=== PATIENT | female | born 1950 | race African-American/Black ===

== ENCOUNTER → 2018-02-18 | Outpatient (CLI) | payer MEDICARE ==
[2018-02-18 10:05] LABS: ABSOLUTE LYMPHOCYTES (AUTO) 0.4 10^3/uL (0.5-4.7); ABSOLUTE MONOCYTES (AUTO) 0.4 10^3/uL (0.1-1.4); ABSOLUTE NEUT (AUTO) 2.7 10^3/uL (1.7-8.2); BASOPHILS % (AUTO) 0.7 % (0-2); EOSINOPHILS % (AUTO) 0.9 % (0-6); HEMATOCRIT 22.7 % (36.0-47.0); LYMPHOCYTES % (AUTO) 10.6 % (13-45); MEAN CORPUSCULAR HEMOGLOBIN 18.5 pg (27.0-33.4); MEAN CORPUSCULAR HGB CONC 29.1 g/dL (32.0-36.0); MONOCYTES % (AUTO) 12.1 % (3-13); PLATELET COUNT 362 10^3/uL (150-450); RED BLOOD COUNT 3.57 10^6/uL (3.72-5.28); RED CELL DISTRIBUTION WIDTH 17.5 % (11.5-14.0); SEGMENTED NEUTROPHILS % (AUTO) 75.7 % (42-78); TOTAL CELLS COUNTED % (AUTO) 100 %; WHITE BLOOD COUNT 3.6 10^3/uL (4.0-10.5)
[2018-02-18 10:24] LABS: ALANINE AMINOTRANSFERASE 27 U/L (9-52); ALBUMIN 4.4 g/dL (3.5-5.0); ALKALINE PHOSPHATASE 95 U/L (38-126); ANION GAP 15 (5-19); ASPARTATE AMINO TRANSFERASE 20 U/L (14-36); BILIRUBIN,DIRECT 0.2 mg/dL (0.0-0.4); BILIRUBIN,TOTAL 0.2 mg/dL (0.2-1.3); BLOOD UREA NITROGEN 12 mg/dL (7-20); CALCIUM 10.3 mg/dL (8.4-10.2); CARBON DIOXIDE 28 mmol/L (22-30); CHLORIDE 101 mmol/L (98-107); CHOLESTEROL 191.82 mg/dL (0-200); GLUCOSE 112 mg/dL (75-110); POTASSIUM 4.5 mmol/L (3.6-5.0); SODIUM 144.3 mmol/L (137-145); TOTAL PROTEIN 7.2 g/dL (6.3-8.2); TRIGLYCERIDES 94 mg/dL (<150)
[2018-02-18 10:31] LABS: MEAN CORPUSCULAR VOLUME 64 fl (80-97)
[2018-02-18 10:34] LABS: ANISOCYTOSIS 1+; HYPOCHROMASIA 2+; POIKILOCYTOSIS 3+
[2018-02-18 10:35] LABS: OVALOCYTES 2+; PLATELET COMMENT ADEQUATE; TEAR DROP CELLS 1+
[2018-02-18 10:36] LABS: DIRECT LDL 92 mg/dL (<100)
[2018-02-18 10:40] LABS: FREE T4 (FREE THYROXINE) 0.95 ng/dL (0.78-2.19)
[2018-02-18 10:50] LABS: HEMOGLOBIN 6.6 g/dL (12.0-15.5)
[2018-02-18 11:31] LABS: THYROID STIMULATING HORMONE 3.94 uIU/mL (0.47-4.68)
[2018-02-20 13:24] LABS: PATH REVIEW PATHOLOGIST REVIEWED
== END ==
LOC: OD 08:20
PROVIDERS: ATTEND Physician Assistant
DX: E03.9 Hypothyroidism, unspecified (principal); Z13.220 Encounter for screening for lipoid disorders; Z79.899 Other long term (current) drug therapy
CPT/HCPCS: 36415; 80053; 80061; 84439; 84443; 85025

== ENCOUNTER → 2018-02-21 | Outpatient (CLI) | payer MEDICARE ==
--- NOTE | 2018-02-21 13:13 | RADIOLOGY REPORT (SQ) ---
EXAM DESCRIPTION: CHEST PA/LATERAL COMPLETED DATE/TIME: 02/21/2018 1:02 pm REASON FOR STUDY: COUGH COMPARISON: None. EXAM PARAMETERS: NUMBER OF VIEWS: two views TECHNIQUE: Digital Frontal and Lateral radiographic views of the chest acquired. RADIATION DOSE: NA LIMITATIONS: none FINDINGS: LUNGS AND PLEURA: Fairly extensive irregular reticulonodular pattern in both right and lef t upper lung zones, right greater than left. No pleural effusion. No pneumothorax. MEDIASTINUM AND HILAR STRUCTURES: No masses or contour abnormalities. HEART AND VASCULAR STRUCTURES: Heart normal size. No evidence for failure. BONES: No acute findings. HARDWARE: None in the chest. OTHER: No other significant finding. IMPRESSION: EXTENSIVE BILATERAL IRREGULAR RETICULONODULAR PATTERN. THIS COULD REPRESENT ACUTE PNEUM ONIA OR ATYPICAL INFECTION. CHRONIC PROCESS NOT EXCLUDED. TECHNICAL DOCUMENTATION: JOB ID: [id number] [employer]- All Rights Reserved Reading location - IP/workstation name: [email or web address]
[2018-02-21 14:04] LABS: ABSOLUTE LYMPHOCYTES (AUTO) 0.3 10^3/uL (0.5-4.7); ABSOLUTE MONOCYTES (AUTO) 0.4 10^3/uL (0.1-1.4); ABSOLUTE NEUT (AUTO) 2.8 10^3/uL (1.7-8.2); ABSOLUTE RETICS # 0.053 10^6/uL (0.028-0.122); EOSINOPHILS % (AUTO) 0.6 % (0-6); HEMATOCRIT 21.9 % (36.0-47.0); LYMPHOCYTES % (AUTO) 8.9 % (13-45); MEAN CORPUSCULAR HEMOGLOBIN 18.5 pg (27.0-33.4); MEAN CORPUSCULAR VOLUME 64 fl (80-97); MONOCYTES % (AUTO) 11.6 % (3-13); PLATELET COUNT 310 10^3/uL (150-450); RED BLOOD COUNT 3.43 10^6/uL (3.72-5.28); RETICULOCYTE COUNT (AUTO) 1.54 % (0.66-2.85); SEGMENTED NEUTROPHILS % (AUTO) 77.9 % (42-78); TOTAL CELLS COUNTED % (AUTO) 100 %; WHITE BLOOD COUNT 3.6 10^3/uL (4.0-10.5)
[2018-02-21 14:56] LABS: FERRITIN 5.01 ng/mL (11.1-264.0)
[2018-02-21 15:02] LABS: HYPOCHROMASIA 3+; PLATELET COMMENT ADEQUATE
[2018-02-21 15:03] LABS: OVALOCYTES SLIGHT; POIKILOCYTOSIS SLIGHT
[2018-02-21 15:07] LABS: HEMOGLOBIN 6.3 g/dL (12.0-15.5)
[2018-02-21 15:34] LABS: IRON(TIBC) < 10.1 ug/dL (37-170)
[2018-02-22 08:01] LABS: TRANSFERRIN 359 mg/dL (200-370)
== END ==
LOC: OD 12:25
PROVIDERS: ATTEND Physician Assistant
DX: D70.9 Neutropenia, unspecified (principal); R73.01 Impaired fasting glucose; D50.9 Iron deficiency anemia, unspecified; R05 Cough
CPT/HCPCS: 36415; 71046; 82525; 82607; 82728; 82746; 83036; 83540; 83550; 84466; 85025; 85045

== ENCOUNTER → 2018-02-24 | Outpatient (CLI) | payer MEDICARE ==
--- NOTE | 2018-02-24 15:54 | WOMENS IMAGING REPORT ---
EXAM DESCRIPTION: 3D SCREENING MAMMO BILAT COMPLETED DATE/TIME: 02/24/2018 3:43 pm REASON FOR STUDY: ROUTINE SCREENING;Z12.31 Z12.31 ENCNTR SCREEN MAMMOGRAM FOR MALIGNANT NEOPLASM OF MARIKA COMPARISON: None available. TECHNIQUE: Standard craniocaudal and mediolateral oblique views of each breast recorded using digita l acquisition and breast tomosynthesis. LIMITATIONS: None. FINDINGS: No masses, calcifications or architectural distortion. No areas of suspicion. Read with the assistance of CAD. .[facility] - R2 Cenova Version 1.3 .[facility] Imaging - R2 Cenova Version 1.3 .[facility] - R2 Cenova Version 2.4 .[facility] - R2 Cenova Version 2.4 .[facility] - R2 Poured Wall Foreman Version 9.2 IMPRESSION: NORMAL MAMMOGRAM. BIRADS 1. BREAST DENSITY: c. The breasts are heterogeneously dense, which may obscure small masses. BIRAD: 1 NEGATIVE RECOMMENDATION: ROUTINE SCREENING COMMENT: The patient has been notified of the results by letter per SA requirements. Additional no tification policies are in place for contacting patient with suspicious or incomplete findings. Quality ID #[id number]: The [employer] recommends an annual screening mammogram for women aged 40 years or over. This facility utilizes a reminder system to ensure that all patients receive reminder letters, and/or direct phone calls for appointments. This includes reminders for routine scr eening mammograms, diagnostic mammograms, or other Breast Imaging Interventions when appropriate. Th is patient will be placed in the appropriate reminder system. The [employer] (ACR) has developed recommendations for screening MRI of the breast s in certain patient populations, to be used in conjunction with mammography. Breast MRI surveillanc e may be appropriate for women with more than 20% lifetime risk of developing breast cancer as deter mined by genetic testing, significant family history of the disease, or history of mantle radiation f or Hodgkins Disease. ACR Practice Guidelines 2008. DBT Technology DBT is a type of tomographic mammography. With conventional mammography, overlapping breast tissue ma y make lesions difficult to detect, even with good compression. DBT uses an x-ray tube that rotates a round the breast, taking images at different angles. These images are then combined to create thin sl ices of the breast that the radiologist can view as a 3D reconstruction. The BioMax unit can perform full-field digital mammograms (2D imaging); or DBT (3D imaging); or both, in a combination mode that quickly performs both the mammogram and the tomosynthesis scan while the breast is still compressed. PQRS 6045F: Fluoroscopic imaging is not utilized for breast tomosynthesis. TECHNICAL DOCUMENTATION: FINDING NUMBER: (1) ASSESSMENT: (1) JOB ID: [id number] [employer]- All Rights Reserved Reading location - IP/workstation name: [email or web address]
== END ==
LOC: WI 15:14
PROVIDERS: ATTEND Physician Assistant
DX: Z12.31 Encounter for screening mammogram for malignant neoplasm of breast (principal)
CPT/HCPCS: 77063; 77067

== ENCOUNTER 2018-03-06 15:23 | Inpatient (IN) | payer MEDICARE ==
[2018-03-06] MEDS ORDERED: KETOROLAC TROMETHAMINE INJ/PF 30 MG/1 ML SDV IV ONE (16:58)
--- NOTE | 2018-03-06 17:01 | ER Document Report ---
ED Medical Screen (RME) - General Chief Complaint: Rib Pain Stated Complaint: LEFT SIDE PAIN Time Seen by Provider: 03/06/18 16:36 Mode of Arrival: Ambulatory Information source: Patient TRAVEL OUTSIDE OF THE [place] IN LAST 30 DAYS: No - HPI Patient complains to provider of: chest pain Notes: 03/06/18 16:59 Patient is here with complaints of left-sided chest pain. She states that is been present for little over a month. The pain is worse with deep breath. She feels short of breath. She denies any trauma or injury. She denies any cough or fever. She denies any leg pain or swelling, history of DVT or PE, cancer history, recent long trips or surgeries, immobilization, hormone use. She was seen by her primary care doctor for this and told to come to the ER if her symptoms did not improve or worsened. Physical exam: Patient is nontoxic appearing and in no distress. Lungs are clear. Plan: CBC, CMP, troponin, BNP, urine, EKG, chest x-ray. An initial examination was made on the patient as part of the triage process, and it was determined a more comprehensive evaluation was necessary. Initial labs were ordered and patient was transferred to another provider in the ED who assumed care and finished evaluation and plan. - Related Data Allergies/Adverse Reactions: No Known Allergies Allergy (Verified 03/06/18 15:25) Physical Exam - Vital signs Vitals: Temp Pulse Resp BP Pulse Ox 98.6 F 93 14 124/64 98 03/06/18 15:31 03/06/18 15:31 03/06/18 15:31 03/06/18 15:31 03/06/18 15:31 Course - Vital Signs Vital signs: Temp Pulse Resp BP Pulse Ox 98.6 F 93 14 124/64 98 03/06/18 15:31 03/06/18 15:31 03/06/18 15:31 03/06/18 15:31 03/06/18 15:31
--- NOTE | 2018-03-06 17:16 | RADIOLOGY REPORT (SQ) ---
EXAM DESCRIPTION: CHEST 2 VIEWS COMPLETED DATE/TIME: 03/06/2018 5:06 pm REASON FOR STUDY: chest pain COMPARISON: 02/21/2018 EXAM PARAMETERS: NUMBER OF VIEWS: two views TECHNIQUE: Digital Frontal and Lateral radiographic views of the chest acquired. RADIATION DOSE: NA LIMITATIONS: none FINDINGS: LUNGS AND PLEURA: Slight improved aeration in the right mid lung, but there are persistent patchy nodular -reticulonodular opacities bilaterally, mid and upper lobe predominance. No pneumoth orax. No significant effusion. MEDIASTINUM AND HILAR STRUCTURES: Stable. HEART AND VASCULAR STRUCTURES: Heart normal size. BONES: No acute findings. HARDWARE: None in the chest. OTHER: No other significant finding. IMPRESSION: Slight improved aeration in the right mid lung, but there are persistent patchy nodular -reticulonodular opacities bilaterally, mid and upper lobe predominance. COMMENT: Continued radiographic follow-up is recommended to confirm clearing. TECHNICAL DOCUMENTATION: JOB ID: [id number] [place]-72 2010 [employer]- All Rights Reserved Reading location - IP/workstation name: [email or web address]
[2018-03-06 18:54] LABS: ALANINE AMINOTRANSFERASE 31 U/L (9-52); ALBUMIN 4.6 g/dL (3.5-5.0); ALKALINE PHOSPHATASE 108 U/L (38-126); ANION GAP 15 (5-19); ASPARTATE AMINO TRANSFERASE 26 U/L (14-36); BILIRUBIN,DIRECT 0.2 mg/dL (0.0-0.4); BILIRUBIN,TOTAL 0.4 mg/dL (0.2-1.3); BLOOD UREA NITROGEN 12 mg/dL (7-20); CALCIUM 10.4 mg/dL (8.4-10.2); CARBON DIOXIDE 24 mmol/L (22-30); CHLORIDE 97 mmol/L (98-107); GLUCOSE 117 mg/dL (75-110); POTASSIUM 4.4 mmol/L (3.6-5.0); SODIUM 135.7 mmol/L (137-145); TOTAL PROTEIN 7.4 g/dL (6.3-8.2)
[2018-03-06 19:21] LABS: NT PRO BNP 66 pg/mL (5-900)
[2018-03-06 19:23] LABS: TROPONIN I < 0.012 ng/mL
[2018-03-06 19:25] LABS: HEMATOCRIT 23.2 % (36.0-47.0); MEAN CORPUSCULAR HEMOGLOBIN 19.9 pg (27.0-33.4); MEAN CORPUSCULAR HGB CONC 29.4 g/dL (32.0-36.0); PLATELET COUNT 491 10^3/uL (150-450); RED BLOOD COUNT 3.43 10^6/uL (3.72-5.28); RED CELL DISTRIBUTION WIDTH 17.9 % (11.5-14.0); WHITE BLOOD COUNT 6.5 10^3/uL (4.0-10.5)
[2018-03-06 19:29] LABS: MEAN CORPUSCULAR VOLUME 68 fl (80-97)
[2018-03-06 19:46] LABS: ABSOLUTE LYMPHOCYTES# (MANUAL) 0.5 10^3/uL (0.5-4.7); ABSOLUTE MONOCYTES # (MANUAL) 0.8 10^3/uL (0.1-1.4); ABSOLUTE NEUTROPHILS# (MANUAL) 5.2 10^3/uL (1.7-8.2); BASOPHILS % (MANUAL) 0 % (0-2); EOSINOPHILS % (MANUAL) 1 % (0-6); LYMPHOCYTES % (MANUAL) 7 % (13-45); MONOCYTES % (MANUAL) 12 % (3-13); SEGMENTED NEUTROPHILS % (MAN) 80 % (42-78); TOTAL CELLS COUNTED 100
[2018-03-06 19:48] LABS: ANISOCYTOSIS 1+; HYPOCHROMASIA 1+; PLATELET COMMENT INCREASED; POIKILOCYTOSIS SLIGHT; TOXIC GRANULATION SLIGHT
[2018-03-06 19:52] LABS: HEMOGLOBIN 6.8 g/dL (12.0-15.5)
--- NOTE | 2018-03-06 20:00 | RADIOLOGY REPORT (SQ) ---
EXAM DESCRIPTION: CTA CHEST COMPLETED DATE/TIME: 03/06/2018 7:29 pm REASON FOR STUDY: cxr abnormalities COMPARISON: None. TECHNIQUE: CT scan of the chest performed using helical scanning technique with dynamic intravenous contrast injection. Images reviewed with lung, soft tissue and bone windows. Reconstructed coronal and sagittal MPR images reviewed. Additional 3 dimensional post-processing performed to develop Maximal Intensity Projection images (OR P). All images stored on PACS. All CT scanners at this facility use dose modulation, iterative reconstruction, and/or weight based d osing when appropriate to reduce radiation dose to as low as reasonably achievable (ALARA). [facility]: Dose Right [facility]: CareDose [facility]: Dose Right [facility]: Teradose 4D [facility]: Talkray CONTRAST TYPE AND DOSE: contrast/concentration: Isovue 370.00 mg/ml; Total Contrast Delivered: 61.0 ml; Total Saline Delivered: 93.0 ml Contrast bolus adequate for pulmonary arteries and aorta. RENAL FUNCTION: BUN 12 creatinine 0.8 RADIATION DOSE: CT Rad equipment meets quality standard of care and radiation dose reduction techniq ues were employed. CTDIvol: 13.2 - 14.7 mGy. DLP: 513 mGy-cm. . LIMITATIONS: None. FINDINGS: LUNGS AND PLEURA: Patchy subsegmental airspace disease in both lungs with some nodular mor phology and relative sparing of the lower lobes. No evidence of cavitation. No effusions. AORTA AND GREAT VESSELS: No aneurysm. Contrast bolus not optimized for the aorta. HEART: No pericardial effusion. No significant coronary artery calcifications. PULMONARY ARTERIES: No emboli visualized in the main pulmonary arteries or the segmental branches. HILAR AND MEDIASTINAL STRUCTURES: No identified masses or abnormal nodes. HARDWARE: None in the chest. UPPER ABDOMEN: At least 2 lesions in the liver which are difficult to further characterize due to sm all size. THYROID AND OTHER SOFT TISSUES: No masses. No adenopathy. BONES: No acute or significant finding. 3D MIPS: Confirm above findings. OTHER: No other significant finding. IMPRESSION: 1. No PE. 2. Bilateral airspace disease with potential developing nodules especially in the left upper lobe. C ould be infectious, inflammatory or neoplastic. 3. Small low-density lesions in the liver which will need dedicated liver imaging follow-up. COMMENT: Quality ID # [id number]: Final reports with documentation of one or more dose reduction techniques (e.g., Automated exposure control, adjustment of the mA and/or kV according to patient size, use of iterative reconstruction technique) TECHNICAL DOCUMENTATION: JOB ID: [id number] [employer]- All Rights Reserved Reading location - IP/workstation name: [email or web address]
[2018-03-06] MEDS ORDERED: NORMAL SALINE 250 ML IV PRN (20:17)
--- NOTE | 2018-03-06 20:21 | ER Document Report ---
ED General - General Chief Complaint: Rib Pain Stated Complaint: LEFT SIDE PAIN Time Seen by Provider: 03/06/18 16:36 Mode of Arrival: Ambulatory Notes: Patient is a 67-year-old female with a past medical history of hypertension who presents with 3-4 weeks of left-sided pleuritic pain. Patient reports it is a stabbing, constant pain worsened by breathing. She notes mild associated shortness of breath. She has seen her primary care doctor regarding this concern and was told that she had multiple nodules in her lungs that could be an infection or alternative process. She has a pulmonary consult pending but does not know the date at which she will be able to go to this consultation. She denies a history of similar symptoms in the past. Nothing improves or worsens her symptoms. She denies any hemoptysis, unilateral leg swelling or history of DVT or pulmonary embolus. No prior history of malignancy. She does note some involuntary weight loss. She has not had any vomiting, diarrhea or chest pain. No fever, cough or sputum production. TRAVEL OUTSIDE OF THE [place] IN LAST 30 DAYS: No - Related Data Allergies/Adverse Reactions: No Known Allergies Allergy (Verified 03/06/18 15:25) Past Medical History - General Information source: Patient - Social History Smoking Status: Never Smoker Frequency of alcohol use: None Drug Abuse: None Lives with: Family Family History: Reviewed & Not Pertinent Patient has suicidal ideation: No Patient has homicidal ideation: No Renal/ Medical History: Denies: Hx Peritoneal Dialysis Review of Systems - Review of Systems Notes: Constitutional: Negative for fever. HENT: Negative for sore throat. Eyes: Negative for visual changes. Cardiovascular: Positive for pleuritic pain Respiratory: Positive for shortness of breath. Gastrointestinal: Negative for abdominal pain, vomiting or diarrhea. Genitourinary: Negative for dysuria. Musculoskeletal: Negative for back pain. Skin: Negative for rash. Neurological: Negative for headaches, weakness or numbness. 10 point ROS negative except as marked above and in HPI. Physical Exam - Vital signs Vitals: Temp Pulse Resp BP Pulse Ox 98.6 F 93 14 124/64 98 03/06/18 15:31 03/06/18 15:31 03/06/18 15:31 03/06/18 15:31 03/06/18 15:31 Interpretation: Normal Notes: PHYSICAL EXAMINATION: GENERAL: Somewhat cachectic, no acute distress HEAD: Atraumatic, normocephalic. EYES: Pupils equal round and reactive to light, extraocular movements intact, sclera anicteric, conjunctiva are normal. ENT: nares patent, oropharynx clear without exudates. Moist mucous membranes. NECK: Normal range of motion, supple without lymphadenopathy LUNGS: Breath sounds clear to auscultation bilaterally and equal. No wheezes rales or rhonchi. HEART: Regular rate and rhythm without murmurs ABDOMEN: Soft, nontender, normoactive bowel sounds. No guarding, no rebound. No masses appreciated. EXTREMITIES: Normal range of motion, no pitting or edema. No cyanosis. NEUROLOGICAL: No focal neurological deficits. Moves all extremities spontaneously and on command. PSYCH: Normal mood, normal affect. SKIN: Warm, Dry, normal turgor, no rashes or lesions noted. Course - Re-evaluation Re-evalutation: 03/06/18 20:19 Patient presents with several weeks of progressively worsening left pleuritic pain, shortness of breath and general fatigue. Patient had a chest x-ray approximately 2 weeks ago as an outpatient which showed multiple nodularities in the bilateral lungs worrisome for . She also was found to be anemic as an outpatient but was placed on iron supplementation and not given a blood transfusion. Today the patient presents with ongoing left pleuritic pain. A CT of the chest was obtained given concern of possible malignancy as well as dyspnea and pleuritic pain worrisome for possible pulmonary embolus. CT is clear for any evidence of acute PE but shows multiple nodularities bilaterally worse in the left upper lobe as well as a possible nodularity in the liver again very worrisome for metastatic malignancy. The patient's blood work also shows marked anemia with a hemoglobin at 6.8. Patient will require blood transfusion has been typed and screened and will receive 2 units of packed red blood cells. I discussed this case with the oncologist escalation engineer Dr. Felton Hazel who agrees that this patient requires hospitalization and will consult on the patient for further evaluation of the lung nodularities as well as the liver nodularity. I will discuss with the hospitalist for admission. I have relayed these findings the patient and have discussed with her at length the plan for hospitalization. - Vital Signs Vital signs: Temp Pulse Resp BP Pulse Ox 98.1 F 57 L 16 111/61 100 03/07/18 03:45 03/07/18 03:45 03/07/18 03:45 03/07/18 03:45 03/07/18 03:45 - Laboratory Result Diagrams: 03/06/18 19:13 03/06/18 18:21 Laboratory results interpreted by me: 03/06/18 03/06/18 03/06/18 18:21 18:21 19:13 RBC 3.43 L Hgb 6.8 L Hct 23.2 L MCV 68 L D MCH 19.9 L MCHC 29.4 L RDW 17.9 H Plt Count 491 H Seg Neuts % (Manual) 80 H Lymphocytes % (Manual) 7 L D-Dimer 1.15 H Sodium 135.7 L Chloride 97 L Glucose 117 H Calcium 10.4 H Crossmatch 03/06/18 20:31 RBC Hgb Hct MCV MCH MCHC RDW Plt Count Seg Neuts % (Manual) Lymphocytes % (Manual) D-Dimer Sodium Chloride Glucose Calcium Crossmatch See Detail - Diagnostic Test Radiology reviewed: Image reviewed, Reports reviewed Radiology results interpreted by me: 03/06/18 20:20 CTA chest: Multiple nodularities in the bilateral lungs Discharge - Discharge Clinical Impression: Lung nodule, multiple, Pleuritic pain Iron deficiency anemia Qualifiers: Iron deficiency anemia type: unspecified iron deficiency Qualified Code(s): D50.9 - Iron deficiency anemia, unspecified Condition: Fair Disposition: ADMITTED INPATIENT Admitting Provider: Hospitalist Unit Admitted: Telemetry
[2018-03-06] MEDS ORDERED: OXYCODONE-ACETAMINOPHEN 5-325 MG TABLET PO PRN (21:08)
[2018-03-06] MEDS ORDERED: PROMETHAZINE HCL 25 MG TABLET PO PRN (21:08)
[2018-03-06] MEDS ORDERED: TEMAZEPAM 7.5 MG CAPSULE PO PRN (21:08)
--- NOTE | 2018-03-06 21:40 | PDOC H&P ---
History of Present Illness Admission Date/PCP: 03/06/18 20:46 History of Present Illness: ROHITH MARTINEZ is a 67 year old black female patient who does not significant medical history except for hypertension and hypothyroidism presents with chief complaint of shortness of breath, generalized body weakness and pleuritic chest pain of 4 weeks duration. Patient initially visited her primary care physician office and she is started on iron preparations for anemia. About 2 weeks ago patient had a chest x-ray and outpatient and it revealed bilateral lung nodules. He also CTA of the chest was done reported as bilateral airspace disease with potential developing nodules especially in the left upper lobe and also a small low-density lesion in the liver. Patient denied any history of smoking but cancer runs in her family. Patient also found to have hemoglobin of 6.8 which 2 units of WBC requested. Patient denied chills, fever, cough, nausea, vomiting, palpitation or diaphoresis. She has unintentional weight loss and decreased appetite. Past Medical History Cardiac Medical History: Reports: Hypertension Endocrine Medical History: Reports: Hypothyroidism Hematology: Reports: Anemia Past Surgical History Past Surgical History: Reports: None Social History Smoking Status: Never Smoker Frequency of Alcohol Use: None Drugs: None - Advance Directive Resuscitation Status: Full Code Family History Family History: Malignancy Parental Family History Reviewed: Yes Children Family History Reviewed: Yes Sibling(s) Family History Reviewed.: Yes Medication/Allergy Home Medications: Buspirone HCl [Buspar 5 mg Tablet] 1 tab PO DAILY 03/06/18 Levothyroxine Sodium [Synthroid 0.025 mg Tablet] 25 mcg PO DAILY 03/06/18 Lisinopril/Hydrochlorothiazide [Lisinopril-Hctz 20-12.5 mg Tab] 1 each PO DAILY 03/06/18 Allergies/Adverse Reactions: No Known Allergies Allergy (Verified 03/06/18 15:25) Review of Systems Constitutional: PRESENT: as per HPI Eyes: PRESENT: as per HPI Respiratory: PRESENT: as per HPI Gastrointestinal: PRESENT: as per HPI Neurological: PRESENT: as per HPI Physical Exam Vital Signs: Temp Pulse Resp BP Pulse Ox 97.6 F 84 18 147/72 H 100 03/06/18 20:22 03/06/18 19:35 03/06/18 20:20 03/06/18 20:20 03/06/18 20:20 General appearance: PRESENT: no acute distress Head exam: PRESENT: atraumatic, normocephalic Respiratory exam: PRESENT: crackles - Left leg Cardiovascular exam: PRESENT: RRR. ABSENT: diastolic murmur, rubs, systolic murmur Neurological exam: PRESENT: alert, awake, oriented to time, oriented to situation Results Impressions: Chest X-Ray 03/06/18 16:55 IMPRESSION: Slight improved aeration in the right mid lung, but there are persistent patchy nodular -reticulonodular opacities bilaterally, mid and upper lobe predominance. Chest/Abdomen CTA 03/06/18 18:34 IMPRESSION: 1. No PE. 2. Bilateral airspace disease with potential developing nodules especially in the left upper lobe. Could be infectious, inflammatory or neoplastic. 3. Small low-density lesions in the liver which will need dedicated liver imaging follow-up. Assessment & Plan - Diagnosis (1) Iron deficiency anemia Qualifiers: Iron deficiency anemia type: unspecified iron deficiency Qualified Code(s) : D50.9 - Iron deficiency anemia, unspecified Is this a current diagnosis for this admission?: Yes Plan: We will transfuse her 2 units of packed RBC. We will work her up as to the cause of her anemia. (2) Lung nodule, multiple Is this a current diagnosis for this admission?: Yes Plan: Worrisome for malignancy CT-guided biopsy Oncology consult (3) Hypertension Qualifiers: Hypertension type: essential hypertension Qualified Code(s): I10 - Essential (primary) hypertension Is this a current diagnosis for this admission?: Yes Plan: To her home medication (4) Hypothyroidism Qualifiers: Hypothyroidism type: acquired Qualified Code(s): E03.9 - Hypothyroidism, unspecified Is this a current diagnosis for this admission?: Yes Plan: Continue her Synthroid. - Time Critical Time spent with patient: 25-34 minutes
[2018-03-07] MEDS: LANSOPRAZOLE 30 MG TAB.RAP.DR PO SCH (05:35)
--- NOTE | 2018-03-07 07:17 | EKG REPORT ---
SEVERITY:- OTHERWISE NORMAL ECG - SINUS RHYTHM BORDERLINE LEFT AXIS DEVIATION : Confirmed by: Carter Casiano MD 07-Mar-2018 07:17:24
--- NOTE | 2018-03-07 08:39 | PDOC CONSULTATION ---
Consultation Consult Date: 03/07/18 Attending physician:: MARLA MONTIEL Consult reason:: Symptomatic anemia, concern of lung abnormality History of Present Illness Admission Date/PCP: 03/06/18 20:46 Patient complains of: Shortness of breath, anemia History of Present Illness: ROHITH MARTINEZ is a 67 year old female with recent history of iron deficiency anemia, she actually did see us in our office and we had set her up for an iron infusion this week, at the time she saw us although her hemoglobin was in the 6- 7 range she was minimally symptomatic, so we decided on holding on transfusion at that time and decided to set her up for less invasive iron infusion. Unfortunately about 24-48 hours prior to admission she began having increased shortness of breath and chest pain, ultimately she presented to the ED and at that time she was found to have a hemoglobin in the 6 range, iron studies once again did confirm severe iron deficiency, she had a CTA of the chest looking for thrombosis but this was not found instead patient did have bilateral lung opacities, there was concern of either infectious, inflammatory or malignancy cause. She has not had any significant low weight loss and has not had any black stool or hematochezia. Past Medical History Cardiac Medical History: Reports: Hypertension Endocrine Medical History: Reports: Hypothyroidism Hematology: Reports: Anemia Past Surgical History Past Surgical History: Reports: None Social History Information Source: Patient Lives with: Family Smoking Status: Never Smoker Frequency of Alcohol Use: None Hx Recreational Drug Use: No Drugs: None Hx Prescription Drug Abuse: No - Advance Directive Resuscitation Status: Full Code Family History Family History: Reviewed & Not Pertinent Parental Family History Reviewed: Yes Children Family History Reviewed: Yes Sibling(s) Family History Reviewed.: Yes Medication/Allergy Home Medications: Buspirone HCl [Buspar 5 mg Tablet] 1 tab PO DAILY 03/06/18 Levothyroxine Sodium [Synthroid 0.025 mg Tablet] 25 mcg PO DAILY 03/06/18 Lisinopril/Hydrochlorothiazide [Lisinopril-Hctz 20-12.5 mg Tab] 1 each PO DAILY 03/06/18 Allergies/Adverse Reactions: No Known Allergies Allergy (Verified 03/06/18 15:25) Review of Systems Constitutional: PRESENT: fatigue, weakness Cardiovascular: PRESENT: chest pain, dyspnea on exertion Respiratory: PRESENT: dyspnea Gastrointestinal: ABSENT: abdominal pain, constipation, diarrhea, hematemesis, hematochezia, nausea, vomiting Neurological: ABSENT: abnormal gait, abnormal speech, confusion, dizziness, focal weakness, syncope Psychiatric: ABSENT: anxiety, depression, homidical ideation, suicidal ideation Hematologic/Lymphatic: ABSENT: easy bleeding, easy bruising Physical Exam Vital Signs: Temp Pulse Resp BP Pulse Ox 98.2 F 63 16 109/61 100 03/07/18 07:15 03/07/18 07:15 03/07/18 07:15 03/07/18 07:15 03/07/18 07:15 Intake & Output 03/06/18 03/07/18 03/08/18 06:59 06:59 06:59 Intake Total 1122 Balance 1122 Weight 56.3 kg General appearance: PRESENT: no acute distress, well-developed, well-nourished Head exam: PRESENT: atraumatic, normocephalic Eye exam: PRESENT: conjunctiva pink, EOMI, PERRLA. ABSENT: scleral icterus Ear exam: PRESENT: normal external ear exam Mouth exam: PRESENT: moist, tongue midline Neck exam: ABSENT: carotid bruit, JVD, lymphadenopathy, thyromegaly Respiratory exam: PRESENT: clear to auscultation rochelle. ABSENT: rales, rhonchi, wheezes Cardiovascular exam: PRESENT: RRR. ABSENT: diastolic murmur, rubs, systolic murmur Pulses: PRESENT: normal dorsalis pedis pul Vascular exam: PRESENT: normal capillary refill GI/Abdominal exam: PRESENT: normal bowel sounds, soft. ABSENT: distended, guarding, mass, organolmegaly, rebound, tenderness Rectal exam: PRESENT: deferred Extremities exam: PRESENT: full ROM. ABSENT: calf tenderness, clubbing, pedal edema Neurological exam: PRESENT: alert, awake, oriented to person, oriented to place , oriented to time, oriented to situation, CN II-XII grossly intact. ABSENT: motor sensory deficit Psychiatric exam: PRESENT: appropriate affect, normal mood. ABSENT: homicidal ideation, suicidal ideation Skin exam: PRESENT: dry, intact, warm. ABSENT: cyanosis, rash Results Impressions: Chest X-Ray 03/06/18 16:55 IMPRESSION: Slight improved aeration in the right mid lung, but there are persistent patchy nodular -reticulonodular opacities bilaterally, mid and upper lobe predominance. Chest/Abdomen CTA 03/06/18 18:34 IMPRESSION: 1. No PE. 2. Bilateral airspace disease with potential developing nodules especially in the left upper lobe. Could be infectious, inflammatory or neoplastic. 3. Small low-density lesions in the liver which will need dedicated liver imaging follow-up. Status: Image reviewed by me Assessment & Plan - Diagnosis (1) Iron deficiency anemia Qualifiers: Iron deficiency anemia type: chronic blood loss Qualified Code(s): D50.0 - Iron deficiency anemia secondary to blood loss (chronic) Is this a current diagnosis for this admission?: Yes Plan: Most likely going to be a chronic blood loss, she has never had a colonoscopy, I will order a CT of the abdomen pelvis today with IV and oral contrast, she is receiving blood today, after blood I will give her IV iron. (2) Lung nodule, multiple Is this a current diagnosis for this admission?: Yes Plan: Unsure if it is going to be a malignancy cause but infection as well as inflammation can cause this, await CT of the abdomen pelvis to see if there is any other areas that are concerning, possibly for a primary tumor, we will go with further diagnostics based upon that. - Time Time Spent: Greater than 70 Minutes - Inpatient Certification Based on my medical assessment, after consideration of the patient's comorbidities, presenting symptoms, or acuity I expect that the services needed warrant INPATIENT care.: Yes I certify that my determination is in accordance with my understanding of Medicare's requirements for reasonable and necessary INPATIENT services [42 CFR 412.3e].: Yes Medical Necessity: Need For Continuous Telemetry Monitoring, Need for IV Antibiotics, Risk of Complication if Not Cared For in Hospital
--- NOTE | 2018-03-07 08:59 | Physician Advisory Note ---
Physician Advisor ProgressNote .: [facility] I have reviewed the medical record for this patient. Physician Advisor Statement: Please consider documenting, if you agree: 1. possible cause of the suspected chronic blood loss causing the anemia of Fe defic 2. clarify the possible documentation discrepancy about pt wt - H&P states pt has had wt loss & poor appetite, while onc consult note states pt has not had any signif wt loss. BMI is 20. 3. Medical necessity: if attending finds pt continues to need hospital level workup/care/monitoring for a 2nd MN, please document the ongoing concerns/ clinical issues, & may change to Inpatient status. Status: [facility] pt, has had 1MN in hospital care so far. 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 CT-guided bx of lung lesion is ordered. See above. Thanks! CK
[2018-03-07] MEDS ORDERED: NORMAL SALINE 250 ML IV PRN ×2 (10:45)
--- NOTE | 2018-03-07 10:57 | PDOC PROGRESS REPORT ---
Subjective Progress Note for:: 03/07/18 Subjective:: No complaints. Patient states that she had lost around 2 pounds recently. She has been having poor appetite for a couple of days because felt overloaded. Symptoms had improved since then. She has never had a colonoscopy done despite that she is 67 years old. Review of systems All organ systems evaluated and negative except as in subjective All significant diagnostics and laboratories have been reviewed Reason For Visit: SYMPTOMATIC ANEMIA, PLEURITIC CHEST PAIN Physical Exam Vital Signs: Temp Pulse Resp BP Pulse Ox 98.2 F 63 16 109/61 100 03/07/18 07:15 03/07/18 07:15 03/07/18 07:15 03/07/18 07:15 03/07/18 07:15 Intake & Output 03/06/18 03/07/18 03/08/18 06:59 06:59 06:59 Intake Total 1122 Balance 1122 Weight 56.3 kg General appearance: PRESENT: no acute distress, cooperative, thin Head exam: PRESENT: atraumatic, normocephalic Eye exam: PRESENT: conjunctiva pale, EOMI, PERRLA Ear exam: PRESENT: normal external ear exam Mouth exam: PRESENT: moist Neck exam: PRESENT: full ROM. ABSENT: JVD, lymphadenopathy, tenderness Respiratory exam: PRESENT: clear to auscultation rochelle Cardiovascular exam: PRESENT: RRR. ABSENT: diastolic murmur, systolic murmur Vascular exam: PRESENT: normal capillary refill GI/Abdominal exam: PRESENT: normal bowel sounds, soft. ABSENT: tenderness Extremities exam: PRESENT: full ROM. ABSENT: pedal edema Musculoskeletal exam: PRESENT: ambulatory Neurological exam: PRESENT: alert, awake, oriented to person, oriented to place , oriented to time, oriented to situation, CN II-XII grossly intact Psychiatric exam: PRESENT: appropriate affect, normal mood Skin exam: PRESENT: intact, normal color Results Impressions: Chest X-Ray 03/06/18 16:55 IMPRESSION: Slight improved aeration in the right mid lung, but there are persistent patchy nodular -reticulonodular opacities bilaterally, mid and upper lobe predominance. Chest/Abdomen CTA 03/06/18 18:34 IMPRESSION: 1. No PE. 2. Bilateral airspace disease with potential developing nodules especially in the left upper lobe. Could be infectious, inflammatory or neoplastic. 3. Small low-density lesions in the liver which will need dedicated liver imaging follow-up. Assessment & Plan - Diagnosis (1) Hypertension Qualifiers: Hypertension type: essential hypertension Qualified Code(s): I10 - Essential (primary) hypertension Is this a current diagnosis for this admission?: Yes Plan: To continue outpatient regimen (2) Hypothyroidism Qualifiers: Hypothyroidism type: acquired Qualified Code(s): E03.9 - Hypothyroidism, unspecified Is this a current diagnosis for this admission?: Yes Plan: To continue outpatient regimen (3) Iron deficiency anemia Qualifiers: Iron deficiency anemia type: chronic blood loss Qualified Code(s): D50.0 - Iron deficiency anemia secondary to blood loss (chronic) Is this a current diagnosis for this admission?: Yes Plan: patient had been followed up as outpatient by Dr Mckeon. She was to have IV iron but became symptomatic and presented to ED. She had gone thru colonoscopy but is scheduled as outpatient. Will continue with blood transfusion. CT of abdomen/pelvis ordered by Dr Laura. Has not experienced any significant blood loss recently (4) Lung nodule, multiple Is this a current diagnosis for this admission?: Yes Plan: CT guided lung biopsy cancelled and IR recommended to find out if CT of abdomen may reveal larger lesions for biopsy. - Time Time Spent with patient: 15-24 minutes Medications reviewed and adjusted accordingly: Yes Anticipated discharge: Home Within: within 24 hours - Inpatient Certification Based on my medical assessment, after consideration of the patient's comorbidities, presenting symptoms, or acuity I expect that the services needed warrant INPATIENT care.: No I certify that my determination is in accordance with my understanding of Medicare's requirements for reasonable and necessary INPATIENT services [42 CFR 412.3e].: Yes Medical Necessity: Need Close Monitoring Due to Risk of Patient Decompensation
[2018-03-07] MEDS: ENOXAPARIN SODIUM INJ 40 MG/0.4 ML DISP.SYRIN SUBCUT SCH (10:58)
[2018-03-07 11:16] LABS: ABSOLUTE RETICS # 0.307 10^6/uL (0.028-0.122); HEMATOCRIT 29.1 % (36.0-47.0); MEAN CORPUSCULAR HEMOGLOBIN 22.8 pg (27.0-33.4); MEAN CORPUSCULAR HGB CONC 31.5 g/dL (32.0-36.0); PLATELET COUNT 432 10^3/uL (150-450); RED BLOOD COUNT 4.03 10^6/uL (3.72-5.28); RED CELL DISTRIBUTION WIDTH 24.5 % (11.5-14.0); RETICULOCYTE COUNT (AUTO) 7.62 % (0.66-2.85); WHITE BLOOD COUNT 6.2 10^3/uL (4.0-10.5)
[2018-03-07 11:23] LABS: PROTHROMBIN TIME 13.7 SEC (11.4-15.4)
[2018-03-07] MEDS ORDERED: LEVOTHYROXINE SODIUM 0.025 MG TABLET PO ONE (11:30)
[2018-03-07] MEDS ORDERED: BUSPIRONE HCL 10 MG TABLET PO ONE (11:30)
[2018-03-07 11:33] LABS: ANION GAP 13 (5-19); BLOOD UREA NITROGEN 9 mg/dL (7-20); CALCIUM 10.4 mg/dL (8.4-10.2); CARBON DIOXIDE 27 mmol/L (22-30); CHLORIDE 101 mmol/L (98-107); GLUCOSE 117 mg/dL (75-110); IRON(TIBC) 381.9 ug/dL (37-170); POTASSIUM 4.4 mmol/L (3.6-5.0); SODIUM 140.7 mmol/L (137-145)
[2018-03-07 11:36] LABS: HEMOGLOBIN 9.2 g/dL (12.0-15.5); MEAN CORPUSCULAR VOLUME 72 fl (80-97)
[2018-03-07] MEDS: HYDROCHLOROTHIAZIDE 12.5 MG CAPSULE PO SCH (11:54)
[2018-03-07] MEDS: LISINOPRIL 10 MG TABLET PO SCH (11:56)
--- NOTE | 2018-03-07 21:07 | RADIOLOGY REPORT (SQ) ---
EXAM DESCRIPTION: CT ABD/PELVIS WITH IV ORAL COMPLETED DATE/TIME: 03/07/2018 7:19 pm REASON FOR STUDY: Malignancy D50.8 OTHER IRON DEFICIENCY ANEMIAS R06.02 SHORTNESS OF BREATH COMPARISON: None. TECHNIQUE: CT scan of the abdomen and pelvis performed using helical scanning technique with dynamic intravenous contrast injection. Oral contrast. Images reviewed with lung, soft tissue, and bone win dows. Reconstructed coronal and sagittal MPR images reviewed. Delayed images for evaluation of the ur inary system also acquired. All images stored on PACS. All CT scanners at this facility use dose modulation, iterative reconstruction, and/or weight based d osing when appropriate to reduce radiation dose to as low as reasonably achievable (ALARA). [facility]: Dose Right [facility]: CareDose [facility]: Dose Right [facility]: Teradose 4D [facility]: Framebench CONTRAST TYPE AND DOSE: contrast/concentration: Isovue 370.00 mg/ml; Total Contrast Delivered: 61.0 ml; Total Saline Delivered: 65.0 ml RENAL FUNCTION: BUN 9 creatinine 0.75 RADIATION DOSE: CT Rad equipment meets quality standard of care and radiation dose reduction techniq ues were employed. CTDIvol: 7.4 - 9.6 mGy. DLP: 855 mGy-cm.. LIMITATIONS: None. FINDINGS: LOWER CHEST: An 8 mm nodule seen the right lung posteriorly on image 1. LIVER: Normal size. No masses. No dilated ducts. SPLEEN: Normal size. No focal lesions. PANCREAS: No masses. No significant calcifications. No adjacent inflammation or peripancreatic fluid collections. Pancreatic duct not dilated. GALLBLADDER: No identified stones by CT criteria. No inflammatory changes to suggest cholecystitis. ADRENAL GLANDS: No significant masses or asymmetry. RIGHT KIDNEY AND URETER: No solid masses. No significant calcifications. No hydronephrosis or hyd roureter. LEFT KIDNEY AND URETER: No solid masses. A tiny nonobstructing intrarenal calculus is present on im age 34. No hydronephrosis or hydroureter. AORTA AND VESSELS: No aneurysm. No dissection. Renal arteries, SMA, celiac without stenosis. RETROPERITONEUM: No retroperitoneal adenopathy, hemorrhage or masses. BOWEL AND PERITONEAL CAVITY: A 2 to 3 cm mass is suggested in the right colon about 6 cm above the il eocecal valve. APPENDIX: Normal. PELVIS: No mass. No free fluid. Normal bladder. ABDOMINAL WALL: No masses. No hernias. BONES: No significant or acute findings. OTHER: No other significant finding. IMPRESSION: 1. 8 mm right pulmonary nodule. Follow-up as below. 2. Possible 2 to 3 cm mass in the right colon as described. Colonoscopy is recommended. COMMENT: [place] CRITERIA FOR FOLLOW-UP OF PULMONARY NODULES Incidentally detected new nodules in persons 35 or older. HIGH RISK: History of smoking or other known risk factors. 6-8mm single solid nodule: LOW RISK: CT 6-12 mo; then consider CT 18-24 mo. HIGH RISK: CT 6-12 mo; th en CT 18-24 mo. TECHNICAL DOCUMENTATION: JOB ID: [id number] Quality ID # [id number]: Final reports with documentation of one or more dose reduction techniques (e.g., Au tomated exposure control, adjustment of the mA and/or kV according to patient size, use of iterative reconstruction technique) 2010 [employer]- All Rights Reserved Reading location - IP/workstation name: [email or web address]
[2018-03-08] MEDS: LEVOTHYROXINE SODIUM 0.025 MG TABLET PO SCH (06:32)
[2018-03-08] MEDS: LANSOPRAZOLE 30 MG TAB.RAP.DR PO SCH (06:32)
--- NOTE | 2018-03-08 08:42 | PDOC PROGRESS REPORT ---
Subjective Progress Note for:: 03/08/18 Subjective:: No acute events overnight, pt feeling better this am, CT A/P reviewed, there is a 3cm R colon mass noted, 6cm above ileocecal valve Reason For Visit: SYMPTOMATIC ANEMIA, PLEURITIC CHEST PAIN Physical Exam Vital Signs: Temp Pulse Resp BP Pulse Ox 98.5 F 69 16 115/64 100 03/08/18 04:38 03/08/18 04:38 03/08/18 04:38 03/08/18 04:38 03/08/18 04:38 Intake & Output 03/07/18 03/08/18 03/09/18 06:59 06:59 06:59 Intake Total 1122 1429 Balance 1122 1429 Weight 56.3 kg 56.3 kg General appearance: PRESENT: no acute distress, well-developed, well-nourished Head exam: PRESENT: atraumatic, normocephalic Eye exam: PRESENT: conjunctiva pink, EOMI, PERRLA. ABSENT: scleral icterus Ear exam: PRESENT: normal external ear exam Mouth exam: PRESENT: moist, tongue midline Neck exam: ABSENT: carotid bruit, JVD, lymphadenopathy, thyromegaly Respiratory exam: PRESENT: clear to auscultation rochelle. ABSENT: rales, rhonchi, wheezes Cardiovascular exam: PRESENT: RRR. ABSENT: diastolic murmur, rubs, systolic murmur Pulses: PRESENT: normal dorsalis pedis pul Vascular exam: PRESENT: normal capillary refill GI/Abdominal exam: PRESENT: normal bowel sounds, soft. ABSENT: distended, guarding, mass, organolmegaly, rebound, tenderness Rectal exam: PRESENT: deferred Extremities exam: PRESENT: full ROM. ABSENT: calf tenderness, clubbing, pedal edema Neurological exam: PRESENT: alert, awake, oriented to person, oriented to place , oriented to time, oriented to situation, CN II-XII grossly intact. ABSENT: motor sensory deficit Psychiatric exam: PRESENT: appropriate affect, normal mood. ABSENT: homicidal ideation, suicidal ideation Skin exam: PRESENT: dry, intact, warm. ABSENT: cyanosis, rash Results Laboratory Results: 03/07/18 10:47 03/07/18 10:47 03/07/18 03/07/18 03/07/18 10:47 10:47 10:47 WBC 6.2 RBC 4.03 Hgb 9.2 L D Hct 29.1 L MCV 72 L D MCH 22.8 L MCHC 31.5 L RDW 24.5 H Plt Count 432 Retic Count (auto) 7.62 H Absolute Retic 0.307 H Sodium 140.7 Potassium 4.4 Chloride 101 Carbon Dioxide 27 Anion Gap 13 BUN 9 Creatinine 0.75 Est GFR ( Amer) > 60 Est GFR (Non-Af Amer) > 60 Glucose 117 H Calcium 10.4 H Iron 381.9 H TIBC 414 % Saturation 92 Transferrin 327 Ferritin 557.00 H Vitamin B12 727.0 Folate 12.60 Impressions: Chest X-Ray 03/06/18 16:55 IMPRESSION: Slight improved aeration in the right mid lung, but there are persistent patchy nodular -reticulonodular opacities bilaterally, mid and upper lobe predominance. Chest/Abdomen CTA 03/06/18 18:34 IMPRESSION: 1. No PE. 2. Bilateral airspace disease with potential developing nodules especially in the left upper lobe. Could be infectious, inflammatory or neoplastic. 3. Small low-density lesions in the liver which will need dedicated liver imaging follow-up. Abdomen/Pelvis CT 03/07/18 00:00 IMPRESSION: 1. 8 mm right pulmonary nodule. Follow-up as below. 2. Possible 2 to 3 cm mass in the right colon as described. Colonoscopy is recommended. Assessment & Plan - Diagnosis (1) Iron deficiency anemia Qualifiers: Iron deficiency anemia type: chronic blood loss Qualified Code(s): D50.0 - Iron deficiency anemia secondary to blood loss (chronic) Is this a current diagnosis for this admission?: Yes Plan: possible colon blood loss from mass noted in colon, d/w Dr Mccormack, he will see her today and set her up for scope tomorrow. Blood given, IV iron planned. (2) Lung nodule, multiple Is this a current diagnosis for this admission?: Yes Plan: Hold on lung bx for now, plan for colonoscopy first and likely would plan for PET at outpt to eval nodules. - Time Time Spent with patient: 35 or more minutes - Inpatient Certification Based on my medical assessment, after consideration of the patient's comorbidities, presenting symptoms, or acuity I expect that the services needed warrant INPATIENT care.: Yes I certify that my determination is in accordance with my understanding of Medicare's requirements for reasonable and necessary INPATIENT services [42 CFR 412.3e].: Yes Medical Necessity: Need for Surgery
--- NOTE | 2018-03-08 08:58 | PDOC CONSULTATION ---
Consultation Consult Date: 03/08/18 Attending physician:: ROBERTO GU Consult reason:: Iron deficiency anemia. Abnormal CT scan History of Present Illness Admission Date/PCP: 03/06/18 20:46 History of Present Illness: ROHITH MARTINEZ is a 67 year old female I was asked to see the patient by the federal mediator. Patient has never had a colonoscopy in the past. She denies any abdominal pain. There are no changes in her bowel habits. She has documented iron deficiency anemia She needs iron transfusion. She had a CT scan that noted possibly a 3 cm colon mass. She denies any melena She has had some mild weight loss. She will need to be scheduled for a inpatient colonoscopy. Past Medical History Cardiac Medical History: Reports: Hypertension Endocrine Medical History: Reports: Hypothyroidism Hematology: Reports: Anemia Past Surgical History Past Surgical History: Reports: None Social History Lives with: Family Smoking Status: Never Smoker Frequency of Alcohol Use: None Hx Recreational Drug Use: No Drugs: None Hx Prescription Drug Abuse: No - Advance Directive Resuscitation Status: Full Code Family History Family History: Reviewed & Not Pertinent Parental Family History Reviewed: Yes Children Family History Reviewed: Unknown Sibling(s) Family History Reviewed.: Unknown Medication/Allergy Home Medications: Buspirone HCl [Buspar 5 mg Tablet] 1 tab PO DAILY 03/06/18 Levothyroxine Sodium [Synthroid 0.025 mg Tablet] 25 mcg PO DAILY 03/06/18 Lisinopril/Hydrochlorothiazide [Lisinopril-Hctz 20-12.5 mg Tab] 1 each PO DAILY 03/06/18 Allergies/Adverse Reactions: No Known Allergies Allergy (Verified 03/06/18 15:25) Review of Systems Constitutional: ABSENT: fever(s), headache(s), night sweats, weakness Eyes: ABSENT: visual disturbances Ears: ABSENT: hearing changes Cardiovascular: ABSENT: edema, orthropnea, palpitations Respiratory: ABSENT: dyspnea, hemoptysis Gastrointestinal: ABSENT: hematemesis, hematochezia, melena Genitourinary: ABSENT: dysuria, hematuria Integumentary: ABSENT: lesions Neurological: ABSENT: syncope, tingling, tremor(s), vertigo Endocrine: ABSENT: polydipsia, polyphagia, polyuria Hematologic/Lymphatic: ABSENT: easy bruising Physical Exam Vital Signs: Temp Pulse Resp BP Pulse Ox 98.6 F 61 20 123/65 100 03/08/18 08:09 03/08/18 08:09 03/08/18 08:09 03/08/18 08:09 03/08/18 08:09 Intake & Output 03/07/18 03/08/18 03/09/18 06:59 06:59 06:59 Intake Total 1122 1429 Balance 1122 1429 Weight 56.3 kg 56.3 kg General appearance: PRESENT: no acute distress, well-developed, well-nourished Head exam: PRESENT: atraumatic, normocephalic Eye exam: PRESENT: EOMI, PERRLA. ABSENT: nystagmus, periorbital swelling, scleral icterus Mouth exam: PRESENT: moist Throat exam: ABSENT: tonsillar exudate, tonsillogmegaly Neck exam: ABSENT: meningismus, tenderness, thyromegaly Respiratory exam: PRESENT: symmetrical, unlabored. ABSENT: tachypnea, wheezes Cardiovascular exam: PRESENT: RRR, +S1, +S2 GI/Abdominal exam: PRESENT: soft. ABSENT: rebound, rigid, tenderness Extremities exam: ABSENT: joint swelling Musculoskeletal exam: PRESENT: full ROM Neurological exam: PRESENT: awake, oriented to time, oriented to situation, reflexes normal, CN II-XII grossly intact Focused psych exam: ABSENT: restlessness Skin exam: PRESENT: normal color. ABSENT: mottled, pallor, petechiae, urticaria , vesicles Results Laboratory Results: 03/07/18 10:47 03/07/18 10:47 03/07/18 03/07/18 03/07/18 10:47 10:47 10:47 WBC 6.2 RBC 4.03 Hgb 9.2 L D Hct 29.1 L MCV 72 L D MCH 22.8 L MCHC 31.5 L RDW 24.5 H Plt Count 432 Retic Count (auto) 7.62 H Absolute Retic 0.307 H Sodium 140.7 Potassium 4.4 Chloride 101 Carbon Dioxide 27 Anion Gap 13 BUN 9 Creatinine 0.75 Est GFR ( Amer) > 60 Est GFR (Non-Af Amer) > 60 Glucose 117 H Calcium 10.4 H Iron 381.9 H TIBC 414 % Saturation 92 Transferrin 327 Ferritin 557.00 H Vitamin B12 727.0 Folate 12.60 Impressions: Chest X-Ray 03/06/18 16:55 IMPRESSION: Slight improved aeration in the right mid lung, but there are persistent patchy nodular -reticulonodular opacities bilaterally, mid and upper lobe predominance. Chest/Abdomen CTA 03/06/18 18:34 IMPRESSION: 1. No PE. 2. Bilateral airspace disease with potential developing nodules especially in the left upper lobe. Could be infectious, inflammatory or neoplastic. 3. Small low-density lesions in the liver which will need dedicated liver imaging follow-up. Abdomen/Pelvis CT 03/07/18 00:00 IMPRESSION: 1. 8 mm right pulmonary nodule. Follow-up as below. 2. Possible 2 to 3 cm mass in the right colon as described. Colonoscopy is recommended. Assessment & Plan - Diagnosis (1) Abnormal CT of the abdomen Plan: Possible 3 cm lesion in the colon on the right side We will need colonoscopy Risk benefits alternatives of the procedure including risks of bleeding, perforation requiring surgery are explained to the patient in detail and informed consent was obtained (2) Iron deficiency anemia Qualifiers: Iron deficiency anemia type: chronic blood loss Qualified Code(s): D50.0 - Iron deficiency anemia secondary to blood loss (chronic) Is this a current diagnosis for this admission?: Yes Plan: Seen by federal mediator may need transfusion although underlying cause of iron deficiency may possibly be due to malignancy We will work that up while she is in-house - Time Time Spent: 50 to 70 Minutes
[2018-03-08] MEDS ORDERED: FERUMOXYTOL (NON-ESRD) 510 MG/NS 100 ML IV ONE ×2 (10:00)
[2018-03-08] MEDS ORDERED: (PENDING PHARMACY ID) (Lisinopril/Hydrochlorothiazide [Lisinopril-Hctz 20-12.5 Mg Tab] 1 E PO SCH (10:00)
[2018-03-08] MEDS: HYDROCHLOROTHIAZIDE 12.5 MG CAPSULE PO SCH (11:09)
[2018-03-08] MEDS: LISINOPRIL 10 MG TABLET PO SCH (11:10)
[2018-03-08] MEDS: BUSPIRONE HCL 10 MG TABLET PO SCH (11:13)
[2018-03-08] MEDS: ENOXAPARIN SODIUM INJ 40 MG/0.4 ML DISP.SYRIN SUBCUT SCH (11:22)
--- NOTE | 2018-03-08 13:02 | PDOC PROGRESS REPORT ---
Subjective Progress Note for:: 03/08/18 Subjective:: No complaints. Discussed with Dr. Laura and would like for patient to be evaluated by GI for a colonoscopy since available today. Agree likely patient has a malignancy. Review of systems All organ systems evaluated and negative except as in subjective All significant diagnostics and laboratories have been reviewed Reason For Visit: SYMPTOMATIC ANEMIA, PLEURITIC CHEST PAIN Physical Exam Vital Signs: Temp Pulse Resp BP Pulse Ox 98.5 F 69 16 115/64 100 03/08/18 04:38 03/08/18 04:38 03/08/18 04:38 03/08/18 04:38 03/08/18 04:38 Intake & Output 03/07/18 03/08/18 03/09/18 06:59 06:59 06:59 Intake Total 1122 1429 Balance 1122 1429 Weight 56.3 kg 56.3 kg General appearance: PRESENT: no acute distress, cooperative, thin Head exam: PRESENT: atraumatic, normocephalic Eye exam: PRESENT: conjunctiva pink, EOMI, scleral icterus Ear exam: PRESENT: normal external ear exam Mouth exam: PRESENT: moist Neck exam: PRESENT: full ROM. ABSENT: JVD, lymphadenopathy, tenderness Respiratory exam: PRESENT: clear to auscultation rochelle Cardiovascular exam: PRESENT: RRR. ABSENT: diastolic murmur, systolic murmur Vascular exam: PRESENT: normal capillary refill GI/Abdominal exam: PRESENT: normal bowel sounds, soft. ABSENT: tenderness Extremities exam: PRESENT: full ROM. ABSENT: pedal edema Musculoskeletal exam: PRESENT: ambulatory Neurological exam: PRESENT: alert, awake, oriented to person, oriented to place , oriented to time, oriented to situation, CN II-XII grossly intact Psychiatric exam: PRESENT: appropriate affect, normal mood Skin exam: PRESENT: intact, pallor Results Laboratory Results: 03/07/18 10:47 03/07/18 10:47 03/07/18 03/07/18 03/07/18 10:47 10:47 10:47 WBC 6.2 RBC 4.03 Hgb 9.2 L D Hct 29.1 L MCV 72 L D MCH 22.8 L MCHC 31.5 L RDW 24.5 H Plt Count 432 Retic Count (auto) 7.62 H Absolute Retic 0.307 H Sodium 140.7 Potassium 4.4 Chloride 101 Carbon Dioxide 27 Anion Gap 13 BUN 9 Creatinine 0.75 Est GFR ( Amer) > 60 Est GFR (Non-Af Amer) > 60 Glucose 117 H Calcium 10.4 H Iron 381.9 H TIBC 414 % Saturation 92 Transferrin 327 Ferritin 557.00 H Vitamin B12 727.0 Folate 12.60 Impressions: Chest X-Ray 03/06/18 16:55 IMPRESSION: Slight improved aeration in the right mid lung, but there are persistent patchy nodular -reticulonodular opacities bilaterally, mid and upper lobe predominance. Chest/Abdomen CTA 03/06/18 18:34 IMPRESSION: 1. No PE. 2. Bilateral airspace disease with potential developing nodules especially in the left upper lobe. Could be infectious, inflammatory or neoplastic. 3. Small low-density lesions in the liver which will need dedicated liver imaging follow-up. Abdomen/Pelvis CT 03/07/18 00:00 IMPRESSION: 1. 8 mm right pulmonary nodule. Follow-up as below. 2. Possible 2 to 3 cm mass in the right colon as described. Colonoscopy is recommended. Assessment & Plan - Diagnosis (1) Iron deficiency anemia Qualifiers: Iron deficiency anemia type: chronic blood loss Qualified Code(s): D50.0 - Iron deficiency anemia secondary to blood loss (chronic) Is this a current diagnosis for this admission?: Yes Plan: patient had been followed up as outpatient by Dr Mckeon. She was to have IV iron but became symptomatic and presented to ED. H&H improved and stable after 2 units of packed red blood cells. No history of colonoscopy during her lifetime and was supposed to be done as outpatient. CT of the abdomen and pelvis failed to demonstrate large enough lesions amenable for biopsy by IR. However, there is a mass in the right colon and will consult GI since available (2) Colonic mass Is this a current diagnosis for this admission?: Yes Plan: Consult Dr. Mccormack for colonoscopy. Highly likely malignancy (3) Hypertension Qualifiers: Hypertension type: essential hypertension Qualified Code(s): I10 - Essential (primary) hypertension Is this a current diagnosis for this admission?: Yes Plan: To continue outpatient regimen (4) Hypothyroidism Qualifiers: Hypothyroidism type: acquired Qualified Code(s): E03.9 - Hypothyroidism, unspecified Is this a current diagnosis for this admission?: Yes Plan: To continue outpatient regimen (5) Lung nodule, multiple Is this a current diagnosis for this admission?: Yes Plan: CT guided lung biopsy cancelled and IR recommended to find out if CT of abdomen may reveal larger lesions for biopsy. Discussed with Dr. Laura - Time Time Spent with patient: 15-24 minutes Medications reviewed and adjusted accordingly: Yes Anticipated discharge: Home Within: within 48 hours - Inpatient Certification Based on my medical assessment, after consideration of the patient's comorbidities, presenting symptoms, or acuity I expect that the services needed warrant INPATIENT care.: Yes I certify that my determination is in accordance with my understanding of Medicare's requirements for reasonable and necessary INPATIENT services [42 CFR 412.3e].: Yes Medical Necessity: Significant Comorbidiites Make Outpatient Treatment Too Risky , Need Close Monitoring Due to Risk of Patient Decompensation
[2018-03-08] MEDS ORDERED: PEG 3350/NA SULF,BICARB,CL/KCL 4000 ML PO ONE (15:00)
[2018-03-09] MEDS: LEVOTHYROXINE SODIUM 0.025 MG TABLET PO SCH (05:57)
[2018-03-09] MEDS: LANSOPRAZOLE 30 MG TAB.RAP.DR PO SCH (05:57)
[2018-03-09 06:10] LABS: ALANINE AMINOTRANSFERASE 18 U/L (9-52); ALBUMIN 4.5 g/dL (3.5-5.0); ALKALINE PHOSPHATASE 101 U/L (38-126); ANION GAP 16 (5-19); ASPARTATE AMINO TRANSFERASE 32 U/L (14-36); BILIRUBIN,DIRECT 0.4 mg/dL (0.0-0.4); BILIRUBIN,TOTAL 1.1 mg/dL (0.2-1.3); BLOOD UREA NITROGEN 7 mg/dL (7-20); CALCIUM 10.6 mg/dL (8.4-10.2); CARBON DIOXIDE 25 mmol/L (22-30); CHLORIDE 101 mmol/L (98-107); GLUCOSE 95 mg/dL (75-110); POTASSIUM 4.2 mmol/L (3.6-5.0); SODIUM 142.4 mmol/L (137-145); TOTAL PROTEIN 7.5 g/dL (6.3-8.2)
[2018-03-09 07:01] LABS: ABSOLUTE EOSINOPHILS # (AUTO) 0.1 10^3/uL (0.0-0.6); ABSOLUTE LYMPHOCYTES (AUTO) 0.4 10^3/uL (0.5-4.7); ABSOLUTE MONOCYTES (AUTO) 0.6 10^3/uL (0.1-1.4); ABSOLUTE NEUT (AUTO) 3.4 10^3/uL (1.7-8.2); BASOPHILS % (AUTO) 0.9 % (0-2); EOSINOPHILS % (AUTO) 2.8 % (0-6); HEMATOCRIT 32.7 % (36.0-47.0); HEMOGLOBIN 10.1 g/dL (12.0-15.5); LYMPHOCYTES % (AUTO) 9.4 % (13-45); MEAN CORPUSCULAR HGB CONC 30.9 g/dL (32.0-36.0); MEAN CORPUSCULAR VOLUME 74 fl (80-97); MONOCYTES % (AUTO) 13.2 % (3-13); PLATELET COUNT 430 10^3/uL (150-450); RED BLOOD COUNT 4.41 10^6/uL (3.72-5.28); RED CELL DISTRIBUTION WIDTH 27.9 % (11.5-14.0); SEGMENTED NEUTROPHILS % (AUTO) 73.7 % (42-78); TOTAL CELLS COUNTED % (AUTO) 100 %; WHITE BLOOD COUNT 4.6 10^3/uL (4.0-10.5)
--- NOTE | 2018-03-09 07:51 | PDOC PROGRESS REPORT ---
Subjective Progress Note for:: 03/09/18 Subjective:: Plan for colonoscopy this am, had most recently clear stool so adequately prepped. Got IV iron yesterday, planned to have f/u in my office next week for 2nd dose IV iron and f/u of colonoscopy results and planning for addressing lung findings. Reason For Visit: SYMPTOMATIC ANEMIA, PLEURITIC CHEST PAIN Physical Exam Vital Signs: Temp Pulse Resp BP Pulse Ox 98.3 F 53 L 16 122/60 98 03/09/18 00:26 03/09/18 07:00 03/09/18 00:26 03/09/18 00:26 03/09/18 00:26 Intake & Output 03/08/18 03/09/18 03/10/18 06:59 06:59 06:59 Intake Total 1429 1070 Balance 1429 1070 Weight 56.3 kg General appearance: PRESENT: no acute distress, well-developed, well-nourished Head exam: PRESENT: atraumatic, normocephalic Eye exam: PRESENT: conjunctiva pink, EOMI, PERRLA. ABSENT: scleral icterus Ear exam: PRESENT: normal external ear exam Mouth exam: PRESENT: moist, tongue midline Neck exam: ABSENT: carotid bruit, JVD, lymphadenopathy, thyromegaly Respiratory exam: PRESENT: clear to auscultation rochelle. ABSENT: rales, rhonchi, wheezes Cardiovascular exam: PRESENT: RRR. ABSENT: diastolic murmur, rubs, systolic murmur Pulses: PRESENT: normal dorsalis pedis pul Vascular exam: PRESENT: normal capillary refill GI/Abdominal exam: PRESENT: normal bowel sounds, soft. ABSENT: distended, guarding, mass, organolmegaly, rebound, tenderness Rectal exam: PRESENT: deferred Extremities exam: PRESENT: full ROM. ABSENT: calf tenderness, clubbing, pedal edema Neurological exam: PRESENT: alert, awake, oriented to person, oriented to place , oriented to time, oriented to situation, CN II-XII grossly intact. ABSENT: motor sensory deficit Psychiatric exam: PRESENT: appropriate affect, normal mood. ABSENT: homicidal ideation, suicidal ideation Skin exam: PRESENT: dry, intact, warm. ABSENT: cyanosis, rash Results Laboratory Results: 03/09/18 05:17 03/09/18 05:17 03/07/18 03/09/18 03/09/18 10:47 05:17 05:17 WBC 4.6 RBC 4.41 Hgb 10.1 L Hct 32.7 L MCV 74 L MCH 23.0 L MCHC 30.9 L RDW 27.9 H Plt Count 430 Seg Neutrophils % 73.7 Lymphocytes % 9.4 L Monocytes % 13.2 H Eosinophils % 2.8 Basophils % 0.9 Absolute Neutrophils 3.4 Absolute Lymphocytes 0.4 L Absolute Monocytes 0.6 Absolute Eosinophils 0.1 Absolute Basophils 0.0 Sodium 142.4 Potassium 4.2 Chloride 101 Carbon Dioxide 25 Anion Gap 16 BUN 7 Creatinine 0.68 Est GFR ( Amer) > 60 Est GFR (Non-Af Amer) > 60 Glucose 95 Calcium 10.6 H Magnesium 2.2 Transferrin 327 Total Bilirubin 1.1 AST 32 ALT 18 Alkaline Phosphatase 101 Total Protein 7.5 Albumin 4.5 Impressions: Chest X-Ray 03/06/18 16:55 IMPRESSION: Slight improved aeration in the right mid lung, but there are persistent patchy nodular -reticulonodular opacities bilaterally, mid and upper lobe predominance. Chest/Abdomen CTA 03/06/18 18:34 IMPRESSION: 1. No PE. 2. Bilateral airspace disease with potential developing nodules especially in the left upper lobe. Could be infectious, inflammatory or neoplastic. 3. Small low-density lesions in the liver which will need dedicated liver imaging follow-up. Abdomen/Pelvis CT 03/07/18 00:00 IMPRESSION: 1. 8 mm right pulmonary nodule. Follow-up as below. 2. Possible 2 to 3 cm mass in the right colon as described. Colonoscopy is recommended. Assessment & Plan - Diagnosis (1) Iron deficiency anemia Qualifiers: Iron deficiency anemia type: chronic blood loss Qualified Code(s): D50.0 - Iron deficiency anemia secondary to blood loss (chronic) Is this a current diagnosis for this admission?: Yes Plan: Improved post IV iron and blood, w/u w/ colonoscopy planned (2) Lung nodule, multiple Is this a current diagnosis for this admission?: Yes Plan: Further decision as outpt based on colonoscopy results - Time Time Spent with patient: 35 or more minutes Disposition: D/w pt and daughter in law, they will have f/u appt in my office
[2018-03-09] MEDS ORDERED: ONDANSETRON HCL INJ/PF 4 MG/2 ML SDV ONE (11:29)
[2018-03-09] MEDS ORDERED: NALOXONE HCL INJ/PF 0.4 MG/1 ML SDV ONE (11:29)
[2018-03-09] MEDS ORDERED: DIPHENHYDRAMINE HCL 50 MG/ML VIAL ONE (11:29)
[2018-03-09] MEDS ORDERED: FENTANYL CITRATE INJ/PF 100 MCG/2 ML AMPUL ONE (11:30)
[2018-03-09] MEDS ORDERED: FLUMAZENIL INJ 0.5 MG/5 ML VIAL ONE (11:30)
[2018-03-09] MEDS ORDERED: GLUCAGON,HUMAN RECOMB 1 MG INJ ONE (11:30)
[2018-03-09] MEDS ORDERED: EPINEPHRINE INJ 1 MG/10 ML DISP.SYRIN ONE (11:30)
[2018-03-09] MEDS: MIDAZOLAM 2 MG/2 ML INJ ONE ×2 (12:53→13:00)
--- NOTE | 2018-03-09 13:17 | Operative Report ---
Operative Report DATE OF SURGERY: 03/09/18 Operative Report: The risks, benefits and alternatives of the procedure including risks of bleeding, perforation requiring surgery are explained to the patient in detail and informed consent is obtained. Patient is taken back to the endoscopy suite and placed in the left, lateral decubital position. Timeout was called. Conscious sedation medications are provided. A rectal examination is done which did not reveal any masses, tears or fissures. An Olympus videoscope is inserted into the patient's rectum. The scope was then carefully advanced all the way to the right side of the colon.. There appears to be an obstructing mass. The ileocecal valve and the appendiceal office could not be identified. It appears to be an almost circumferential obstruction. Biopsies obtained, the site is tattooed with Cathie ink. The scope was then sequentially withdrawn to the distal portions of the colon. Retroflexion maneuvers done. PREOPERATIVE DIAGNOSIS: Abnormal CT scan. Iron deficiency anemia POSTOPERATIVE DIAGNOSIS: Right colon mass suspicious for colorectal cancer OPERATION: Colonoscopy with submucosal injection. Colonoscopy with biopsy SURGEON: ROBERTO GU ANESTHESIA: Moderate Sedation - 3 mg of Versed, 25 mcg of fentanyl. Conscious sedation monitoring time 30 minutes. TISSUE REMOVED OR ALTERED: As noted above. COMPLICATIONS: None. ESTIMATED BLOOD LOSS: None. INTRAOPERATIVE FINDINGS: As noted above. PROCEDURE: Patient tolerated procedure well. No immediate postprocedure complications are noted. Patient is sent back to her room in good condition. Resume previous diet. Resume previous activity level. We will wait on biopsies. Surgical consult needs to be obtained. We will wait on biopsies.
[2018-03-09] MEDS: BUSPIRONE HCL 10 MG TABLET PO SCH (14:49)
[2018-03-09] MEDS: ENOXAPARIN SODIUM INJ 40 MG/0.4 ML DISP.SYRIN SUBCUT SCH (14:57)
--- NOTE | 2018-03-09 17:00 | PDOC PROGRESS REPORT ---
Subjective Progress Note for:: 03/09/18 Subjective:: The patient had no complaints when I saw her. She was awaiting colonoscopy. She is a 67-year-old female with a history of hypertension and hypothyroidism who presented to the hospital with generalized weakness shortness of breath and pleuritic chest pain for the past 4 months. She was recently diagnosed with bilateral lung nodules and iron deficiency had a colonoscopy. Hemoglobin was 6.8 and 2 units of packed red blood cells were transfused. She was evaluated by the oncology and GI service. Colonoscopy done today showed an obstructive colon mass and biopsies were taken. Surgical evaluation was recommended. Reason For Visit: SYMPTOMATIC ANEMIA, PLEURITIC CHEST PAIN Physical Exam Vital Signs: Temp Pulse Resp BP Pulse Ox 98.9 F 59 L 16 119/59 L 100 03/09/18 15:59 03/09/18 15:59 03/09/18 15:59 03/09/18 15:59 03/09/18 15:59 Intake & Output 03/08/18 03/09/18 03/10/18 06:59 06:59 06:59 Intake Total 1429 1070 550 Balance 1429 1070 550 Weight 56.3 kg General appearance: PRESENT: no acute distress Head exam: PRESENT: normocephalic Ear exam: PRESENT: normal external ear exam Respiratory exam: PRESENT: symmetrical, unlabored Cardiovascular exam: PRESENT: RRR GI/Abdominal exam: PRESENT: normal bowel sounds, soft Rectal exam: PRESENT: deferred Neurological exam: PRESENT: alert, awake, oriented to person, oriented to place , oriented to time Psychiatric exam: PRESENT: appropriate affect Skin exam: ABSENT: petechiae Results Laboratory Results: 03/09/18 05:17 03/09/18 05:17 03/09/18 03/09/18 05:17 05:17 WBC 4.6 RBC 4.41 Hgb 10.1 L Hct 32.7 L MCV 74 L MCH 23.0 L MCHC 30.9 L RDW 27.9 H Plt Count 430 Seg Neutrophils % 73.7 Lymphocytes % 9.4 L Monocytes % 13.2 H Eosinophils % 2.8 Basophils % 0.9 Absolute Neutrophils 3.4 Absolute Lymphocytes 0.4 L Absolute Monocytes 0.6 Absolute Eosinophils 0.1 Absolute Basophils 0.0 Sodium 142.4 Potassium 4.2 Chloride 101 Carbon Dioxide 25 Anion Gap 16 BUN 7 Creatinine 0.68 Est GFR ( Amer) > 60 Est GFR (Non-Af Amer) > 60 Glucose 95 Calcium 10.6 H Magnesium 2.2 Total Bilirubin 1.1 AST 32 ALT 18 Alkaline Phosphatase 101 Total Protein 7.5 Albumin 4.5 Impressions: Chest X-Ray 03/06/18 16:55 IMPRESSION: Slight improved aeration in the right mid lung, but there are persistent patchy nodular -reticulonodular opacities bilaterally, mid and upper lobe predominance. Chest/Abdomen CTA 03/06/18 18:34 IMPRESSION: 1. No PE. 2. Bilateral airspace disease with potential developing nodules especially in the left upper lobe. Could be infectious, inflammatory or neoplastic. 3. Small low-density lesions in the liver which will need dedicated liver imaging follow-up. Abdomen/Pelvis CT 03/07/18 00:00 IMPRESSION: 1. 8 mm right pulmonary nodule. Follow-up as below. 2. Possible 2 to 3 cm mass in the right colon as described. Colonoscopy is recommended. Assessment & Plan - Diagnosis (1) Colonic mass Is this a current diagnosis for this admission?: Yes Plan: Biopsies done. Surgical evaluation requested. (2) Hypertension Qualifiers: Hypertension type: essential hypertension Qualified Code(s): I10 - Essential (primary) hypertension Is this a current diagnosis for this admission?: Yes Plan: Continue outpatient medications. Stable (3) Hypothyroidism Qualifiers: Hypothyroidism type: acquired Qualified Code(s): E03.9 - Hypothyroidism, unspecified Is this a current diagnosis for this admission?: Yes Plan: On Synthroid (4) Iron deficiency anemia Qualifiers: Iron deficiency anemia type: unspecified iron deficiency Qualified Code(s) : D50.9 - Iron deficiency anemia, unspecified Is this a current diagnosis for this admission?: Yes Plan: Received IV iron. (5) Lung nodule, multiple Is this a current diagnosis for this admission?: Yes Plan: Follow up with oncology. - Time Time Spent with patient: 35 or more minutes
--- NOTE | 2018-03-09 18:41 | PDOC CONSULTATION ---
History of Present Illness Admission Date/PCP: 03/06/18 20:46 Patient complains of: Generalized weakness History of Present Illness: ROHITH MARTINEZ is a 67 year old female presented to the hospital with several week history of generalized weakness, dyspnea on exertion and occasional abdominal bloating. Noted with severe anemia. Underwent transfusion followed by colonoscopy which demonstrated an obstructive mass at the right colon. Patient was noted on CT scan with suspicious pulmonary nodules too small to be percutaneously biopsied. No family history of colon cancer. Patient denies any abdominal pain. She denies any nausea or vomiting. She has tolerated a bowel prep well for her colonoscopy. She has had some decreased appetite but has only lost couple of pounds of weight. Her past medical history is only significant for hypo-thyroidism and hypertension. Past Medical History Cardiac Medical History: Reports: Hypertension Neurological Medical History: Denies: Seizures Endocrine Medical History: Reports: Hypothyroidism Hematology: Reports: Anemia Past Surgical History Past Surgical History: Reports: None Denies: Hysterectomy Social History Lives with: Family Smoking Status: Never Smoker Frequency of Alcohol Use: None Hx Recreational Drug Use: No Drugs: None Hx Prescription Drug Abuse: No - Advance Directive Resuscitation Status: Full Code Family History Family History: Reviewed & Not Pertinent Parental Family History Reviewed: Yes Children Family History Reviewed: Yes Sibling(s) Family History Reviewed.: Yes Medication/Allergy Home Medications: Buspirone HCl [Buspar 5 mg Tablet] 1 tab PO DAILY 03/06/18 Levothyroxine Sodium [Synthroid 0.025 mg Tablet] 25 mcg PO DAILY 03/06/18 Lisinopril/Hydrochlorothiazide [Lisinopril-Hctz 20-12.5 mg Tab] 1 each PO DAILY 03/06/18 Allergies/Adverse Reactions: No Known Allergies Allergy (Verified 03/06/18 15:25) Physical Exam Vital Signs: Temp Pulse Resp BP Pulse Ox 98.9 F 59 L 16 119/59 L 100 03/09/18 15:59 03/09/18 15:59 03/09/18 15:59 03/09/18 15:59 03/09/18 15:59 Intake & Output 03/08/18 03/09/18 03/10/18 06:59 06:59 06:59 Intake Total 1429 1070 550 Balance 1429 1070 550 Weight 56.3 kg General appearance: PRESENT: no acute distress, cooperative Eye exam: PRESENT: conjunctiva pink Neck exam: PRESENT: other - Neck supple with no palpable masses Respiratory exam: PRESENT: clear to auscultation rochelle Cardiovascular exam: PRESENT: RRR GI/Abdominal exam: PRESENT: soft - Soft, nondistended, very mild right-sided abdominal tenderness without peritoneal signs. Palpable mass that feels mobile in the right midabdomen. Extremities exam: PRESENT: other - No edema. Neurological exam: PRESENT: alert, awake Psychiatric exam: PRESENT: appropriate affect Skin exam: PRESENT: warm Results Laboratory Results: 03/09/18 05:17 03/09/18 05:17 03/09/18 03/09/18 05:17 05:17 WBC 4.6 RBC 4.41 Hgb 10.1 L Hct 32.7 L MCV 74 L MCH 23.0 L MCHC 30.9 L RDW 27.9 H Plt Count 430 Seg Neutrophils % 73.7 Lymphocytes % 9.4 L Monocytes % 13.2 H Eosinophils % 2.8 Basophils % 0.9 Absolute Neutrophils 3.4 Absolute Lymphocytes 0.4 L Absolute Monocytes 0.6 Absolute Eosinophils 0.1 Absolute Basophils 0.0 Sodium 142.4 Potassium 4.2 Chloride 101 Carbon Dioxide 25 Anion Gap 16 BUN 7 Creatinine 0.68 Est GFR ( Amer) > 60 Est GFR (Non-Af Amer) > 60 Glucose 95 Calcium 10.6 H Magnesium 2.2 Total Bilirubin 1.1 AST 32 ALT 18 Alkaline Phosphatase 101 Total Protein 7.5 Albumin 4.5 Impressions: Chest X-Ray 03/06/18 16:55 IMPRESSION: Slight improved aeration in the right mid lung, but there are persistent patchy nodular -reticulonodular opacities bilaterally, mid and upper lobe predominance. Chest/Abdomen CTA 03/06/18 18:34 IMPRESSION: 1. No PE. 2. Bilateral airspace disease with potential developing nodules especially in the left upper lobe. Could be infectious, inflammatory or neoplastic. 3. Small low-density lesions in the liver which will need dedicated liver imaging follow-up. Abdomen/Pelvis CT 03/07/18 00:00 IMPRESSION: 1. 8 mm right pulmonary nodule. Follow-up as below. 2. Possible 2 to 3 cm mass in the right colon as described. Colonoscopy is recommended. Assessment & Plan - Diagnosis (1) Colonic mass Is this a current diagnosis for this admission?: Yes Plan: Large right colon mass with risk for developing large bowel obstruction. Highly suspicious for colon cancer. Biopsies results are pending. Patient would strongly benefit from a right hemicolectomy. I have offered her the option of proceeding with surgery tomorrow with Dr. Cheng versus going home and coming back to seeing him next week and having the surgery done next week after the biopsy results have returned. Patient prefers to go ahead with surgery tomorrow which I think is a very reasonable option. Pulmonary lesions likely metastasis. Will do a further workup after her surgery.
[2018-03-10] MEDS: LANSOPRAZOLE 30 MG TAB.RAP.DR PO SCH (05:00)
[2018-03-10] MEDS: LEVOTHYROXINE SODIUM 0.025 MG TABLET PO SCH (05:00)
[2018-03-10 05:28] LABS: HEMATOCRIT 29.9 % (36.0-47.0); HEMOGLOBIN 9.3 g/dL (12.0-15.5); MEAN CORPUSCULAR HEMOGLOBIN 23.2 pg (27.0-33.4); MEAN CORPUSCULAR HGB CONC 31.2 g/dL (32.0-36.0); MEAN CORPUSCULAR VOLUME 75 fl (80-97); PLATELET COUNT 359 10^3/uL (150-450); RED BLOOD COUNT 4.01 10^6/uL (3.72-5.28); RED CELL DISTRIBUTION WIDTH 28.9 % (11.5-14.0); WHITE BLOOD COUNT 3.4 10^3/uL (4.0-10.5)
[2018-03-10 05:38] LABS: ALANINE AMINOTRANSFERASE 20 U/L (9-52); ALBUMIN 3.7 g/dL (3.5-5.0); ALKALINE PHOSPHATASE 82 U/L (38-126); ANION GAP 13 (5-19); ASPARTATE AMINO TRANSFERASE 24 U/L (14-36); BILIRUBIN,DIRECT 0.2 mg/dL (0.0-0.4); BILIRUBIN,TOTAL 0.9 mg/dL (0.2-1.3); BLOOD UREA NITROGEN 7 mg/dL (7-20); CARBON DIOXIDE 26 mmol/L (22-30); CHLORIDE 103 mmol/L (98-107); GLUCOSE 86 mg/dL (75-110); PHOSPHORUS 4.1 mg/dL (2.5-4.5); POTASSIUM 4.3 mmol/L (3.6-5.0); SODIUM 142.2 mmol/L (137-145); TOTAL PROTEIN 6.3 g/dL (6.3-8.2)
[2018-03-10 05:58] LABS: CARCINOEMBRYONIC ANTIGEN 3.7 ng/mL (<3.0)
[2018-03-10] MEDS ORDERED: GLUCAGON,HUMAN RECOMB 1 MG INJ ONE ×2 (09:32→10:00)
[2018-03-10] MEDS ORDERED: BUPIVACAINE HCL 0.25 % INJ/PF (2.5 MG/1 ML) 30 ML VIAL ONE (09:32)
[2018-03-10] MEDS ORDERED: MIDAZOLAM 2 MG/2 ML INJ ONE (09:42)
[2018-03-10] MEDS ORDERED: LIDOCAINE 2% INJ-PF (20 MG/ML) 10 ML AMPUL ONE (09:42)
[2018-03-10] MEDS ORDERED: FENTANYL CITRATE INJ/PF 250 MCG/5 ML AMPULE ONE (09:42)
[2018-03-10] MEDS ORDERED: ACETAMINOPHEN 100 ML IV ONE (09:43)
[2018-03-10] MEDS ORDERED: EPHEDRINE SULFATE INJ 50 MG/1 ML AMPULE ONE (09:43)
[2018-03-10] MEDS ORDERED: MORPHINE SULFATE 10 MG/ML INJ ONE (09:43)
[2018-03-10] MEDS ORDERED: ONDANSETRON HCL INJ/PF 4 MG/2 ML SDV ONE ×2 (09:43→16:10)
[2018-03-10] MEDS ORDERED: DEXAMETHASONE SOD PHOSPHATE INJ 4 MG/1 ML VIAL ONE ×2 (09:43→16:10)
[2018-03-10] MEDS ORDERED: PROPOFOL INJ 200 MG/20 ML VIAL IV ONE (09:43)
[2018-03-10] MEDS ORDERED: HYDROCHLOROTHIAZIDE 12.5 MG CAPSULE PO SCH (10:00)
[2018-03-10] MEDS ORDERED: LISINOPRIL 10 MG TABLET PO SCH (10:00)
[2018-03-10] MEDS ORDERED: CEFAZOLIN INJ 1 GM VIAL ONE (10:49)
[2018-03-10] MEDS ORDERED: METRONIDAZOLE 500 MG/NS RTU 100 ML IV ONE (10:53)
[2018-03-10] MEDS ORDERED: MEPERIDINE HCL/PF INJ 25 MG/1 ML DISP.SYRIN IV PRN (11:06)
[2018-03-10] MEDS ORDERED: FENTANYL CITRATE INJ/PF 100 MCG/2 ML AMPUL IV PRN ×3 (11:06)
[2018-03-10] MEDS ORDERED: MORPHINE SULFATE 10 MG/ML INJ IV PRN ×2 (11:06→13:13)
[2018-03-10] MEDS ORDERED: DIPHENHYDRAMINE HCL 50 MG/ML VIAL IV PRN (11:06)
[2018-03-10] MEDS ORDERED: ONDANSETRON HCL INJ/PF 4 MG/2 ML SDV IV PRN (11:06)
[2018-03-10] MEDS ORDERED: OXYCODONE-ACETAMINOPHEN 5-325 MG TABLET PO PRN ×2 (11:06)
[2018-03-10] MEDS ORDERED: PROMETHAZINE HCL INJ 25 MG/1 ML VIAL IV PRN ×2 (11:06)
[2018-03-10] MEDS ORDERED: FENTANYL CITRATE INJ/PF 100 MCG/2 ML AMPUL ONE (13:17)
[2018-03-10] MEDS: BUSPIRONE HCL 10 MG TABLET PO SCH (15:11)
[2018-03-10] MEDS: ENOXAPARIN SODIUM INJ 40 MG/0.4 ML DISP.SYRIN SUBCUT SCH (15:11)
--- NOTE | 2018-03-10 16:03 | PDOC PROGRESS REPORT ---
Subjective Progress Note for:: 03/10/18 Subjective:: This is a 67-year-old female with a near obstructing colon mass in the ascending colon. Patient was anemic upon admission. Today, the patient denies any chest pain, shortness of breath, abdominal pain, dizziness, orthostasis, or other symptoms. She is anxious to have her mass removed [place]. Reason For Visit: OBSTRUCTING COLON MASS Physical Exam Vital Signs: Temp Pulse Resp BP Pulse Ox 97.9 F 85 18 106/53 L 98 03/10/18 13:50 03/10/18 13:50 03/10/18 13:50 03/10/18 13:50 03/10/18 13:50 Intake & Output 03/09/18 03/10/18 03/11/18 06:59 06:59 06:59 Intake Total 1070 1050 1500 Output Total 300 Balance 1070 1050 1200 Weight 53.6 kg General appearance: PRESENT: no acute distress Head exam: PRESENT: atraumatic, normocephalic Eye exam: PRESENT: EOMI, PERRLA. ABSENT: conjunctival injection, scleral icterus Mouth exam: PRESENT: moist, neck supple Teeth exam: ABSENT: poor dentation Neck exam: ABSENT: lymphadenopathy, meningismus, tenderness, thyromegaly, tracheal deviation Respiratory exam: PRESENT: clear to auscultation rochelle. ABSENT: chest wall tenderness, rhonchi, tachypnea Cardiovascular exam: PRESENT: RRR Pulses: PRESENT: normal radial pulses Vascular exam: PRESENT: normal capillary refill. ABSENT: pallor GI/Abdominal exam: PRESENT: soft. ABSENT: distended, guarding, hernia, tenderness Rectal exam: PRESENT: deferred Extremities exam: ABSENT: joint swelling Musculoskeletal exam: PRESENT: normal inspection. ABSENT: tenderness Neurological exam: PRESENT: alert, awake, oriented to person, oriented to place , oriented to time, oriented to situation, CN II-XII grossly intact. ABSENT: motor sensory deficit Psychiatric exam: ABSENT: agitated, depressed Skin exam: ABSENT: cyanosis, erythema, jaundice Results Laboratory Results: 03/10/18 04:15 03/10/18 04:15 03/10/18 03/10/18 04:15 04:15 WBC 3.4 L RBC 4.01 Hgb 9.3 L Hct 29.9 L MCV 75 L MCH 23.2 L MCHC 31.2 L RDW 28.9 H Plt Count 359 Sodium 142.2 Potassium 4.3 Chloride 103 Carbon Dioxide 26 Anion Gap 13 BUN 7 Creatinine 0.66 Est GFR ( Amer) > 60 Est GFR (Non-Af Amer) > 60 Glucose 86 Calcium 10.0 Phosphorus 4.1 Magnesium 2.2 Total Bilirubin 0.9 AST 24 ALT 20 Alkaline Phosphatase 82 Total Protein 6.3 Albumin 3.7 Impressions: Chest X-Ray 03/06/18 16:55 IMPRESSION: Slight improved aeration in the right mid lung, but there are persistent patchy nodular -reticulonodular opacities bilaterally, mid and upper lobe predominance. Chest/Abdomen CTA 03/06/18 18:34 IMPRESSION: 1. No PE. 2. Bilateral airspace disease with potential developing nodules especially in the left upper lobe. Could be infectious, inflammatory or neoplastic. 3. Small low-density lesions in the liver which will need dedicated liver imaging follow-up. Abdomen/Pelvis CT 03/07/18 00:00 IMPRESSION: 1. 8 mm right pulmonary nodule. Follow-up as below. 2. Possible 2 to 3 cm mass in the right colon as described. Colonoscopy is recommended. Assessment & Plan - Diagnosis (1) Colonic mass Is this a current diagnosis for this admission?: Yes - Plan Summary Plan Summary: This is a 67-year-old female with a colon mass that is near obstructing. I discussed options with her, and she has chosen colon resection. Plan to perform laparoscopic right hemicolectomy today. Risks/benefits discussed, informed consent obtained, and all questions answered.
[2018-03-10] MEDS ORDERED: NEOSTIGMINE METHYLSULFATE 10 MG/10 ML VIAL ONE (16:10)
[2018-03-10] MEDS ORDERED: METOCLOPRAMIDE HCL INJ/PF 10 MG/2 ML SDV ONE (16:10)
[2018-03-10] MEDS ORDERED: SUCCINYLCHOLINE CHLORIDE INJ 200 MG/10 ML VIAL ONE (16:10)
[2018-03-10] MEDS ORDERED: VECURONIUM BROMIDE INJ 10 MG VIAL IV ONE (16:10)
[2018-03-10] MEDS ORDERED: GLYCOPYRROLATE INJ 0.4 MG/2 ML VIAL ONE (16:10)
--- NOTE | 2018-03-10 16:18 | Operative Report ---
Nonrecallable Operative Report DATE OF SURGERY: 03/10/18 PREOPERATIVE DIAGNOSIS: Near obstructing descending colon lesion POSTOPERATIVE DIAGNOSIS: Same as above OPERATION: Laparoscopic right hemicolectomy SURGEON: WHITLEY ASTUDILLO ANESTHESIA: GA TISSUE REMOVED OR ALTERED: Right hemicolectomy COMPLICATIONS: None apparent ESTIMATED BLOOD LOSS: 25 cc PROCEDURE: Drains/implants: None. After informed consent was obtained, the patient was laid in the supine position in the operating room. The area of the abdomen was prepped and draped in normal sterile fashion. A 15 blade scalpel was used to create a supraumbilical incision. This is deepened using sharp and blunt dissection. The linea alba fascia was incised sharply. The abdomen was entered sharply. The balloon trocar was inserted, and pneumoperitoneum was achieved. The liver was inspected, and appeared free of obvious metastatic disease. Next a left lower quadrant 12 mm trocar was placed under direct laparoscopic visualization. A 5 mm suprapubic trocar was placed under laparoscopic visualization, as well as a right upper quadrant 5 mm trocar. The right colon was then retracted anteriorly. Dissection was begun at the ileocolic artery. Ileocolic artery was divided using the Kake stapling device. The dissection was then carried out in a medial to lateral fashion. The mesentery was elevated away from the retroperitoneum. This was carried to the white line of Toldt laterally and to the liver superiorly. The extend of mobilization was taken to approximately the mid transverse colon. Once the medial portion of the dissection was completed the white line of Toldt was divided laterally and the colon was retracted medially. The small bowel was divided just proximal to the ileocecal valve. Next, the 12 mm balloon trocar was removed and the incision was lengthened approximately 3 cm. The Thomas wound retractor was placed into the wound and tightened. Next the right colon was exteriorized. The colon was divided at approximately the mid transverse position. The specimen was then passed off the field and sent to pathology. Next, the small bowel was brought in apposition to the transverse colon. A [id number] stapled anastomosis was then created with the Kake stapling device. The resulting defect was closed using the Kake stapler. A crotch stitch of 3-0 Vicryl was then placed 2. The anastomosis was tested, and found to be free of leakage of liquid or air. The anastomosis was then returned to the abdominal cavity. Pneumoperitoneum was again achieved. The laparoscope was inserted into the abdomen. The anastomosis appeared in good order. There was no active bleeding noted within the abdominal cavity. The left lower quadrant 12 mm trocar was then removed. The resultant defect was closed using 0 Vicryl suture in simple interrupted fashion with the Endo Close device. The 5 mm trochars were removed, as well as the Thomas wound retractor. Midline fascia was closed using #1 PDS suture in simple running fashion. The overlying skin was closed using skin oksana. Dressings were then secured, and the procedure was concluded. All sponge, instrument, and needle counts were correct 2. Condition: Stable.
[2018-03-10] MEDS: DEXTROSE 5%-LACTATED RINGERS 1,000 ML IV PRN (16:35)
--- NOTE | 2018-03-10 17:24 | PDOC PROGRESS REPORT ---
Subjective Progress Note for:: 03/10/18 Subjective:: 67-year-old female with a history of hypertension and hypothyroidism who presented to the hospital with generalized weakness shortness of breath and pleuritic chest pain for the past 4 months. She was recently diagnosed with bilateral lung nodules and iron deficiency had a colonoscopy. Hemoglobin was 6.8 and 2 units of packed red blood cells were transfused. She was evaluated by the oncology and GI service. Colonoscopy done on 03/09/18 showed an obstructive colon mass and biopsies were taken. Hep C results are pending. She had a laparoscopic right hemicolectomy done today. No complaints at present. Pain is well controlled. Reason For Visit: OBSTRUCTING COLON MASS Physical Exam Vital Signs: Temp Pulse Resp BP Pulse Ox 97.7 F 56 L 16 103/44 L 100 03/10/18 16:00 03/10/18 16:00 03/10/18 16:00 03/10/18 16:00 03/10/18 16:00 Intake & Output 03/09/18 03/10/18 03/11/18 06:59 06:59 06:59 Intake Total 1070 1050 1500 Output Total 300 Balance 1070 1050 1200 Weight 53.6 kg General appearance: PRESENT: no acute distress Head exam: PRESENT: normocephalic Ear exam: PRESENT: normal external ear exam Mouth exam: PRESENT: moist Neck exam: ABSENT: tracheal deviation Respiratory exam: PRESENT: symmetrical, unlabored Cardiovascular exam: PRESENT: RRR GI/Abdominal exam: PRESENT: normal bowel sounds, soft Rectal exam: PRESENT: deferred Extremities exam: ABSENT: pedal edema Neurological exam: PRESENT: alert, awake, oriented to person, oriented to place Psychiatric exam: PRESENT: appropriate affect Skin exam: ABSENT: petechiae Results Laboratory Results: 03/10/18 04:15 03/10/18 04:15 03/10/18 03/10/18 04:15 04:15 WBC 3.4 L RBC 4.01 Hgb 9.3 L Hct 29.9 L MCV 75 L MCH 23.2 L MCHC 31.2 L RDW 28.9 H Plt Count 359 Sodium 142.2 Potassium 4.3 Chloride 103 Carbon Dioxide 26 Anion Gap 13 BUN 7 Creatinine 0.66 Est GFR ( Amer) > 60 Est GFR (Non-Af Amer) > 60 Glucose 86 Calcium 10.0 Phosphorus 4.1 Magnesium 2.2 Total Bilirubin 0.9 AST 24 ALT 20 Alkaline Phosphatase 82 Total Protein 6.3 Albumin 3.7 Impressions: Chest X-Ray 03/06/18 16:55 IMPRESSION: Slight improved aeration in the right mid lung, but there are persistent patchy nodular -reticulonodular opacities bilaterally, mid and upper lobe predominance. Chest/Abdomen CTA 03/06/18 18:34 IMPRESSION: 1. No PE. 2. Bilateral airspace disease with potential developing nodules especially in the left upper lobe. Could be infectious, inflammatory or neoplastic. 3. Small low-density lesions in the liver which will need dedicated liver imaging follow-up. Abdomen/Pelvis CT 03/07/18 00:00 IMPRESSION: 1. 8 mm right pulmonary nodule. Follow-up as below. 2. Possible 2 to 3 cm mass in the right colon as described. Colonoscopy is recommended. Assessment & Plan - Diagnosis (1) Colonic mass Is this a current diagnosis for this admission?: Yes Plan: s/p laparoscopic R hemicolectomy. Pathology results pending. (2) Hypertension Qualifiers: Hypertension type: essential hypertension Qualified Code(s): I10 - Essential (primary) hypertension Is this a current diagnosis for this admission?: Yes Plan: Continue outpatient medications. 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 (5) Lung nodule, multiple Is this a current diagnosis for this admission?: Yes Plan: Follow up with oncology. - Time Time Spent with patient: 25-34 minutes
[2018-03-10] MEDS: CEFAZOLIN 1 GM/D5W RTU 1 GM/50 ML RTUPB IV SCH ×2 (18:29→23:32)
[2018-03-10] MEDS: METRONIDAZOLE 500 MG/NS RTU 100 ML IV SCH (19:38)
[2018-03-11] MEDS: METRONIDAZOLE 500 MG/NS RTU 100 ML IV SCH (00:40)
[2018-03-11] MEDS: OXYCODONE-ACETAMINOPHEN 5-325 MG TABLET PO PRN ×3 (01:19→17:30)
[2018-03-11] MEDS: LANSOPRAZOLE 30 MG TAB.RAP.DR PO SCH (05:08)
[2018-03-11] MEDS: DEXTROSE 5%-LACTATED RINGERS 1,000 ML IV PRN ×2 (06:05→22:22)
[2018-03-11] MEDS ORDERED: LISINOPRIL 10 MG TABLET PO SCH (08:27)
[2018-03-11] MEDS: LEVOTHYROXINE SODIUM 0.025 MG TABLET PO SCH (08:57)
[2018-03-11 09:44] LABS: ALANINE AMINOTRANSFERASE 20 U/L (9-52); ALBUMIN 3.2 g/dL (3.5-5.0); ALKALINE PHOSPHATASE 65 U/L (38-126); ANION GAP 12 (5-19); ASPARTATE AMINO TRANSFERASE 30 U/L (14-36); BILIRUBIN,DIRECT 0.2 mg/dL (0.0-0.4); BILIRUBIN,TOTAL 0.6 mg/dL (0.2-1.3); BLOOD UREA NITROGEN 5 mg/dL (7-20); CALCIUM 9.3 mg/dL (8.4-10.2); CARBON DIOXIDE 23 mmol/L (22-30); CHLORIDE 101 mmol/L (98-107); GLUCOSE 143 mg/dL (75-110); PHOSPHORUS 2.1 mg/dL (2.5-4.5); POTASSIUM 3.4 mmol/L (3.6-5.0); SODIUM 135.8 mmol/L (137-145); TOTAL PROTEIN 5.6 g/dL (6.3-8.2)
[2018-03-11 09:46] LABS: HEMATOCRIT 27.9 % (36.0-47.0); HEMOGLOBIN 8.5 g/dL (12.0-15.5); MEAN CORPUSCULAR HEMOGLOBIN 23.6 pg (27.0-33.4); MEAN CORPUSCULAR HGB CONC 30.5 g/dL (32.0-36.0); MEAN CORPUSCULAR VOLUME 78 fl (80-97); PLATELET COUNT 276 10^3/uL (150-450); RED CELL DISTRIBUTION WIDTH 29.2 % (11.5-14.0)
[2018-03-11 10:11] LABS: WHITE BLOOD COUNT 8.1 10^3/uL (4.0-10.5)
[2018-03-11] MEDS: ENOXAPARIN SODIUM INJ 40 MG/0.4 ML DISP.SYRIN SUBCUT SCH (11:04)
[2018-03-11] MEDS: LISINOPRIL 5 MG TABLET PO SCH (11:05)
[2018-03-11] MEDS: BUSPIRONE HCL 10 MG TABLET PO SCH (11:05)
--- NOTE | 2018-03-11 12:02 | PDOC PROGRESS REPORT ---
Subjective Progress Note for:: 03/11/18 Subjective:: Pt having pain this am in abd and pain in throat, explained to her this is expected post procedure, she is receiving pain meds Reason For Visit: OBSTRUCTING COLON MASS Physical Exam Vital Signs: Temp Pulse Resp BP Pulse Ox 99.1 F 66 16 119/62 97 03/11/18 07:25 03/11/18 07:25 03/11/18 07:25 03/11/18 07:25 03/11/18 07:25 Intake & Output 03/10/18 03/11/18 03/12/18 06:59 06:59 06:59 Intake Total 1050 3471 Output Total 1425 Balance 1050 2046 Weight 53.6 kg 58 kg Results Laboratory Results: 03/11/18 08:54 03/11/18 08:54 03/11/18 03/11/18 08:54 08:54 WBC 8.1 D RBC 3.60 L Hgb 8.5 L Hct 27.9 L MCV 78 L MCH 23.6 L MCHC 30.5 L RDW 29.2 H Plt Count 276 Sodium 135.8 L Potassium 3.4 L Chloride 101 Carbon Dioxide 23 Anion Gap 12 BUN 5 L Creatinine 0.57 Est GFR ( Amer) > 60 Est GFR (Non-Af Amer) > 60 Glucose 143 H Calcium 9.3 Phosphorus 2.1 L Magnesium 1.9 Total Bilirubin 0.6 AST 30 ALT 20 Alkaline Phosphatase 65 Total Protein 5.6 L Albumin 3.2 L Impressions: Chest X-Ray 03/06/18 16:55 IMPRESSION: Slight improved aeration in the right mid lung, but there are persistent patchy nodular -reticulonodular opacities bilaterally, mid and upper lobe predominance. Chest/Abdomen CTA 03/06/18 18:34 IMPRESSION: 1. No PE. 2. Bilateral airspace disease with potential developing nodules especially in the left upper lobe. Could be infectious, inflammatory or neoplastic. 3. Small low-density lesions in the liver which will need dedicated liver imaging follow-up. Abdomen/Pelvis CT 03/07/18 00:00 IMPRESSION: 1. 8 mm right pulmonary nodule. Follow-up as below. 2. Possible 2 to 3 cm mass in the right colon as described. Colonoscopy is recommended. Assessment & Plan - Diagnosis (1) Iron deficiency anemia Qualifiers: Iron deficiency anemia type: chronic blood loss Qualified Code(s): D50.0 - Iron deficiency anemia secondary to blood loss (chronic) Is this a current diagnosis for this admission?: Yes Plan: 2nd colon ca, hb 8.5, hold on transfusion until hb <8. At that time would only give 1 unit. Iron stores should be adequate now. (2) Lung nodule, multiple Is this a current diagnosis for this admission?: Yes Plan: Maybe mets but unsure, will need further w/u as outpt, would plan PET 4-6 wk post op (3) Cancer of right colon Is this a current diagnosis for this admission?: Yes Plan: R colon ca, s/p R hemicolectomy, will f/u results - Time Disposition: Today had long discussion w/ pt >35 m - Inpatient Certification Based on my medical assessment, after consideration of the patient's comorbidities, presenting symptoms, or acuity I expect that the services needed warrant INPATIENT care.: Yes I certify that my determination is in accordance with my understanding of Medicare's requirements for reasonable and necessary INPATIENT services [42 CFR 412.3e].: Yes
--- NOTE | 2018-03-11 12:47 | PDOC PROGRESS REPORT ---
Subjective Progress Note for:: 03/11/18 Reason For Visit: OBSTRUCTING COLON MASS Physical Exam Vital Signs: Temp Pulse Resp BP Pulse Ox 99.3 F 74 17 122/59 L 98 03/11/18 12:09 03/11/18 12:09 03/11/18 12:09 03/11/18 12:09 03/11/18 12:09 Intake & Output 03/10/18 03/11/18 03/12/18 06:59 06:59 06:59 Intake Total 1050 3471 Output Total 1425 Balance 1050 2046 Weight 53.6 kg 58 kg Results Laboratory Results: 03/11/18 08:54 03/11/18 08:54 03/11/18 03/11/18 08:54 08:54 WBC 8.1 D RBC 3.60 L Hgb 8.5 L Hct 27.9 L MCV 78 L MCH 23.6 L MCHC 30.5 L RDW 29.2 H Plt Count 276 Sodium 135.8 L Potassium 3.4 L Chloride 101 Carbon Dioxide 23 Anion Gap 12 BUN 5 L Creatinine 0.57 Est GFR ( Amer) > 60 Est GFR (Non-Af Amer) > 60 Glucose 143 H Calcium 9.3 Phosphorus 2.1 L Magnesium 1.9 Total Bilirubin 0.6 AST 30 ALT 20 Alkaline Phosphatase 65 Total Protein 5.6 L Albumin 3.2 L Impressions: Chest X-Ray 03/06/18 16:55 IMPRESSION: Slight improved aeration in the right mid lung, but there are persistent patchy nodular -reticulonodular opacities bilaterally, mid and upper lobe predominance. Chest/Abdomen CTA 03/06/18 18:34 IMPRESSION: 1. No PE. 2. Bilateral airspace disease with potential developing nodules especially in the left upper lobe. Could be infectious, inflammatory or neoplastic. 3. Small low-density lesions in the liver which will need dedicated liver imaging follow-up. Abdomen/Pelvis CT 03/07/18 00:00 IMPRESSION: 1. 8 mm right pulmonary nodule. Follow-up as below. 2. Possible 2 to 3 cm mass in the right colon as described. Colonoscopy is recommended. Assessment & Plan - Diagnosis (1) Colonic mass Is this a current diagnosis for this admission?: Yes - Plan Summary Plan Summary: This is a 67-year-old female status post laparoscopic right hemicolectomy for a near obstructing colon mass. The patient is doing well today. She is afebrile. She is out of bed, and reports that her pain medicine is effective. She has not passed flatus yet, however she denies nausea/vomiting. She reports feeling "rumbles in her abdomen". I have encouraged her to use her incentive spirometer every hour. Currently she reaches approximately 750 cc. Her goal for today is greater than 1000 cc. I have encouraged her to ambulate in the hallway. I will discontinue her Eid catheter. Continue full liquids until bowel function is returning. Will follow. Hypokalemia & hypophosphatemia --> replace
[2018-03-11] MEDS ORDERED: POTASSIUM PHOS,M-BASIC-D-BASIC 30 MMOL in NORMAL SALINE 500 ML IV ONE (14:00)
--- NOTE | 2018-03-11 15:30 | PDOC PROGRESS REPORT ---
Subjective Progress Note for:: 03/11/18 Subjective:: 67-year-old female with a history of hypertension and hypothyroidism who presented to the hospital with generalized weakness shortness of breath and pleuritic chest pain for the past 4 months. She was recently diagnosed with bilateral lung nodules and iron deficiency had a colonoscopy. Hemoglobin was 6.8 and 2 units of packed red blood cells were transfused. She was evaluated by the oncology and GI service. Colonoscopy done on 03/09/18 showed an obstructive colon mass and biopsies were taken. She had a laparoscopic right hemicolectomy on 03/10/18 pathology results pending. No complaints Reason For Visit: OBSTRUCTING COLON MASS Physical Exam Vital Signs: Temp Pulse Resp BP Pulse Ox 99.3 F 74 17 122/59 L 98 03/11/18 12:09 03/11/18 12:09 03/11/18 12:09 03/11/18 12:09 03/11/18 12:09 Intake & Output 03/10/18 03/11/18 03/12/18 06:59 06:59 06:59 Intake Total 1050 3471 506 Output Total 1425 1700 Balance 1050 2046 -1194 Weight 53.6 kg 58 kg General appearance: PRESENT: no acute distress Head exam: PRESENT: normocephalic Eye exam: PRESENT: PERRLA Ear exam: PRESENT: normal external ear exam Mouth exam: PRESENT: moist Neck exam: ABSENT: tracheal deviation Respiratory exam: PRESENT: clear to auscultation rochelle, symmetrical, unlabored Cardiovascular exam: PRESENT: RRR GI/Abdominal exam: PRESENT: normal bowel sounds, soft, tenderness Rectal exam: PRESENT: deferred Gentrourinary exam: PRESENT: indwelling catheter Extremities exam: ABSENT: pedal edema Neurological exam: PRESENT: alert, awake, oriented to person, oriented to place Psychiatric exam: PRESENT: appropriate affect Skin exam: ABSENT: rash Results Laboratory Results: 03/11/18 08:54 03/11/18 08:54 03/11/18 03/11/18 08:54 08:54 WBC 8.1 D RBC 3.60 L Hgb 8.5 L Hct 27.9 L MCV 78 L MCH 23.6 L MCHC 30.5 L RDW 29.2 H Plt Count 276 Sodium 135.8 L Potassium 3.4 L Chloride 101 Carbon Dioxide 23 Anion Gap 12 BUN 5 L Creatinine 0.57 Est GFR ( Amer) > 60 Est GFR (Non-Af Amer) > 60 Glucose 143 H Calcium 9.3 Phosphorus 2.1 L Magnesium 1.9 Total Bilirubin 0.6 AST 30 ALT 20 Alkaline Phosphatase 65 Total Protein 5.6 L Albumin 3.2 L Impressions: Chest X-Ray 03/06/18 16:55 IMPRESSION: Slight improved aeration in the right mid lung, but there are persistent patchy nodular -reticulonodular opacities bilaterally, mid and upper lobe predominance. Chest/Abdomen CTA 03/06/18 18:34 IMPRESSION: 1. No PE. 2. Bilateral airspace disease with potential developing nodules especially in the left upper lobe. Could be infectious, inflammatory or neoplastic. 3. Small low-density lesions in the liver which will need dedicated liver imaging follow-up. Abdomen/Pelvis CT 03/07/18 00:00 IMPRESSION: 1. 8 mm right pulmonary nodule. Follow-up as below. 2. Possible 2 to 3 cm mass in the right colon as described. Colonoscopy is recommended. Assessment & Plan - Diagnosis (1) Colonic mass Is this a current diagnosis for this admission?: Yes Plan: POD #1 laparoscopic R hemicolectomy. Pathology results pending. (2) Hypertension Qualifiers: Hypertension type: essential hypertension Qualified Code(s): I10 - Essential (primary) hypertension Is this a current diagnosis for this admission?: Yes Plan: Continue outpatient medications. 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 Monitor hemoglobin. (5) Lung nodule, multiple Is this a current diagnosis for this admission?: Yes Plan: Follow up with oncology. - Time Time Spent with patient: 25-34 minutes
[2018-03-11] MEDS: ONDANSETRON HCL INJ/PF 4 MG/2 ML SDV IV PRN (17:47)
[2018-03-12] MEDS: ONDANSETRON HCL INJ/PF 4 MG/2 ML SDV IV PRN (01:11)
[2018-03-12 06:25] LABS: HEMATOCRIT 31.1 % (36.0-47.0); HEMOGLOBIN 9.7 g/dL (12.0-15.5); MEAN CORPUSCULAR HEMOGLOBIN 23.6 pg (27.0-33.4); MEAN CORPUSCULAR HGB CONC 31.1 g/dL (32.0-36.0); MEAN CORPUSCULAR VOLUME 76 fl (80-97); PLATELET COUNT 322 10^3/uL (150-450); WHITE BLOOD COUNT 11.4 10^3/uL (4.0-10.5)
[2018-03-12] MEDS: LEVOTHYROXINE SODIUM 0.025 MG TABLET PO SCH (06:33)
[2018-03-12] MEDS: LANSOPRAZOLE 30 MG TAB.RAP.DR PO SCH (06:33)
[2018-03-12 06:47] LABS: ABSOLUTE LYMPHOCYTES# (MANUAL) 0.1 10^3/uL (0.5-4.7); ABSOLUTE MONOCYTES # (MANUAL) 0.6 10^3/uL (0.1-1.4); ABSOLUTE NEUTROPHILS# (MANUAL) 10.7 10^3/uL (1.7-8.2); BASOPHILS % (MANUAL) 0 % (0-2); EOSINOPHILS % (MANUAL) 0 % (0-6); LYMPHOCYTES % (MANUAL) 1 % (13-45); MONOCYTES % (MANUAL) 5 % (3-13); SEGMENTED NEUTROPHILS % (MAN) 94 % (42-78); TOTAL CELLS COUNTED 100
[2018-03-12 06:48] LABS: PLATELET COMMENT ADEQUATE
[2018-03-12 06:50] LABS: ANISOCYTOSIS 3+; HYPOCHROMASIA 3+
[2018-03-12 07:16] LABS: ALANINE AMINOTRANSFERASE 19 U/L (9-52); ALBUMIN 2.9 g/dL (3.5-5.0); ALKALINE PHOSPHATASE 70 U/L (38-126); ANION GAP 10 (5-19); ASPARTATE AMINO TRANSFERASE 31 U/L (14-36); BILIRUBIN,DIRECT 0.2 mg/dL (0.0-0.4); BILIRUBIN,TOTAL 0.4 mg/dL (0.2-1.3); BLOOD UREA NITROGEN 6 mg/dL (7-20); CALCIUM 9.4 mg/dL (8.4-10.2); CARBON DIOXIDE 25 mmol/L (22-30); CHLORIDE 103 mmol/L (98-107); GLUCOSE 140 mg/dL (75-110); PHOSPHORUS 2.8 mg/dL (2.5-4.5); POTASSIUM 3.7 mmol/L (3.6-5.0); TOTAL PROTEIN 5.3 g/dL (6.3-8.2)
--- NOTE | 2018-03-12 08:33 | RADIOLOGY REPORT (SQ) ---
EXAM DESCRIPTION: CHEST SINGLE VIEW COMPLETED DATE/TIME: 03/12/2018 8:18 am REASON FOR STUDY: fever, shortness of breath COMPARISON: 03/06/2018 EXAM PARAMETERS: NUMBER OF VIEWS: One view. TECHNIQUE: Single frontal radiographic view of the chest acquired. RADIATION DOSE: NA LIMITATIONS: None. FINDINGS: LUNGS AND PLEURA: Stable multifocal airspace disease without new opacities. No pneumothor ax. MEDIASTINUM AND HILAR STRUCTURES: No masses. Contour normal. HEART AND VASCULAR STRUCTURES: Heart normal in size. Normal vasculature. BONES: No acute findings. HARDWARE: None in the chest. OTHER: No other significant finding. IMPRESSION: STABLE MULTIFOCAL AIRSPACE DISEASE. TECHNICAL DOCUMENTATION: JOB ID: [id number] [employer]- All Rights Reserved Reading location - IP/workstation name: [email or web address]
[2018-03-12] MEDS ORDERED: DEXTROSE 5%-LACTATED RINGERS 1,000 ML IV PRN (08:42)
[2018-03-12] MEDS: BUSPIRONE HCL 10 MG TABLET PO SCH (10:30)
[2018-03-12] MEDS: LISINOPRIL 5 MG TABLET PO SCH (10:30)
[2018-03-12] MEDS: ENOXAPARIN SODIUM INJ 40 MG/0.4 ML DISP.SYRIN SUBCUT SCH (10:30)
[2018-03-12] MEDS ORDERED: PROMETHAZINE HCL INJ 25 MG/1 ML VIAL IV PRN (10:42)
[2018-03-12] MEDS ORDERED: PROMETHAZINE HCL INJ 25 MG/1 ML VIAL IV ONE (11:30)
--- NOTE | 2018-03-12 11:32 | PDOC PROGRESS REPORT ---
Subjective Progress Note for:: 03/12/18 Subjective:: Her throat is feeling better, but she is having considerable nausea, I changed her p.o. Phenergan to IV Phenergan. Reason For Visit: OBSTRUCTING COLON MASS Physical Exam Vital Signs: Temp Pulse Resp BP Pulse Ox 98.3 F 65 15 145/76 H 92 03/12/18 03:21 03/12/18 07:00 03/12/18 03:21 03/12/18 03:21 03/12/18 03:21 Intake & Output 03/11/18 03/12/18 03/13/18 06:59 06:59 06:59 Intake Total 3471 2790 Output Total 1425 1700 Balance 2046 1090 Weight 58 kg 60 kg General appearance: PRESENT: no acute distress, well-developed, well-nourished Head exam: PRESENT: atraumatic, normocephalic Eye exam: PRESENT: conjunctiva pink, EOMI, PERRLA. ABSENT: scleral icterus Ear exam: PRESENT: normal external ear exam Mouth exam: PRESENT: moist, tongue midline Neck exam: ABSENT: carotid bruit, JVD, lymphadenopathy, thyromegaly Respiratory exam: PRESENT: clear to auscultation rochelle. ABSENT: rales, rhonchi, wheezes Cardiovascular exam: PRESENT: RRR. ABSENT: diastolic murmur, rubs, systolic murmur Pulses: PRESENT: normal dorsalis pedis pul Vascular exam: PRESENT: normal capillary refill GI/Abdominal exam: PRESENT: normal bowel sounds, soft. ABSENT: distended, guarding, mass, organolmegaly, rebound, tenderness Rectal exam: PRESENT: deferred Extremities exam: PRESENT: full ROM. ABSENT: calf tenderness, clubbing, pedal edema Neurological exam: PRESENT: alert, awake, oriented to person, oriented to place , oriented to time, oriented to situation, CN II-XII grossly intact. ABSENT: motor sensory deficit Psychiatric exam: PRESENT: appropriate affect, normal mood. ABSENT: homicidal ideation, suicidal ideation Skin exam: PRESENT: dry, intact, warm. ABSENT: cyanosis, rash Results Laboratory Results: 03/12/18 05:49 03/12/18 05:49 03/12/18 03/12/18 05:49 05:49 WBC 11.4 H RBC 4.10 Hgb 9.7 L Hct 31.1 L MCV 76 L MCH 23.6 L MCHC 31.1 L RDW 30.0 H Plt Count 322 Seg Neutrophils % Not Reportable Lymphocytes % Not Reportable Monocytes % Not Reportable Eosinophils % Not Reportable Basophils % Not Reportable Absolute Neutrophils Not Reportable Absolute Lymphocytes Not Reportable Absolute Monocytes Not Reportable Absolute Eosinophils Not Reportable Absolute Basophils Not Reportable Sodium 138.0 Potassium 3.7 Chloride 103 Carbon Dioxide 25 Anion Gap 10 BUN 6 L Creatinine 0.48 L Est GFR ( Amer) > 60 Est GFR (Non-Af Amer) > 60 Glucose 140 H Calcium 9.4 Phosphorus 2.8 Magnesium 1.9 Total Bilirubin 0.4 AST 31 ALT 19 Alkaline Phosphatase 70 Total Protein 5.3 L Albumin 2.9 L Impressions: Chest/Abdomen CTA 03/06/18 18:34 IMPRESSION: 1. No PE. 2. Bilateral airspace disease with potential developing nodules especially in the left upper lobe. Could be infectious, inflammatory or neoplastic. 3. Small low-density lesions in the liver which will need dedicated liver imaging follow-up. Abdomen/Pelvis CT 03/07/18 00:00 IMPRESSION: 1. 8 mm right pulmonary nodule. Follow-up as below. 2. Possible 2 to 3 cm mass in the right colon as described. Colonoscopy is recommended. Chest X-Ray 03/12/18 06:00 IMPRESSION: STABLE MULTIFOCAL AIRSPACE DISEASE. Assessment & Plan - Diagnosis (1) Iron deficiency anemia Qualifiers: Iron deficiency anemia type: chronic blood loss Qualified Code(s): D50.0 - Iron deficiency anemia secondary to blood loss (chronic) Is this a current diagnosis for this admission?: Yes Plan: Hemoglobin is stable (2) Lung nodule, multiple Is this a current diagnosis for this admission?: Yes Plan: Further workup as outpatient (3) Cancer of right colon Is this a current diagnosis for this admission?: Yes Plan: Awaiting pathology results.
--- NOTE | 2018-03-12 11:48 | PDOC PROGRESS REPORT ---
Subjective Progress Note for:: 03/12/18 Subjective:: 67-year-old female with a history of hypertension and hypothyroidism who presented to the hospital with generalized weakness shortness of breath and pleuritic chest pain for the past 4 months. She was recently diagnosed with bilateral lung nodules and iron deficiency had a colonoscopy. Hemoglobin was 6.8 and 2 units of packed red blood cells were transfused. She was evaluated by the oncology and GI service. Colonoscopy done on 03/09/18 showed an obstructive colon mass and biopsies were taken. She had a laparoscopic right hemicolectomy on 03/10/18 Pathology results are pending. This am she reports abdominal pain, nausea and vomiting. Abdomen is distended on exam. Will get Xray KUB Reason For Visit: OBSTRUCTING COLON MASS Physical Exam Vital Signs: Temp Pulse Resp BP Pulse Ox 98.3 F 65 15 145/76 H 92 03/12/18 03:21 03/12/18 07:00 03/12/18 03:21 03/12/18 03:21 03/12/18 03:21 Intake & Output 03/11/18 03/12/18 03/13/18 06:59 06:59 06:59 Intake Total 3471 2790 Output Total 1425 1700 Balance 2046 1090 Weight 58 kg 60 kg General appearance: PRESENT: mild distress Head exam: PRESENT: normocephalic Eye exam: PRESENT: PERRLA Mouth exam: PRESENT: moist Neck exam: ABSENT: tracheal deviation Respiratory exam: PRESENT: symmetrical, unlabored Cardiovascular exam: PRESENT: RRR GI/Abdominal exam: PRESENT: diminished bowel sounds, soft, tenderness Rectal exam: PRESENT: deferred Extremities exam: ABSENT: pedal edema Neurological exam: PRESENT: alert, awake, oriented to person, oriented to place , oriented to time Psychiatric exam: PRESENT: anxious Skin exam: ABSENT: rash Results Laboratory Results: 03/12/18 05:49 03/12/18 05:49 03/12/18 03/12/18 05:49 05:49 WBC 11.4 H RBC 4.10 Hgb 9.7 L Hct 31.1 L MCV 76 L MCH 23.6 L MCHC 31.1 L RDW 30.0 H Plt Count 322 Seg Neutrophils % Not Reportable Lymphocytes % Not Reportable Monocytes % Not Reportable Eosinophils % Not Reportable Basophils % Not Reportable Absolute Neutrophils Not Reportable Absolute Lymphocytes Not Reportable Absolute Monocytes Not Reportable Absolute Eosinophils Not Reportable Absolute Basophils Not Reportable Sodium 138.0 Potassium 3.7 Chloride 103 Carbon Dioxide 25 Anion Gap 10 BUN 6 L Creatinine 0.48 L Est GFR ( Amer) > 60 Est GFR (Non-Af Amer) > 60 Glucose 140 H Calcium 9.4 Phosphorus 2.8 Magnesium 1.9 Total Bilirubin 0.4 AST 31 ALT 19 Alkaline Phosphatase 70 Total Protein 5.3 L Albumin 2.9 L Impressions: Chest/Abdomen CTA 03/06/18 18:34 IMPRESSION: 1. No PE. 2. Bilateral airspace disease with potential developing nodules especially in the left upper lobe. Could be infectious, inflammatory or neoplastic. 3. Small low-density lesions in the liver which will need dedicated liver imaging follow-up. Abdomen/Pelvis CT 03/07/18 00:00 IMPRESSION: 1. 8 mm right pulmonary nodule. Follow-up as below. 2. Possible 2 to 3 cm mass in the right colon as described. Colonoscopy is recommended. Chest X-Ray 03/12/18 06:00 IMPRESSION: STABLE MULTIFOCAL AIRSPACE DISEASE. Assessment & Plan - Diagnosis (1) Colonic mass Is this a current diagnosis for this admission?: Yes Plan: POD #2 laparoscopic R hemicolectomy. Pathology results pending. (2) Hypertension Qualifiers: Hypertension type: essential hypertension Qualified Code(s): I10 - Essential (primary) hypertension Is this a current diagnosis for this admission?: Yes Plan: Continue outpatient medications. 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 Monitor hemoglobin. (5) Lung nodule, multiple Is this a current diagnosis for this admission?: Yes Plan: Follow up with oncology. (6) Vomiting Is this a current diagnosis for this admission?: Yes Plan: Xray KUB, npo, will follow. Surgery on board - Time Time Spent with patient: 35 or more minutes
--- NOTE | 2018-03-12 13:15 | RADIOLOGY REPORT (SQ) ---
EXAM DESCRIPTION: KUB/ABDOMEN (SINGLE VIEW) COMPLETED DATE/TIME: 03/12/2018 1:07 pm REASON FOR STUDY: abdominal pain D50.8 OTHER IRON DEFICIENCY ANEMIAS R06.02 SHORTNESS OF BREATH COMPARISON: None. NUMBER OF VIEWS: One view. TECHNIQUE: Supine radiographic image of the abdomen acquired. LIMITATIONS: None. FINDINGS: BOWEL GAS PATTERN: Normal bowel gas pattern. No dilated loops. CALCIFICATIONS: No suspicious calcifications. SOFT TISSUES: No gross mass or suggestion of organomegaly. HARDWARE: Skin oksana. BONES: No acute fracture. No worrisome bone lesions. OTHER: No other significant finding. IMPRESSION: NO RADIOGRAPHIC EVIDENCE FOR ACUTE ABDOMINAL DISEASE. TECHNICAL DOCUMENTATION: JOB ID: [id number] [employer] [place]- All Rights Reserved Reading location - IP/workstation name: [email or web address]
[2018-03-12] MEDS ORDERED: GLUCAGON,HUMAN RECOMB 1 MG INJ SUBCUT PRN (13:26)
[2018-03-12] MEDS ORDERED: DEXTROSE 40% GEL 15 GM TUBE PO PRN ×2 (13:26)
[2018-03-12] MEDS ORDERED: DEXTROSE 50%-WATER 25 GM/50 ML DISP.SYRIN IV PRN ×2 (13:26)
--- NOTE | 2018-03-12 14:06 | PDOC PROGRESS REPORT ---
Subjective Reason For Visit: OBSTRUCTING COLON MASS Physical Exam Vital Signs: Temp Pulse Resp BP Pulse Ox 98.3 F 65 15 145/76 H 92 03/12/18 03:21 03/12/18 07:00 03/12/18 03:21 03/12/18 03:21 03/12/18 03:21 Intake & Output 03/11/18 03/12/18 03/13/18 06:59 06:59 06:59 Intake Total 3471 2790 Output Total 1425 1700 Balance 2046 1090 Weight 58 kg 60 kg Results Laboratory Results: 03/12/18 05:49 03/12/18 05:49 03/12/18 03/12/18 05:49 05:49 WBC 11.4 H RBC 4.10 Hgb 9.7 L Hct 31.1 L MCV 76 L MCH 23.6 L MCHC 31.1 L RDW 30.0 H Plt Count 322 Seg Neutrophils % Not Reportable Lymphocytes % Not Reportable Monocytes % Not Reportable Eosinophils % Not Reportable Basophils % Not Reportable Absolute Neutrophils Not Reportable Absolute Lymphocytes Not Reportable Absolute Monocytes Not Reportable Absolute Eosinophils Not Reportable Absolute Basophils Not Reportable Sodium 138.0 Potassium 3.7 Chloride 103 Carbon Dioxide 25 Anion Gap 10 BUN 6 L Creatinine 0.48 L Est GFR ( Amer) > 60 Est GFR (Non-Af Amer) > 60 Glucose 140 H Calcium 9.4 Phosphorus 2.8 Magnesium 1.9 Total Bilirubin 0.4 AST 31 ALT 19 Alkaline Phosphatase 70 Total Protein 5.3 L Albumin 2.9 L Impressions: Chest/Abdomen CTA 03/06/18 18:34 IMPRESSION: 1. No PE. 2. Bilateral airspace disease with potential developing nodules especially in the left upper lobe. Could be infectious, inflammatory or neoplastic. 3. Small low-density lesions in the liver which will need dedicated liver imaging follow-up. Abdomen/Pelvis CT 03/07/18 00:00 IMPRESSION: 1. 8 mm right pulmonary nodule. Follow-up as below. 2. Possible 2 to 3 cm mass in the right colon as described. Colonoscopy is recommended. KUB X-Ray 03/12/18 00:00 IMPRESSION: NO RADIOGRAPHIC EVIDENCE FOR ACUTE ABDOMINAL DISEASE. Chest X-Ray 03/12/18 06:00 IMPRESSION: STABLE MULTIFOCAL AIRSPACE DISEASE. Assessment & Plan - Diagnosis (1) Colonic mass Is this a current diagnosis for this admission?: Yes - Plan Summary Plan Summary: This is a 67-year-old female status post a laparoscopic right hemicolectomy. Today she reports increasing abdominal distention and nausea. She reports that she vomited one time last night. The patient denies significant abdominal pain or fevers. I reviewed her x-rays. She has distended loops of small bowel without obvious free air. I believe she is experiencing a postoperative ileus. I will make her n.p.o. Continue IV fluids, and recheck electrolytes tomorrow. If the patient's vomiting continues/worsens, she may require NG decompression. Will follow.
[2018-03-13] MEDS: LANSOPRAZOLE 30 MG TAB.RAP.DR PO SCH (05:39)
[2018-03-13] MEDS: LEVOTHYROXINE SODIUM 0.025 MG TABLET PO SCH (05:40)
[2018-03-13 05:42] LABS: HEMATOCRIT 35.4 % (36.0-47.0); HEMOGLOBIN 10.7 g/dL (12.0-15.5); MEAN CORPUSCULAR HEMOGLOBIN 23.5 pg (27.0-33.4); MEAN CORPUSCULAR HGB CONC 30.3 g/dL (32.0-36.0); MEAN CORPUSCULAR VOLUME 78 fl (80-97); PLATELET COUNT 384 10^3/uL (150-450); RED BLOOD COUNT 4.55 10^6/uL (3.72-5.28); RED CELL DISTRIBUTION WIDTH 30.8 % (11.5-14.0); WHITE BLOOD COUNT 11.4 10^3/uL (4.0-10.5)
[2018-03-13 05:58] LABS: ANION GAP 11 (5-19); BLOOD UREA NITROGEN 9 mg/dL (7-20); CALCIUM 9.3 mg/dL (8.4-10.2); CARBON DIOXIDE 26 mmol/L (22-30); CHLORIDE 98 mmol/L (98-107); GLUCOSE 125 mg/dL (75-110); PHOSPHORUS 3.5 mg/dL (2.5-4.5); POTASSIUM 4.3 mmol/L (3.6-5.0); SODIUM 135.1 mmol/L (137-145)
[2018-03-13 06:33] LABS: ABSOLUTE LYMPHOCYTES# (MANUAL) 0.1 10^3/uL (0.5-4.7); ABSOLUTE NEUTROPHILS# (MANUAL) 10.3 10^3/uL (1.7-8.2); BASOPHILS % (MANUAL) 0 % (0-2); EOSINOPHILS % (MANUAL) 0 % (0-6); LYMPHOCYTES % (MANUAL) 1 % (13-45); MONOCYTES % (MANUAL) 9 % (3-13); SEGMENTED NEUTROPHILS % (MAN) 90 % (42-78); TOTAL CELLS COUNTED 100
[2018-03-13 06:35] LABS: ANISOCYTOSIS 3+; HYPOCHROMASIA 1+
[2018-03-13 06:36] LABS: OVALOCYTES SLIGHT; PLATELET COMMENT ADEQUATE; PLATELET LARGE PRESENT; POIKILOCYTOSIS 1+; POLYCHROMASIA SLIGHT; TEAR DROP CELLS SLIGHT
--- NOTE | 2018-03-13 08:03 | PDOC PROGRESS REPORT ---
Subjective Progress Note for:: 03/13/18 Subjective:: Having some nausea, KUB yesterday unremarkable, repeat done this am. Surgery notes possible post op ileus. Abd pain improved Reason For Visit: OBSTRUCTING COLON MASS Physical Exam Vital Signs: Temp Pulse Resp BP Pulse Ox 98.3 F 76 17 124/74 96 03/12/18 23:21 03/13/18 02:00 03/12/18 23:21 03/12/18 23:21 03/12/18 23:21 Intake & Output 03/12/18 03/13/18 03/14/18 06:59 06:59 06:59 Intake Total 2790 816 Output Total 1700 400 Balance 1090 416 Weight 60 kg 61.7 kg General appearance: PRESENT: no acute distress, well-developed, well-nourished Head exam: PRESENT: atraumatic, normocephalic Eye exam: PRESENT: conjunctiva pink, EOMI, PERRLA. ABSENT: scleral icterus Ear exam: PRESENT: normal external ear exam Mouth exam: PRESENT: moist, tongue midline Neck exam: ABSENT: carotid bruit, JVD, lymphadenopathy, thyromegaly Respiratory exam: PRESENT: clear to auscultation rochelle. ABSENT: rales, rhonchi, wheezes Cardiovascular exam: PRESENT: RRR. ABSENT: diastolic murmur, rubs, systolic murmur Pulses: PRESENT: normal dorsalis pedis pul Vascular exam: PRESENT: normal capillary refill GI/Abdominal exam: PRESENT: normal bowel sounds, soft. ABSENT: distended, guarding, mass, organolmegaly, rebound, tenderness Rectal exam: PRESENT: deferred Extremities exam: PRESENT: full ROM. ABSENT: calf tenderness, clubbing, pedal edema Neurological exam: PRESENT: alert, awake, oriented to person, oriented to place , oriented to time, oriented to situation, CN II-XII grossly intact. ABSENT: motor sensory deficit Psychiatric exam: PRESENT: appropriate affect, normal mood. ABSENT: homicidal ideation, suicidal ideation Skin exam: PRESENT: dry, intact, warm. ABSENT: cyanosis, rash Results Laboratory Results: 03/13/18 04:11 03/13/18 04:11 03/13/18 03/13/18 04:11 04:11 WBC 11.4 H RBC 4.55 Hgb 10.7 L Hct 35.4 L MCV 78 L MCH 23.5 L MCHC 30.3 L RDW 30.8 H Plt Count 384 Seg Neutrophils % Not Reportable Lymphocytes % Not Reportable Monocytes % Not Reportable Eosinophils % Not Reportable Basophils % Not Reportable Absolute Neutrophils Not Reportable Absolute Lymphocytes Not Reportable Absolute Monocytes Not Reportable Absolute Eosinophils Not Reportable Absolute Basophils Not Reportable Sodium 135.1 L Potassium 4.3 Chloride 98 Carbon Dioxide 26 Anion Gap 11 BUN 9 Creatinine 0.63 Est GFR ( Amer) > 60 Est GFR (Non-Af Amer) > 60 Glucose 125 H Calcium 9.3 Phosphorus 3.5 Magnesium 2.0 Impressions: Chest/Abdomen CTA 03/06/18 18:34 IMPRESSION: 1. No PE. 2. Bilateral airspace disease with potential developing nodules especially in the left upper lobe. Could be infectious, inflammatory or neoplastic. 3. Small low-density lesions in the liver which will need dedicated liver imaging follow-up. Abdomen/Pelvis CT 03/07/18 00:00 IMPRESSION: 1. 8 mm right pulmonary nodule. Follow-up as below. 2. Possible 2 to 3 cm mass in the right colon as described. Colonoscopy is recommended. KUB X-Ray 03/12/18 00:00 IMPRESSION: NO RADIOGRAPHIC EVIDENCE FOR ACUTE ABDOMINAL DISEASE. Chest X-Ray 03/12/18 06:00 IMPRESSION: STABLE MULTIFOCAL AIRSPACE DISEASE. Assessment & Plan - Diagnosis (1) Iron deficiency anemia Qualifiers: Iron deficiency anemia type: chronic blood loss Qualified Code(s): D50.0 - Iron deficiency anemia secondary to blood loss (chronic) Is this a current diagnosis for this admission?: Yes Plan: Hb stable, cont to monitor (2) Lung nodule, multiple Is this a current diagnosis for this admission?: Yes Plan: Furhter w/u as outpt (3) Cancer of right colon Is this a current diagnosis for this admission?: Yes Plan: Awaiting path, will discuss further when it returns
[2018-03-13] MEDS ORDERED: DEXTROSE 5%-LACTATED RINGERS 1,000 ML IV PRN ×2 (08:35→09:01)
--- NOTE | 2018-03-13 08:56 | RADIOLOGY REPORT (SQ) ---
EXAM DESCRIPTION: ABDOMEN 2 VIEWS COMPLETED DATE/TIME: 03/13/2018 7:35 am REASON FOR STUDY: distention/ileus D50.8 OTHER IRON DEFICIENCY ANEMIAS R06.02 SHORTNESS OF BREATH COMPARISON: None. NUMBER OF VIEWS: Two views. TECHNIQUE: Supine and upright radiographic images of the abdomen acquired. LIMITATIONS: None. FINDINGS: FREE AIR: None. No postoperative subdiaphragmatic free air is identified. LUNG BASES: Minimal bibasilar atelectasis. BOWEL GAS PATTERN: Air-fluid levels in distended stomach, small bowel, transverse and proximal descen ding colon likely a postoperative ileus. CALCIFICATIONS: No suspicious calcifications. SOFT TISSUES: No gross mass or suggestion of organomegaly. HARDWARE: Skin oksana for laparoscopic ports in the right upper quadrant, mid epigastrium and left l ower quadrant. Eid catheter in the bladder. BONES: No acute fracture. No worrisome bone lesions. OTHER: No other significant finding. IMPRESSION: Postoperative ileus. Findings discussed with Dr. Barbosa TECHNICAL DOCUMENTATION: JOB ID: [id number] [employer]- All Rights Reserved Reading location - IP/workstation name: [facility]
[2018-03-13] MEDS ORDERED: NORMAL SALINE 500 ML IV ONE (09:15)
[2018-03-13] MEDS: BUSPIRONE HCL 10 MG TABLET PO SCH (09:33)
[2018-03-13] MEDS: ENOXAPARIN SODIUM INJ 40 MG/0.4 ML DISP.SYRIN SUBCUT SCH (09:34)
[2018-03-13] MEDS: LISINOPRIL 5 MG TABLET PO SCH (09:34)
[2018-03-13] MEDS ORDERED: RINGERS SOLUTION,LACTATED 1,000 ML IV PRN (11:06)
--- NOTE | 2018-03-13 11:09 | PDOC PROGRESS REPORT ---
Subjective Progress Note for:: 03/13/18 Subjective:: Patient denies flatus; required Eid insertion. Some sensation of nausea but has not thrown up. Reason For Visit: OBSTRUCTING COLON MASS Physical Exam Vital Signs: Temp Pulse Resp BP Pulse Ox 98.4 F 71 16 121/71 95 03/13/18 07:17 03/13/18 07:17 03/13/18 07:17 03/13/18 07:17 03/13/18 07:17 Intake & Output 03/12/18 03/13/18 03/14/18 06:59 06:59 06:59 Intake Total 2790 816 Output Total 1700 400 Balance 1090 416 Weight 60 kg 61.7 kg General appearance: PRESENT: no acute distress GI/Abdominal exam: PRESENT: other - Abdomen distended, tympanitic, no peritoneal signs no rigidity; operative sites is covered appropriately Results Laboratory Results: 03/13/18 04:11 03/13/18 04:11 03/13/18 03/13/18 04:11 04:11 WBC 11.4 H RBC 4.55 Hgb 10.7 L Hct 35.4 L MCV 78 L MCH 23.5 L MCHC 30.3 L RDW 30.8 H Plt Count 384 Seg Neutrophils % Not Reportable Lymphocytes % Not Reportable Monocytes % Not Reportable Eosinophils % Not Reportable Basophils % Not Reportable Absolute Neutrophils Not Reportable Absolute Lymphocytes Not Reportable Absolute Monocytes Not Reportable Absolute Eosinophils Not Reportable Absolute Basophils Not Reportable Sodium 135.1 L Potassium 4.3 Chloride 98 Carbon Dioxide 26 Anion Gap 11 BUN 9 Creatinine 0.63 Est GFR ( Amer) > 60 Est GFR (Non-Af Amer) > 60 Glucose 125 H Calcium 9.3 Phosphorus 3.5 Magnesium 2.0 Impressions: Chest/Abdomen CTA 03/06/18 18:34 IMPRESSION: 1. No PE. 2. Bilateral airspace disease with potential developing nodules especially in the left upper lobe. Could be infectious, inflammatory or neoplastic. 3. Small low-density lesions in the liver which will need dedicated liver imaging follow-up. Abdomen/Pelvis CT 03/07/18 00:00 IMPRESSION: 1. 8 mm right pulmonary nodule. Follow-up as below. 2. Possible 2 to 3 cm mass in the right colon as described. Colonoscopy is recommended. KUB X-Ray 03/12/18 00:00 IMPRESSION: NO RADIOGRAPHIC EVIDENCE FOR ACUTE ABDOMINAL DISEASE. Chest X-Ray 03/12/18 06:00 IMPRESSION: STABLE MULTIFOCAL AIRSPACE DISEASE. Abdomen X-Ray 03/13/18 04:00 IMPRESSION: Postoperative ileus. Findings discussed with Dr. Barbosa Assessment & Plan - Diagnosis (1) Cancer of right colon Is this a current diagnosis for this admission?: Yes Plan: With obstruction and anemia, now 3 and half days post op right hemicolectomy by Dr. Cheng, doing reasonably well; postoperative ileus delaying return of bowel function. Recommendations: 1. Increase IV fluids; IV fluid bolus 2. Abdominal films consistent with ileus; discussed with radiology 3.. InCrease ambulation; no indication for nasogastric tube at this time.
--- NOTE | 2018-03-13 13:13 | PDOC PROGRESS REPORT ---
Subjective Progress Note for:: 03/13/18 Subjective:: 67-year-old female with a history of hypertension and hypothyroidism who presented to the hospital with generalized weakness shortness of breath and pleuritic chest pain for the past 4 months. She was recently diagnosed with bilateral lung nodules and iron deficiency had a colonoscopy. Hemoglobin was 6.8 and 2 units of packed red blood cells were transfused. She was evaluated by the oncology and GI service. Colonoscopy done on 03/09/18 showed an obstructive colon mass and biopsies were taken. She had a laparoscopic right hemicolectomy on 03/10/18 Pathology results are pending. The patient developed post operative ileus which is being managed by the Surgical service. Reason For Visit: OBSTRUCTING COLON MASS Physical Exam Vital Signs: Temp Pulse Resp BP Pulse Ox 98.4 F 71 16 121/71 95 03/13/18 07:17 03/13/18 07:17 03/13/18 07:17 03/13/18 07:17 03/13/18 07:17 Intake & Output 03/12/18 03/13/18 03/14/18 06:59 06:59 06:59 Intake Total 2790 816 Output Total 1700 400 Balance 1090 416 Weight 60 kg 61.7 kg General appearance: PRESENT: no acute distress Head exam: PRESENT: normocephalic Eye exam: ABSENT: scleral icterus Ear exam: PRESENT: normal external ear exam Mouth exam: PRESENT: moist Neck exam: ABSENT: tracheal deviation Respiratory exam: PRESENT: symmetrical, unlabored Cardiovascular exam: PRESENT: RRR GI/Abdominal exam: PRESENT: soft, tenderness Extremities exam: ABSENT: pedal edema Neurological exam: PRESENT: alert, awake, oriented to person, oriented to place , oriented to time, oriented to situation, reflexes normal Psychiatric exam: PRESENT: appropriate affect Skin exam: ABSENT: petechiae Results Laboratory Results: 03/13/18 04:11 03/13/18 04:11 03/13/18 03/13/18 04:11 04:11 WBC 11.4 H RBC 4.55 Hgb 10.7 L Hct 35.4 L MCV 78 L MCH 23.5 L MCHC 30.3 L RDW 30.8 H Plt Count 384 Seg Neutrophils % Not Reportable Lymphocytes % Not Reportable Monocytes % Not Reportable Eosinophils % Not Reportable Basophils % Not Reportable Absolute Neutrophils Not Reportable Absolute Lymphocytes Not Reportable Absolute Monocytes Not Reportable Absolute Eosinophils Not Reportable Absolute Basophils Not Reportable Sodium 135.1 L Potassium 4.3 Chloride 98 Carbon Dioxide 26 Anion Gap 11 BUN 9 Creatinine 0.63 Est GFR ( Amer) > 60 Est GFR (Non-Af Amer) > 60 Glucose 125 H Calcium 9.3 Phosphorus 3.5 Magnesium 2.0 Impressions: Chest/Abdomen CTA 03/06/18 18:34 IMPRESSION: 1. No PE. 2. Bilateral airspace disease with potential developing nodules especially in the left upper lobe. Could be infectious, inflammatory or neoplastic. 3. Small low-density lesions in the liver which will need dedicated liver imaging follow-up. Abdomen/Pelvis CT 03/07/18 00:00 IMPRESSION: 1. 8 mm right pulmonary nodule. Follow-up as below. 2. Possible 2 to 3 cm mass in the right colon as described. Colonoscopy is recommended. KUB X-Ray 03/12/18 00:00 IMPRESSION: NO RADIOGRAPHIC EVIDENCE FOR ACUTE ABDOMINAL DISEASE. Chest X-Ray 03/12/18 06:00 IMPRESSION: STABLE MULTIFOCAL AIRSPACE DISEASE. Abdomen X-Ray 03/13/18 04:00 IMPRESSION: Postoperative ileus. Findings discussed with Dr. Barbosa Assessment & Plan - Diagnosis (1) Colonic mass Is this a current diagnosis for this admission?: Yes Plan: POD #3 laparoscopic R hemicolectomy. Pathology results pending. (2) Hypertension Qualifiers: Hypertension type: essential hypertension Qualified Code(s): I10 - Essential (primary) hypertension Is this a current diagnosis for this admission?: Yes Plan: Continue outpatient medications. 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 Monitor hemoglobin. (5) Lung nodule, multiple Is this a current diagnosis for this admission?: Yes Plan: Follow up with oncology. (6) Ileus Is this a current diagnosis for this admission?: Yes Plan: Management per Surgical service - Time Time Spent with patient: 25-34 minutes
[2018-03-13] MEDS: DEXTROSE 5%-LACTATED RINGERS 1,000 ML IV PRN (19:42)
[2018-03-13] MEDS: OXYCODONE-ACETAMINOPHEN 5-325 MG TABLET PO PRN (20:22)
[2018-03-14 05:15] LABS: HEMOGLOBIN 10.4 g/dL (12.0-15.5); MEAN CORPUSCULAR HGB CONC 30.7 g/dL (32.0-36.0); MEAN CORPUSCULAR VOLUME 78 fl (80-97); PLATELET COUNT 424 10^3/uL (150-450); RED BLOOD COUNT 4.34 10^6/uL (3.72-5.28); RED CELL DISTRIBUTION WIDTH 30.5 % (11.5-14.0); WHITE BLOOD COUNT 8.5 10^3/uL (4.0-10.5)
[2018-03-14] MEDS: LEVOTHYROXINE SODIUM 0.025 MG TABLET PO SCH (05:20)
[2018-03-14] MEDS: LANSOPRAZOLE 30 MG TAB.RAP.DR PO SCH (05:20)
[2018-03-14 05:31] LABS: ANION GAP 9 (5-19); BLOOD UREA NITROGEN 11 mg/dL (7-20); CALCIUM 9.2 mg/dL (8.4-10.2); CARBON DIOXIDE 25 mmol/L (22-30); CHLORIDE 101 mmol/L (98-107); GLUCOSE 103 mg/dL (75-110); POTASSIUM 4.2 mmol/L (3.6-5.0); SODIUM 134.7 mmol/L (137-145)
[2018-03-14 05:38] LABS: ABSOLUTE LYMPHOCYTES# (MANUAL) 0.6 10^3/uL (0.5-4.7); ABSOLUTE MONOCYTES # (MANUAL) 1.3 10^3/uL (0.1-1.4); ABSOLUTE NEUTROPHILS# (MANUAL) 6.6 10^3/uL (1.7-8.2); BASOPHILS % (MANUAL) 0 % (0-2); EOSINOPHILS % (MANUAL) 0 % (0-6); LYMPHOCYTES % (MANUAL) 7 % (13-45); MONOCYTES % (MANUAL) 15 % (3-13); SEGMENTED NEUTROPHILS % (MAN) 78 % (42-78); TOTAL CELLS COUNTED 100
[2018-03-14 05:39] LABS: ANISOCYTOSIS 4+
[2018-03-14 05:40] LABS: PLATELET COMMENT ADEQUATE
--- NOTE | 2018-03-14 08:13 | PDOC PROGRESS REPORT ---
Subjective Progress Note for:: 03/14/18 Subjective:: Pt did pass some gas this am but prev was not passing gas 2nd post op ileus, had N/V yesterday. Seems a bit better this am. I told pt about path results, she has at least stage III dx, we discussed that and next steps of care, spent >35 min in discussion this am Reason For Visit: OBSTRUCTING COLON MASS Physical Exam Vital Signs: Temp Pulse Resp BP Pulse Ox 98.6 F 70 16 133/71 H 95 03/13/18 15:18 03/13/18 15:18 03/13/18 15:18 03/13/18 15:18 03/13/18 15:18 Intake & Output 03/13/18 03/14/18 03/15/18 06:59 06:59 06:59 Intake Total 816 3180 Output Total 400 675 Balance 416 2505 Weight 61.7 kg 64.3 kg General appearance: PRESENT: no acute distress, well-developed, well-nourished Head exam: PRESENT: atraumatic, normocephalic Eye exam: PRESENT: conjunctiva pink, EOMI, PERRLA. ABSENT: scleral icterus Ear exam: PRESENT: normal external ear exam Mouth exam: PRESENT: moist, tongue midline Neck exam: ABSENT: carotid bruit, JVD, lymphadenopathy, thyromegaly Respiratory exam: PRESENT: clear to auscultation rochelle. ABSENT: rales, rhonchi, wheezes Cardiovascular exam: PRESENT: RRR. ABSENT: diastolic murmur, rubs, systolic murmur Pulses: PRESENT: normal dorsalis pedis pul Vascular exam: PRESENT: normal capillary refill GI/Abdominal exam: PRESENT: normal bowel sounds, soft. ABSENT: distended, guarding, mass, organolmegaly, rebound, tenderness Rectal exam: PRESENT: deferred Extremities exam: PRESENT: full ROM. ABSENT: calf tenderness, clubbing, pedal edema Neurological exam: PRESENT: alert, awake, oriented to person, oriented to place , oriented to time, oriented to situation, CN II-XII grossly intact. ABSENT: motor sensory deficit Psychiatric exam: PRESENT: appropriate affect, normal mood. ABSENT: homicidal ideation, suicidal ideation Skin exam: PRESENT: dry, intact, warm. ABSENT: cyanosis, rash Results Laboratory Results: 03/14/18 04:20 03/14/18 04:20 03/14/18 03/14/18 04:20 04:20 WBC 8.5 RBC 4.34 Hgb 10.4 L Hct 34.0 L MCV 78 L MCH 24.0 L MCHC 30.7 L RDW 30.5 H Plt Count 424 Seg Neutrophils % Not Reportable Lymphocytes % Not Reportable Monocytes % Not Reportable Eosinophils % Not Reportable Basophils % Not Reportable Absolute Neutrophils Not Reportable Absolute Lymphocytes Not Reportable Absolute Monocytes Not Reportable Absolute Eosinophils Not Reportable Absolute Basophils Not Reportable Sodium 134.7 L Potassium 4.2 Chloride 101 Carbon Dioxide 25 Anion Gap 9 BUN 11 Creatinine 0.58 Est GFR ( Amer) > 60 Est GFR (Non-Af Amer) > 60 Glucose 103 Calcium 9.2 Impressions: Chest/Abdomen CTA 03/06/18 18:34 IMPRESSION: 1. No PE. 2. Bilateral airspace disease with potential developing nodules especially in the left upper lobe. Could be infectious, inflammatory or neoplastic. 3. Small low-density lesions in the liver which will need dedicated liver imaging follow-up. Abdomen/Pelvis CT 03/07/18 00:00 IMPRESSION: 1. 8 mm right pulmonary nodule. Follow-up as below. 2. Possible 2 to 3 cm mass in the right colon as described. Colonoscopy is recommended. KUB X-Ray 03/12/18 00:00 IMPRESSION: NO RADIOGRAPHIC EVIDENCE FOR ACUTE ABDOMINAL DISEASE. Chest X-Ray 03/12/18 06:00 IMPRESSION: STABLE MULTIFOCAL AIRSPACE DISEASE. Abdomen X-Ray 03/13/18 04:00 IMPRESSION: Postoperative ileus. Findings discussed with Dr. Barbosa Assessment & Plan - Diagnosis (1) Iron deficiency anemia Qualifiers: Iron deficiency anemia type: chronic blood loss Qualified Code(s): D50.0 - Iron deficiency anemia secondary to blood loss (chronic) Is this a current diagnosis for this admission?: Yes Plan: Hb stable, cont to monitor (2) Lung nodule, multiple Is this a current diagnosis for this admission?: Yes Plan: Will need PET 4-6 wk post surgery to eval, nodules too small to bx at present but high chance that it represents mets (3) Cancer of right colon Is this a current diagnosis for this admission?: Yes Plan: At least stage III dx, d/w pt, further management as oupt - Time Time Spent with patient: 35 or more minutes
--- NOTE | 2018-03-14 09:01 | PDOC PROGRESS REPORT ---
Subjective Progress Note for:: 03/14/18 Subjective:: patient reports flatus last evening Reason For Visit: OBSTRUCTING COLON MASS Physical Exam Vital Signs: Temp Pulse Resp BP Pulse Ox 98.6 F 70 16 133/71 H 95 03/13/18 15:18 03/13/18 15:18 03/13/18 15:18 03/13/18 15:18 03/13/18 15:18 Intake & Output 03/13/18 03/14/18 03/15/18 06:59 06:59 06:59 Intake Total 816 3180 Output Total 400 675 Balance 416 2505 Weight 61.7 kg 64.3 kg General appearance: PRESENT: no acute distress, cooperative Respiratory exam: PRESENT: clear to auscultation rochelle Cardiovascular exam: PRESENT: RRR GI/Abdominal exam: PRESENT: distended, hypoactive bowel sounds, soft, other - incisions c/d/i Results Laboratory Results: 03/14/18 04:20 03/14/18 04:20 03/14/18 03/14/18 04:20 04:20 WBC 8.5 RBC 4.34 Hgb 10.4 L Hct 34.0 L MCV 78 L MCH 24.0 L MCHC 30.7 L RDW 30.5 H Plt Count 424 Seg Neutrophils % Not Reportable Lymphocytes % Not Reportable Monocytes % Not Reportable Eosinophils % Not Reportable Basophils % Not Reportable Absolute Neutrophils Not Reportable Absolute Lymphocytes Not Reportable Absolute Monocytes Not Reportable Absolute Eosinophils Not Reportable Absolute Basophils Not Reportable Sodium 134.7 L Potassium 4.2 Chloride 101 Carbon Dioxide 25 Anion Gap 9 BUN 11 Creatinine 0.58 Est GFR ( Amer) > 60 Est GFR (Non-Af Amer) > 60 Glucose 103 Calcium 9.2 Impressions: Chest/Abdomen CTA 03/06/18 18:34 IMPRESSION: 1. No PE. 2. Bilateral airspace disease with potential developing nodules especially in the left upper lobe. Could be infectious, inflammatory or neoplastic. 3. Small low-density lesions in the liver which will need dedicated liver imaging follow-up. Abdomen/Pelvis CT 03/07/18 00:00 IMPRESSION: 1. 8 mm right pulmonary nodule. Follow-up as below. 2. Possible 2 to 3 cm mass in the right colon as described. Colonoscopy is recommended. KUB X-Ray 03/12/18 00:00 IMPRESSION: NO RADIOGRAPHIC EVIDENCE FOR ACUTE ABDOMINAL DISEASE. Chest X-Ray 03/12/18 06:00 IMPRESSION: STABLE MULTIFOCAL AIRSPACE DISEASE. Abdomen X-Ray 03/13/18 04:00 IMPRESSION: Postoperative ileus. Findings discussed with Dr. Barbosa Assessment & Plan - Diagnosis (1) Cancer of right colon Is this a current diagnosis for this admission?: Yes - Plan Summary Plan Summary: A/ POD #4 after laparoscopic right colectomy VSS, AF good UO minimal flatus laste evening, none today Abdomen distended blood work WNL P/ Continue NPO with ice chips Keep Eid in If no flatus by tomorrow and abdomen is still distended, plan UGI with SBFT in AM
[2018-03-14] MEDS: ENOXAPARIN SODIUM INJ 40 MG/0.4 ML DISP.SYRIN SUBCUT SCH (09:54)
[2018-03-14] MEDS: BUSPIRONE HCL 10 MG TABLET PO SCH (09:54)
[2018-03-14] MEDS: LISINOPRIL 5 MG TABLET PO SCH (09:54)
--- NOTE | 2018-03-14 15:23 | PDOC PROGRESS REPORT ---
Subjective Progress Note for:: 03/14/18 Subjective:: Patient does not have any specific complaint No significant abdominal pain States she passed a little flat use yesterday evening No bowel movement Reason For Visit: OBSTRUCTING COLON MASS Physical Exam Vital Signs: Temp Pulse Resp BP Pulse Ox 98.5 F 70 15 146/65 H 92 03/14/18 12:00 03/14/18 12:00 03/14/18 12:00 03/14/18 12:00 03/14/18 12:00 Intake & Output 03/13/18 03/14/18 03/15/18 00:59 00:59 00:59 Intake Total 1484 2096 1800 Output Total 0 975 100 Balance 1484 1121 1700 Weight 60 kg 61.7 kg 64.3 kg General appearance: PRESENT: no acute distress Head exam: PRESENT: normocephalic Eye exam: ABSENT: scleral icterus Ear exam: PRESENT: normal external ear exam Mouth exam: PRESENT: moist Neck exam: ABSENT: tracheal deviation Respiratory exam: PRESENT: symmetrical, unlabored Cardiovascular exam: PRESENT: RRR GI/Abdominal exam: PRESENT: Abdomen is distended and firm Extremities exam: ABSENT: pedal edema Neurological exam: PRESENT: alert, awake, oriented to person, oriented to place , oriented to time, oriented to situation, reflexes normal Psychiatric exam: PRESENT: appropriate affect Skin exam: ABSENT: petechiae Results Laboratory Results: 03/14/18 04:20 03/14/18 04:20 03/14/18 03/14/18 04:20 04:20 WBC 8.5 RBC 4.34 Hgb 10.4 L Hct 34.0 L MCV 78 L MCH 24.0 L MCHC 30.7 L RDW 30.5 H Plt Count 424 Seg Neutrophils % Not Reportable Lymphocytes % Not Reportable Monocytes % Not Reportable Eosinophils % Not Reportable Basophils % Not Reportable Absolute Neutrophils Not Reportable Absolute Lymphocytes Not Reportable Absolute Monocytes Not Reportable Absolute Eosinophils Not Reportable Absolute Basophils Not Reportable Sodium 134.7 L Potassium 4.2 Chloride 101 Carbon Dioxide 25 Anion Gap 9 BUN 11 Creatinine 0.58 Est GFR ( Amer) > 60 Est GFR (Non-Af Amer) > 60 Glucose 103 Calcium 9.2 Impressions: Chest/Abdomen CTA 03/06/18 18:34 IMPRESSION: 1. No PE. 2. Bilateral airspace disease with potential developing nodules especially in the left upper lobe. Could be infectious, inflammatory or neoplastic. 3. Small low-density lesions in the liver which will need dedicated liver imaging follow-up. Abdomen/Pelvis CT 03/07/18 00:00 IMPRESSION: 1. 8 mm right pulmonary nodule. Follow-up as below. 2. Possible 2 to 3 cm mass in the right colon as described. Colonoscopy is recommended. KUB X-Ray 03/12/18 00:00 IMPRESSION: NO RADIOGRAPHIC EVIDENCE FOR ACUTE ABDOMINAL DISEASE. Chest X-Ray 03/12/18 06:00 IMPRESSION: STABLE MULTIFOCAL AIRSPACE DISEASE. Abdomen X-Ray 03/13/18 04:00 IMPRESSION: Postoperative ileus. Findings discussed with Dr. Barbosa Assessment & Plan - Diagnosis (1) Postoperative ileus Is this a current diagnosis for this admission?: Yes Plan: As per surgery (2) Anemia Qualifiers: Anemia type: unspecified type Qualified Code(s): D64.9 - Anemia, unspecified Is this a current diagnosis for this admission?: Yes Plan: Anemia of chronic disease Vitamin B12 folate iron studies were normal (3) Colonic mass Is this a current diagnosis for this admission?: Yes (4) Hypertension Qualifiers: Hypertension type: essential hypertension Qualified Code(s): I10 - Essential (primary) hypertension Is this a current diagnosis for this admission?: Yes Plan: Controlled (5) Hypothyroidism Qualifiers: Hypothyroidism type: acquired Qualified Code(s): E03.9 - Hypothyroidism, unspecified Is this a current diagnosis for this admission?: Yes (6) Lung nodule, multiple Is this a current diagnosis for this admission?: Yes Plan: likely metastatic disease - Time Time Spent with patient: 25-34 minutes
[2018-03-14] MEDS: DEXTROSE 5%-LACTATED RINGERS 1,000 ML IV PRN (20:07)
[2018-03-15] MEDS: DEXTROSE 5%-LACTATED RINGERS 1,000 ML IV PRN (03:53)
[2018-03-15 05:13] LABS: HEMATOCRIT 30.3 % (36.0-47.0); HEMOGLOBIN 9.5 g/dL (12.0-15.5); MEAN CORPUSCULAR HEMOGLOBIN 24.7 pg (27.0-33.4); MEAN CORPUSCULAR HGB CONC 31.4 g/dL (32.0-36.0); MEAN CORPUSCULAR VOLUME 79 fl (80-97); PLATELET COUNT 340 10^3/uL (150-450); RED BLOOD COUNT 3.84 10^6/uL (3.72-5.28); RED CELL DISTRIBUTION WIDTH 30.6 % (11.5-14.0); WHITE BLOOD COUNT 6.4 10^3/uL (4.0-10.5)
[2018-03-15] MEDS: LEVOTHYROXINE SODIUM 0.025 MG TABLET PO SCH (05:17)
[2018-03-15] MEDS: LANSOPRAZOLE 30 MG TAB.RAP.DR PO SCH (05:18)
[2018-03-15 05:24] LABS: ANION GAP 8 (5-19); BLOOD UREA NITROGEN 7 mg/dL (7-20); CALCIUM 8.8 mg/dL (8.4-10.2); CARBON DIOXIDE 25 mmol/L (22-30); CHLORIDE 103 mmol/L (98-107); GLUCOSE 110 mg/dL (75-110); POTASSIUM 3.8 mmol/L (3.6-5.0)
[2018-03-15 05:40] LABS: ABSOLUTE LYMPHOCYTES# (MANUAL) 0.4 10^3/uL (0.5-4.7); ABSOLUTE MONOCYTES # (MANUAL) 0.8 10^3/uL (0.1-1.4); ABSOLUTE NEUTROPHILS# (MANUAL) 5.1 10^3/uL (1.7-8.2); ANISOCYTOSIS 4+; BAND NEUTROPHILS % (MANUAL) 2 % (3-5); BASOPHILS % (MANUAL) 0 % (0-2); EOSINOPHILS % (MANUAL) 2 % (0-6); LYMPHOCYTES % (MANUAL) 6 % (13-45); MONOCYTES % (MANUAL) 13 % (3-13); SEGMENTED NEUTROPHILS % (MAN) 77 % (42-78); TOTAL CELLS COUNTED 100; TOXIC GRANULATION 1+
[2018-03-15 05:41] LABS: OVALOCYTES SLIGHT; PLATELET COMMENT ADEQUATE; PLATELET LARGE PRESENT; POIKILOCYTOSIS SLIGHT; SCHISTOCYTES SLIGHT; TEAR DROP CELLS SLIGHT
--- NOTE | 2018-03-15 07:54 | PDOC PROGRESS REPORT ---
Subjective Progress Note for:: 03/15/18 Subjective:: Had 4 BMs yesterday, seems better w/ nausea this am, having some SOB/wheezing Reason For Visit: OBSTRUCTING COLON MASS Physical Exam Vital Signs: Temp Pulse Resp BP Pulse Ox 98.7 F 72 17 143/73 H 90 L 03/14/18 16:00 03/14/18 16:00 03/14/18 16:00 03/14/18 16:00 03/14/18 16:00 Intake & Output 03/14/18 03/15/18 03/16/18 06:59 06:59 06:59 Intake Total 3180 3422 Output Total 675 950 Balance 2505 2472 Weight 64.3 kg 65 kg General appearance: PRESENT: no acute distress, well-developed, well-nourished Head exam: PRESENT: atraumatic, normocephalic Eye exam: PRESENT: conjunctiva pink, EOMI, PERRLA. ABSENT: scleral icterus Ear exam: PRESENT: normal external ear exam Mouth exam: PRESENT: moist, tongue midline Neck exam: ABSENT: carotid bruit, JVD, lymphadenopathy, thyromegaly Respiratory exam: PRESENT: clear to auscultation rochelle. ABSENT: rales, rhonchi, wheezes Cardiovascular exam: PRESENT: RRR. ABSENT: diastolic murmur, rubs, systolic murmur Pulses: PRESENT: normal dorsalis pedis pul Vascular exam: PRESENT: normal capillary refill GI/Abdominal exam: PRESENT: normal bowel sounds, soft. ABSENT: distended, guarding, mass, organolmegaly, rebound, tenderness Rectal exam: PRESENT: deferred Extremities exam: PRESENT: full ROM. ABSENT: calf tenderness, clubbing, pedal edema Neurological exam: PRESENT: alert, awake, oriented to person, oriented to place , oriented to time, oriented to situation, CN II-XII grossly intact. ABSENT: motor sensory deficit Psychiatric exam: PRESENT: appropriate affect, normal mood. ABSENT: homicidal ideation, suicidal ideation Skin exam: PRESENT: dry, intact, warm. ABSENT: cyanosis, rash Results Laboratory Results: 03/15/18 04:23 03/15/18 04:23 03/15/18 03/15/18 04:23 04:23 WBC 6.4 RBC 3.84 Hgb 9.5 L Hct 30.3 L MCV 79 L MCH 24.7 L MCHC 31.4 L RDW 30.6 H Plt Count 340 Seg Neutrophils % Not Reportable Lymphocytes % Not Reportable Monocytes % Not Reportable Eosinophils % Not Reportable Basophils % Not Reportable Absolute Neutrophils Not Reportable Absolute Lymphocytes Not Reportable Absolute Monocytes Not Reportable Absolute Eosinophils Not Reportable Absolute Basophils Not Reportable Sodium 136.0 L Potassium 3.8 Chloride 103 Carbon Dioxide 25 Anion Gap 8 BUN 7 Creatinine 0.52 Est GFR ( Amer) > 60 Est GFR (Non-Af Amer) > 60 Glucose 110 Calcium 8.8 Impressions: Chest/Abdomen CTA 03/06/18 18:34 IMPRESSION: 1. No PE. 2. Bilateral airspace disease with potential developing nodules especially in the left upper lobe. Could be infectious, inflammatory or neoplastic. 3. Small low-density lesions in the liver which will need dedicated liver imaging follow-up. Abdomen/Pelvis CT 03/07/18 00:00 IMPRESSION: 1. 8 mm right pulmonary nodule. Follow-up as below. 2. Possible 2 to 3 cm mass in the right colon as described. Colonoscopy is recommended. KUB X-Ray 03/12/18 00:00 IMPRESSION: NO RADIOGRAPHIC EVIDENCE FOR ACUTE ABDOMINAL DISEASE. Chest X-Ray 03/12/18 06:00 IMPRESSION: STABLE MULTIFOCAL AIRSPACE DISEASE. Abdomen X-Ray 03/13/18 04:00 IMPRESSION: Postoperative ileus. Findings discussed with Dr. Barbosa Assessment & Plan - Diagnosis (1) Iron deficiency anemia Qualifiers: Iron deficiency anemia type: chronic blood loss Qualified Code(s): D50.0 - Iron deficiency anemia secondary to blood loss (chronic) Is this a current diagnosis for this admission?: Yes Plan: Hb stable, will follow (2) Lung nodule, multiple Is this a current diagnosis for this admission?: Yes Plan: Maybe cause of SOB but also maybe atelectasis from recent operation, should improve (3) Cancer of right colon Is this a current diagnosis for this admission?: Yes Plan: Will need further w/u and tx as oupt once recovered from surgery - Time Time Spent with patient: 15-24 minutes
--- NOTE | 2018-03-15 08:46 | PDOC PROGRESS REPORT ---
Subjective Progress Note for:: 03/15/18 Subjective:: comfortable, patient has had 4 BM Reason For Visit: OBSTRUCTING COLON MASS Physical Exam Vital Signs: Temp Pulse Resp BP Pulse Ox 98.7 F 72 17 143/73 H 90 L 03/14/18 16:00 03/14/18 16:00 03/14/18 16:00 03/14/18 16:00 03/14/18 16:00 Intake & Output 03/14/18 03/15/18 03/16/18 06:59 06:59 06:59 Intake Total 3180 3422 Output Total 675 950 Balance 2505 2472 Weight 64.3 kg 65 kg General appearance: PRESENT: no acute distress, cooperative Respiratory exam: PRESENT: clear to auscultation rochelle Cardiovascular exam: PRESENT: RRR GI/Abdominal exam: PRESENT: distended, normal bowel sounds, other - incision c/d /i Results Laboratory Results: 03/15/18 04:23 03/15/18 04:23 03/15/18 03/15/18 04:23 04:23 WBC 6.4 RBC 3.84 Hgb 9.5 L Hct 30.3 L MCV 79 L MCH 24.7 L MCHC 31.4 L RDW 30.6 H Plt Count 340 Seg Neutrophils % Not Reportable Lymphocytes % Not Reportable Monocytes % Not Reportable Eosinophils % Not Reportable Basophils % Not Reportable Absolute Neutrophils Not Reportable Absolute Lymphocytes Not Reportable Absolute Monocytes Not Reportable Absolute Eosinophils Not Reportable Absolute Basophils Not Reportable Sodium 136.0 L Potassium 3.8 Chloride 103 Carbon Dioxide 25 Anion Gap 8 BUN 7 Creatinine 0.52 Est GFR ( Amer) > 60 Est GFR (Non-Af Amer) > 60 Glucose 110 Calcium 8.8 Impressions: Chest/Abdomen CTA 03/06/18 18:34 IMPRESSION: 1. No PE. 2. Bilateral airspace disease with potential developing nodules especially in the left upper lobe. Could be infectious, inflammatory or neoplastic. 3. Small low-density lesions in the liver which will need dedicated liver imaging follow-up. Abdomen/Pelvis CT 03/07/18 00:00 IMPRESSION: 1. 8 mm right pulmonary nodule. Follow-up as below. 2. Possible 2 to 3 cm mass in the right colon as described. Colonoscopy is recommended. KUB X-Ray 03/12/18 00:00 IMPRESSION: NO RADIOGRAPHIC EVIDENCE FOR ACUTE ABDOMINAL DISEASE. Chest X-Ray 03/12/18 06:00 IMPRESSION: STABLE MULTIFOCAL AIRSPACE DISEASE. Abdomen X-Ray 03/13/18 04:00 IMPRESSION: Postoperative ileus. Findings discussed with Dr. Barbosa Assessment & Plan - Diagnosis (1) Cancer of right colon Is this a current diagnosis for this admission?: Yes - Plan Summary Plan Summary: A/ POD #5 after right colectomy VSS, AF Good UO BM x4 Blood work WNL P/ Advance diet heplock IVF Eid out possible home in AM
[2018-03-15] MEDS: ENOXAPARIN SODIUM INJ 40 MG/0.4 ML DISP.SYRIN SUBCUT SCH (11:56)
[2018-03-15] MEDS: LISINOPRIL 5 MG TABLET PO SCH (11:56)
[2018-03-15] MEDS: BUSPIRONE HCL 10 MG TABLET PO SCH (11:56)
--- NOTE | 2018-03-15 16:46 | PDOC PROGRESS REPORT ---
Subjective Progress Note for:: 03/15/18 Subjective:: Patient is doing extremely well today tolerating diet minimal pain patient likely will be discharged by general surgery tomorrow Reason For Visit: OBSTRUCTING COLON MASS Physical Exam Vital Signs: Temp Pulse Resp BP Pulse Ox 98.7 F 72 17 143/73 H 90 L 03/14/18 16:00 03/14/18 16:00 03/14/18 16:00 03/14/18 16:00 03/14/18 16:00 Intake & Output 03/14/18 03/15/18 03/16/18 00:59 00:59 00:59 Intake Total 2096 3200 2022 Output Total 975 850 200 Balance 1121 2350 1822 Weight 61.7 kg 64.3 kg 65 kg General appearance: PRESENT: no acute distress Head exam: PRESENT: normocephalic Eye exam: ABSENT: scleral icterus Ear exam: PRESENT: normal external ear exam Mouth exam: PRESENT: moist Neck exam: ABSENT: tracheal deviation Respiratory exam: PRESENT: symmetrical, unlabored Cardiovascular exam: PRESENT: RRR GI/Abdominal exam: PRESENT: Abdomen is distended and soft Extremities exam: ABSENT: pedal edema Neurological exam: PRESENT: alert, awake, oriented to person, oriented to place , oriented to time, oriented to situation, reflexes normal Psychiatric exam: PRESENT: appropriate affect Skin exam: ABSENT: petechiae Results Laboratory Results: 03/15/18 04:23 03/15/18 04:23 03/15/18 03/15/18 04:23 04:23 WBC 6.4 RBC 3.84 Hgb 9.5 L Hct 30.3 L MCV 79 L MCH 24.7 L MCHC 31.4 L RDW 30.6 H Plt Count 340 Seg Neutrophils % Not Reportable Lymphocytes % Not Reportable Monocytes % Not Reportable Eosinophils % Not Reportable Basophils % Not Reportable Absolute Neutrophils Not Reportable Absolute Lymphocytes Not Reportable Absolute Monocytes Not Reportable Absolute Eosinophils Not Reportable Absolute Basophils Not Reportable Sodium 136.0 L Potassium 3.8 Chloride 103 Carbon Dioxide 25 Anion Gap 8 BUN 7 Creatinine 0.52 Est GFR ( Amer) > 60 Est GFR (Non-Af Amer) > 60 Glucose 110 Calcium 8.8 Impressions: Chest/Abdomen CTA 03/06/18 18:34 IMPRESSION: 1. No PE. 2. Bilateral airspace disease with potential developing nodules especially in the left upper lobe. Could be infectious, inflammatory or neoplastic. 3. Small low-density lesions in the liver which will need dedicated liver imaging follow-up. Abdomen/Pelvis CT 03/07/18 00:00 IMPRESSION: 1. 8 mm right pulmonary nodule. Follow-up as below. 2. Possible 2 to 3 cm mass in the right colon as described. Colonoscopy is recommended. KUB X-Ray 03/12/18 00:00 IMPRESSION: NO RADIOGRAPHIC EVIDENCE FOR ACUTE ABDOMINAL DISEASE. Chest X-Ray 03/12/18 06:00 IMPRESSION: STABLE MULTIFOCAL AIRSPACE DISEASE. Abdomen X-Ray 03/13/18 04:00 IMPRESSION: Postoperative ileus. Findings discussed with Dr. Barbosa Assessment & Plan - Diagnosis (1) Postoperative ileus Is this a current diagnosis for this admission?: Yes Plan: Resolved (2) Anemia Qualifiers: Anemia type: unspecified type Qualified Code(s): D64.9 - Anemia, unspecified Is this a current diagnosis for this admission?: Yes Plan: Anemia of chronic disease (3) Colonic mass Is this a current diagnosis for this admission?: Yes (4) Hypertension Qualifiers: Hypertension type: essential hypertension Qualified Code(s): I10 - Essential (primary) hypertension Is this a current diagnosis for this admission?: Yes Plan: Controlled (5) Hypothyroidism Qualifiers: Hypothyroidism type: acquired Qualified Code(s): E03.9 - Hypothyroidism, unspecified Is this a current diagnosis for this admission?: Yes (6) Lung nodule, multiple Is this a current diagnosis for this admission?: Yes - Time Time Spent with patient: Patient extremely stable at this time Medicine will sign off Time Spent with patient: 25-34 minutes
[2018-03-16] MEDS: LEVOTHYROXINE SODIUM 0.025 MG TABLET PO SCH (06:19)
[2018-03-16] MEDS: LANSOPRAZOLE 30 MG TAB.RAP.DR PO SCH (06:19)
--- NOTE | 2018-03-16 08:55 | PDOC PROGRESS REPORT ---
Subjective Progress Note for:: 03/16/18 Subjective:: Tolerated PO diet x last 24 hours Reason For Visit: OBSTRUCTING COLON MASS Physical Exam Vital Signs: Temp Pulse Resp BP Pulse Ox 98.9 F 74 16 155/72 H 94 03/15/18 23:07 03/15/18 23:07 03/15/18 23:07 03/15/18 23:07 03/15/18 23:07 Intake & Output 03/15/18 03/16/18 03/17/18 06:59 06:59 06:59 Intake Total 3422 428 Output Total 950 1255 Balance 2472 -827 Weight 65 kg 64.3 kg Results Laboratory Results: 03/15/18 04:23 03/15/18 04:23 Impressions: Chest/Abdomen CTA 03/06/18 18:34 IMPRESSION: 1. No PE. 2. Bilateral airspace disease with potential developing nodules especially in the left upper lobe. Could be infectious, inflammatory or neoplastic. 3. Small low-density lesions in the liver which will need dedicated liver imaging follow-up. Abdomen/Pelvis CT 03/07/18 00:00 IMPRESSION: 1. 8 mm right pulmonary nodule. Follow-up as below. 2. Possible 2 to 3 cm mass in the right colon as described. Colonoscopy is recommended. KUB X-Ray 03/12/18 00:00 IMPRESSION: NO RADIOGRAPHIC EVIDENCE FOR ACUTE ABDOMINAL DISEASE. Chest X-Ray 03/12/18 06:00 IMPRESSION: STABLE MULTIFOCAL AIRSPACE DISEASE. Abdomen X-Ray 03/13/18 04:00 IMPRESSION: Postoperative ileus. Findings discussed with Dr. Barbosa Assessment & Plan - Diagnosis (1) Iron deficiency anemia Qualifiers: Iron deficiency anemia type: chronic blood loss Qualified Code(s): D50.0 - Iron deficiency anemia secondary to blood loss (chronic) Is this a current diagnosis for this admission?: Yes Plan: Hb stable (2) Lung nodule, multiple Is this a current diagnosis for this admission?: Yes Plan: further w/u, PET will be done as oupt (3) Cancer of right colon Is this a current diagnosis for this admission?: Yes Plan: further w/u as outpt - Time Time Spent with patient: 35 or more minutes
--- NOTE | 2018-03-16 09:13 | PDOC PROGRESS REPORT ---
Subjective Progress Note for:: 03/16/18 Subjective:: Comfortable, owel function prsent, diet tolerated Reason For Visit: OBSTRUCTING COLON MASS Physical Exam Vital Signs: Temp Pulse Resp BP Pulse Ox 98.9 F 74 16 155/72 H 94 03/15/18 23:07 03/15/18 23:07 03/15/18 23:07 03/15/18 23:07 03/15/18 23:07 Intake & Output 03/15/18 03/16/18 03/17/18 06:59 06:59 06:59 Intake Total 3422 428 Output Total 950 1255 Balance 2472 -827 Weight 65 kg 64.3 kg General appearance: PRESENT: no acute distress, cooperative Respiratory exam: PRESENT: clear to auscultation rochelle Cardiovascular exam: PRESENT: RRR GI/Abdominal exam: PRESENT: distended, soft, other - incisions are c/d/i Results Laboratory Results: 03/15/18 04:23 03/15/18 04:23 Impressions: Chest/Abdomen CTA 03/06/18 18:34 IMPRESSION: 1. No PE. 2. Bilateral airspace disease with potential developing nodules especially in the left upper lobe. Could be infectious, inflammatory or neoplastic. 3. Small low-density lesions in the liver which will need dedicated liver imaging follow-up. Abdomen/Pelvis CT 03/07/18 00:00 IMPRESSION: 1. 8 mm right pulmonary nodule. Follow-up as below. 2. Possible 2 to 3 cm mass in the right colon as described. Colonoscopy is recommended. KUB X-Ray 03/12/18 00:00 IMPRESSION: NO RADIOGRAPHIC EVIDENCE FOR ACUTE ABDOMINAL DISEASE. Chest X-Ray 03/12/18 06:00 IMPRESSION: STABLE MULTIFOCAL AIRSPACE DISEASE. Abdomen X-Ray 03/13/18 04:00 IMPRESSION: Postoperative ileus. Findings discussed with Dr. Barbosa Assessment & Plan - Diagnosis (1) Cancer of right colon Is this a current diagnosis for this admission?: Yes - Plan Summary Plan Summary: A/ POD#6 after laparoscopic right colectomy for near obstructing mass VSS, AF PE unremarkable patient is tolerateid low residue diet well Bpwel function presemnt P/ Home today Tyenol only for pain Shower only Follow up with Dr. Cheng next week No wound care needed resume home meds.
[2018-03-16] MEDS: LISINOPRIL 5 MG TABLET PO SCH (10:30)
[2018-03-16] MEDS: ENOXAPARIN SODIUM INJ 40 MG/0.4 ML DISP.SYRIN SUBCUT SCH (10:30)
[2018-03-16] MEDS: BUSPIRONE HCL 10 MG TABLET PO SCH (10:31)
[2018-03-16 11:35] VITALS: BP 143/73
== END 2018-03-16 12:45 | disposition home or self-care (01) | DRG 330 ==
LOC: ER 15:23 → EH 20:46 → OBSVTOIN 20:46 → INTOOBSV 20:46 → 5 22:50
PROVIDERS: ADMIT Internal Medicine; ATTEND Internal Medicine
PROC: 30233N1 Transfusion of Nonautologous Red Blood Cells into Peripheral Vein, Percutaneous Approach (ICD-10-PCS; principal; 2018-03-07)
PROC: 0DBF8ZX Excision of Right Large Intestine, Via Natural or Artificial Opening Endoscopic, Diagnostic (ICD-10-PCS; 2018-03-09)
PROC: 0DTF4ZZ Resection of Right Large Intestine, Percutaneous Endoscopic Approach (ICD-10-PCS; 2018-03-10)
DX: C18.2 Malignant neoplasm of ascending colon (principal); K56.7 Ileus, unspecified; D50.8 Other iron deficiency anemias; R91.8 Other nonspecific abnormal finding of lung field; I10 Essential (primary) hypertension; E03.9 Hypothyroidism, unspecified; K76.9 Liver disease, unspecified; E87.6 Hypokalemia; E83.39 Other disorders of phosphorus metabolism
CPT/HCPCS: 36415; 36430; 45380; 45381; 71045; 71046; 71275; 74018; 74019; 74177; 790; 80048; 80053; 82378; 82607; 82728; 82746; 83540; 83550; 83735; 83880; 84100; 84466; 84484; 85025; 85027; 85045; 85379; 85610; 85730; 86850; 86900; 86901; 86920; 88305; 88307; 93005; 93010; 94799; 96374; 99285; G0378; J0131; J0171; J0330; J0690; J1100; J1200; J1610; J1650; J1885; J2250; J2270; J2310; J2405; J2550; J2704; J2765; J3010; J3490; J7040; P9016; Q0138

== ENCOUNTER → 2018-03-17 | Outpatient (CLI) | payer MEDICARE ==
--- NOTE | 2018-03-17 15:55 | XCELERA REPORT ---
[address] [address] Lower Extremity Venous Evaluation Name: ROHITH MARTINEZ Age: 67 yrs Gender: Female : 1950 Patient Status: Outpatient Patient Location: Study Date: 03/17/2018 01:11 PM Procedure: Color flow and duplex imaging of the veins of the left lower extremity as well as the right Common Femoral vein. Reason For Study: LLE SWELLING/PAIN Ordering Physician: ÁLVARO HANEY Performed By: Karan Fraser Right Sided Venous Evaluation The right common femoral vein is fully compressible. Spontaneous and phasic flow is present in the right common femoral vein. Left Sided Venous Evaluation Normal vessel filling wall to wall, compression and augmentation as well as Colour flow down to the infrageniculate veins. Interpretation Summary No duplex evidence of DVT or obstruction in the left lower extremity nor in the right Common Femoral vein. : ÁLVARO HANEY > Yan Martin
== END ==
LOC: SP 12:39
PROVIDERS: ATTEND Internal Medicine
DX: M79.662 Pain in left lower leg (principal); M79.89 Other specified soft tissue disorders
CPT/HCPCS: 93971

== ENCOUNTER 2018-03-29 04:19 | Inpatient (IN) | payer MEDICARE ==
--- NOTE | 2018-03-29 05:15 | ER Document Report ---
ED Medical Screen (RME) - General Chief Complaint: Shortness Of Breath Stated Complaint: SHORTNESS OF BREATH Time Seen by Provider: 03/29/18 05:13 Notes: Patient is a 67-year-old female, recently diagnosed with colon cancer and about to start chemo, presents with 1 day of left-sided pleuritic chest pain and shortness of breath. PE: Tachypneic, RRR, lungs CTAB I have greeted and performed a rapid initial assessment of this patient. A comprehensive ED assessment and evaluation of the patient, analysis of test results and completion of the medical decision making process will be conducted by additional ED providers. TRAVEL OUTSIDE OF THE [place] IN LAST 30 DAYS: No - Related Data Allergies/Adverse Reactions: No Known Allergies Allergy (Verified 03/06/18 15:25) Past Medical History - Past Medical History Cardiac Medical History: Reports: Hx Hypertension Neurological Medical History: Denies: Hx Seizures Endocrine Medical History: Reports: Hx Hypothyroidism Renal/ Medical History: Denies: Hx Peritoneal Dialysis Past Surgical History: Denies: Hx Hysterectomy - Immunizations History of Influenza Vaccine for 07/2017 - 12/2017 Season: No Physical Exam - Vital signs Vitals: Temp Pulse Resp BP Pulse Ox 97.9 F 111 H 21 H 147/93 H 95 03/29/18 04:19 03/29/18 04:19 03/29/18 04:19 03/29/18 04:19 03/29/18 04:19 Course - Vital Signs Vital signs: Temp Pulse Resp BP Pulse Ox 97.9 F 111 H 21 H 147/93 H 95 03/29/18 04:19 03/29/18 04:19 03/29/18 04:19 03/29/18 04:19 03/29/18 04:19 Doctor's Discharge - Discharge Referrals: HARESH LEE MD [Primary Care Provider] - Follow up as needed
[2018-03-29 05:45] LABS: HEMATOCRIT 37.3 % (36.0-47.0); HEMOGLOBIN 12.2 g/dL (12.0-15.5); MEAN CORPUSCULAR HEMOGLOBIN 26.6 pg (27.0-33.4); MEAN CORPUSCULAR HGB CONC 32.7 g/dL (32.0-36.0); MEAN CORPUSCULAR VOLUME 81 fl (80-97); PLATELET COUNT 353 10^3/uL (150-450); RED BLOOD COUNT 4.59 10^6/uL (3.72-5.28); RED CELL DISTRIBUTION WIDTH 27.7 % (11.5-14.0); WHITE BLOOD COUNT 5.4 10^3/uL (4.0-10.5)
[2018-03-29 05:56] LABS: ALANINE AMINOTRANSFERASE 24 U/L (9-52); ALBUMIN 4.2 g/dL (3.5-5.0); ALKALINE PHOSPHATASE 147 U/L (38-126); ANION GAP 11 (5-19); ASPARTATE AMINO TRANSFERASE 29 U/L (14-36); BILIRUBIN,DIRECT 0.4 mg/dL (0.0-0.4); BILIRUBIN,TOTAL 0.4 mg/dL (0.2-1.3); BLOOD UREA NITROGEN 9 mg/dL (7-20); CALCIUM 10.6 mg/dL (8.4-10.2); CARBON DIOXIDE 31 mmol/L (22-30); CHLORIDE 100 mmol/L (98-107); CREATINE KINASE 21 U/L (30-135); GLUCOSE 113 mg/dL (75-110); POTASSIUM 4.5 mmol/L (3.6-5.0); SODIUM 141.6 mmol/L (137-145); TOTAL PROTEIN 7.3 g/dL (6.3-8.2)
[2018-03-29 05:59] LABS: INTERNATIONAL RATION (INR) 0.94; PARTIAL THROMBOPLASTIN TIME 33.2 SEC (23.5-35.8); PROTHROMBIN TIME 13.1 SEC (11.4-15.4)
[2018-03-29 06:05] LABS: ABSOLUTE LYMPHOCYTES# (MANUAL) 0.3 10^3/uL (0.5-4.7); ABSOLUTE MONOCYTES # (MANUAL) 0.6 10^3/uL (0.1-1.4); ABSOLUTE NEUTROPHILS# (MANUAL) 4.4 10^3/uL (1.7-8.2); BASOPHILS % (MANUAL) 0 % (0-2); EOSINOPHILS % (MANUAL) 1 % (0-6); LYMPHOCYTES % (MANUAL) 5 % (13-45); MONOCYTES % (MANUAL) 12 % (3-13); SEGMENTED NEUTROPHILS % (MAN) 82 % (42-78); TOTAL CELLS COUNTED 100
[2018-03-29 06:06] LABS: ANISOCYTOSIS 3+; HYPOCHROMASIA SLIGHT; OVALOCYTES SLIGHT; PLATELET COMMENT ADEQUATE; POIKILOCYTOSIS 1+; TOXIC GRANULATION SLIGHT
--- NOTE | 2018-03-29 06:47 | RADIOLOGY REPORT (SQ) ---
EXAM DESCRIPTION: CTA of the chest per PE protocol with contrast. CLINICAL HISTORY: Hx colon cancer, left-sided pleuritic CP, SOB COMPARISON: 03/06/2018 TECHNIQUE: CTA of the chest obtained following the uncomplicated intravenous administration of 100 mL Isovue-370. 3-D/MIP reformatted images of the chest available for evaluation. DLP: 442.66 mGycm FINDINGS: Chest: Pulmonary arteries: Contrast bolus is adequate. Interval development of filling defect involving the lingular branch pulmonary artery in the left lower lobe. No other filling defects identified to suggest pulmonary embolus. Overall small clot burden. Thyroid:No abnormalities of the visualized thyroid. Great Vessels: Aberrant right subclavian artery. Great vessels are patent. Thoracic Aorta: Atherosclerotic calcification of the thoracic aorta. Heart:No cardiomegaly, significant pericardial effusion, or coronary artery atherosclerosis. no bowing of the interatrial septum. Lymph Nodes: Enlarged bilateral hilar lymph nodes as well as mildly prominent right paratracheal lymph nodes. Esophagus:No abnormalities of the esophagus identified. Other:No additional findings. Lungs: Diffuse nodular opacities throughout the lungs bilaterally which are not significantly changed and concerning for metastatic disease. Nodule is seen in the left upper lobe on image #33 measuring 2.5 cm in greatest dimension. Mild bilateral compressive atelectasis. Pleura: No pneumothorax. Interval development of moderate right and small left pleural fusion. Trachea/Airways:No abnormalities of the visualized trachea or airways. Bones:No destructive osseous lesions. Upper Abdomen:Limited images of the upper abdomen demonstrate no definite abnormalities of visualized portions of the liver, spleen, and right adrenal gland. IMPRESSION: 1. Interval development of acute filling defect in the lingular segmental pulmonary arterial branch compatible with acute pulmonary embolus. Overall small clot burden. No large pulmonary embolus. No evidence of right heart strain. 2. Interval development of moderate right and small left pleural effusion with mild compressive atelectasis. 3. Multiple nodular opacities identified throughout the lungs bilaterally compatible with metastatic disease. These are not significantly changed in configuration. Urgent finding reported to Dr. Matthews at 03/29/2018 5:43 AM CDT This exam was performed according to our departmental dose-optimization program, which includes automated exposure control, adjustment of the mA and/or kV according to patient size and/or use of iterative reconstruction technique.
[2018-03-29] MEDS ORDERED: HYDROMORPHONE HCL INJ/PF 2 MG/ML AMPULE IV ONE (08:10)
--- NOTE | 2018-03-29 08:29 | ER Document Report ---
ED General - General Chief Complaint: Shortness Of Breath Stated Complaint: SHORTNESS OF BREATH Time Seen by Provider: 03/29/18 05:13 Mode of Arrival: Ambulatory Information source: Patient Notes: 67-year-old female, recently diagnosed with colon cancer and about to start chemo, presents with 1 day of left-sided pleuritic chest pain and shortness of breath. Patient was supposed to have a port placement starting tomorrow. Pain is localized to the left lower lobe, pleuritic, worse with inspiration as well as movement, severity of symptoms is 8 out of 10. TRAVEL OUTSIDE OF THE [place] IN LAST 30 DAYS: No - Related Data Allergies/Adverse Reactions: No Known Allergies Allergy (Verified 03/06/18 15:25) Past Medical History - General Information source: Patient - Social History Smoking Status: Unknown if Ever Smoked Family History: Reviewed & Not Pertinent Patient has suicidal ideation: No Patient has homicidal ideation: No - Past Medical History Cardiac Medical History: Reports: Hx Hypertension Neurological Medical History: Denies: Hx Seizures Endocrine Medical History: Reports: Hx Hypothyroidism Renal/ Medical History: Denies: Hx Peritoneal Dialysis Past Surgical History: Denies: Hx Hysterectomy Review of Systems - Review of Systems Notes: REVIEW OF SYSTEMS: CONSTITUTIONAL: -fevers, -chills EENT: -eye pain, -difficulty swallowing, -nasal congestion CARDIOVASCULAR: + Chest pain, -syncope. RESPIRATORY: -cough, + SOB GASTROINTESTINAL: + Abdominal pain, -nausea, -vomiting, -diarrhea GENITOURINARY: -dysuria, -hematuria MUSCULOSKELETAL: -back pain, -neck pain SKIN: -rash or skin lesions. HEMATOLOGIC: -easy bruising or bleeding. LYMPHATIC: -swollen, enlarged glands. NEUROLOGICAL: -altered mental status or loss of consciousness, -headache, - neurologic symptoms PSYCHIATRIC: -anxiety, -depression. ALL OTHER SYSTEMS REVIEWED AND NEGATIVE. Physical Exam - Vital signs Vitals: Temp Pulse Resp BP Pulse Ox 97.9 F 111 H 21 H 147/93 H 95 03/29/18 04:19 03/29/18 04:19 03/29/18 04:19 03/29/18 04:19 03/29/18 04:19 - Notes Notes: Reviewed vital signs and nursing note as charted by RN. CONSTITUTIONAL: Alert and oriented and responds appropriately to questions, thin , cachectic HEAD: Normocephalic; atraumatic EYES: PERRL; Conjunctivae clear, sclerae non-icteric ENT: normal nose; no rhinorrhea; moist mucous membranes; pharynx without lesions noted NECK: Supple without meningismus; non-tender; no cervical lymphadenopathy, no masses CARD: Tachycardia; no murmurs, no clicks, no rubs, no gallops; symmetric distal pulses RESP: Normal chest excursion without splinting or tachypnea; breath sounds clear and equal bilaterally ABD/GI: Normal bowel sounds; non-distended; soft, tenderness to palpation generally, patient has postsurgical changes, no evidence of infection of the scars, no rigidity BACK: The back appears normal and is non-tender to palpation EXT: Normal ROM in all joints; non-tender to palpation; no cyanosis, no effusions, no edema SKIN: Normal color for age and race; warm; dry; good turgor; capillary refill < 2 seconds; no acute lesions noted NEURO: .Cranial nerves 3-12 intact. Motor strength 5/5 bilaterally. Sensation intact to touch bilaterally. No pronator drift. Finger to nose intact bilaterally PSYCH: The patient's mood and manner are appropriate. Grooming and personal hygiene are appropriate. Course - Re-evaluation Re-evalutation: 67-year-old with recent diagnosis of colon cancer presented today for evaluation of pleuritic chest pain and shortness of breath Differential diagnoses includes ACS, pneumonia, pleural effusion, PE, pneumothorax We will obtain basic lab work including CBC, BMP, coags, troponin, EKG, CT PE study Continuous cardiac monitoring as well as pulse oximetry We will give patient IV fluids as well as IV narcotics for pain 03/29/18 08:25 Patient has acute pulmonary embolism with new right pleural effusion These findings are new compared to her prior imaging We will admit patient for anticoagulation, after discussion with hospitalist on- call, Dr. Albaro Marie, will hold off on anticoagulation at present time after we discussed the case with operating surgeon who is planning to place a port Admit patient to telemetry bed - Vital Signs Vital signs: Temp Pulse Resp BP Pulse Ox 98.3 F 111 H 16 141/83 H 96 03/29/18 07:46 03/29/18 04:19 03/29/18 07:46 03/29/18 07:46 03/29/18 07:46 - Laboratory Result Diagrams: 03/29/18 05:32 03/29/18 05:32 Laboratory results interpreted by me: 03/29/18 03/29/18 05:32 05:32 MCH 26.6 L RDW 27.7 H Seg Neuts % (Manual) 82 H Lymphocytes % (Manual) 5 L Abs Lymphs (Manual) 0.3 L Carbon Dioxide 31 H Glucose 113 H Calcium 10.6 H Alkaline Phosphatase 147 H Creatine Kinase 21 L - Diagnostic Test Radiology reviewed: Image reviewed Radiology results interpreted by me: 03/29/18 08:29 EXAM DESCRIPTION: CTA of the chest per PE protocol with contrast. CLINICAL HISTORY: Hx colon cancer, left-sided pleuritic CP, SOB COMPARISON: 03/06/2018 TECHNIQUE: CTA of the chest obtained following the uncomplicated intravenous administration of 100 mL Isovue-370. 3-D/MIP reformatted images of the chest available for evaluation. DLP: 442.66 mGycm FINDINGS: Chest: Pulmonary arteries: Contrast bolus is adequate. Interval development of filling defect involving the lingular branch pulmonary artery in the left lower lobe. No other filling defects identified to suggest pulmonary embolus. Overall small clot burden. Thyroid:No abnormalities of the visualized thyroid. Great Vessels: Aberrant right subclavian artery. Great vessels are patent. Thoracic Aorta: Atherosclerotic calcification of the thoracic aorta. Heart:No cardiomegaly, significant pericardial effusion, or coronary artery atherosclerosis. no bowing of the interatrial septum. Lymph Nodes: Enlarged bilateral hilar lymph nodes as well as mildly prominent right paratracheal lymph nodes. Esophagus:No abnormalities of the esophagus identified. Other:No additional findings. Lungs: Diffuse nodular opacities throughout the lungs bilaterally which are not significantly changed and concerning for metastatic disease. Nodule is seen in the left upper lobe on image #33 measuring 2.5 cm in greatest dimension. Mild bilateral compressive atelectasis. Pleura: No pneumothorax. Interval development of moderate right and small left pleural fusion. Trachea/Airways:No abnormalities of the visualized trachea or airways. Bones:No destructive osseous lesions. Upper Abdomen:Limited images of the upper abdomen demonstrate no definite abnormalities of visualized portions of the liver, spleen, and right adrenal gland. IMPRESSION: 1. Interval development of acute filling defect in the lingular segmental pulmonary arterial branch compatible with acute pulmonary embolus. Overall small clot burden. No large pulmonary embolus. No evidence of right heart strain. 2. Interval development of moderate right and small left pleural effusion with mild compressive atelectasis. 3. Multiple nodular opacities identified throughout the lungs bilaterally compatible with metastatic disease. These are not significantly changed in configuration. Urgent finding reported to Dr. Matthews at 03/29/2018 5:43 AM CDT This exam was performed according to our departmental dose-optimization program, which includes automated exposure control, adjustment of the mA and/or kV according to patient size and/or use of iterative reconstruction technique. Dictated by: SANDY LIRA, DO - EKG Interpretation by Me Additional EKG results interpreted by me: 03/29/18 08:29 EKG interpretation 5:46 AM Sinus rhythm, rate 72 LA 140, QRS narrow, QTC [address] elevations or depressions in any of the leads, T-waves appear normal No significant changes compared to prior EKG Critical Care Note - Critical Care Note Comments: Critical Care Time: 35 minutes Critical care provider statement: Critical care time was exclusive of: Separately billable procedures and treating other patients and teaching time Critical care was time spent personally by me on the following activities: Blood draw for specimens, development of treatment plan with patient or surrogate, evaluation of patient's response to treatment, examination of patient , obtaining history from patient or surrogate, ordering and performing treatments and interventions, ordering and review of laboratory studies, ordering and review of radiographic studies, pulse oximetry, re-evaluation of patient's condition and review of old charts I assumed direction of critical care for this patient from another provider in my specialty: no Discharge - Discharge Clinical Impression: Pleural effusion Pulmonary embolism Qualifiers: Pulmonary embolism type: other Chronicity: acute Acute cor pulmonale presence: without acute cor pulmonale Qualified Code(s): I26.99 - Other pulmonary embolism without acute cor pulmonale Condition: Stable Disposition: ADMITTED INPATIENT Admitting Provider: Hospitalist Unit Admitted: Telemetry Referrals: HARESH LEE MD [Primary Care Provider] - Follow up as needed
[2018-03-29] MEDS ORDERED: HEPARIN SODIUM,PORCINE/D5W 25,000 UNIT/250 ML RTUINJ IV PRN (08:37)
[2018-03-29] MEDS ORDERED: HEPARIN SOD (PORCINE) 1,000 UNIT/ML 10 ML VIAL IV ONE (08:37)
--- NOTE | 2018-03-29 10:16 | EKG REPORT ---
SEVERITY:- BORDERLINE ECG - SINUS RHYTHM LEFT AXIS DEVIATION BORDERLINE T ABNORMALITIES, ANT-LAT LEADS : Confirmed by: Larry Felix 29-Mar-2018 10:16:16
[2018-03-29] MEDS ORDERED: HEPARIN SOD (PORCINE) 1,000 UNIT/ML 10 ML VIAL IV PRN (11:38)
[2018-03-29] MEDS ORDERED: (PENDING PHARMACY ID) (Buspirone Hcl [Buspar 5 Mg Tablet] 7.5 MG) PO PRN (13:41)
[2018-03-29] MEDS ORDERED: MORPHINE SULFATE 10 MG/ML INJ IV PRN (13:46)
[2018-03-29] MEDS ORDERED: TRAMADOL HCL 50 MG TABLET PO PRN (13:49)
[2018-03-29] MEDS ORDERED: ACETAMINOPHEN 325 MG TABLET PO PRN (13:50)
[2018-03-29] MEDS: MORPHINE SULFATE 10 MG/ML INJ IV PRN ×2 (17:27→22:47)
--- NOTE | 2018-03-29 17:38 | PDOC H&P ---
History of Present Illness Admission Date/PCP: 03/29/18 09:39 HARESH LEE MD Patient complains of: Shortness of breath History of Present Illness: ROHITH MARTINEZ is a 67 year old female who presented to the emergency department for shortness of breath. She states her symptoms have been getting progressively worse over the last 2-3 weeks. The patient decided to come to the emergency department when she began experiencing left lateral chest wall pain with inhalation. The patient describes the pain as sharp in nature, nonradiating, exacerbated with inhalation or any type of sudden movement. Patient states she took Percocet at home for pain, but it offered no relief. The patient states she only experiences pain relief when she is at rest. The patient also endorses significant amount of pain at night, as well as during the day. Patient states that she is unable to sleep due to her left lateral chest wall pain. PMH includes colon cancer with metastasis to lungs, HTN, hypothyroidism, anxiety In the emergency department, a chest CTA was performed. Results revealed lingular segmental pulmonary arterial branch pulmonary embolus. Small clot burden. No large PE. No evidence of right heart strain. EKG demonstrated normal sinus rhythm, no evidence of acute infarct or ischemia. Lab work otherwise benign. Vital signs BP 127/83 HR 69 RR 26 T 98.2 SPO2 96% on RA. Of note, the patient was scheduled to have a Mediport placed this week by Dr. Francisco. Surgery was consulted regarding treatment options with her upcoming surgery. The decision was made to admit the patient to [facility] on a heparin drip to treat her PE and her Mediport would be placed during this hospitalization. Following her surgery the patient would be transitioned to oral anticoagulation. Past Medical History Cardiac Medical History: Reports: Hypertension Neurological Medical History: Denies: Seizures Endocrine Medical History: Reports: Hypothyroidism Malignancy Medical History: Reports: Colorectal Cancer Psychiatric Medical History: Denies: Depression Hematology: Reports: Anemia Past Surgical History Past Surgical History: Reports: Orthopedic Surgery - CARPAL TUNNEL, Other - HEMICOLECTOMY 02/2018 Denies: Hysterectomy Social History Smoking Status: Never Smoker Frequency of Alcohol Use: None Hx Recreational Drug Use: No Drugs: None Hx Prescription Drug Abuse: No - Advance Directive Resuscitation Status: Full Code Family History Family History: CAD, DM, Other - HTN Parental Family History Reviewed: Yes Children Family History Reviewed: Yes Sibling(s) Family History Reviewed.: Yes Medication/Allergy Home Medications: Buspirone HCl [Buspar 5 mg Tablet] 7.5 mg PO BIDP PRN 03/06/18 Levothyroxine Sodium [Synthroid 0.025 mg Tablet] 25 mcg PO QAM 03/06/18 Lisinopril/Hydrochlorothiazide [Lisinopril-Hctz 10-12.5 mg Tab] 1 each PO DAILY 30 Days #30 tablet 03/16/18 Hydrocodone/Acetaminophen [Hydrocodon-Acetaminophen 5-325] 1 each PO Q8HP PRN Mirtazapine [Remeron 15 mg Tablet] 15 mg PO QHS 03/29/18 Allergies/Adverse Reactions: No Known Allergies Allergy (Verified 03/29/18 11:41) Review of Systems Cardiovascular: ABSENT: dyspnea on exertion Respiratory: PRESENT: dyspnea, other - SOB. +R LATERAL CHEST WALL PAIN WITH INHALATION Gastrointestinal: ABSENT: nausea, vomiting Physical Exam Vital Signs: Temp Pulse Resp BP Pulse Ox 98.2 F 75 20 144/74 H 96 03/29/18 11:20 03/29/18 15:15 03/29/18 11:20 03/29/18 11:20 03/29/18 11:20 Intake & Output 03/28/18 03/29/18 03/30/18 06:59 06:59 06:59 Weight 47.2 kg General appearance: PRESENT: no acute distress, disheveled, thin Eye exam: PRESENT: conjunctiva pink Mouth exam: PRESENT: moist Neck exam: PRESENT: full ROM Respiratory exam: PRESENT: clear to auscultation rochelle, symmetrical, unlabored, other - PAIN WITH INHALATION Cardiovascular exam: PRESENT: +S1, +S2 Pulses: PRESENT: normal radial pulses, normal dorsalis pedis pul GI/Abdominal exam: PRESENT: normal bowel sounds, soft, tenderness - TTP AT SURGICAL SITES Rectal exam: PRESENT: deferred Extremities exam: PRESENT: full ROM Musculoskeletal exam: PRESENT: ambulatory, full ROM Neurological exam: PRESENT: alert, awake, oriented to person, oriented to place , oriented to time, oriented to situation Psychiatric exam: PRESENT: appropriate affect Skin exam: PRESENT: dry, intact, normal color Results Impressions: Chest/Abdomen CTA 03/29/18 05:13 IMPRESSION: 1. Interval development of acute filling defect in the lingular segmental pulmonary arterial branch compatible with acute pulmonary embolus. Overall small clot burden. No large pulmonary embolus. No evidence of right heart strain. 2. Interval development of moderate right and small left pleural effusion with mild compressive atelectasis. 3. Multiple nodular opacities identified throughout the lungs bilaterally compatible with metastatic disease. These are not significantly changed in configuration. Urgent finding reported to Dr. Matthews at 03/29/2018 5:43 AM CDT This exam was performed according to our departmental dose-optimization program, which includes automated exposure control, adjustment of the mA and/or kV according to patient size and/or use of iterative reconstruction technique. Status: Imported from PACS Assessment & Plan - Diagnosis (1) Pulmonary embolism Qualifiers: Pulmonary embolism type: other Chronicity: acute Acute cor pulmonale presence: without acute cor pulmonale Qualified Code(s): I26.99 - Other pulmonary embolism without acute cor pulmonale Is this a current diagnosis for this admission?: Yes Plan: Patient presented with shortness of breath, worsening over the last few weeks CTA chest reveals lingular segmental pulmonary arterial branch pulmonary embolus. Small clot burden. No large PE. No evidence of right heart strain. Discuss case with surgery given the patient's scheduled upcoming Mediport placement. Decision was made to admit patient to [facility] on heparin drip for treatment of PE. Surgery team will attempt to place Mediport during this hospital admission. Following procedure, patient will be transitioned to oral anticoagulation. Tylenol, tramadol, IV morphine as needed for pain (2) Cancer of right colon Is this a current diagnosis for this admission?: Yes Plan: Patient endorses history of colon cancer. Awaiting Mediport placement to start chemotherapy. Recent 03/10/2018 laparoscopic right hemicolectomy performed at [facility] by Dr. Francisco Surgical incision sites still healing, no signs of infection. Tylenol, tramadol, IV morphine as needed for pain (3) Hypertension Qualifiers: Hypertension type: essential hypertension Qualified Code(s): I10 - Essential (primary) hypertension Is this a current diagnosis for this admission?: Yes Plan: Patient endorses history of hypertension. She has remained relatively normotensive since admission. Restart home antihypertensives (4) Hypothyroidism Qualifiers: Hypothyroidism type: unspecified Qualified Code(s): E03.9 - Hypothyroidism , unspecified Is this a current diagnosis for this admission?: Yes Plan: Patient endorses history of hypothyroidism. Restart home dose of levothyroxine - Time Time Spent: 30 to 50 Minutes Medications reviewed and adjusted accordingly: Yes Anticipated discharge: Home - Inpatient Certification Based on my medical assessment, after consideration of the patient's comorbidities, presenting symptoms, or acuity I expect that the services needed warrant INPATIENT care.: Yes I certify that my determination is in accordance with my understanding of Medicare's requirements for reasonable and necessary INPATIENT services [42 CFR 412.3e].: Yes Medical Necessity: Risk of Complication if Not Cared For in Hospital
--- NOTE | 2018-03-29 19:07 | PDOC CONSULTATION ---
History of Present Illness Admission Date/PCP: 03/29/18 09:39 HARESH LEE MD Patient complains of: left chest (rib) pains with shortness of breath History of Present Illness: ROHITH MARTINEZ is a 67 year old female with known history of colon ca with mets to the lungs admitted for left chest pains and shortness of breath. Noted PE with small clot load. Scheduled for Port placement for chemotherapy tomorrow by Dr Gunderson. Past Medical History Cardiac Medical History: Reports: Hypertension Neurological Medical History: Denies: Seizures Endocrine Medical History: Reports: Hypothyroidism Malignancy Medical History: Reports: Colorectal Cancer Psychiatric Medical History: Denies: Depression Hematology: Reports: Anemia Past Surgical History Past Surgical History: Reports: Orthopedic Surgery - CARPAL TUNNEL, Other - HEMICOLECTOMY 02/2018 Denies: Hysterectomy Social History Smoking Status: Never Smoker Frequency of Alcohol Use: None Hx Recreational Drug Use: No Drugs: None Hx Prescription Drug Abuse: No - Advance Directive Resuscitation Status: Full Code Family History Family History: CAD, DM, Other - HTN Parental Family History Reviewed: Yes Children Family History Reviewed: No Sibling(s) Family History Reviewed.: No Medication/Allergy Home Medications: Buspirone HCl [Buspar 5 mg Tablet] 7.5 mg PO BIDP PRN 03/06/18 Levothyroxine Sodium [Synthroid 0.025 mg Tablet] 25 mcg PO QAM 03/06/18 Lisinopril/Hydrochlorothiazide [Lisinopril-Hctz 10-12.5 mg Tab] 1 each PO DAILY 30 Days #30 tablet 03/16/18 Hydrocodone/Acetaminophen [Hydrocodon-Acetaminophen 5-325] 1 each PO Q8HP PRN Mirtazapine [Remeron 15 mg Tablet] 15 mg PO QHS 03/29/18 Allergies/Adverse Reactions: No Known Allergies Allergy (Verified 03/29/18 11:41) Review of Systems Constitutional: PRESENT: weakness Eyes: PRESENT: other - no visual/hearing changes Cardiovascular: PRESENT: chest pain, dyspnea on exertion Respiratory: PRESENT: dyspnea Gastrointestinal: PRESENT: abdominal pain - mild abdominal pains Genitourinary: PRESENT: other - no dysuria Neurological: PRESENT: other - no seizures Hematologic/Lymphatic: PRESENT: other - no easy bruising Physical Exam Vital Signs: Temp Pulse Resp BP Pulse Ox 98.8 F 69 12 140/74 H 96 03/29/18 15:15 03/29/18 15:15 03/29/18 15:15 03/29/18 15:15 03/29/18 15:15 Intake & Output 03/28/18 03/29/18 03/30/18 06:59 06:59 06:59 Intake Total 540 Balance 540 Weight 47.2 kg General appearance: PRESENT: mild distress Head exam: PRESENT: atraumatic Eye exam: PRESENT: conjunctiva pink Mouth exam: PRESENT: moist Neck exam: PRESENT: full ROM Respiratory exam: PRESENT: decreased breath sounds Cardiovascular exam: PRESENT: RRR Pulses: PRESENT: normal radial pulses Vascular exam: PRESENT: normal capillary refill GI/Abdominal exam: PRESENT: soft, tenderness - mild anh-umbilical pains Rectal exam: PRESENT: deferred Extremities exam: PRESENT: full ROM Musculoskeletal exam: PRESENT: ambulatory Neurological exam: PRESENT: alert, oriented to person, oriented to place, oriented to time, oriented to situation Psychiatric exam: PRESENT: appropriate affect Skin exam: PRESENT: normal color, warm Results Impressions: Chest/Abdomen CTA 03/29/18 05:13 IMPRESSION: 1. Interval development of acute filling defect in the lingular segmental pulmonary arterial branch compatible with acute pulmonary embolus. Overall small clot burden. No large pulmonary embolus. No evidence of right heart strain. 2. Interval development of moderate right and small left pleural effusion with mild compressive atelectasis. 3. Multiple nodular opacities identified throughout the lungs bilaterally compatible with metastatic disease. These are not significantly changed in configuration. Urgent finding reported to Dr. Matthews at 03/29/2018 5:43 AM CDT This exam was performed according to our departmental dose-optimization program, which includes automated exposure control, adjustment of the mA and/or kV according to patient size and/or use of iterative reconstruction technique. Assessment & Plan - Time Time Spent: 30 to 50 Minutes - Plan Summary Plan Summary: Will inform Dr Gunderson for possible Port placement tomorrow. Will hold heparin tomorrow at 6 am. and keep NPO from Midnight
[2018-03-29] MEDS: MIRTAZAPINE 15 MG TABLET PO SCH (22:39)
[2018-03-30] MEDS: LEVOTHYROXINE SODIUM 0.025 MG TABLET PO SCH (05:27)
[2018-03-30 06:20] LABS: ABSOLUTE EOSINOPHILS # (AUTO) 0.1 10^3/uL (0.0-0.6); ABSOLUTE LYMPHOCYTES (AUTO) 0.3 10^3/uL (0.5-4.7); ABSOLUTE MONOCYTES (AUTO) 0.5 10^3/uL (0.1-1.4); ABSOLUTE NEUT (AUTO) 3.3 10^3/uL (1.7-8.2); BASOPHILS % (AUTO) 1.1 % (0-2); EOSINOPHILS % (AUTO) 1.4 % (0-6); HEMATOCRIT 35.2 % (36.0-47.0); HEMOGLOBIN 11.4 g/dL (12.0-15.5); LYMPHOCYTES % (AUTO) 7.2 % (13-45); MEAN CORPUSCULAR HEMOGLOBIN 26.6 pg (27.0-33.4); MEAN CORPUSCULAR HGB CONC 32.5 g/dL (32.0-36.0); MEAN CORPUSCULAR VOLUME 82 fl (80-97); MONOCYTES % (AUTO) 12.5 % (3-13); PLATELET COUNT 300 10^3/uL (150-450); RED CELL DISTRIBUTION WIDTH 26.9 % (11.5-14.0); SEGMENTED NEUTROPHILS % (AUTO) 77.8 % (42-78); TOTAL CELLS COUNTED % (AUTO) 100 %; WHITE BLOOD COUNT 4.2 10^3/uL (4.0-10.5)
[2018-03-30 06:38] LABS: ALANINE AMINOTRANSFERASE 24 U/L (9-52); ALBUMIN 3.6 g/dL (3.5-5.0); ALKALINE PHOSPHATASE 133 U/L (38-126); ANION GAP 13 (5-19); ASPARTATE AMINO TRANSFERASE 20 U/L (14-36); BILIRUBIN,DIRECT 0.3 mg/dL (0.0-0.4); BILIRUBIN,TOTAL 0.4 mg/dL (0.2-1.3); BLOOD UREA NITROGEN 8 mg/dL (7-20); CALCIUM 10.3 mg/dL (8.4-10.2); CARBON DIOXIDE 26 mmol/L (22-30); CHLORIDE 100 mmol/L (98-107); GLUCOSE 98 mg/dL (75-110); POTASSIUM 4.2 mmol/L (3.6-5.0); SODIUM 138.7 mmol/L (137-145); TOTAL PROTEIN 6.4 g/dL (6.3-8.2)
[2018-03-30 06:43] LABS: TOXIC GRANULATION SLIGHT
[2018-03-30 06:44] LABS: ANISOCYTOSIS 3+; HYPOCHROMASIA SLIGHT; OVALOCYTES SLIGHT; PLATELET COMMENT ADEQUATE; POIKILOCYTOSIS 1+
[2018-03-30] MEDS ORDERED: MIDAZOLAM 2 MG/2 ML INJ ONE (08:46)
[2018-03-30] MEDS ORDERED: LIDOCAINE 2% INJ-PF (20 MG/ML) 10 ML AMPUL ONE (08:46)
[2018-03-30] MEDS ORDERED: FENTANYL CITRATE INJ/PF 100 MCG/2 ML AMPUL ONE (08:46)
[2018-03-30] MEDS ORDERED: PROPOFOL INJ 200 MG/20 ML VIAL IV ONE (08:46)
[2018-03-30] MEDS ORDERED: CEFAZOLIN INJ 1 GM VIAL ONE (09:01)
--- NOTE | 2018-03-30 09:03 | PDOC CONSULTATION ---
Consultation Consult Date: 03/30/18 Attending physician:: KIMO WHEELER Consult reason:: L sided CP worsened, newly noted PE, stage IV colon ca History of Present Illness Admission Date/PCP: 03/29/18 09:39 HARESH LEE MD Patient complains of: L sided CP, stage IV colon ca History of Present Illness: ROHITH MARTINEZ is a 67 year old female Past Medical History Cardiac Medical History: Reports: Hypertension Neurological Medical History: Denies: Seizures Endocrine Medical History: Reports: Hypothyroidism Malignancy Medical History: Reports: Colorectal Cancer Psychiatric Medical History: Denies: Depression Hematology: Reports: Anemia Past Surgical History Past Surgical History: Reports: Orthopedic Surgery - CARPAL TUNNEL, Other - HEMICOLECTOMY 02/2018 Denies: Hysterectomy Social History Information Source: Patient Smoking Status: Never Smoker Frequency of Alcohol Use: None Hx Recreational Drug Use: No Drugs: None Hx Prescription Drug Abuse: No - Advance Directive Resuscitation Status: Full Code Family History Family History: CAD, DM, Other - HTN Parental Family History Reviewed: Yes Children Family History Reviewed: Yes Sibling(s) Family History Reviewed.: Yes Medication/Allergy Home Medications: Buspirone HCl [Buspar 5 mg Tablet] 7.5 mg PO BIDP PRN 03/06/18 Levothyroxine Sodium [Synthroid 0.025 mg Tablet] 25 mcg PO QAM 03/06/18 Lisinopril/Hydrochlorothiazide [Lisinopril-Hctz 10-12.5 mg Tab] 1 each PO DAILY 30 Days #30 tablet 03/16/18 Hydrocodone/Acetaminophen [Hydrocodon-Acetaminophen 5-325] 1 each PO Q8HP PRN Mirtazapine [Remeron 15 mg Tablet] 15 mg PO QHS 03/29/18 Allergies/Adverse Reactions: No Known Allergies Allergy (Verified 03/29/18 11:41) Review of Systems Constitutional: PRESENT: anorexia, weakness Cardiovascular: PRESENT: chest pain, dyspnea on exertion Gastrointestinal: ABSENT: abdominal pain, constipation, diarrhea, hematemesis, hematochezia, nausea, vomiting Integumentary: ABSENT: rash, wounds Neurological: ABSENT: abnormal gait, abnormal speech, confusion, dizziness, focal weakness, syncope Endocrine: ABSENT: cold intolerance, heat intolerance, polydipsia, polyuria Physical Exam Vital Signs: Temp Pulse Resp BP Pulse Ox 98.9 F 68 18 145/77 H 94 03/30/18 08:05 03/30/18 08:05 03/30/18 08:05 03/30/18 08:05 03/30/18 08:05 Intake & Output 03/29/18 03/30/18 03/31/18 06:59 06:59 06:59 Intake Total 915 Balance 915 Weight 47.5 kg General appearance: PRESENT: no acute distress, well-developed, well-nourished Head exam: PRESENT: atraumatic, normocephalic Eye exam: PRESENT: conjunctiva pink, EOMI, PERRLA. ABSENT: scleral icterus Ear exam: PRESENT: normal external ear exam Mouth exam: PRESENT: moist, tongue midline Neck exam: ABSENT: carotid bruit, JVD, lymphadenopathy, thyromegaly Respiratory exam: PRESENT: clear to auscultation rochelle. ABSENT: rales, rhonchi, wheezes Cardiovascular exam: PRESENT: RRR. ABSENT: diastolic murmur, rubs, systolic murmur Pulses: PRESENT: normal dorsalis pedis pul Vascular exam: PRESENT: normal capillary refill GI/Abdominal exam: PRESENT: normal bowel sounds, soft. ABSENT: distended, guarding, mass, organolmegaly, rebound, tenderness Rectal exam: PRESENT: deferred Extremities exam: PRESENT: full ROM. ABSENT: calf tenderness, clubbing, pedal edema Neurological exam: PRESENT: alert, awake, oriented to person, oriented to place , oriented to time, oriented to situation, CN II-XII grossly intact. ABSENT: motor sensory deficit Psychiatric exam: PRESENT: appropriate affect, normal mood. ABSENT: homicidal ideation, suicidal ideation Skin exam: PRESENT: dry, intact, warm. ABSENT: cyanosis, rash Results Laboratory Results: 03/30/18 05:38 03/30/18 05:38 03/30/18 03/30/18 03/30/18 05:38 05:38 05:38 WBC 4.2 RBC 4.30 Hgb 11.4 L Hct 35.2 L MCV 82 MCH 26.6 L MCHC 32.5 RDW 26.9 H Plt Count 300 Seg Neutrophils % 77.8 Lymphocytes % 7.2 L Monocytes % 12.5 Eosinophils % 1.4 Basophils % 1.1 Absolute Neutrophils 3.3 Absolute Lymphocytes 0.3 L Absolute Monocytes 0.5 Absolute Eosinophils 0.1 Absolute Basophils 0.0 Sodium 138.7 Potassium 4.2 Chloride 100 Carbon Dioxide 26 Anion Gap 13 BUN 8 Creatinine 0.52 Est GFR ( Amer) > 60 Est GFR (Non-Af Amer) > 60 Glucose 98 Calcium 10.3 H Total Bilirubin 0.4 AST 20 ALT 24 Alkaline Phosphatase 133 H Total Protein 6.4 Albumin 3.6 TSH 1.99 Impressions: Chest/Abdomen CTA 03/29/18 05:13 IMPRESSION: 1. Interval development of acute filling defect in the lingular segmental pulmonary arterial branch compatible with acute pulmonary embolus. Overall small clot burden. No large pulmonary embolus. No evidence of right heart strain. 2. Interval development of moderate right and small left pleural effusion with mild compressive atelectasis. 3. Multiple nodular opacities identified throughout the lungs bilaterally compatible with metastatic disease. These are not significantly changed in configuration. Urgent finding reported to Dr. Matthews at 03/29/2018 5:43 AM CDT This exam was performed according to our departmental dose-optimization program, which includes automated exposure control, adjustment of the mA and/or kV according to patient size and/or use of iterative reconstruction technique. Status: Image reviewed by me Assessment & Plan - Diagnosis (1) Pleural effusion Is this a current diagnosis for this admission?: Yes Plan: Possible malignant effusion, moderate-sized right effusion, discussed with general surgery if thoracentesis is possible at the time of procedure for the Port-A-Cath. They will look into it. We will need cytology. (2) Pulmonary embolism Qualifiers: Pulmonary embolism type: other Chronicity: acute Acute cor pulmonale presence: without acute cor pulmonale Qualified Code(s): I26.99 - Other pulmonary embolism without acute cor pulmonale Is this a current diagnosis for this admission?: Yes Plan: Likely secondary to underlying malignancy. Patient on heparin currently but would transition to Xarelto 15 mg twice daily, then 20 mg daily postprocedure. She will need lifelong anticoagulation. (3) Cancer of right colon Is this a current diagnosis for this admission?: Yes Plan: It does appear to be stage IV disease with lung findings, we were planning on doing a PET/CT as an outpatient once she was further out from the original surgery. She will need systemic therapy so she will have Port-A-Cath placement today. - Time Time Spent: Greater than 70 Minutes - Inpatient Certification Based on my medical assessment, after consideration of the patient's comorbidities, presenting symptoms, or acuity I expect that the services needed warrant INPATIENT care.: Yes I certify that my determination is in accordance with my understanding of Medicare's requirements for reasonable and necessary INPATIENT services [42 CFR 412.3e].: Yes Medical Necessity: Need for Surgery, Risk of Complication if Not Cared For in Hospital
--- NOTE | 2018-03-30 09:05 | PDOC CONSULTATION ---
History of Present Illness Admission Date/PCP: 03/29/18 09:39 HARESH LEE MD History of Present Illness: 67-year-old female with known history of colon cancer, presenting with left- sided chest pain, patient came to the ED and CT of the chest indicated pulmonary embolism along with new moderate right-sided pleural effusion. The opacities that were concerning for malignancy in the lung looks stable, we were planning on a PET/CT as an outpatient in the next week or so. She needed to be about 4 weeks out from original surgery to do that. She would require outpatient chemotherapy, we were planning on Port-A-Cath placement which will be done today. I discussed her case with Dr. Cheng of general surgery, to see if right thoracentesis with cytology evaluation could be done at the time of Port-A-Cath placement. Past Medical History Cardiac Medical History: Reports: Hypertension Neurological Medical History: Denies: Seizures Endocrine Medical History: Reports: Hypothyroidism Malignancy Medical History: Reports: Colorectal Cancer Psychiatric Medical History: Denies: Depression Hematology: Reports: Anemia Past Surgical History Past Surgical History: Reports: Orthopedic Surgery - CARPAL TUNNEL, Other - HEMICOLECTOMY 02/2018 Denies: Hysterectomy Social History Smoking Status: Never Smoker Frequency of Alcohol Use: None Hx Recreational Drug Use: No Drugs: None Hx Prescription Drug Abuse: No - Advance Directive Resuscitation Status: Full Code Family History Family History: CAD, DM, Other - HTN Parental Family History Reviewed: Yes Children Family History Reviewed: Yes Sibling(s) Family History Reviewed.: Yes Medication/Allergy Home Medications: Buspirone HCl [Buspar 5 mg Tablet] 7.5 mg PO BIDP PRN 03/06/18 Levothyroxine Sodium [Synthroid 0.025 mg Tablet] 25 mcg PO QAM 03/06/18 Lisinopril/Hydrochlorothiazide [Lisinopril-Hctz 10-12.5 mg Tab] 1 each PO DAILY 30 Days #30 tablet 03/16/18 Hydrocodone/Acetaminophen [Hydrocodon-Acetaminophen 5-325] 1 each PO Q8HP PRN Mirtazapine [Remeron 15 mg Tablet] 15 mg PO QHS 03/29/18 Allergies/Adverse Reactions: No Known Allergies Allergy (Verified 03/29/18 11:41) Physical Exam Vital Signs: Temp Pulse Resp BP Pulse Ox 98.9 F 68 18 145/77 H 94 03/30/18 08:05 03/30/18 08:05 03/30/18 08:05 03/30/18 08:05 03/30/18 08:05 Intake & Output 03/29/18 03/30/18 03/31/18 06:59 06:59 06:59 Intake Total 915 Balance 915 Weight 47.5 kg Results Laboratory Results: 03/30/18 05:38 03/30/18 05:38 03/30/18 03/30/18 03/30/18 05:38 05:38 05:38 WBC 4.2 RBC 4.30 Hgb 11.4 L Hct 35.2 L MCV 82 MCH 26.6 L MCHC 32.5 RDW 26.9 H Plt Count 300 Seg Neutrophils % 77.8 Lymphocytes % 7.2 L Monocytes % 12.5 Eosinophils % 1.4 Basophils % 1.1 Absolute Neutrophils 3.3 Absolute Lymphocytes 0.3 L Absolute Monocytes 0.5 Absolute Eosinophils 0.1 Absolute Basophils 0.0 Sodium 138.7 Potassium 4.2 Chloride 100 Carbon Dioxide 26 Anion Gap 13 BUN 8 Creatinine 0.52 Est GFR ( Amer) > 60 Est GFR (Non-Af Amer) > 60 Glucose 98 Calcium 10.3 H Total Bilirubin 0.4 AST 20 ALT 24 Alkaline Phosphatase 133 H Total Protein 6.4 Albumin 3.6 TSH 1.99 Impressions: Chest/Abdomen CTA 03/29/18 05:13 IMPRESSION: 1. Interval development of acute filling defect in the lingular segmental pulmonary arterial branch compatible with acute pulmonary embolus. Overall small clot burden. No large pulmonary embolus. No evidence of right heart strain. 2. Interval development of moderate right and small left pleural effusion with mild compressive atelectasis. 3. Multiple nodular opacities identified throughout the lungs bilaterally compatible with metastatic disease. These are not significantly changed in configuration. Urgent finding reported to Dr. Matthews at 03/29/2018 5:43 AM CDT This exam was performed according to our departmental dose-optimization program, which includes automated exposure control, adjustment of the mA and/or kV according to patient size and/or use of iterative reconstruction technique. Assessment & Plan - Diagnosis (1) Pleural effusion Is this a current diagnosis for this admission?: Yes (2) Pulmonary embolism Qualifiers: Pulmonary embolism type: other Chronicity: acute Acute cor pulmonale presence: without acute cor pulmonale Qualified Code(s): I26.99 - Other pulmonary embolism without acute cor pulmonale Is this a current diagnosis for this admission?: Yes (3) Cancer of right colon Is this a current diagnosis for this admission?: Yes
[2018-03-30] MEDS ORDERED: (PENDING PHARMACY ID) (Lisinopril/Hydrochlorothiazide [Lisinopril-Hctz 10-12.5 Mg Tab] 1 E PO SCH (10:00)
[2018-03-30] MEDS ORDERED: OXYCODONE-ACETAMINOPHEN 5-325 MG TABLET PO PRN ×2 (10:34)
[2018-03-30] MEDS ORDERED: FENTANYL CITRATE INJ/PF 100 MCG/2 ML AMPUL IV PRN ×3 (10:34)
[2018-03-30] MEDS ORDERED: MORPHINE SULFATE 10 MG/ML INJ IV PRN (10:34)
[2018-03-30] MEDS ORDERED: DIPHENHYDRAMINE HCL 50 MG/ML VIAL IV PRN (10:34)
[2018-03-30] MEDS ORDERED: PROMETHAZINE HCL INJ 25 MG/1 ML VIAL IV PRN ×2 (10:34)
[2018-03-30] MEDS ORDERED: MEPERIDINE HCL/PF INJ 25 MG/1 ML DISP.SYRIN IV PRN (10:34)
--- NOTE | 2018-03-30 12:05 | RADIOLOGY REPORT (SQ) ---
EXAM DESCRIPTION: CHEST SINGLE VIEW COMPLETED DATE/TIME: 03/30/2018 11:34 am REASON FOR STUDY: s/p thoracentesis and mediport COMPARISON: Two-view chest 02/21/2018, 03/06/2018 AP chest 03/12/2018 CT chest 03/06/2018, 03/29/2018 EXAM PARAMETERS: NUMBER OF VIEWS: One view. TECHNIQUE: Single frontal radiographic view of the chest acquired. RADIATION DOSE: NA LIMITATIONS: None. FINDINGS: LUNGS AND PLEURA: Condyle and interstitial opacities are present in both lungs, worrisome for underlying chronic disease from sarcoidosis. Mycobacterium avium could cause this appearance. There is airspace disease in the left lung base with trace pleural fluid. No right-sided acute infiltrates or pleural effusion. No right or left pneumothorax. MEDIASTINUM AND HILAR STRUCTURES: No masses. Contour normal. HEART AND VASCULAR STRUCTURES: Heart normal in size. Normal vasculature. BONES: No acute findings. HARDWARE: Left permanent central line tip superior vena cava OTHER: No other significant finding. IMPRESSION: Left basilar airspace disease atelectasis versus pneumonia. Pulmonary infarct could als o have this appearance. TECHNICAL DOCUMENTATION: JOB ID: [id number]- All Rights Reserved Reading location - IP/workstation name: [email or web address]
--- NOTE | 2018-03-30 12:35 | PDOC PROGRESS REPORT ---
Subjective Progress Note for:: 03/30/18 Subjective:: Successful placement of Port by Dr Gunderson Reason For Visit: PULMONARY EMBOLISM Physical Exam Vital Signs: Temp Pulse Resp BP Pulse Ox 98.0 F 64 18 165/84 H 93 03/30/18 12:15 03/30/18 12:15 03/30/18 12:15 03/30/18 12:15 03/30/18 12:15 Intake & Output 03/29/18 03/30/18 03/31/18 06:59 06:59 06:59 Intake Total 915 1000 Output Total 5 Balance 915 995 Weight 47.5 kg Exam: Still with left chest pains but breathing OK Port in Place Results Laboratory Results: 03/30/18 05:38 03/30/18 05:38 03/30/18 03/30/18 03/30/18 05:38 05:38 05:38 WBC 4.2 RBC 4.30 Hgb 11.4 L Hct 35.2 L MCV 82 MCH 26.6 L MCHC 32.5 RDW 26.9 H Plt Count 300 Seg Neutrophils % 77.8 Lymphocytes % 7.2 L Monocytes % 12.5 Eosinophils % 1.4 Basophils % 1.1 Absolute Neutrophils 3.3 Absolute Lymphocytes 0.3 L Absolute Monocytes 0.5 Absolute Eosinophils 0.1 Absolute Basophils 0.0 Sodium 138.7 Potassium 4.2 Chloride 100 Carbon Dioxide 26 Anion Gap 13 BUN 8 Creatinine 0.52 Est GFR ( Amer) > 60 Est GFR (Non-Af Amer) > 60 Glucose 98 Calcium 10.3 H Total Bilirubin 0.4 AST 20 ALT 24 Alkaline Phosphatase 133 H Total Protein 6.4 Albumin 3.6 TSH 1.99 Impressions: Chest/Abdomen CTA 03/29/18 05:13 IMPRESSION: 1. Interval development of acute filling defect in the lingular segmental pulmonary arterial branch compatible with acute pulmonary embolus. Overall small clot burden. No large pulmonary embolus. No evidence of right heart strain. 2. Interval development of moderate right and small left pleural effusion with mild compressive atelectasis. 3. Multiple nodular opacities identified throughout the lungs bilaterally compatible with metastatic disease. These are not significantly changed in configuration. Urgent finding reported to Dr. Matthews at 03/29/2018 5:43 AM CDT This exam was performed according to our departmental dose-optimization program, which includes automated exposure control, adjustment of the mA and/or kV according to patient size and/or use of iterative reconstruction technique. Chest X-Ray 03/30/18 00:00 IMPRESSION: Left basilar airspace disease atelectasis versus pneumonia. Pulmonary infarct could also have this appearance. Assessment & Plan - Time Time Spent with patient: 15-24 minutes - Plan Summary Plan Summary: Resume Heparin. Hospitalist to put patient on penitentiary po anticoagulation
[2018-03-30] MEDS: LISINOPRIL 10 MG TABLET PO SCH (12:40)
[2018-03-30] MEDS: HYDROCHLOROTHIAZIDE 12.5 MG CAPSULE PO SCH (12:40)
[2018-03-30] MEDS ORDERED: LIDOCAINE 1% INJ-PF (10 MG/ML) 30 ML SDV ONE (12:49)
[2018-03-30] MEDS ORDERED: BUPIVACAINE HCL 0.25 % INJ/PF (2.5 MG/1 ML) 30 ML VIAL ONE (12:49)
[2018-03-30] MEDS ORDERED: HEPARIN SOD (PORCINE) 1,000 UNIT/ML 10 ML VIAL IV PRN (14:18)
[2018-03-30] MEDS: HEPARIN SODIUM,PORCINE/D5W 25,000 UNIT/250 ML RTUINJ IV PRN ×2 (14:18→18:59)
--- NOTE | 2018-03-30 14:30 | RADIOLOGY REPORT (SQ) ---
EXAM DESCRIPTION: FLUORO/CV PLACEMENT COMPLETED DATE/TIME: 03/30/2018 1:30 pm REASON FOR STUDY: PORTACATH PLCMT LEFT SIDE ASST WITH FLUORO IN OR COMPARISON: None. FLUOROSCOPY TIME: 1.3 minutes 2 digital radiographic images saved to PACS. TECHNIQUE: Intra-operative images acquired during surgical procedure to evaluate progress. NUMBER OF IMAGES: 2 digital radiographic images LIMITATIONS: None. FINDINGS: Intra procedural imaging and fluoro during placement of a left-sided permanent central yessenia e with the tip in the superior vena cava. Please see the operative report for further details. IMPRESSION: Intra procedural imaging and fluoro COMMENT: Quality ID [id number]: Final reports for procedures using fluoroscopy that document radiation exp osure indices, or exposure time and number of fluorographic images (if radiation exposure indices are not available) Please consult full operative report of the attending physician for description of the procedure. TECHNICAL DOCUMENTATION: JOB ID: [id number] [employer]- All Rights Reserved Reading location - IP/workstation name: [email or web address]
[2018-03-30] MEDS ORDERED: BUSPIRONE HCL 10 MG TABLET PO PRN (15:06)
[2018-03-30] MEDS: MORPHINE SULFATE 10 MG/ML INJ IV PRN ×2 (15:09→20:34)
--- NOTE | 2018-03-30 19:23 | PDOC PROGRESS REPORT ---
Subjective Progress Note for:: 03/30/18 Subjective:: Jess Gaspar is a 67 y.o. 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 She was admitted 03/29/2018 for a PE and placement of a MediPort. The patient was seen this afternoon on rounds following her MediPort placement. She was resting comfortably in bed on room air. The surgical site was clean, dry , and intact. The patient complained of L lateral/axillary pain with inhalation , the same pain that brought her to the emergency room. Her lungs are were clear to auscultation. Reason For Visit: PULMONARY EMBOLISM Physical Exam Vital Signs: Temp Pulse Resp BP Pulse Ox 98.7 F 73 16 144/81 H 95 03/30/18 17:15 03/30/18 17:15 03/30/18 17:15 03/30/18 17:15 03/30/18 17:15 Intake & Output 03/29/18 03/30/18 03/31/18 06:59 06:59 06:59 Intake Total 915 1824 Output Total 5 Balance 915 1819 Weight 47.5 kg General appearance: PRESENT: thin Eye exam: PRESENT: conjunctiva pink, PERRLA Mouth exam: PRESENT: moist Neck exam: PRESENT: full ROM Respiratory exam: PRESENT: clear to auscultation rochelle, symmetrical, unlabored, other - SPLINTING Cardiovascular exam: PRESENT: +S1, +S2 Pulses: PRESENT: normal radial pulses, +1 pedal pulses bilateral GI/Abdominal exam: PRESENT: normal bowel sounds, soft. ABSENT: tenderness Rectal exam: PRESENT: deferred Extremities exam: PRESENT: full ROM Musculoskeletal exam: PRESENT: ambulatory, full ROM Neurological exam: PRESENT: alert, awake, oriented to person, oriented to place , oriented to time, oriented to situation Psychiatric exam: PRESENT: appropriate affect Skin exam: PRESENT: dry, pallor, warm Results Laboratory Results: 03/30/18 05:38 03/30/18 05:38 03/30/18 03/30/18 03/30/18 05:38 05:38 05:38 WBC 4.2 RBC 4.30 Hgb 11.4 L Hct 35.2 L MCV 82 MCH 26.6 L MCHC 32.5 RDW 26.9 H Plt Count 300 Seg Neutrophils % 77.8 Lymphocytes % 7.2 L Monocytes % 12.5 Eosinophils % 1.4 Basophils % 1.1 Absolute Neutrophils 3.3 Absolute Lymphocytes 0.3 L Absolute Monocytes 0.5 Absolute Eosinophils 0.1 Absolute Basophils 0.0 Sodium 138.7 Potassium 4.2 Chloride 100 Carbon Dioxide 26 Anion Gap 13 BUN 8 Creatinine 0.52 Est GFR ( Amer) > 60 Est GFR (Non-Af Amer) > 60 Glucose 98 Calcium 10.3 H Total Bilirubin 0.4 AST 20 ALT 24 Alkaline Phosphatase 133 H Total Protein 6.4 Albumin 3.6 TSH 1.99 Impressions: Chest/Abdomen CTA 03/29/18 05:13 IMPRESSION: 1. Interval development of acute filling defect in the lingular segmental pulmonary arterial branch compatible with acute pulmonary embolus. Overall small clot burden. No large pulmonary embolus. No evidence of right heart strain. 2. Interval development of moderate right and small left pleural effusion with mild compressive atelectasis. 3. Multiple nodular opacities identified throughout the lungs bilaterally compatible with metastatic disease. These are not significantly changed in configuration. Urgent finding reported to Dr. Matthews at 03/29/2018 5:43 AM CDT This exam was performed according to our departmental dose-optimization program, which includes automated exposure control, adjustment of the mA and/or kV according to patient size and/or use of iterative reconstruction technique. Chest X-Ray 03/30/18 00:00 IMPRESSION: Left basilar airspace disease atelectasis versus pneumonia. Pulmonary infarct could also have this appearance. Guidance Fluoroscopy 03/30/18 00:00 IMPRESSION: Intra procedural imaging and fluoro Status: Imported from PACS Assessment & Plan - Diagnosis (1) Pulmonary embolism Qualifiers: Pulmonary embolism type: other Chronicity: acute Acute cor pulmonale presence: without acute cor pulmonale Qualified Code(s): I26.99 - Other pulmonary embolism without acute cor pulmonale Is this a current diagnosis for this admission?: Yes Plan: Patient presented with shortness of breath, worsening over the last few weeks CTA chest reveals lingular segmental pulmonary arterial branch pulmonary embolus. Small clot burden. No large PE. No evidence of right heart strain. Discuss case with surgery given the patient's scheduled upcoming Mediport placement. Decision was made to admit patient to [facility] on heparin drip for treatment of PE. Surgery team was able to place Mediport today. Heparin gtt resumed post-op. Plan to transition to oral anticoagulation. Tylenol and tramadol as needed for pain Increased Morphine IV dosing since patient still is still complaining of L lateral chest wall pain with inhalation (2) Cancer of right colon Is this a current diagnosis for this admission?: Yes Plan: Patient endorses history of colon cancer. Awaiting Mediport placement to start chemotherapy. Recent 03/10/2018 laparoscopic right hemicolectomy performed at [facility] by Dr. Francisco Surgical incision sites still healing, no signs of infection. Tylenol, tramadol, IV morphine as needed for pain (3) Hypertension Qualifiers: Hypertension type: essential hypertension Qualified Code(s): I10 - Essential (primary) hypertension Is this a current diagnosis for this admission?: Yes Plan: Patient endorses history of hypertension. She has remained relatively normotensive since admission. Restart home antihypertensives (4) Hypothyroidism Qualifiers: Hypothyroidism type: unspecified Qualified Code(s): E03.9 - Hypothyroidism , unspecified Is this a current diagnosis for this admission?: Yes Plan: Patient endorses history of hypothyroidism. Restart home dose of levothyroxine - Time Time Spent with patient: 15-24 minutes Medications reviewed and adjusted accordingly: Yes Anticipated discharge: Home - Inpatient Certification Based on my medical assessment, after consideration of the patient's comorbidities, presenting symptoms, or acuity I expect that the services needed warrant INPATIENT care.: Yes I certify that my determination is in accordance with my understanding of Medicare's requirements for reasonable and necessary INPATIENT services [42 CFR 412.3e].: Yes Medical Necessity: Risk of Complication if Not Cared For in Hospital
[2018-03-30 20:06] LABS: FLUID TYPE PLEURAL
[2018-03-30 20:07] LABS: FLUID APPEARANCE CLOUDY; FLUID COLOR RED; FLUID SOURCE LUNG; FLUID VISCOSITY LIQUID
[2018-03-30] MEDS: MIRTAZAPINE 15 MG TABLET PO SCH (22:29)
[2018-03-31] MEDS: LEVOTHYROXINE SODIUM 0.025 MG TABLET PO SCH (05:16)
[2018-03-31] MEDS: MORPHINE SULFATE 10 MG/ML INJ IV PRN ×2 (05:16→14:09)
[2018-03-31 08:03] LABS: APPEARANCE,URINE CLEAR; BILIRUBIN,URINE NEGATIVE (NEGATIVE); COLOR,URINE YELLOW; GLUCOSE, URINE NEGATIVE (NEGATIVE); KETONES,URINE NEGATIVE (NEGATIVE); LEUKOCYTE ESTERASE,URINE NEGATIVE (NEGATIVE); NITRITE,URINE NEGATIVE (NEGATIVE); PROTEIN,URINE NEGATIVE (NEGATIVE); URINE SPECIFIC GRAVITY 1.004; UROBILINOGEN,URINE NEGATIVE mg/dL (<2.0)
[2018-03-31 08:14] LABS: HEMATOCRIT 36.6 % (36.0-47.0); MEAN CORPUSCULAR HEMOGLOBIN 26.5 pg (27.0-33.4); MEAN CORPUSCULAR HGB CONC 32.8 g/dL (32.0-36.0); MEAN CORPUSCULAR VOLUME 81 fl (80-97); PLATELET COUNT 287 10^3/uL (150-450); RED BLOOD COUNT 4.52 10^6/uL (3.72-5.28); RED CELL DISTRIBUTION WIDTH 27.4 % (11.5-14.0); WHITE BLOOD COUNT 5.3 10^3/uL (4.0-10.5)
--- NOTE | 2018-03-31 08:34 | PDOC PROGRESS REPORT ---
Subjective Progress Note for:: 03/31/18 Subjective:: Patient feels better from left-sided chest pain standpoint. Fluid removed yesterday from the right side Reason For Visit: PULMONARY EMBOLISM Physical Exam Vital Signs: Temp Pulse Resp BP Pulse Ox 98.3 F 63 16 138/83 H 95 03/31/18 04:33 03/31/18 07:00 03/31/18 04:33 03/31/18 04:33 03/31/18 04:33 Intake & Output 03/30/18 03/31/18 04/01/18 06:59 06:59 06:59 Intake Total 915 1998 Output Total 5 Balance 915 1993 Weight 47.5 kg 47.5 kg General appearance: PRESENT: no acute distress, well-developed, well-nourished Head exam: PRESENT: atraumatic, normocephalic Eye exam: PRESENT: conjunctiva pink, EOMI, PERRLA. ABSENT: scleral icterus Ear exam: PRESENT: normal external ear exam Mouth exam: PRESENT: moist, tongue midline Neck exam: ABSENT: carotid bruit, JVD, lymphadenopathy, thyromegaly Respiratory exam: PRESENT: clear to auscultation rochelle. ABSENT: rales, rhonchi, wheezes Cardiovascular exam: PRESENT: RRR. ABSENT: diastolic murmur, rubs, systolic murmur Pulses: PRESENT: normal dorsalis pedis pul Vascular exam: PRESENT: normal capillary refill GI/Abdominal exam: PRESENT: normal bowel sounds, soft. ABSENT: distended, guarding, mass, organolmegaly, rebound, tenderness Rectal exam: PRESENT: deferred Extremities exam: PRESENT: full ROM. ABSENT: calf tenderness, clubbing, pedal edema Neurological exam: PRESENT: alert, awake, oriented to person, oriented to place , oriented to time, oriented to situation, CN II-XII grossly intact. ABSENT: motor sensory deficit Psychiatric exam: PRESENT: appropriate affect, normal mood. ABSENT: homicidal ideation, suicidal ideation Skin exam: PRESENT: dry, intact, warm. ABSENT: cyanosis, rash Results Laboratory Results: 03/30/18 03/31/18 10:21 07:26 Urine Color YELLOW Urine Appearance CLEAR Urine pH 7.0 Ur Specific [place] 1.004 Urine Protein NEGATIVE Urine Glucose (UA) NEGATIVE Urine Ketones NEGATIVE Urine Blood NEGATIVE Urine Nitrite NEGATIVE Ur Leukocyte Esterase NEGATIVE Urine WBC (Auto) 2 Fluid Type PLEURAL Fluid Source LUNG Fluid Color RED Fluid Appearance CLOUDY Fluid Viscosity LIQUID Fluid WBC 533 Fluid RBC [address]99 Impressions: Chest/Abdomen CTA 03/29/18 05:13 IMPRESSION: 1. Interval development of acute filling defect in the lingular segmental pulmonary arterial branch compatible with acute pulmonary embolus. Overall small clot burden. No large pulmonary embolus. No evidence of right heart strain. 2. Interval development of moderate right and small left pleural effusion with mild compressive atelectasis. 3. Multiple nodular opacities identified throughout the lungs bilaterally compatible with metastatic disease. These are not significantly changed in configuration. Urgent finding reported to Dr. Matthews at 03/29/2018 5:43 AM CDT This exam was performed according to our departmental dose-optimization program, which includes automated exposure control, adjustment of the mA and/or kV according to patient size and/or use of iterative reconstruction technique. Chest X-Ray 03/30/18 00:00 IMPRESSION: Left basilar airspace disease atelectasis versus pneumonia. Pulmonary infarct could also have this appearance. Guidance Fluoroscopy 03/30/18 00:00 IMPRESSION: Intra procedural imaging and fluoro Assessment & Plan - Diagnosis (1) Pleural effusion Is this a current diagnosis for this admission?: Yes Plan: Possibly malignant, awaiting fluid analysis. (2) Pulmonary embolism Qualifiers: Pulmonary embolism type: other Chronicity: acute Acute cor pulmonale presence: without acute cor pulmonale Qualified Code(s): I26.99 - Other pulmonary embolism without acute cor pulmonale Is this a current diagnosis for this admission?: Yes Plan: Plan to switch to Xarelto 15 mg twice daily for 21 days then 20 mg daily. (3) Cancer of right colon Is this a current diagnosis for this admission?: Yes Plan: Continue with PET/CT as outpatient, patient will need initiation of chemotherapy soon. Today I had a long discussion with patient about findings on CT of the chest, this does appear to be stage IV disease, had a long discussion with the son on the phone as well. Spent greater than 35 minutes in discussion. - Time Time Spent with patient: 35 or more minutes - Inpatient Certification Based on my medical assessment, after consideration of the patient's comorbidities, presenting symptoms, or acuity I expect that the services needed warrant INPATIENT care.: Yes I certify that my determination is in accordance with my understanding of Medicare's requirements for reasonable and necessary INPATIENT services [42 CFR 412.3e].: Yes
[2018-03-31 09:02] LABS: ANION GAP 14 (5-19); BLOOD UREA NITROGEN 5 mg/dL (7-20); CALCIUM 10.3 mg/dL (8.4-10.2); CARBON DIOXIDE 25 mmol/L (22-30); CHLORIDE 101 mmol/L (98-107); GLUCOSE 108 mg/dL (75-110); PHOSPHORUS 4.5 mg/dL (2.5-4.5); POTASSIUM 4.2 mmol/L (3.6-5.0); SODIUM 139.9 mmol/L (137-145)
[2018-03-31] MEDS: HYDROCHLOROTHIAZIDE 12.5 MG CAPSULE PO SCH (09:42)
[2018-03-31] MEDS: LISINOPRIL 10 MG TABLET PO SCH (09:42)
[2018-03-31] MEDS ORDERED: RIVAROXABAN 15 MG TABLET PO SCH (10:15)
[2018-03-31] MEDS ORDERED: RIVAROXABAN 15 MG TABLET PO ONE ×2 (13:00→13:30)
[2018-03-31 13:11] VITALS: BP 120/70
--- NOTE | 2018-03-31 15:06 | Operative Report ---
Nonrecallable Operative Report DATE OF SURGERY: 03/30/18 PREOPERATIVE DIAGNOSIS: 1. Right sided pleural effusion (moderate). 2. Colon cancer. POSTOPERATIVE DIAGNOSIS: Same as above. OPERATION: 1. Ultrasound-guided right thoracentesis. 2. Ultrasound-guided central venous puncture. 3. Left-sided IJ mediport inertion. SURGEON: WHITLEY ASTUDILLO ANESTHESIA: LMAC TISSUE REMOVED OR ALTERED: 350cc right pleural effusion. COMPLICATIONS: None apparent ESTIMATED BLOOD LOSS: minimal PROCEDURE: Drains/Implants: Left IJ mediport. Procedure in detail: After informed consent was obtained, the pt was brought into the OR and sat in the upright position. The ultrasound was used to visualized the fluid within the right chest. The right chest was then prepped and draped in normal sterile fashion. Under direct ultrasonic guidance, a thoracentesis catheter was inserted over the rib and into the right pleural space. Approximately 350 cc was then removed from the thoracic cavity. The dressing was fashioned, and this portion of the procedure was concluded. Next, attention was turned to placement of the Mediport. The ultrasound was used to identify the left internal jugular vein. It was compressible with normal flow. The left internal jugular vein was then accessed under direct ultrasonic guidance. This was done with the supplied needle. The needle and syringe returned dark venous, nonpulsatile blood. The wire was inserted into the vein very easily. The ultrasound was then used to verify that the wire was within the lumen of the vein. Fluoroscopy also confirmed the wire to be in correct place. Once this was confirmed, the dilator and breakaway sheath were inserted over the wire. A separate stab incision was created for the Mediport hub. The catheter was tunneled from the Mediport hub insertion site to the needle insertion site. The dilator and wire were then removed from the breakaway sheath, leaving the sheath within the SVC. Next the catheter was inserted into the breakaway sheath. The sheath was cracked and pulled away, leaving the catheter in the SVC. The catheter was pulled back to an appropriate level under fluoroscopy. The catheter was then trimmed to length and the Mediport hub was attached. The hub was buried in the pocket, and sutured to the chest wall. The Mediport was then aspirated and flushed with heparinized saline. The overlying fatty soft tissue was closed using 3-0 Vicryl suture in simple running fashion. The overlying skin was closed using 4- 0 Vicryl Rapide suture in subcuticular fashion. Dressings were then placed, and the procedure was concluded. All sponge, instrument, and needle counts were correct 2. Condition: Fair.
--- NOTE | 2018-03-31 18:04 | PDOC PROGRESS REPORT ---
Subjective Progress Note for:: 03/31/18 Subjective:: This is a 67-year-old female admitted for pulmonary embolism and pleural effusion. The patient is status post right thoracentesis and Mediport insertion. The patient denies any fevers, chills, shortness of breath, abdominal pain, nausea, vomiting, dizziness, orthostasis, blurry vision. The patient does report left sided chest pain. Reason For Visit: PULMONARY EMBOLISM Physical Exam Vital Signs: Temp Pulse Resp BP Pulse Ox 98.6 F 83 14 120/70 95 03/31/18 13:07 03/31/18 13:07 03/31/18 13:07 03/31/18 13:07 03/31/18 13:07 Intake & Output 03/30/18 03/31/18 04/01/18 06:59 06:59 06:59 Intake Total 915 1998 Output Total 5 Balance 915 1993 Weight 47.5 kg 47.5 kg General appearance: PRESENT: no acute distress Head exam: PRESENT: atraumatic, normocephalic Eye exam: PRESENT: EOMI, PERRLA. ABSENT: scleral icterus Mouth exam: PRESENT: moist, neck supple Neck exam: ABSENT: lymphadenopathy, meningismus, tenderness, thyromegaly, tracheal deviation Respiratory exam: PRESENT: decreased breath sounds, unlabored Cardiovascular exam: PRESENT: RRR Pulses: PRESENT: normal radial pulses Vascular exam: PRESENT: normal capillary refill. ABSENT: pallor GI/Abdominal exam: PRESENT: soft. ABSENT: distended, tenderness Extremities exam: ABSENT: tenderness Musculoskeletal exam: PRESENT: normal inspection Neurological exam: PRESENT: alert, awake, oriented to person, oriented to place , oriented to time, oriented to situation, CN II-XII grossly intact. ABSENT: motor sensory deficit Psychiatric exam: ABSENT: agitated, anxious, depressed Skin exam: ABSENT: cyanosis, erythema, jaundice, pallor Results Laboratory Results: 03/31/18 07:30 03/31/18 07:30 03/30/18 03/31/18 03/31/18 10:21 07:26 07:30 WBC 5.3 RBC 4.52 Hgb 12.0 Hct 36.6 MCV 81 MCH 26.5 L MCHC 32.8 RDW 27.4 H Plt Count 287 Sodium Potassium Chloride Carbon Dioxide Anion Gap BUN Creatinine Est GFR ( Amer) Est GFR (Non-Af Amer) Glucose Calcium Phosphorus Magnesium Urine Color YELLOW Urine Appearance CLEAR Urine pH 7.0 Ur Specific [place] 1.004 Urine Protein NEGATIVE Urine Glucose (UA) NEGATIVE Urine Ketones NEGATIVE Urine Blood NEGATIVE Urine Nitrite NEGATIVE Ur Leukocyte Esterase NEGATIVE Urine WBC (Auto) 2 Fluid Type PLEURAL Fluid Source LUNG Fluid Color RED Fluid Appearance CLOUDY Fluid Viscosity LIQUID Fluid WBC 533 Fluid RBC 06808 03/31/18 07:30 WBC RBC Hgb Hct MCV MCH MCHC RDW Plt Count Sodium 139.9 Potassium 4.2 Chloride 101 Carbon Dioxide 25 Anion Gap 14 BUN 5 L Creatinine 0.58 Est GFR ( Amer) > 60 Est GFR (Non-Af Amer) > 60 Glucose 108 Calcium 10.3 H Phosphorus 4.5 Magnesium 1.9 Urine Color Urine Appearance Urine pH Ur Specific [place] Urine Protein Urine Glucose (UA) Urine Ketones Urine Blood Urine Nitrite Ur Leukocyte Esterase Urine WBC (Auto) Fluid Type Fluid Source Fluid Color Fluid Appearance Fluid Viscosity Fluid WBC Fluid RBC Impressions: Chest/Abdomen CTA 03/29/18 05:13 IMPRESSION: 1. Interval development of acute filling defect in the lingular segmental pulmonary arterial branch compatible with acute pulmonary embolus. Overall small clot burden. No large pulmonary embolus. No evidence of right heart strain. 2. Interval development of moderate right and small left pleural effusion with mild compressive atelectasis. 3. Multiple nodular opacities identified throughout the lungs bilaterally compatible with metastatic disease. These are not significantly changed in configuration. Urgent finding reported to Dr. Matthews at 03/29/2018 5:43 AM CDT This exam was performed according to our departmental dose-optimization program, which includes automated exposure control, adjustment of the mA and/or kV according to patient size and/or use of iterative reconstruction technique. Chest X-Ray 03/30/18 00:00 IMPRESSION: Left basilar airspace disease atelectasis versus pneumonia. Pulmonary infarct could also have this appearance. Guidance Fluoroscopy 03/30/18 00:00 IMPRESSION: Intra procedural imaging and fluoro Assessment & Plan - Diagnosis (1) Cancer of right colon Is this a current diagnosis for this admission?: Yes (2) Pleural effusion Is this a current diagnosis for this admission?: Yes - Plan Summary Plan Summary: This is a 67-year-old female status post right thoracentesis and Mediport placement. She is doing well. She denies any shortness of breath or difficulty with eating. She still reports left-sided chest pain (that is likely related to her pulmonary embolism). We are awaiting the cytology results from the pleural fluid. Discharge home when okay with medical team.
--- NOTE | 2018-04-15 08:45 | PDOC DISCHARGE SUMMARY ---
General - Admit/Disc Date/PCP Admission Date/Primary Care Provider: 03/29/18 09:39 JOSETTE RUELAS PA-C Discharge Date: 03/31/18 - Discharge Diagnosis (1) Pulmonary embolism Is this a current diagnosis for this admission?: Yes (2) Cancer of right colon Is this a current diagnosis for this admission?: Yes (3) Hypertension Is this a current diagnosis for this admission?: Yes (4) Hypothyroidism Is this a current diagnosis for this admission?: Yes - Additional Information Resuscitation Status: Full Code Discharge Diet: As Tolerated Discharge Activity: Activity As Tolerated Prescriptions: Hydrocodone/Acetaminophen [Hydrocodone-Acetamin 5-325 mg] 1 each PO Q8HP PRN # 30 tablet PRN Reason: For Pain Rivaroxaban [Xarelto 15 mg Tablet] 15 mg PO BIDBS 30 Days #60 tablet Rivaroxaban [Xarelto] 20 mg PO DAILY #30 tablet Home Medications: Buspirone HCl [Buspar 5 mg Tablet] 7.5 mg PO BIDP PRN 03/06/18 Levothyroxine Sodium [Synthroid 0.025 mg Tablet] 25 mcg PO QAM 03/06/18 Lisinopril/Hydrochlorothiazide [Lisinopril-Hctz 10-12.5 mg Tab] 1 each PO DAILY 30 Days #30 tablet 03/16/18 Mirtazapine [Remeron 15 mg Tablet] 15 mg PO QHS 03/29/18 Hydrocodone/Acetaminophen [Hydrocodone-Acetamin 5-325 mg] 1 each PO Q8HP PRN # 30 tablet 03/31/18 Rivaroxaban [Xarelto 15 mg Tablet] 15 mg PO BIDBS 30 Days #60 tablet 03/31/18 Rivaroxaban [Xarelto] 20 mg PO DAILY #30 tablet 04/30/18 History of Present Illness History of Present Illness: ROHITH MARTINEZ is a 67 year old female who presented to the emergency department for shortness of breath. She states her symptoms have been getting progressively worse over the last 2-3 weeks. The patient decided to come to the emergency department when she began experiencing left lateral chest wall pain with inhalation. The patient describes the pain as sharp in nature, nonradiating, exacerbated with inhalation or any type of sudden movement. Patient states she took Percocet at home for pain, but it offered no relief. The patient states she only experiences pain relief when she is at rest. The patient also endorses significant amount of pain at night, as well as during the day. Patient states that she is unable to sleep due to her left lateral chest wall pain. PMH includes colon cancer with metastasis to lungs, HTN, hypothyroidism, anxiety In the emergency department, a chest CTA was performed. Results revealed lingular segmental pulmonary arterial branch pulmonary embolus. Small clot burden. No large PE. No evidence of right heart strain. EKG demonstrated normal sinus rhythm, no evidence of acute infarct or ischemia. Lab work otherwise benign. Vital signs BP 127/83 HR 69 RR 26 T 98.2 SPO2 96% on RA. Of note, the patient was scheduled to have a Mediport placed this week by Dr. Francisco. Surgery was consulted regarding treatment options with her upcoming surgery. The decision was made to admit the patient to [facility] on a heparin drip to treat her PE and her Mediport would be placed during this hospitalization. Following her surgery the patient would be transitioned to oral anticoagulation. Hospital Course Hospital Course: 67 y.o. female patient presented with shortness of breath, worsening over 2 weeks. Patient endorsed history of colon cancer. Awaiting Mediport placement to start chemotherapy. Recent 03/10/2018 laparoscopic right hemicolectomy performed at [facility] by Dr. Francisco. Surgical incision sites still healing, no signs of infection. CTA chest revealed lingular segmental pulmonary arterial branch pulmonary embolus. Small clot burden. No large PE. No evidence of right heart strain. Discussed case with surgery (Ivis) given the patient's scheduled upcoming Mediport placement. Decision was made to admit patient to [facility] on heparin drip for treatment of PE. Surgery team was able to place Mediport 03/31. Heparin gtt resumed post-op, transitioned to oral anticoagulation prior to discharge. New anticoagulation was thoroughly explained to the patient prior to discharge. She stated full understanding. Dr. Lo was following patient while she was at [facility], he is also aware of her discharge plan. Physical Exam Vital Signs: Temp Pulse Resp BP Pulse Ox 98.6 F 83 14 120/70 95 03/31/18 13:07 03/31/18 13:07 03/31/18 13:07 03/31/18 13:07 03/31/18 13:07 Results Laboratory Results: 03/31/18 07:30 03/31/18 07:30 Impressions: Chest/Abdomen CTA 03/29/18 05:13 IMPRESSION: 1. Interval development of acute filling defect in the lingular segmental pulmonary arterial branch compatible with acute pulmonary embolus. Overall small clot burden. No large pulmonary embolus. No evidence of right heart strain. 2. Interval development of moderate right and small left pleural effusion with mild compressive atelectasis. 3. Multiple nodular opacities identified throughout the lungs bilaterally compatible with metastatic disease. These are not significantly changed in configuration. Urgent finding reported to Dr. Matthews at 03/29/2018 5:43 AM CDT This exam was performed according to our departmental dose-optimization program, which includes automated exposure control, adjustment of the mA and/or kV according to patient size and/or use of iterative reconstruction technique. Chest X-Ray 03/30/18 00:00 IMPRESSION: Left basilar airspace disease atelectasis versus pneumonia. Pulmonary infarct could also have this appearance. Guidance Fluoroscopy 03/30/18 00:00 IMPRESSION: Intra procedural imaging and fluoro Status: Imported from PACS Qualifiers - * PATIENT BEING DISCHARGED WITH ANY OF THE FOLLOWING DIAGNOSIS: No Plan Discharge Plan: discharge home on po anticoagulation as well as close follow up to dr. lo Time Spent: Less than 30 Minutes
== END 2018-03-31 14:45 | disposition home or self-care (01) | DRG 176 ==
LOC: ER 04:19 → EH 09:39 → 4N 11:31
PROVIDERS: ADMIT Internal Medicine; ATTEND Internal Medicine
PROC: 02HV33Z Insertion of Infusion Device into Superior Vena Cava, Percutaneous Approach (ICD-10-PCS; 2018-03-30)
PROC: B518ZZA Fluoroscopy of Superior Vena Cava, Guidance (ICD-10-PCS; 2018-03-30)
PROC: 0W993ZX Drainage of Right Pleural Cavity, Percutaneous Approach, Diagnostic (ICD-10-PCS; principal; 2018-03-30 09:30)
PROC: 0JH63XZ Insertion of Tunneled Vascular Access Device into Chest Subcutaneous Tissue and Fascia, Percutaneous Approach (ICD-10-PCS; 2018-03-30 09:30)
DX: I26.99 Other pulmonary embolism without acute cor pulmonale (principal); C18.2 Malignant neoplasm of ascending colon; J91.8 Pleural effusion in other conditions classified elsewhere; C78.00 Secondary malignant neoplasm of unspecified lung; I10 Essential (primary) hypertension; E03.9 Hypothyroidism, unspecified; F41.9 Anxiety disorder, unspecified; D64.9 Anemia, unspecified; Z90.49 Acquired absence of other specified parts of digestive tract; Z82.49 Family history of ischemic heart disease and other diseases of the circulatory system; Z83.3 Family history of diabetes mellitus; Z79.899 Other long term (current) drug therapy
CPT/HCPCS: 36415; 532; 71045; 71275; 77001; 80048; 80053; 81001; 82550; 83735; 84100; 84443; 84484; 85025; 85027; 85610; 85730; 88305; 88313; 88341; 88342; 89050; 93005; 93010; 96365; 96375; 99285; C1788; J0690; J1170; J1644; J2250; J2270; J2704; J3010; J3490

== ENCOUNTER → 2018-04-09 | Outpatient (CLI) | payer MEDICARE ==
--- NOTE | 2018-03-18 07:48 | PDOC DISCHARGE SUMMARY ---
General - Admit/Disc Date/PCP Admission Date/Primary Care Provider: ÁLVARO HANEY MD Discharge Date: 03/16/18 - Discharge Diagnosis (1) Anemia Is this a current diagnosis for this admission?: Yes (2) Cancer of right colon Is this a current diagnosis for this admission?: Yes (3) Hypertension Is this a current diagnosis for this admission?: Yes (4) Hypothyroidism Is this a current diagnosis for this admission?: Yes - Additional Information Home Medications: Buspirone HCl [Buspar 5 mg Tablet] 1 tab PO DAILY 03/06/18 Levothyroxine Sodium [Synthroid 0.025 mg Tablet] 25 mcg PO DAILY 03/06/18 Lisinopril/Hydrochlorothiazide [Lisinopril-Hctz 10-12.5 mg Tab] 1 each PO DAILY 30 Days #30 tablet 03/16/18 History of Present Illness Patient complains of: weakness weight loss anemia History of Present Illness: BENNETT MARTINEZ is a 67 year old black female patient who does not significant medical history except for hypertension and hypothyroidism presents with chief complaint of shortness of breath, generalized body weakness and pleuritic chest pain of 4 weeks duration. Patient initially visited her primary care physician office and she is started on iron preparations for anemia. About 2 weeks ago patient had a chest x-ray and outpatient and it revealed bilateral lung nodules. He also CTA of the chest was done reported as bilateral airspace disease with potential developing nodules especially in the left upper lobe and also a small low-density lesion in the liver. Patient denied any history of smoking but cancer runs in her family. Patient also found to have hemoglobin of 6.8 which 2 units of WBC requested. Patient denied chills, fever, cough, nausea, vomiting, palpitation or diaphoresis. She has unintentional weight loss and decreased appetite. Hospital Course Hospital Course: (1) Postoperative ileus after surgery Resolved (2) Anemia Anemia of chronic disease normal iron, folate and B12 H/H was stable (3) Colonic mass Patient underwent surgery without complications pathology report pending at discharge (4) Hypertension Controlled patient discharged on prior meds 5) Hypothyroidism to continue replacement (6) Lung nodule, multiple suspect metastatic disease to follow up with oncology Physical Exam Vital Signs: General appearance: PRESENT: no acute distress Head exam: PRESENT: normocephalic Eye exam: ABSENT: scleral icterus Ear exam: PRESENT: normal external ear exam Mouth exam: PRESENT: moist Neck exam: ABSENT: tracheal deviation Respiratory exam: PRESENT: symmetrical, unlabored Cardiovascular exam: PRESENT: RRR GI/Abdominal exam: PRESENT: Abdomen is distended and soft Extremities exam: ABSENT: pedal edema Neurological exam: PRESENT: alert, awake, oriented to person, oriented to place , oriented to time, oriented to situation, reflexes normal Psychiatric exam: PRESENT: appropriate affect Skin exam: ABSENT: petechiae Results Laboratory Results: 02/21/18 03/07/18 03/15/18 13:14 10:47 04:23 WBC 6.4 RBC 3.84 Hgb 9.5 L Hct 30.3 L Plt Count 340 Vitamin B12 714.0 727.0 03/07/18 03/07/18 03/10/18 10:47 10:47 04:15 Sodium Potassium Chloride Carbon Dioxide BUN Creatinine Iron 381.9 H Transferrin 327 Ferritin 557.00 H Carcinoembryonic Ag 3.7 H Folate 12.60 03/15/18 04:23 Sodium 136.0 L Potassium 3.8 Chloride 103 Carbon Dioxide 25 BUN 7 Creatinine 0.52 Iron Transferrin Ferritin Carcinoembryonic Ag Folate Qualifiers - * PATIENT BEING DISCHARGED WITH ANY OF THE FOLLOWING DIAGNOSIS: No Plan Discharge Plan: referred to Oncology and General surgery at discharge
--- NOTE | 2018-04-10 08:10 | RADIOLOGY REPORT (SQ) ---
EXAM DESCRIPTION: PET CT SKULL/THIGH COMPLETED DATE/TIME: 04/09/2018 8:56 pm REASON FOR STUDY: COLON CANCER C18.2 MALIGNANT NEOPLASM OF ASCENDING COLON COMPARISON: CT angio chest 03/06/2018, 03/29/2018 CT abdomen pelvis 03/07/2018 RADIONUCLIDE AND DOSE: 11.2 mCi F18 FDG The route of agent administration: Intravenous FASTING BLOOD SUGAR: 108 mg/dl CONTRAST TYPE AND DOSE: No CT contrast given. TECHNIQUE: Blood glucose level was verified. Above dose of FDG was injected intravenously. 2-D seg mented attenuation correction images were obtained from the base of the skull to the midthighs. Nonc ontrast CT images were obtained for attenuation correction and fusion with emission images. CT image s were performed without oral or intravenous contrast and are not sensitive for parenchymal lesions. A series of overlapping emission PET images were obtained. Images reviewed and manipulated at [facility] work station by the radiologist. Images stored on PACS. LIMITATIONS: None. FINDINGS: HEAD AND NECK: No areas of abnormal metabolic activity in the soft tissues of the head and neck. CHEST: There are multiple lung parenchymal confluent opacities throughout the bilateral upper lobes a nd right middle lobe, with activity ranging from 5 to 8 SUV. A non metabolic 6 to 7 mm nodule is present in the right lower lobe on axial image 76. There are metabolically active subcentimeter mediastinal and hilar lymph nodes, with SUV ranging from 4 to 5.3 SUV. Fall 1.5 x 1 cm sub- carinal lymph node is present with SUV 6.4. ABDOMEN AND PELVIS: There are multiple hypermetabolic liver nodules, worrisome for metastatic disease . Right lobe index lesion is 2 cm in diameter with SUV 6.8, best shown on axial image 114. Left lob e index lesion is 1.8 cm in diameter with SUV of 8 on axial image 120. PROXIMAL LOWER EXTREMITIES: No areas of abnormal metabolic activity in the soft tissues of the lower extremities. BONES: No abnormal metabolic activity in the visualized skeleton. ADDITIONAL CT FINDINGS: Surgical changes from right hemicolectomy 03/10/2018. Left-sided permanent ce ntral line tip superior vena cava. OTHER: Liver background activity 1.75 SUV. Blood pool activity 1.3 SUV. IMPRESSION: Liver metastatic lesions from known right colon cancer, post hemicolectomy 03/10/2018. Pulmonary and mediastinal findings may represent sarcoidosis or mycobacterium complex rather than met astatic disease. TECHNICAL DOCUMENTATION: JOB ID: [id number] [employer]- All Rights Reserved Reading location - IP/workstation name: [facility]
== END ==
LOC: RAD 16:42
PROVIDERS: ATTEND Internal Medicine
DX: C18.2 Malignant neoplasm of ascending colon (principal); C78.7 Secondary malignant neoplasm of liver and intrahepatic bile duct
CPT/HCPCS: 78815; A9552

== ENCOUNTER → 2018-10-27 | Outpatient (CLI) | payer MEDICARE ==
--- NOTE | 2018-10-27 10:58 | RADIOLOGY REPORT (SQ) ---
EXAM DESCRIPTION: CT CHEST WITH COMPLETED DATE/TIME: 10/27/2018 8:22 am REASON FOR STUDY: C18.2 MALIGNANT NEOPLASM OF ASCENDING COLON C18.2 MALIGNANT NEOPLASM OF ASCENDING COLON COMPARISON: 07/20/2018 TECHNIQUE: CT scan of the chest performed using helical scanning technique with dynamic intravenous contrast injection. Images reviewed with lung, soft tissue and bone windows. Reconstructed coronal and sagittal MPR and MIP images reviewed. All images stored on PACS. All CT scanners at this facility use dose modulation, iterative reconstruction, and/or weight based d osing when appropriate to reduce radiation dose to as low as reasonably achievable (ALARA). [facility]: Dose Right [facility]: CareDose [facility]: Dose Right [facility]: Teradose 4D [facility]: [employer] CONTRAST TYPE AND DOSE: contrast/concentration: Isovue 350.00 mg/ml; Total Contrast Delivered: 56.0 ml; Total Saline Delivered: 65.0 ml RENAL FUNCTION: GFR > 60. RADIATION DOSE: . LIMITATIONS: None. FINDINGS: LUNGS AND PLEURA: Perihilar airspace opacities with upper lobe predominance not significan tly changed. Pleural-based nodule right anterior cardiophrenic angle 10 mm unchanged. No new nodule s. Trace left pleural effusion. HILAR AND MEDIASTINAL STRUCTURES: Stable subcarinal node measuring 1 x 2 cm. Bilateral hilar nodes l ess than 1 cm short axis. HEART AND VASCULAR STRUCTURES: No aneurysm or dissection. No central pulmonary emboli. No pericardi al effusion. HARDWARE: Left-sided port tip in the SVC. UPPER ABDOMEN: See separate report of the CT of the abdomen. THYROID AND OTHER SOFT TISSUES: No masses. No adenopathy. BONES: Nothing acute. No metastatic lesions. OTHER: No other significant finding. IMPRESSION: Unchanged perihilar airspace opacities. Unchanged middle lobe pulmonary nodule. Stable mediastinal adenopathy. TECHNICAL DOCUMENTATION: JOB ID: [id number] Quality ID # [id number]: Final reports with documentation of one or more dose reduction techniques (e.g., Au tomated exposure control, adjustment of the mA and/or kV according to patient size, use of iterative reconstruction technique) 2010 [employer]- All Rights Reserved Reading location - IP/workstation name: [facility]
--- NOTE | 2018-10-27 11:06 | RADIOLOGY REPORT (SQ) ---
EXAM DESCRIPTION: CT ABD/PELVIS WITH IV ORAL COMPLETED DATE/TIME: 10/27/2018 8:23 am REASON FOR STUDY: C18.2 MALIGNANT NEOPLASM OF ASCENDING COLON C18.2 MALIGNANT NEOPLASM OF ASCENDING COLON COMPARISON: None. TECHNIQUE: CT scan of the abdomen and pelvis performed using helical scanning technique with dynamic intravenous contrast injection. No oral contrast. Images reviewed with lung, soft tissue, and bone windows. Reconstructed coronal and sagittal MPR images reviewed. Delayed images for evaluation of the urinary system also acquired. All images stored on PACS. All CT scanners at this facility use dose modulation, iterative reconstruction, and/or weight based d osing when appropriate to reduce radiation dose to as low as reasonably achievable (ALARA). [facility]: Dose Right [facility]: CareDose [facility]: Dose Right [facility]: Teradose 4D [facility]: [employer] CONTRAST TYPE AND DOSE: See separate report of the same date. RENAL FUNCTION: See separate report. RADIATION DOSE: CT Rad equipment meets quality standard of care and radiation dose reduction techniq ues were employed. CTDIvol: 4.4 - 4.5 mGy. DLP: 679 mGy-cm.. LIMITATIONS: None. FINDINGS: LOWER CHEST: See separate report of the CT of the chest. LIVER: Less conspicuous liver lesions. Largest lesion in the dome 9 mm, previously 11 mm. Left lobe lesion no longer visualized. SPLEEN: Upper limits normal in size at 12 cm midclavicular line. No focal lesions. PANCREAS: No masses. No significant calcifications. No adjacent inflammation or peripancreatic fluid collections. Pancreatic duct not dilated. GALLBLADDER: No identified stones by CT criteria. No inflammatory changes to suggest cholecystitis. ADRENAL GLANDS: 1 cm left adrenal nodule, stable. RIGHT KIDNEY AND URETER: No solid masses. No significant calcifications. No hydronephrosis or hyd roureter. LEFT KIDNEY AND URETER: No solid masses. No significant calcifications. No hydronephrosis or hydr oureter. AORTA AND VESSELS: No aneurysm. RETROPERITONEUM: Retroperitoneal nodes measuring less than 1 cm short axis. No bulky adenopathy. BOWEL AND PERITONEAL CAVITY: Prior right hemicolectomy. No obstruction. No ascites, adenopathy or f ree air. APPENDIX: Not visualized. PELVIS: No mass. No free fluid. Normal bladder. ABDOMINAL WALL: No masses. No hernias. BONES: Nothing acute. OTHER: No other significant finding. IMPRESSION: Favorable response to therapy. Decrease in liver metastasis. TECHNICAL DOCUMENTATION: JOB ID: [id number] Quality ID # [id number]: Final reports with documentation of one or more dose reduction techniques (e.g., Au tomated exposure control, adjustment of the mA and/or kV according to patient size, use of iterative reconstruction technique) 2010 [employer]- All Rights Reserved Reading location - IP/workstation name: [facility]
== END ==
LOC: RAD 08:51
PROVIDERS: ATTEND Physician Assistant Medical
DX: C18.2 Malignant neoplasm of ascending colon (principal)
CPT/HCPCS: 71260; 74177; 82565

== ENCOUNTER 2018-11-15 16:14 | Emergency (ER) | payer MEDICARE ==
--- NOTE | 2018-11-15 18:33 | ER Document Report ---
ED Medical Screen (RME) - General Chief Complaint: Rib Pain Stated Complaint: SIDE PAIN Time Seen by Provider: 11/15/18 18:16 Mode of Arrival: Ambulatory Information source: Patient Notes: Patient is a 68-year-old female who presents with chief complaint of left anterior rib pain. She states the pain has been there for approximately 1 week and is worsening over the last 2 days. Patient reports she feels short of breath and the pain is significantly increased when she takes a deep breath. Patient is currently receiving chemotherapy for colon cancer. Her last chemotherapy was approximately 2 weeks ago. She does have a Port-A-Cath to her left upper chest wall. She reports history of pulmonary embolisms for which she takes Eliquis. I have greeted and performed a rapid initial assessment of this patient. A comprehensive ED assessment and evaluation of the patient, analysis of test results and completion of the medical decision making process will be conducted by additional ED providers. Dictation of this chart was performed using voice recognition software; therefore, there may be some unintended grammatical errors. TRAVEL OUTSIDE OF THE [place] IN LAST 30 DAYS: No - Related Data Allergies/Adverse Reactions: No Known Allergies Allergy (Verified 11/15/18 16:15) Past Medical History - Social History Frequency of alcohol use: None Drug Abuse: None - Past Medical History Cardiac Medical History: Reports: Hx Hypertension Neurological Medical History: Denies: Hx Seizures Endocrine Medical History: Reports: Hx Hypothyroidism Renal/ Medical History: Denies: Hx Peritoneal Dialysis Malignancy Medical History: Reports: Hx Colorectal Cancer Psychiatric Medical History: Denies: Hx Depression Past Surgical History: Reports: Hx Abdominal Surgery - colon, Hx Orthopedic Surgery - CARPAL TUNNEL, Other - HEMICOLECTOMY 02/2018. Denies: Hx Hysterectomy - Immunizations History of Influenza Vaccine for 07/2017 - 12/2017 Season: No Physical Exam - Vital signs Vitals: Temp Pulse Resp BP Pulse Ox 98.3 F 98 18 169/91 H 97 11/15/18 17:07 11/15/18 17:07 11/15/18 17:07 11/15/18 17:07 11/15/18 17:07 Course - Vital Signs Vital signs: Temp Pulse Resp BP Pulse Ox 98.3 F 98 18 169/91 H 97 11/15/18 17:07 11/15/18 17:07 11/15/18 17:07 11/15/18 17:07 11/15/18 17:07 Doctor's Discharge - Discharge Referrals: HORACIO CABA PA-C [Primary Care Provider] - Follow up as needed
[2018-11-15 19:12] LABS: HEMATOCRIT 41.4 % (36.0-47.0); HEMOGLOBIN 14.3 g/dL (12.0-15.5); MEAN CORPUSCULAR HEMOGLOBIN 33.2 pg (27.0-33.4); MEAN CORPUSCULAR HGB CONC 34.5 g/dL (32.0-36.0); MEAN CORPUSCULAR VOLUME 96 fl (80-97); RED BLOOD COUNT 4.31 10^6/uL (3.72-5.28); RED CELL DISTRIBUTION WIDTH 13.4 % (11.5-14.0)
[2018-11-15 19:24] LABS: ALANINE AMINOTRANSFERASE 63 U/L (9-52); ALBUMIN 4.3 g/dL (3.5-5.0); ALKALINE PHOSPHATASE 269 U/L (38-126); ANION GAP 9 (5-19); ASPARTATE AMINO TRANSFERASE 75 U/L (14-36); BILIRUBIN,DIRECT 0.2 mg/dL (0.0-0.4); BILIRUBIN,TOTAL 0.6 mg/dL (0.2-1.3); BLOOD UREA NITROGEN 11 mg/dL (7-20); CARBON DIOXIDE 27 mmol/L (22-30); CHLORIDE 103 mmol/L (98-107); GLUCOSE 108 mg/dL (75-110); POTASSIUM 3.7 mmol/L (3.6-5.0); SODIUM 139.1 mmol/L (137-145); TOTAL PROTEIN 7.3 g/dL (6.3-8.2)
[2018-11-15 19:40] LABS: PLATELET COUNT 99 10^3/uL (150-450); WHITE BLOOD COUNT 1.8 10^3/uL (4.0-10.5)
[2018-11-15 19:41] LABS: ABSOLUTE LYMPHOCYTES# (MANUAL) 0.3 10^3/uL (0.5-4.7); ABSOLUTE MONOCYTES # (MANUAL) 0.2 10^3/uL (0.1-1.4); ABSOLUTE NEUTROPHILS# (MANUAL) 1.3 10^3/uL (1.7-8.2); BASOPHILS % (MANUAL) 0 % (0-2); EOSINOPHILS % (MANUAL) 0 % (0-6); LYMPHOCYTES % (MANUAL) 16 % (13-45); MONOCYTES % (MANUAL) 10 % (3-13); SEGMENTED NEUTROPHILS % (MAN) 72 % (42-78); TOTAL CELLS COUNTED 50
[2018-11-15 19:42] LABS: PLATELET COMMENT DECREASED
--- NOTE | 2018-11-15 20:20 | ER Document Report ---
ED General - General Chief Complaint: Rib Pain Stated Complaint: SIDE PAIN Time Seen by Provider: 11/15/18 18:16 Mode of Arrival: Ambulatory Notes: Patient is a 68-year-old female with metastatic colon cancer that presents to the emergency department for chief complaint of pleuritic left anterior chest pain. Patient states that she started having this pain over the past week, and seemingly getting worse, worse with a deep breath, she currently rates the pain as a 6 out of 10 describes as a sharp sensation when taking a deep breath. She does have a history of pulmonary embolism, and is currently on Xarelto for this. She is currently receiving chemotherapy, her last round was at the end of September, she states her cancer has metastasized to her lungs and she is aware of that. As well she states she feels mildly short of breath, but not much worse than usual, she is not currently on home oxygen. She denies any associated fevers, chills, night sweats, nausea, vomiting or abdominal pain. Past Medical History: Metastatic colorectal carcinoma Past Surgical History: Colon resection Social History: Denies tobacco, alcohol or drug use. Family History: Reviewed and noncontributory for presenting illness Allergies: Reviewed, see documented allergy list. REVIEW OF SYSTEMS: Other than noted above, the 12 point review of systems was reviewed with the patient and were negative, all pertinent findings are included in the HPI. PHYSICAL EXAMINATION: Vital signs reviewed, nursing noted reviewed. GENERAL: Frail-appearing female, appears to be uncomfortable, but no acute respiratory distress. HEAD: Atraumatic, normocephalic. EYES: Eyes appear normal, extraocular movements intact, sclera anicteric, conjunctiva are normal. ENT: nares patent, oropharynx clear without exudates. Moist mucous membranes. NECK: Normal range of motion, supple without lymphadenopathy LUNGS: Breath sounds clear to auscultation bilaterally and equal. No wheezes rales or rhonchi. Mediport noted in the left chest wall. HEART: Regular rate and rhythm without murmurs ABDOMEN: Soft, nontender, normoactive bowel sounds. No rebound, guarding, or rigidity. No masses appreciated. EXTREMITIES: Nontender, good range of motion, no pitting or edema. NEUROLOGICAL: No focal neurological deficits. Moves all extremities spontaneously Motor and sensory grossly intact on exam. PSYCH: Normal mood, normal affect. SKIN: Warm, Dry, normal turgor, no rashes or lesions noted on exposed skin TRAVEL OUTSIDE OF THE [place] IN LAST 30 DAYS: No - Related Data Allergies/Adverse Reactions: No Known Allergies Allergy (Verified 11/15/18 16:15) Past Medical History - General Information source: Patient - Social History Smoking Status: Never Smoker Frequency of alcohol use: None Drug Abuse: None Family History: CAD, DM, Other Patient has suicidal ideation: No Patient has homicidal ideation: No - Past Medical History Cardiac Medical History: Reports: Hx Hypertension Neurological Medical History: Denies: Hx Seizures Endocrine Medical History: Reports: Hx Hypothyroidism Renal/ Medical History: Denies: Hx Peritoneal Dialysis Malignancy Medical History: Reports: Hx Colorectal Cancer Psychiatric Medical History: Denies: Hx Depression Past Surgical History: Reports: Hx Abdominal Surgery - colon, Hx Orthopedic Surgery - CARPAL TUNNEL, Other - HEMICOLECTOMY 02/2018. Denies: Hx Hysterectomy Physical Exam - Vital signs Vitals: Temp Pulse Resp BP Pulse Ox 98.3 F 98 18 169/91 H 97 11/15/18 17:07 11/15/18 17:07 11/15/18 17:07 11/15/18 17:07 11/15/18 17:07 Course - Re-evaluation Re-evalutation: Patient seen and examined vital signs reviewed. Laboratory data and imaging were ordered as appropriate for the patient's presenting symptoms and complaint, with consideration of any critical or life threatening conditions that may be associated with their obtained history and exam as noted above. Patient was treated with IV morphine and Zofran for her pain Results were reviewed when available and demonstrated negative CT angiogram of the chest for pulmonary embolism, did reveal multiple pulmonary nodules, consistent with metastases, seen on prior CTs, but seem to be more extensive, she was noted to be leukopenic, which is chronic for her, she is also neutropenic, but afebrile. Her platelet count was 99,000 today, which is also chronic for this patient, the rest of her blood work was essentially unremarkable. The patient was re-evaluated and was improved from a pain standpoint, discussed results with her, she is advised to continue on her Xarelto, and will be prescribed [place] to take at home for pain, as NSAIDs are contraindicated in her currently, given her history of thrombus cytopenia, and currently on full anticoagulation. Evaluation was most consistent with pleurisy most likely consistent and secondary to the patient's metastatic lesions, advised follow-up with her oncologist. Results were discussed with the patient at this point, after careful consideration I feel that that patient can be discharged from the emergency department, the patient was educated treatments and reasons to return to the emergency department based on their presumed diagnosis as noted above, they were advised to followup with a primary care physician in 2-3 days. Patient was agreeable to plan of care. *Note is created using voice recognition software and may contain spelling, syntax or grammatical errors. Laboratory 11/15/18 11/15/18 11/15/18 18:56 18:56 20:28 WBC 1.8 L RBC 4.31 Hgb 14.3 Hct 41.4 MCV 96 MCH 33.2 MCHC 34.5 RDW 13.4 Plt Count 99 L Total Counted 50 Seg Neutrophils % Not Reportable Seg Neuts % (Manual) 72 Lymphocytes % Not Reportable Lymphocytes % (Manual) 16 Atypical Lymphs % 2 Monocytes % Not Reportable Monocytes % (Manual) 10 Eosinophils % Not Reportable Eosinophils % (Manual) 0 Basophils % Not Reportable Basophils % (Manual) 0 Absolute Neutrophils Not Reportable Abs Neuts (Manual) 1.3 L Absolute Lymphocytes Not Reportable Abs Lymphs (Manual) 0.3 L Absolute Monocytes Not Reportable Abs Monocytes (Manual) 0.2 Absolute Eosinophils Not Reportable Absolute Eos (Manual) 0.0 Absolute Basophils Not Reportable Abs Basophils (Manual) 0.0 Platelet Comment DECREASED Sodium 139.1 Potassium 3.7 Chloride 103 Carbon Dioxide 27 Anion Gap 9 BUN 11 Creatinine 0.53 Est GFR ( Amer) > 60 Est GFR (Non-Af Amer) > 60 Glucose 108 Calcium 10.0 Total Bilirubin 0.6 Direct Bilirubin 0.2 Neonat Total Bilirubin Not Reportable Neonat Direct Bilirubin Not Reportable Neonat Indirect Bili Not Reportable AST 75 H ALT 63 H Alkaline Phosphatase 269 H Total Protein 7.3 Albumin 4.3 Urine Color STRAW Urine Appearance CLEAR Urine pH 6.0 Ur Specific [place] 1.005 Urine Protein NEGATIVE Urine Glucose (UA) NEGATIVE Urine Ketones NEGATIVE Urine Blood SMALL H Urine Nitrite NEGATIVE Urine Bilirubin NEGATIVE Urine Urobilinogen NEGATIVE Ur Leukocyte Esterase TRACE H Urine WBC (Auto) 3 Urine RBC (Auto) 0 U Hyaline Cast (Auto) 1 Urine Mucus (Auto) RARE Urine Ascorbic Acid NEGATIVE Chest/Abdomen CTA 11/15/18 18:34 IMPRESSION: Enlarging nodules in the right lung, suspicious for worsening metastatic disease. Confluent airspace disease in bilateral upper lobes is mildly worse than the prior study, suspicious for chronic inflammatory pneumonia. No evidence for acute pulmonary embolism. - Vital Signs Vital signs: Temp Pulse Resp BP Pulse Ox 98.3 F 98 17 149/87 H 96 11/15/18 17:07 11/15/18 17:07 11/15/18 23:01 11/15/18 23:01 11/15/18 23:01 - Laboratory Result Diagrams: 11/15/18 18:56 11/15/18 18:56 Laboratory results interpreted by me: 11/15/18 11/15/18 11/15/18 18:56 18:56 20:28 WBC 1.8 L Plt Count 99 L Abs Neuts (Manual) 1.3 L Abs Lymphs (Manual) 0.3 L AST 75 H ALT 63 H Alkaline Phosphatase 269 H Urine Blood SMALL H Ur Leukocyte Esterase TRACE H Discharge - Discharge Clinical Impression: Pleural effusion, Pleuritic pain, Metastatic colon cancer in female, Lung nodule, multiple Condition: Stable Disposition: HOME, SELF-CARE Instructions: Pleurisy ([facility]) Additional Instructions: Please follow-up with your oncologist, with your scheduled appointment, if your symptoms worsen, do not hesitate to return to the emergency department, or if you feel life-threatening, please take the prescribed pain medication as directed Prescriptions: Oxycodone HCl/Acetaminophen [Percocet 5-325 mg Tablet] 1 tab PO Q8H PRN #15 tab PRN Reason: general pain Referrals: HORACIO CABA PA-C [Primary Care Provider] - Follow up as needed ÁLVARO HANEY MD [ACTIVE STAFF] - Follow up in 1 week
[2018-11-15 20:44] LABS: APPEARANCE,URINE CLEAR; BILIRUBIN,URINE NEGATIVE (NEGATIVE); COLOR,URINE STRAW; GLUCOSE, URINE NEGATIVE (NEGATIVE); KETONES,URINE NEGATIVE (NEGATIVE); LEUKOCYTE ESTERASE,URINE TRACE (NEGATIVE); NITRITE,URINE NEGATIVE (NEGATIVE); PROTEIN,URINE NEGATIVE (NEGATIVE); URINE SPECIFIC GRAVITY 1.005; UROBILINOGEN,URINE NEGATIVE mg/dL (<2.0)
--- NOTE | 2018-11-15 21:13 | RADIOLOGY REPORT (SQ) ---
EXAM DESCRIPTION: CT CHEST ANGIOGRAPHY WITHOUT THEN WITH IV CONTRAST, three-dimensional reconstructions COMPLETED DATE/TME: 11/15/2018 18:34 CLINICAL HISTORY: 68 years, Female, left rib pain, sob, hx of PE This exam was performed according to our departmental dose-optimization program which includes automated exposure control, adjustment of the mA and/or kVp according to patient size and/or use of iterative reconstruction technique where applicable. Compared to chest CT dated 07/20/2018. Findings: Pulmonary arteries are well opacified with no significant filling defects in the pulmonary arterial tree to suggest acute pulmonary embolism. Aorta is mildly calcified. Aberrant right subclavian artery is noted, anatomical variant. Moderate bilateral hilar and subcarinal mediastinal lymphadenopathy. Mild layering left pleural effusion. The visualized upper abdominal organs are within normal limits. No significant pericardial effusion. Evaluation of the lung parenchyma demonstrates significant bilateral upper lobe patchy infiltrates with confluent airspace disease, suspicious for chronic inflammatory pneumonia, mildly worse than the prior study. There is a right lower lobe 1.2 cm nodule which is larger than the prior study, on Image 62, series 3. 7 mm nodule in the right lower lobe on image 68. This is new since the prior study. Osseous structures do not demonstrate any definite lytic or blastic lesions. Left chest port is noted in place. IMPRESSION: Enlarging nodules in the right lung, suspicious for worsening metastatic disease. Confluent airspace disease in bilateral upper lobes is mildly worse than the prior study, suspicious for chronic inflammatory pneumonia. No evidence for acute pulmonary embolism.
[2018-11-15] MEDS ORDERED: MORPHINE SULFATE 10 MG/ML INJ IV ONE (21:47)
[2018-11-15] MEDS ORDERED: ONDANSETRON HCL INJ/PF 4 MG/2 ML SDV IV ONE (21:47)
[2018-11-15] MEDS ORDERED: HYDROCODONE/ACETAMINOPHEN 5-325 MG (6 TAB/ER DISP) PO PRN (22:41)
[2018-11-15 23:42] VITALS: BP 162/79
[2018-11-16 11:26] LABS: PATH REVIEW PATHOLOGIST REVIEWED
== END 2018-11-15 23:42 | disposition home or self-care (01) ==
LOC: ER 16:14
DX: C18.9 Malignant neoplasm of colon, unspecified (principal); C78.02 Secondary malignant neoplasm of left lung; C78.01 Secondary malignant neoplasm of right lung; I26.99 Other pulmonary embolism without acute cor pulmonale; Z79.01 Long term (current) use of anticoagulants; J90 Pleural effusion, not elsewhere classified; R07.81 Pleurodynia; Z79.899 Other long term (current) drug therapy; I10 Essential (primary) hypertension; D70.9 Neutropenia, unspecified
CPT/HCPCS: 99284; 96374; 96375; 36415; 85025; 80053; 81001; 71275; J2270; J2405; A9270

== ENCOUNTER → 2019-01-09 | Outpatient (CLI) | payer MEDICARE ==
--- NOTE | 2019-01-09 09:41 | RADIOLOGY REPORT (SQ) ---
EXAM DESCRIPTION: CT CHEST WITH; CT ABD/PELVIS WITH IV ORAL COMPLETED DATE/TIME: 01/09/2019 8:34 am REASON FOR STUDY: COLON CA (C18.2) C18.2 MALIGNANT NEOPLASM OF ASCENDING COLON COMPARISON: PET-CT 04/09/2018 CT chest abdomen and pelvis 07/20/2018, 10/27/2018 CT chest 11/15/2018 CONTRAST TYPE AND DOSE: contrast/concentration: Isovue 350.00 mg/ml; Total Contrast Delivered: 55.0 ml; Total Saline Delivered: 65.0 ml RENAL FUNCTION: GFR > 60. TECHNIQUE: CT scan of the chest performed using helical scanning technique with dynamic intravenous contrast injection. Images reviewed with lung, soft tissue and bone windows. Reconstructed coronal a nd sagittal MPR images reviewed. All images stored on PACS. CT scan of the abdomen and pelvis performed with intravenous and with oral contrastusing helical scan sophia technique with dynamic intravenous contrast injection. Images reviewed with lung, soft tissue a nd bone windows. Reconstructed coronal and sagittal MPR images reviewed. Delayed images for evaluat ion of the urinary system also acquired and evaluated. All images stored on PACS. All CT scanners at this facility use dose modulation, iterative reconstruction, and/or weight based d osing when appropriate to reduce radiation dose to as low as reasonably achievable (ALARA). [facility]: Dose Right [facility]: CareDose [facility]: Dose Right [facility]: Teradose 4D [facility]: [employer] RADIATION DOSE: CT Rad equipment meets quality standard of care and radiation dose reduction techniq ues were employed. CTDIvol: 4.4 - 4.5 mGy. DLP: 627 mGy-cm. . LIMITATIONS: None. FINDINGS: CHEST: LUNGS AND PLEURA: 1.5 cm nodule in the right superior segment lower lobe axial image 58 (was 1.2 cm o n 11/15/2018). 1.8 cm nodule in the anterior right lung base, right middle lobe axial image 77 (was 1.2 cm on 019). Stable complex nodular scarring in the bilateral perihilar regions. Stable trace left pleural effusi on. No pneumothorax. HILAR AND MEDIASTINAL STRUCTURES: 2 x 1 cm sub- carinal lymph node unchanged from prior exams HEART AND VASCULAR STRUCTURES: No aneurysm or dissection. No central pulmonary emboli. No pericardi al effusion. HARDWARE: Left-sided permanent central line tip superior vena cava THYROID AND OTHER SOFT TISSUES: No masses. No adenopathy. BONES: No significant finding. OTHER: No other significant finding. ABDOMEN AND PELVIS: LIVER: Increasing size and number of liver lesions, as follows: Subdiaphragmatic right lobe liver 2.2 cm mass (was 0.9 cm 10/27/2018) A new 2 cm posterior right lobe liver nodule axial image 17 SPLEEN: Normal size. No focal lesions. PANCREAS: No masses. No significant calcifications. No adjacent inflammation or peripancreatic fluid collections. Pancreatic duct not dilated. GALLBLADDER: No identified stones by CT criteria. No inflammatory changes to suggest cholecystitis. ADRENAL GLANDS: Right adrenal gland unremarkable. Stable 1 cm left adrenal nodule RIGHT KIDNEY AND URETER: No solid masses. No significant calcification. No hydronephrosis or hydroure ter. LEFT KIDNEY AND URETER: No solid masses. No significant calcification. No hydronephrosis or hydrouret er. AORTA AND VESSELS: No aneurysm. No dissection. Renal arteries, SMA, celiac without stenosis. RETROPERITONEUM: No retroperitoneal adenopathy, hemorrhage or masses. BOWEL AND PERITONEAL CAVITY: Patient drank oral contrast. Post right hemicolectomy. No CT evidence of bowel obstruction or free intraperitoneal air or fluid APPENDIX: Surgically absent ABDOMINAL WALL: No masses. No hernias. PELVIS: No mass or free fluid. Normal bladder. BONES: No significant or acute findings. Small postmenopausal female pelvic organs. OTHER: No other significant finding. IMPRESSION: Increasing size of nodules in the superior segment right lower lobe and along the anteri or right lung base Increasing size of liver metastatic lesions TECHNICAL DOCUMENTATION: JOB ID: [id number] Quality ID # 436: Final reports with documentation of one or more dose reduction techniques (e.g., Au tomated exposure control, adjustment of the mA and/or kV according to patient size, use of iterative reconstruction technique) 2010 [employer]- All Rights Reserved Reading location - IP/workstation name: [email or web address]
--- NOTE | 2019-01-09 13:16 | RADIOLOGY REPORT (SQ) ---
EXAM DESCRIPTION: NM WHOLE BODY BONE SCAN COMPLETED DATE/TIME: 01/09/2019 12:35 pm REASON FOR STUDY: COLON CA (C18.2) C18.2 MALIGNANT NEOPLASM OF ASCENDING COLON COMPARISON: CT chest abdomen pelvis same date RADIONUCLIDE AND DOSE: 19.2 millicuries Tc99m MDP. The route of agent administration: Intravenous. ADDITIONAL DRUGS AND DOSES: None. TECHNIQUE: Routine delayed images at 3 hours post radionuclide injection acquired of the bony skelet on including anterior and posterior whole-body projections and additional focused images as needed. LIMITATIONS: None. FINDINGS: BONES: Normal visualization without areas of photopenia or increased bony uptake of radiop harmaceutical. KIDNEYS: Symmetric excretion without obstruction. OTHER: No other significant finding. IMPRESSION: NORMAL BONE SCAN. COMMENT: Quality measure 147: Current bone scan is compared with any available plain radiographs, p rior bone scans, and CT/MRI. TECHNICAL DOCUMENTATION: JOB ID: [id number] [employer]- All Rights Reserved Reading location - IP/workstation name: [email or web address]
== END ==
LOC: RAD 07:46
PROVIDERS: ATTEND Physician Assistant Medical
DX: C18.2 Malignant neoplasm of ascending colon (principal); R91.8 Other nonspecific abnormal finding of lung field; C78.7 Secondary malignant neoplasm of liver and intrahepatic bile duct
CPT/HCPCS: 82565; 78306; 71260; 74177; A9561

== ENCOUNTER → 2019-04-25 | Outpatient (CLI) | payer MEDICARE ==
--- NOTE | 2019-04-25 11:04 | RADIOLOGY REPORT (SQ) ---
EXAM DESCRIPTION: CT CHEST WITH COMPLETED DATE/TIME: 04/25/2019 8:24 am REASON FOR STUDY: COLON CA (C18.2) C18.2 MALIGNANT NEOPLASM OF ASCENDING COLON COMPARISON: 01/09/2019 TECHNIQUE: CT scan of the chest performed using helical scanning technique with dynamic intravenous contrast injection. Images reviewed with lung, soft tissue and bone windows. Reconstructed coronal and sagittal MPR and MIP images reviewed. All images stored on PACS. All CT scanners at this facility use dose modulation, iterative reconstruction, and/or weight based d osing when appropriate to reduce radiation dose to as low as reasonably achievable (ALARA). [facility]: Dose Right [facility]: CareDose [facility]: Dose Right [facility]: Teradose 4D [facility]: [employer] CONTRAST TYPE AND DOSE: 51 mL Omnipaque 350- low osmolar. RENAL FUNCTION: Creatinine 0.8 RADIATION DOSE: . LIMITATIONS: None. FINDINGS: LUNGS AND PLEURA: There is extensive nodularity bilaterally with confluent areas of low th at patient. Discrete nodules are seen the. In the right lower lobe on image 59 there is a nodule me asuring 12 x 13.6 mm. On the prior study this measured 15.5 mm in largest diameter. A 7 an anterior pleural-based nodule measures 10.6 x 5 mm. On the comparable image on the earlier study this measur es 23 x 16 mm. A 10 mm nodule in the left lung on image 45 measures 8 mm on the prior study. A 9 mm subpleural nodule posteriorly on image 32 measures 10 mm on the earlier study. Mm nodule on the rig ht on image 67 measures 10 mm on the earlier study. HILAR AND MEDIASTINAL STRUCTURES: No identified masses or abnormal nodes. HEART AND VASCULAR STRUCTURES: No aneurysm or dissection. No central pulmonary emboli. No pericardi al effusion. HARDWARE: None in the chest. UPPER ABDOMEN: See separate report of the CT of the abdomen. THYROID AND OTHER SOFT TISSUES: No masses. No adenopathy. BONES: No significant finding. OTHER: No other significant finding. IMPRESSION: Extensive metastatic disease to the lungs. There are some larger nodules which have dec reased in size. There are some smaller nodules that have increased in size. The overall appearance suggests little significant improvement. TECHNICAL DOCUMENTATION: JOB ID: [id number] Quality ID # [id number]: Final reports with documentation of one or more dose reduction techniques (e.g., Au tomated exposure control, adjustment of the mA and/or kV according to patient size, use of iterative reconstruction technique) 2010 [employer]- All Rights Reserved Reading location - IP/workstation name: [email or web address]
--- NOTE | 2019-04-25 11:25 | RADIOLOGY REPORT (SQ) ---
EXAM DESCRIPTION: CT ABD/PELVIS WITH IV ORAL COMPLETED DATE/TIME: 04/25/2019 8:24 am REASON FOR STUDY: COLON CA (C18.2) C18.2 MALIGNANT NEOPLASM OF ASCENDING COLON COMPARISON: 01/09/2019 TECHNIQUE: CT scan of the abdomen and pelvis performed using helical scanning technique with dynamic intravenous contrast injection. Oral contrast. Images reviewed with lung, soft tissue, and bone win dows. Reconstructed coronal and sagittal MPR images reviewed. Delayed images for evaluation of the ur inary system also acquired. All images stored on PACS. All CT scanners at this facility use dose modulation, iterative reconstruction, and/or weight based d osing when appropriate to reduce radiation dose to as low as reasonably achievable (ALARA). [facility]: Dose Right [facility]: CareDose [facility]: Dose Right [facility]: Teradose 4D [facility]: [email or web address] CONTRAST TYPE AND DOSE: contrast/concentration: Isovue 350.00 mg/ml; Total Contrast Delivered: 51.0 ml; Total Saline Delivered: 65.0 ml RENAL FUNCTION: Creatinine 0.8 RADIATION DOSE: CT Rad equipment meets quality standard of care and radiation dose reduction techniq ues were employed. CTDIvol: 4.4 - 4.5 mGy. DLP: 616 mGy-cm.. LIMITATIONS: None. FINDINGS: LOWER CHEST: See separate report of the CT of the chest. LIVER: There are 2 low-density lesions in the dome of the liver. The the more posterior lesion measu res 17.8 mm compared to 22.2 on the earlier study. I lesion medially and posteriorly in the right lo be there measured 20.5 cm on the earlier study is less conspicuous on the current study measuring abo ut 10 mm. There is a faint suggestion of a 4th lesion in the liver on image 20 anteriorly. This pancho sures about 15 mm. SPLEEN: Normal size. No focal lesions. PANCREAS: No masses. No significant calcifications. No adjacent inflammation or peripancreatic fluid collections. Pancreatic duct not dilated. GALLBLADDER: No identified stones by CT criteria. No inflammatory changes to suggest cholecystitis. ADRENAL GLANDS: No significant masses or asymmetry. RIGHT KIDNEY AND URETER: No solid masses. No significant calcifications. No hydronephrosis or hyd roureter. LEFT KIDNEY AND URETER: No solid masses. No significant calcifications. No hydronephrosis or hydr oureter. AORTA AND VESSELS: No aneurysm. No dissection. Renal arteries, SMA, celiac without stenosis. RETROPERITONEUM: No retroperitoneal adenopathy, hemorrhage or masses. BOWEL AND PERITONEAL CAVITY: Right hemicolectomy. No obvious bowel mass. APPENDIX: Surgically absent. PELVIS: No mass. No free fluid. Normal bladder. ABDOMINAL WALL: No masses. No hernias. BONES: No significant or acute findings. OTHER: No other significant finding. IMPRESSION: Metastatic disease in the liver. A couple of lesions are smaller. However, there may b e a new 15 mm lesion as described. TECHNICAL DOCUMENTATION: JOB ID: [id number] Quality ID # [id number]: Final reports with documentation of one or more dose reduction techniques (e.g., Au tomated exposure control, adjustment of the mA and/or kV according to patient size, use of iterative reconstruction technique) 2010 [employer]- All Rights Reserved Reading location - IP/workstation name: [email or web address]
== END ==
LOC: RAD 07:49
PROVIDERS: ATTEND Physician Assistant Medical
DX: C18.2 Malignant neoplasm of ascending colon (principal)
CPT/HCPCS: 71260; 74177; 82565

== ENCOUNTER → 2019-08-02 | Outpatient (CLI) | payer MEDICARE ==
--- NOTE | 2019-08-02 09:12 | RADIOLOGY REPORT (SQ) ---
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 Images reviewed with lung, soft tissue and bone windows. Reconstructed coronal a nd sagittal MPR images reviewed. All images stored on PACS. CT scan of the abdomen and pelvis performed with intravenous and with oral contrastusing helical scan sophia technique with dynamic intravenous contrast injection. Images reviewed with lung, soft tissue a nd bone windows. Reconstructed coronal and sagittal MPR images reviewed. Delayed images for evaluat ion of the urinary system also acquired and evaluated. All images stored on PACS. All CT scanners at this facility use dose modulation, iterative reconstruction, and/or weight based d osing when appropriate to reduce radiation dose to as low as reasonably achievable (ALARA). [facility]: Dose Right [facility]: CareDose [facility]: Dose Right [facility]: Teradose 4D [facility]: [employer] RADIATION DOSE: CT Rad equipment meets quality standard of care and radiation dose reduction techniq ues were employed. CTDIvol: 4.5 - 4.7 mGy. DLP: 631 mGy-cm. . LIMITATIONS: None. FINDINGS: CHEST: LUNGS AND PLEURA: There are too numerous to count lung metastatic lesions, scattered throughout the l ungs bilaterally with tonsil and masses in the bilateral upper lobes. Index lesions are similar comp ared to prior CT exams as follows: Right lower lobe 1.4 cm diameter nodule axial image 55 Left upper lobe confluent mass 1.7 x 1.3 cm axial image 28 Stable small left pleural effusion. HILAR AND MEDIASTINAL STRUCTURES: Stable 1 cm right paratracheal lymph node axial image 15. HEART AND VASCULAR STRUCTURES: No aneurysm or dissection. No central pulmonary emboli. No pericardi al effusion. Aberrant left subclavian artery, an anatomic variant HARDWARE: Left-sided central line tip superior vena cava UPPER ABDOMEN: No significant findings. Limited exam. THYROID AND OTHER SOFT TISSUES: No masses. No adenopathy. BONES: No significant finding. ABDOMEN AND PELVIS: LIVER: Stable sub- diaphragmatic left and right lobe liver masses, each 2 cm in diameter. SPLEEN: Normal size. No focal lesions. PANCREAS: No masses. No significant calcifications. No adjacent inflammation or peripancreatic fluid collections. Pancreatic duct not dilated. GALLBLADDER: No identified stones by CT criteria. No inflammatory changes to suggest cholecystitis. ADRENAL GLANDS: No significant masses or asymmetry. RIGHT KIDNEY AND URETER: No solid masses. 1 cm right upper pole renal cortical cyst. No significant calcification. No hydronephrosis or hydroureter. LEFT KIDNEY AND URETER: No solid masses. No significant calcification. No hydronephrosis or hydrouret er. AORTA AND VESSELS: No aneurysm. No dissection. Renal arteries, SMA, celiac without stenosis. RETROPERITONEUM: No retroperitoneal adenopathy, hemorrhage or masses. BOWEL AND PERITONEAL CAVITY: Patient drank oral contrast. Post right hemicolectomy by history. No b owel obstruction. No free intraperitoneal air or fluid. APPENDIX: Surgically absent ABDOMINAL WALL: No masses. No hernias. PELVIS: No mass or free fluid. Normal bladder. Normal size female pelvic organs. BONES: No significant or acute findings. OTHER: No other significant finding. IMPRESSION: Stable metastatic disease to the liver Stable lesions in the lungs TECHNICAL DOCUMENTATION: JOB ID: [id number] Quality ID # [id number]: Final reports with documentation of one or more dose reduction techniques (e.g., Au tomated exposure control, adjustment of the mA and/or kV according to patient size, use of iterative reconstruction technique) 2010 [employer]- All Rights Reserved Reading location - IP/workstation name: [email or web address]-
== END ==
LOC: RAD 07:45
PROVIDERS: ATTEND Internal Medicine
DX: C18.2 Malignant neoplasm of ascending colon (principal); C78.02 Secondary malignant neoplasm of left lung; C78.01 Secondary malignant neoplasm of right lung; C78.7 Secondary malignant neoplasm of liver and intrahepatic bile duct
CPT/HCPCS: 71260; 74177; 82565

== ENCOUNTER → 2019-10-03 | Outpatient (CLI) | payer MEDICARE ==
--- NOTE | 2019-10-03 12:46 | RADIOLOGY REPORT (SQ) ---
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 The route of agent administration: Intravenous. ADDITIONAL DRUGS AND DOSES: None. TECHNIQUE: Routine delayed images at 3 hours post radionuclide injection acquired of the bony skelet on including anterior and posterior whole-body projections and additional focused images as needed. LIMITATIONS: None. FINDINGS: BONES: Normal visualization without areas of photopenia or increased bony uptake of radiop harmaceutical. KIDNEYS: Symmetric excretion without obstruction. OTHER: No other significant finding. IMPRESSION: NORMAL BONE SCAN. COMMENT: Quality measure 147: Current bone scan is compared with any available plain radiographs, p rior bone scans, and CT/MRI. TECHNICAL DOCUMENTATION: JOB ID: [id number] [employer]- All Rights Reserved Reading location - IP/workstation name: [email or web address]
== END ==
LOC: RAD 08:10
PROVIDERS: ATTEND Internal Medicine
DX: C18.2 Malignant neoplasm of ascending colon (principal)
CPT/HCPCS: 78306; A9561; Q9969

== ENCOUNTER → 2019-10-30 | Outpatient (CLI) | payer MEDICARE ==
--- NOTE | 2019-10-30 10:45 | RADIOLOGY REPORT (SQ) ---
EXAM DESCRIPTION: CT CHEST WITH COMPLETED DATE/TIME: 10/30/2019 9:41 am REASON FOR STUDY: COLON CA (C18.2) C18.2 MALIGNANT NEOPLASM OF ASCENDING COLON COMPARISON: 08/02/2019 TECHNIQUE: CT scan of the chest performed using helical scanning technique with dynamic intravenous contrast injection. Images reviewed with lung, soft tissue and bone windows. Reconstructed coronal and sagittal MPR and MIP images reviewed. All images stored on PACS. All CT scanners at this facility use dose modulation, iterative reconstruction, and/or weight based d osing when appropriate to reduce radiation dose to as low as reasonably achievable (ALARA). [facility]: Dose Right [facility]: CareDose [facility]: Dose Right [facility]: Teradose 4D [facility]: Tube2Tone CONTRAST TYPE AND DOSE: Omnipaque 350 55 cc RENAL FUNCTION: Creatine 0.7 RADIATION DOSE: CT Rad equipment meets quality standard of care and radiation dose reduction techniq ues were employed. CTDIvol: 4.4 - 4.5 mGy. DLP: 632 mGy-cm. . LIMITATIONS: None. FINDINGS: LUNGS AND PLEURA: Again seen are multiple bilateral pulmonary nodules and irregular areas of consolidation. Index lesion within the right lower lobe demonstrates interval increase in size me asuring 2.4 cm, previously 1.4 cm (series 6, image 60). Left upper lobe index lesion demonstrates gr ossly stable size measuring 1.7 x 1.4 cm, previously 1.8 x 1.3 cm (series 6, image 36). There are ad ditional lesions within the right lower lobe and middle lobe demonstrating interval increase in size. Remaining patchy new areas of consolidation in subcentimeter nodules demonstrate stable appearance. Mildly increased size of the moderate left-sided pleural effusion. No significant right pleural ef fusion. No pneumothorax. HILAR AND MEDIASTINAL STRUCTURES: Stable right paratracheal lymph node measuring 1 cm in short axis ( series 6, image 45). No new discrete mediastinal adenopathy. HEART AND VASCULAR STRUCTURES: No aneurysm or dissection. No central pulmonary emboli. No pericardi al effusion. HARDWARE: Left internal jugular base chest port with catheter tip at proximal SVC. UPPER ABDOMEN: See separate report of the CT of the abdomen. THYROID AND OTHER SOFT TISSUES: No masses. No adenopathy. BONES: No acute bony abnormality. No discrete osseous lesions. OTHER: No other significant finding. IMPRESSION: 1. Multifocal intrathoracic metastatic disease with interval increase in size of severa l lesions. For reference, largest right lower lobe pulmonary nodule measures 2.4 cm, previously 1.4 cm. 2. Additional multifocal irregular areas of centrilobular consolidation suggestive of superimposed i nfectious/ inflammatory process, greatest within the right upper lobe. 3. Svyy-fj-erieyybm left-sided pleural effusion, minimally increased from prior. 4. Please see same-day abdomen CT for findings below the diaphragm. TECHNICAL DOCUMENTATION: JOB ID: [id number] Quality ID # 436: Final reports with documentation of one or more dose reduction techniques (e.g., Au tomated exposure control, adjustment of the mA and/or kV according to patient size, use of iterative reconstruction technique) 2010 [employer]- All Rights Reserved Reading location - IP/workstation name: [email or web address]
--- NOTE | 2019-10-30 10:56 | RADIOLOGY REPORT (SQ) ---
EXAM DESCRIPTION: CT ABD/PELVIS WITH IV ORAL COMPLETED DATE/TIME: 10/30/2019 9:41 am REASON FOR STUDY: COLON CA (C18.2) C18.2 MALIGNANT NEOPLASM OF ASCENDING COLON COMPARISON: 08/02/2019 TECHNIQUE: CT scan of the abdomen and pelvis performed using helical scanning technique with dynamic intravenous contrast injection. Patient was given oral contrast. Images reviewed with lung, soft ti ssue, and bone windows. Reconstructed coronal and sagittal MPR images reviewed. Delayed images for ev aluation of the urinary system also acquired. All images stored on PACS. All CT scanners at this facility use dose modulation, iterative reconstruction, and/or weight based d osing when appropriate to reduce radiation dose to as low as reasonably achievable (ALARA). [facility]: Dose Right [facility]: CareDose [facility]: Dose Right [facility]: Teradose 4D [facility]: [employer] CONTRAST TYPE AND DOSE: contrast/concentration: Isovue 350.00 mg/ml; Total Contrast Delivered: 55.0 ml; Total Saline Delivered: 65.0 ml RENAL FUNCTION: See chest RADIATION DOSE: . LIMITATIONS: None. FINDINGS: LOWER CHEST: See separate report of the CT of the chest. LIVER: There has been interval increase in size of the hepatic metastatic lesions. The largest measu ring 4.4 cm in the right hepatic dome, previously 2 cm (series 3, image 14). There is a 16 mm left h epatic lobe lesion, not previously visualized (series 3, image 29). No intrahepatic ductal dilation. SPLEEN: New area of hypoattenuation within the medial superior spleen measuring 2.2 cm (series 3, angelic ge 22). PANCREAS: No masses. No significant calcifications. No adjacent inflammation or peripancreatic fluid collections. Pancreatic duct not dilated. GALLBLADDER: No identified stones by CT criteria. No inflammatory changes to suggest cholecystitis. ADRENAL GLANDS: No significant masses or asymmetry. RIGHT KIDNEY AND URETER: No solid masses. Unchanged hypodense lesion within the interpolar region, l ikely cyst but difficult to characterize secondary to size. No significant calcifications. No hyd ronephrosis or hydroureter. LEFT KIDNEY AND URETER: No solid masses. Unchanged subcentimeter hypodense lesions, likely cysts. Punctate nonobstructing interpolar stone. No hydronephrosis or hydroureter. AORTA AND VESSELS: Aortoiliac atherosclerosis without aneurysm. No dissection. Renal arteries, SMA, c eliac without stenosis. RETROPERITONEUM: No retroperitoneal adenopathy, hemorrhage or masses. BOWEL AND PERITONEAL CAVITY: Postsurgical changes from the right hemicolectomy. No evidence of intes tinal obstruction. No focal bowel wall thickening. APPENDIX: Surgically absent. PELVIS: No mass. No free fluid. Normal bladder. ABDOMINAL WALL: No masses. No hernias. BONES: No significant or acute findings. Serpiginous thoracolumbar curvature. OTHER: No other significant finding. IMPRESSION: 1. Worsening intrahepatic metastatic disease. Largest index lesion measures 4.4 cm, pr eviously 2.0 cm. 2. New hypodense left hepatic lobe and splenic lesions suggestive of progressive or new metastatic d eposits. TECHNICAL DOCUMENTATION: JOB ID: [id number] Quality ID # 436: Final reports with documentation of one or more dose reduction techniques (e.g., Au tomated exposure control, adjustment of the mA and/or kV according to patient size, use of iterative reconstruction technique) 2010 [employer]- All Rights Reserved Reading location - IP/workstation name: [email or web address]
== END ==
LOC: RAD 09:10
PROVIDERS: ATTEND Physician Assistant Medical
DX: C18.2 Malignant neoplasm of ascending colon (principal); C78.7 Secondary malignant neoplasm of liver and intrahepatic bile duct; C79.89 Secondary malignant neoplasm of other specified sites; J90 Pleural effusion, not elsewhere classified
CPT/HCPCS: 71260; 74177

== ENCOUNTER 2019-12-13 02:06 | Inpatient (IN) | payer MEDICARE ==
--- NOTE | 2019-12-13 02:41 | ER Document Report ---
ED Medical Screen (RME) - General Chief Complaint: Nose Bleed Stated Complaint: NOSE BLEED (CANCER PT) Time Seen by Provider: 12/13/19 02:32 Primary Care Provider: ÁLVARO HANEY MD [Primary Care Provider] - Follow up as needed Notes: Patient is a 69-year-old female with a history of cancer who presents to the emergency department with epistaxis. She states that her nose started bleeding at 1:00 this morning. Denies any use of nose sprays. States that she is currently on Xarelto. Patient states that she was nervous because she has never had a nosebleed before while on Xarelto. Exam: Small amount of blood noted to left nare, but no active bleeding noted. Instructed patient on how to properly hold her nose to help control bleeding. I have greeted and performed a rapid initial assessment of this patient. A comprehensive ED assessment and evaluation of the patient, analysis of test results and completion of medical decision making process will be conducted by an additional ED providers. TRAVEL OUTSIDE OF THE [place] IN LAST 30 DAYS: No - Related Data Allergies/Adverse Reactions: No Known Allergies Allergy (Verified 12/13/19 02:24) Past Medical History - Past Medical History Cardiac Medical History: Reports: Hx Hypertension Neurological Medical History: Denies: Hx Seizures Endocrine Medical History: Reports: Hx Hypothyroidism Renal/ Medical History: Denies: Hx Peritoneal Dialysis Malignancy Medical History: Reports: Hx Colorectal Cancer Psychiatric Medical History: Denies: Hx Depression Past Surgical History: Reports: Hx Abdominal Surgery - colon, Hx Orthopedic Surgery - CARPAL TUNNEL, Other - HEMICOLECTOMY 02/2018. Denies: Hx Hysterectomy Physical Exam - Vital signs Vitals: Temp Pulse Resp BP Pulse Ox 97.7 F 98 20 151/85 H 95 12/13/19 02:17 12/13/19 02:17 12/13/19 02:17 12/13/19 02:17 12/13/19 02:17 Course - Vital Signs Vital signs: Temp Pulse Resp BP Pulse Ox 97.7 F 98 20 151/85 H 95 12/13/19 02:17 12/13/19 02:17 12/13/19 02:17 12/13/19 02:17 12/13/19 02:17 Doctor's Discharge - Discharge Referrals: ÁLVARO HANEY MD [Primary Care Provider] - Follow up as needed
[2019-12-13] MEDS ORDERED: ONDANSETRON HCL INJ/PF 4 MG/2 ML SDV IV ONE (09:07)
[2019-12-13] MEDS ORDERED: NORMAL SALINE 1000 ML 1,000 ML IV ONE (09:07)
--- NOTE | 2019-12-13 09:07 | ER Document Report ---
ED General - General Chief Complaint: Nose Bleed Stated Complaint: NOSE BLEED (CANCER PT) Time Seen by Provider: 12/13/19 08:42 Mode of Arrival: Ambulatory Information source: Patient, Relative Notes: Patient states that she woke up with a nosebleed around 1:00 in the morning. Patient denies any trauma to the nose. Patient states that she was able to get her nose to stop bleeding after application of pressure. Patient has not had any additional bleeding and states that she is ready to go because she has an MRI scheduled at 845. Patient's oncologist Dr. Mckeon called prior to that pr ovider evaluating patient stating that he had seen patient in the office yesterday and that she has been having episodes of confusion over the past 3 to 4 days and that he is concerned about possible mets to the brain. Dr. Mckeon would like to have labs drawn on patient and have her get the MRI through the ER. He would like to be called after results have posted. TRAVEL OUTSIDE OF THE [place] IN LAST 30 DAYS: No - HPI Onset: This morning Onset/Duration: Gone Quality of pain: No pain Pain Level: Denies Associated symptoms: Nausea. denies: Chest pain, Nonproductive cough, Productive cough, Leg swelling Exacerbated by: Denies Relieved by: Denies Similar symptoms previously: No Recently seen / treated by doctor: Yes - Related Data Allergies/Adverse Reactions: No Known Allergies Allergy (Verified 12/13/19 02:24) Past Medical History - General Information source: Patient, Relative - Social History Smoking Status: Never Smoker Frequency of alcohol use: None Drug Abuse: None Lives with: Family Family History: Reviewed & Not Pertinent, CAD, DM, Other Patient has suicidal ideation: No Patient has homicidal ideation: No - Past Medical History Cardiac Medical History: Reports: Hx Hypertension Neurological Medical History: Denies: Hx Seizures Endocrine Medical History: Reports: Hx Hypothyroidism Renal/ Medical History: Denies: Hx Peritoneal Dialysis Malignancy Medical History: Reports: Hx Colorectal Cancer Psychiatric Medical History: Denies: Hx Depression Past Surgical History: Reports: Hx Abdominal Surgery - colon, Hx Orthopedic Surgery - CARPAL TUNNEL, Other - HEMICOLECTOMY 02/2018. Denies: Hx Hysterectomy - Immunizations Immunizations up to date: Yes Review of Systems - Review of Systems Constitutional: No symptoms reported. denies: Fever EENT: Other - nosebleed from L nostril Cardiovascular: No symptoms reported. denies: Chest pain Respiratory: Wheezing. denies: Cough Gastrointestinal: Nausea. denies: Vomiting Genitourinary: No symptoms reported Female Genitourinary: No symptoms reported Musculoskeletal: No symptoms reported Skin: No symptoms reported Hematologic/Lymphatic: No symptoms reported Neurological/Psychological: Confusion - per pt family and oncologist Physical Exam - Vital signs Vitals: Temp Pulse Resp BP Pulse Ox 97.7 F 98 20 151/85 H 95 12/13/19 02:17 12/13/19 02:17 12/13/19 02:17 12/13/19 02:17 12/13/19 02:17 - General General appearance: Appears well, Alert In distress: None - HEENT Head: Normocephalic, Atraumatic Eyes: Normal Conjunctiva: Normal Nasal: Other - dried blood to L nostril, no active bleeding Mouth/Lips: Normal Mucous membranes: Normal Neck: Normal, Supple - Respiratory Respiratory status: No respiratory distress Chest status: Nontender Breath sounds: Normal. No: Rales, Rhonchi, Stridor, Wheezing Chest palpation: Normal - Cardiovascular Rhythm: Regular Heart sounds: S1 appreciated, S2 appreciated - Abdominal Inspection: Normal Distension: No distension Bowel sounds: Normal - Back Back: Normal, Nontender. No: CVA tenderness - Extremities General upper extremity: Normal inspection, Nontender, Normal strength General lower extremity: Normal inspection, Nontender, Normal strength - Neurological Neuro grossly intact: Yes Cognition: Normal Maxime Coma Scale Eye Opening: Spontaneous Maxime Coma Scale Verbal: Oriented [place] Coma Scale Motor: Obeys Commands Maxime Coma Scale Total: 15 - Psychological Associated symptoms: Normal affect, Normal mood - Skin Skin Temperature: Warm Skin Moisture: Dry Skin Color: Normal Course - Re-evaluation Re-evalutation: 12/13/19 12:39 Patient's MRI report reviewed suspicious for acute lacunar infarct. Patient last known well was 4 days ago. Spoke with patient's oncologist who recommends consulting hospitalist for admission to perform stroke evaluation at this time. Spoke with Dr. Hernandez who agrees to accept patient for IMCU admission at this time. - Vital Signs Vital signs: Temp Pulse Resp BP Pulse Ox 98.2 F 70 16 143/87 H 98 12/13/19 17:22 12/13/19 18:59 12/13/19 17:22 12/13/19 17:22 12/13/19 17:22 - Laboratory Result Diagrams: 12/13/19 09:09 12/13/19 09:09 Laboratory results interpreted by me: 12/13/19 12/13/19 12/13/19 09:09 09:09 09:09 WBC 3.2 L RDW 18.1 H Lymph % (Auto) 6.0 L [place] % (Auto) 18.4 H Absolute Lymphs (auto) 0.2 L PT 18.9 H APTT 43.1 H Sodium 133.5 L Carbon Dioxide 21 L Total Bilirubin 1.6 H Direct Bilirubin 0.6 H AST 49 H Alkaline Phosphatase 273 H Cholesterol LDL Cholesterol Direct 12/13/19 09:09 WBC RDW Lymph % (Auto) [place] % (Auto) Absolute Lymphs (auto) PT APTT Sodium Carbon Dioxide Total Bilirubin Direct Bilirubin AST Alkaline Phosphatase Cholesterol 240.57 H LDL Cholesterol Direct 185 H - Diagnostic Test Radiology reviewed: Reports reviewed Discharge - Discharge Clinical Impression: Cancer of right colon, Lung nodule, multiple, Lacunar infarct, acute Condition: Stable Disposition: ADMITTED INPATIENT Admitting Provider: Mary (Hospitalist) Unit Admitted: [facility]
[2019-12-13 09:35] LABS: ABSOLUTE LYMPHOCYTES (AUTO) 0.2 10^3/uL (0.5-4.7); ABSOLUTE MONOCYTES (AUTO) 0.6 10^3/uL (0.1-1.4); ABSOLUTE NEUT (AUTO) 2.4 10^3/uL (1.7-8.2); BASOPHILS % (AUTO) 0.9 % (0-2); EOSINOPHILS % (AUTO) 0.8 % (0-6); HEMATOCRIT 40.5 % (36.0-47.0); HEMOGLOBIN 14.1 g/dL (12.0-15.5); MEAN CORPUSCULAR HEMOGLOBIN 30.3 pg (27.0-33.4); MEAN CORPUSCULAR HGB CONC 34.8 g/dL (32.0-36.0); MEAN CORPUSCULAR VOLUME 87 fl (80-97); MONOCYTES % (AUTO) 18.4 % (3-13); PLATELET COUNT 273 10^3/uL (150-450); RED BLOOD COUNT 4.65 10^6/uL (3.72-5.28); RED CELL DISTRIBUTION WIDTH 18.1 % (11.5-14.0); SEGMENTED NEUTROPHILS % (AUTO) 73.9 % (42-78); TOTAL CELLS COUNTED % (AUTO) 100 %; WHITE BLOOD COUNT 3.2 10^3/uL (4.0-10.5)
[2019-12-13 09:36] LABS: INTERNATIONAL RATION (INR) 1.57; PROTHROMBIN TIME 18.9 SEC (11.4-15.4)
[2019-12-13 09:37] LABS: PARTIAL THROMBOPLASTIN TIME 43.1 SEC (23.5-35.8)
[2019-12-13 09:52] LABS: ALBUMIN 3.8 g/dL (3.5-5.0); ALKALINE PHOSPHATASE 273 U/L (38-126); ANION GAP 15 (5-19); ASPARTATE AMINO TRANSFERASE 49 U/L (14-36); BILIRUBIN,DIRECT 0.6 mg/dL (0.0-0.4); BILIRUBIN,TOTAL 1.6 mg/dL (0.2-1.3); BLOOD UREA NITROGEN 12 mg/dL (7-20); CALCIUM 9.8 mg/dL (8.4-10.2); CARBON DIOXIDE 21 mmol/L (22-30); CHLORIDE 98 mmol/L (98-107); GLUCOSE 102 mg/dL (75-110); POTASSIUM 4.1 mmol/L (3.6-5.0); TOTAL PROTEIN 7.5 g/dL (6.3-8.2)
--- NOTE | 2019-12-13 10:03 | RADIOLOGY REPORT (SQ) ---
EXAM DESCRIPTION: CHEST 2 VIEWS COMPLETED DATE/TIME: 12/13/2019 9:52 am REASON FOR STUDY: confusion COMPARISON: CT chest dated 10/30/2019. EXAM PARAMETERS: NUMBER OF VIEWS: two views TECHNIQUE: Digital Frontal and Lateral radiographic views of the chest acquired. RADIATION DOSE: NA LIMITATIONS: none FINDINGS: LUNGS AND PLEURA: Bilateral pulmonary nodules. Moderate left pleural effusion. MEDIASTINUM AND HILAR STRUCTURES: No masses or contour abnormalities. HEART AND VASCULAR STRUCTURES: Heart normal size. No evidence for failure. BONES: No acute findings. HARDWARE: Vascular port. OTHER: No other significant finding. IMPRESSION: BILATERAL PULMONARY NODULES AND MODERATE LEFT PLEURAL EFFUSION. SIMILAR APPEARANCE ON T HE PRIOR CT. TECHNICAL DOCUMENTATION: JOB ID: [id number] 2010 [employer]- All Rights Reserved Reading location - IP/workstation name: [email or web address]
--- NOTE | 2019-12-13 11:41 | RADIOLOGY REPORT (SQ) ---
EXAM DESCRIPTION: MRI HEAD COMBO COMPLETED DATE/TIME: 12/13/2019 11:07 am REASON FOR STUDY: confusion, hx colorectal ca with mets COMPARISON: None. TECHNIQUE: Multiplanar imaging includes noncontrasted T1, T2, FLAIR, diffusion with ADC map and post gadolinium contrast T1 sequences. Images stored on PACS. CONTRAST TYPE AND DOSE: 9 mL Dotarem. RENAL FUNCTION: Not indicated. ACR Type II contrast agent associated with few, if any, unconfounded cases of [employer] LIMITATIONS: None. FINDINGS: ANATOMY: No anomalies. Normal vascular flow voids. Pituitary fossa normal. CSF SPACES: Normal in size and contour. No hemorrhage. CEREBRUM: Sulci and gyri normal in size and contour. Normal white matter signal on FLAIR imaging. Th ere are small focal areas of nonspecific increased T1 signal in the left caudate nucleus and in the p osterior right parietal lobe. No evidence of hemorrhage, mass, or extraaxial fluid collection. Ther e is an old infarct in the right parietal lobe with decreased signal on T1 and increased signal on T2 weighted images. No abnormal enhancement post contrast. POSTERIOR FOSSA: No signal alteration. No hemorrhage. No edema, masses, or mass effect. Internal danilo tory canals, cerebellopontine angles, mastoids normal. No enhancing lesions. No abnormal enhancement post contrast. DIFFUSION IMAGING: There are small focal areas of restricted diffusion in the cortex of the right fro ntal lobe (axial series 4, image 23), subcortical white matter of the right frontal lobe (axial serie s 4, image 22), cortical surface of the left frontal lobe (axial series 4, image 26), and cortical castillo rface of the left occipital lobe (axial series 4, image 19 and 20). ORBITS: No masses. Globes normal. PARANASAL SINUSES: No fluid levels. Mucosa normal. OTHER: No other significant finding. IMPRESSION: 1. SMALL FOCAL AREAS OF RESTRICTED DIFFUSION IN THE RIGHT AND LEFT CEREBRAL HEMISPHERE DESCRIBED. SUSPECT THAT THESE MAY REPRESENT TINY ACUTE LACUNAR INFARCTS. MULTI VASCULAR DISTRIBUTION SUGGESTS THAT THESE MAY BE EMBOLIC. 2. 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 3. NO ENHANCING LESIONS. EVIDENCE OF ACUTE STROKE: SUSPECT TINY ACUTE LACUNAR INFARCTS. MULTI VASCULAR DISTRIBUTION. TECHNICAL DOCUMENTATION: JOB ID: [id number] 2010 [employer]- All Rights Reserved Reading location - IP/workstation name: [email or web address]
[2019-12-13 13:21] LABS: CREATINE KINASE MB 1.21 ng/mL (<4.55); TROPONIN I 0.02 ng/mL
[2019-12-13] MEDS ORDERED: HYDRALAZINE HCL INJ/PF 20 MG/1 ML SDV IV PRN (14:03)
--- NOTE | 2019-12-13 14:17 | PDOC H&P ---
History of Present Illness Admission Date/PCP: 12/13/19 12:59 ÁLVARO HANEY MD Patient complains of: epistaxis, confusion History of Present Illness: ROHITH MARTINEZ is a 69 year old female with a past medical history of stage IV colon cancer with right lung and liver metastasis, history of PE on Xarelto, hypothyroidism and hypertension who presented with epistaxis and recent episodes of confusion. Daughter is on the bedside. Patient reports that she had an episode of nosebleed on the left nostril early this morning. She could not quantify the amount of bleed to me but she says that there was "a lot of blood on the hand towel". Her nosebleed spontaneously resolved without intervention. She does take Xarelto at home for history of PE. Daughter reports that in the past 2 weeks, patient has been having increasing episodes of confusion where she would just repeatedly ask the same questions. She said that she would also just ramble all throughout on some occasions. Patient denies any weakness, numbness or tingling sensation in the arms or legs. In the ER, MRI of the head showed bilateral acute CVA suspected to be embolic in nature. Patient is getting treatments with bevacizumab for her colon cancer. Past Medical History Cardiac Medical History: Reports: Hypertension Neurological Medical History: Denies: Seizures Endocrine Medical History: Reports: Hypothyroidism Malignancy Medical History: Reports: Colorectal Cancer Psychiatric Medical History: Denies: Depression Hematology: Reports: Anemia Past Surgical History Past Surgical History: Reports: Orthopedic Surgery - CARPAL TUNNEL, Other - HEMICOLECTOMY 02/2018 Denies: Hysterectomy Social History Lives with: Family Smoking Status: Never Smoker Frequency of Alcohol Use: None Hx Recreational Drug Use: No Drugs: None Hx Prescription Drug Abuse: No Family History Family History: Reviewed & Not Pertinent, CAD, DM, Other Parental Family History Reviewed: Yes - no premature CAD Children Family History Reviewed: No Sibling(s) Family History Reviewed.: No Medication/Allergy Home Medications: Levothyroxine Sodium [Synthroid 0.025 mg Tablet] 25 mcg PO QAM 03/06/18 Rivaroxaban [Xarelto] 20 mg PO DAILY #30 tablet 04/30/18 Lisinopril/Hydrochlorothiazide [Lisinopril-Hctz 20-25 mg Tab] 20 mg PO DAILY 12/13/19 Megestrol Acetate 10 ml PO DAILY 12/13/19 Ondansetron HCl [Zofran 8 mg Tablet] 8 mg PO TIDP PRN 12/13/19 Oxycodone HCl [Oxycontin] 15 mg PO BIDP PRN 12/13/19 Allergies/Adverse Reactions: No Known Allergies Allergy (Verified 12/13/19 02:24) Review of Systems All systems: reviewed and no additional remarkable complaints except as stated - asmentioned in HPI Physical Exam Vital Signs: Temp Pulse Resp BP Pulse Ox 97.3 F 106 H 18 166/97 H 100 12/13/19 08:09 12/13/19 08:09 12/13/19 08:09 12/13/19 08:09 12/13/19 08:09 Intake & Output 12/12/19 12/13/19 12/14/19 06:59 06:59 06:59 Intake Total 1000 Balance 1000 Weight 103 lb General appearance: PRESENT: no acute distress, well-developed, well-nourished Head exam: PRESENT: atraumatic, normocephalic Eye exam: PRESENT: conjunctiva pink, EOMI, PERRLA. ABSENT: scleral icterus Ear exam: PRESENT: normal external ear exam Mouth exam: PRESENT: moist, tongue midline Neck exam: ABSENT: carotid bruit, JVD, lymphadenopathy, thyromegaly Respiratory exam: PRESENT: clear to auscultation rochelle. ABSENT: rales, rhonchi, wheezes Cardiovascular exam: PRESENT: RRR. ABSENT: diastolic murmur, rubs, systolic murmur Pulses: PRESENT: normal dorsalis pedis pul GI/Abdominal exam: PRESENT: normal bowel sounds, soft. ABSENT: distended, guarding, mass, organolmegaly, rebound, tenderness Rectal exam: PRESENT: deferred Neurological exam: PRESENT: alert, awake, oriented to person, oriented to place, oriented to time, oriented to situation, CN II-XII grossly intact. ABSENT: motor sensory deficit Results Laboratory Results: 12/13/19 09:09 12/13/19 09:09 12/13/19 12/13/19 09:09 09:09 WBC 3.2 L RBC 4.65 Hgb 14.1 Hct 40.5 MCV 87 MCH 30.3 MCHC 34.8 RDW 18.1 H Plt Count 273 Seg Neutrophils % 73.9 Sodium 133.5 L Potassium 4.1 Chloride 98 Carbon Dioxide 21 L Anion Gap 15 BUN 12 Creatinine 0.53 Est GFR ( Amer) > 60 Glucose 102 Calcium 9.8 Total Bilirubin 1.6 H AST 49 H Alkaline Phosphatase 273 H Total Protein 7.5 Albumin 3.8 12/13/19 12/13/19 09:09 09:09 Creatine Kinase 46 CK-MB (CK-2) 1.21 Troponin I 0.020 Impressions: Head MRI 12/13/19 08:39 IMPRESSION: 1. SMALL FOCAL AREAS OF RESTRICTED DIFFUSION IN THE RIGHT AND LEFT CEREBRAL HEMISPHERE DESCRIBED. SUSPECT THAT THESE MAY REPRESENT TINY ACUTE LACUNAR INFARCTS. MULTI VASCULAR DISTRIBUTION SUGGESTS THAT THESE MAY BE EMBOLIC. 2. 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 3. NO ENHANCING LESIONS. EVIDENCE OF ACUTE STROKE: SUSPECT TINY ACUTE LACUNAR INFARCTS. MULTI VASCULAR DISTRIBUTION. Chest X-Ray 12/13/19 09:08 IMPRESSION: BILATERAL PULMONARY NODULES AND MODERATE LEFT PLEURAL EFFUSION. SIMILAR APPEARANCE ON THE PRIOR CT. Assessment and Plan - Diagnosis (1) Acute CVA (cerebrovascular accident) Is this a current diagnosis for this admission?: Yes Plan: Suspect that CVA is related to bevacizumab therapy. We will however pursue other causes embolic CVA. Will order for echocardiogram. Will check lipid panel carotid Doppler, and A1c as well. We will start patient on statin. Will hold off on antiplatelet therapy at this time due to recent bleeding. (2) Epistaxis Is this a current diagnosis for this admission?: Yes Plan: Resolved. Hold off on Xarelto for now. (3) Metastatic colon cancer to liver Is this a current diagnosis for this admission?: Yes Plan: Patient is stage IV colon cancer with metastasis to the liver and the right lung. Will consult patient's oncologist, Dr. Haney. - Time Time Spent with patient: 25-34 minutes
[2019-12-13 14:46] LABS: CHOLESTEROL 240.57 mg/dL (0-200); TRIGLYCERIDES 105 mg/dL (<150)
[2019-12-13 14:56] LABS: DIRECT LDL 185 mg/dL (<100)
--- NOTE | 2019-12-13 16:46 | ADVANCED CARE ---
- Diagnosis (1) Acute CVA (cerebrovascular accident) Diagnosis Current: Yes (2) Epistaxis Diagnosis Current: Yes (3) Metastatic colon cancer to liver Diagnosis Current: Yes Resuscitation Status: Full Code Discussion: We discussed patient's CODE STATUS in length with daughter at bedside. Patient is AO x 4. She says she has really never thought about her CODE STATUS before. She says she wants to be full code for now and prefers to receive chest compressions, defibrillation or mechanical ventilation if the need arises. She says that she will further rediscuss this with her family and see if she needs to make changes later. She says her son, Bang is her surrogate medical decision maker.
[2019-12-13] MEDS: NORMAL SALINE 1000 ML 1,000 ML IV PRN (18:21)
[2019-12-13] MEDS ORDERED: (PENDING PHARMACY ID) (Oxycodone Hcl [Oxycontin] 15 MG) PO PRN (19:09)
[2019-12-13] MEDS ORDERED: ONDANSETRON HCL 8 MG TABLET PO PRN (19:09)
[2019-12-13] MEDS: ATORVASTATIN CALCIUM 40 MG TABLET PO SCH (21:21)
[2019-12-13] MEDS: OXYCODONE HCL SR 10 MG TABLET PO PRN (21:21)
--- NOTE | 2019-12-13 23:20 | EKG REPORT ---
SEVERITY:- ABNORMAL ECG - SINUS RHYTHM LEFT ANTERIOR FASCICULAR BLOCK : Confirmed by: Carter Casiano MD 13-Dec-2019 23:19:27
[2019-12-14] MEDS: NORMAL SALINE 1000 ML 1,000 ML IV PRN ×2 (07:45→20:03)
--- NOTE | 2019-12-14 08:35 | PDOC CONSULTATION ---
Consultation Consult Date: 12/14/19 Attending physician:: AXEL COLEMAN Provider Consulted: ÁLVARO HANEY Consult reason:: Confusion, weakness in the setting of stage IV colon cancer with acute stroke History of Present Illness Admission Date/PCP: 12/13/19 12:59 ÁLVARO HANEY MD Patient complains of: Confusion, weakness History of Present Illness: ROHITH MARTINEZ is a 69 year old female who has known history of stage IV colon cancer now for about a year and a half, has had 2 lines of chemotherapy and most recently was found to have progression in September, and was started on new chemotherapy regimen. She had been receiving chemotherapy with a Avastin up to this point. Last 1 week her son notes that she has been confused and out of it, she came to our office on Tuesday for labs and fluids, but did not know where she was and was angry completely out of ordinary for her. Therefore we did give her fluids and set her up for an outpatient MRI that was to be done yesterday, however, she ended up in the ER with a nosebleed, and the nosebleed stopped once she got there and did not restart, ultimately I was called from the ER on her and I recommended that she have the MRI of the brain done in the ER, initially concerned about brain metastasis but ultimately was found to be acute stroke. This appears to be the reason for her confusion, and the radiologist mentions the possibility of embolic phenomenon. So echocardiogram is planned today and she is getting a full stroke work-up. Of note, she was on Xarelto for PE, and she was going to be on it lifelong, asked her son if she was taking it regularly and as far as they know she was. Although I think she was taking her own medications by herself. Past Medical History Cardiac Medical History: Reports: Hypertension Neurological Medical History: Denies: Seizures Endocrine Medical History: Reports: Hypothyroidism Malignancy Medical History: Reports: Colorectal Cancer Psychiatric Medical History: Denies: Depression Hematology: Reports: Anemia Past Surgical History Past Surgical History: Reports: Orthopedic Surgery - CARPAL TUNNEL, Other - HEMICOLECTOMY 02/2018 Denies: Hysterectomy Social History Information Source: Patient Lives with: Family Smoking Status: Never Smoker Electronic Cigarette use?: No Frequency of Alcohol Use: None Hx Recreational Drug Use: No Drugs: None Hx Prescription Drug Abuse: No - Advance Directive Resuscitation Status: Full Code Family History Family History: Reviewed & Not Pertinent, CAD, DM, Other Parental Family History Reviewed: Yes Children Family History Reviewed: Yes Sibling(s) Family History Reviewed.: Yes Medication/Allergy Home Medications: Levothyroxine Sodium [Synthroid 0.025 mg Tablet] 25 mcg PO QAM 03/06/18 Rivaroxaban [Xarelto] 20 mg PO DAILY #30 tablet 04/30/18 Lisinopril/Hydrochlorothiazide [Lisinopril-Hctz 20-25 mg Tab] 20 mg PO DAILY 12/13/19 Megestrol Acetate 10 ml PO DAILY 12/13/19 Ondansetron HCl [Zofran 8 mg Tablet] 8 mg PO TIDP PRN 12/13/19 Oxycodone HCl [Oxycontin] 15 mg PO BIDP PRN 12/13/19 Allergies/Adverse Reactions: No Known Allergies Allergy (Verified 12/13/19 02:24) Review of Systems Constitutional: ABSENT: chills, fever(s), headache(s), weight gain, weight loss Eyes: ABSENT: visual disturbances Ears: ABSENT: hearing changes Cardiovascular: ABSENT: chest pain, dyspnea on exertion, edema, orthropnea, palpitations Respiratory: ABSENT: cough, hemoptysis Gastrointestinal: ABSENT: abdominal pain, constipation, diarrhea, hematemesis, hematochezia, nausea, vomiting Genitourinary: ABSENT: dysuria, hematuria Musculoskeletal: ABSENT: joint swelling Integumentary: ABSENT: rash, wounds Neurological: ABSENT: abnormal gait, abnormal speech, confusion, dizziness, fo cedric weakness, syncope Psychiatric: ABSENT: anxiety, depression, homidical ideation, suicidal ideation Endocrine: ABSENT: cold intolerance, heat intolerance, polydipsia, polyuria Hematologic/Lymphatic: ABSENT: easy bleeding, easy bruising Physical Exam Vital Signs: Temp Pulse Resp BP Pulse Ox 97.8 F 68 16 125/79 98 12/14/19 04:10 12/14/19 04:10 12/14/19 04:10 12/14/19 04:10 12/14/19 04:10 Intake & Output 12/13/19 12/14/19 12/15/19 06:59 06:59 06:59 Intake Total 1250 Output Total 0 Balance 1250 Weight 46.72 kg 46.5 kg General appearance: PRESENT: no acute distress, well-developed, well-nourished Head exam: PRESENT: atraumatic, normocephalic Eye exam: PRESENT: conjunctiva pink, EOMI, PERRLA. ABSENT: scleral icterus Ear exam: PRESENT: normal external ear exam Mouth exam: PRESENT: moist, tongue midline Neck exam: ABSENT: carotid bruit, JVD, lymphadenopathy, thyromegaly Respiratory exam: PRESENT: clear to auscultation rochelle. ABSENT: rales, rhonchi, wheezes Cardiovascular exam: PRESENT: RRR. ABSENT: diastolic murmur, rubs, systolic murmur Pulses: PRESENT: normal dorsalis pedis pul Vascular exam: PRESENT: normal capillary refill GI/Abdominal exam: PRESENT: normal bowel sounds, soft. ABSENT: distended, guarding, mass, organolmegaly, rebound, tenderness Rectal exam: PRESENT: deferred Extremities exam: PRESENT: full ROM. ABSENT: calf tenderness, clubbing, pedal edema Neurological exam: PRESENT: alert, awake, oriented to person, oriented to place, oriented to time, oriented to situation, CN II-XII grossly intact. ABSENT: motor sensory deficit Psychiatric exam: PRESENT: appropriate affect, normal mood. ABSENT: homicidal ideation, suicidal ideation Skin exam: PRESENT: dry, intact, warm. ABSENT: cyanosis, rash Results Laboratory Results: 12/13/19 09:09 12/13/19 09:09 12/13/19 12/13/19 12/13/19 09:09 09:09 09:09 WBC 3.2 L RBC 4.65 Hgb 14.1 Hct 40.5 MCV 87 MCH 30.3 MCHC 34.8 RDW 18.1 H Plt Count 273 Seg Neutrophils % 73.9 Sodium 133.5 L Potassium 4.1 Chloride 98 Carbon Dioxide 21 L Anion Gap 15 BUN 12 Creatinine 0.53 Est GFR ( Amer) > 60 Glucose 102 Calcium 9.8 Total Bilirubin 1.6 H AST 49 H Alkaline Phosphatase 273 H Total Protein 7.5 Albumin 3.8 Triglycerides 105 Cholesterol 240.57 H LDL Cholesterol Direct 185 H VLDL Cholesterol 21.0 HDL Cholesterol 41 12/13/19 12/13/19 09:09 09:09 Creatine Kinase 46 CK-MB (CK-2) 1.21 Troponin I 0.020 Impressions: Head MRI 12/13/19 08:39 IMPRESSION: 1. SMALL FOCAL AREAS OF RESTRICTED DIFFUSION IN THE RIGHT AND LEFT CEREBRAL HEMISPHERE DESCRIBED. SUSPECT THAT THESE MAY REPRESENT TINY ACUTE LACUNAR INFARCTS. MULTI VASCULAR DISTRIBUTION SUGGESTS THAT THESE MAY BE EMBOLIC. 2. 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 3. NO ENHANCING LESIONS. EVIDENCE OF ACUTE STROKE: SUSPECT TINY ACUTE LACUNAR INFARCTS. MULTI VASCULAR DISTRIBUTION. Chest X-Ray 12/13/19 09:08 IMPRESSION: BILATERAL PULMONARY NODULES AND MODERATE LEFT PLEURAL EFFUSION. SIMILAR APPEARANCE ON THE PRIOR CT. Status: Image reviewed by me Assessment & Plan - Diagnosis (1) Lacunar infarct, acute Is this a current diagnosis for this admission?: Yes Plan: Confusion secondary to stroke, hospitalist has been following, patient may benefit from both Xarelto plus antiplatelet agent. Although bleeding risk might be higher, if patient truly had a stroke while on Xarelto she will need more than Xarelto to prevent her from having another one. Continue with stroke work- up, TTE pending. (2) Metastatic colon cancer to liver Is this a current diagnosis for this admission?: Yes Plan: Stage IV colon cancer, all treatment on hold with the above work-up ongoing. Discussed CODE STATUS with family and currently patient wants to remain full code but talk to Elbert her son and he will talk more about this with her - Time Time Spent: Greater than 70 Minutes
[2019-12-14] MEDS: HYDROCHLOROTHIAZIDE 25 MG TABLET PO SCH (09:37)
[2019-12-14] MEDS: LISINOPRIL 10 MG TABLET PO SCH (09:39)
[2019-12-14] MEDS: RIVAROXABAN 10 MG TABLET PO SCH (09:39)
[2019-12-14] MEDS: MEGESTROL ACETATE SUSP 400 MG/10 ML UDCUP PO SCH (09:40)
[2019-12-14] MEDS: LEVOTHYROXINE SODIUM 0.025 MG TABLET PO SCH (09:40)
[2019-12-14] MEDS ORDERED: LISINOPRIL PO SCH (10:00)
[2019-12-14] MEDS ORDERED: [UNRECOGNIZED DRUG - OTHER] PO SCH (10:00)
[2019-12-14] MEDS ORDERED: (PENDING PHARMACY ID) (Megestrol Acetate [Megestrol Acetate] 10 ML) PO SCH (10:00)
[2019-12-14] MEDS ORDERED: HYDROCHLOROTHIAZIDE PO SCH (10:00)
[2019-12-14 11:20] LABS: ANION GAP 10 (5-19); BLOOD UREA NITROGEN 11 mg/dL (7-20); CALCIUM 8.6 mg/dL (8.4-10.2); CARBON DIOXIDE 20 mmol/L (22-30); CHLORIDE 102 mmol/L (98-107); GLUCOSE 99 mg/dL (75-110); POTASSIUM 3.9 mmol/L (3.6-5.0)
--- NOTE | 2019-12-14 15:26 | PDOC PROGRESS REPORT ---
Subjective Progress Note for:: 12/14/19 Subjective:: No acute event overnight. Denies acute complaints this morning. No bleeding or recurrence of epistaxis. He is well oriented and coherent this morning. 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 Patient prefers to be restarted on anticoagulation. She does say that she has been compliant with her Xarelto at home. Will restart Xarelto and will monitor for bleeding episodes. Reason For Visit: ACUTE CVA Physical Exam Vital Signs: Temp Pulse Resp BP Pulse Ox 98.3 F 72 16 131/77 H 97 12/14/19 11:30 12/14/19 11:30 12/14/19 11:30 12/14/19 11:30 12/14/19 11:30 Intake & Output 12/13/19 12/14/19 12/15/19 06:59 06:59 06:59 Intake Total 1250 1220 Output Total 0 Balance 1250 1220 Weight 103 lb 102 lb 8.239 oz 102 lb 8.239 oz General appearance: PRESENT: no acute distress, well-developed, well-nourished Head exam: PRESENT: atraumatic, normocephalic Eye exam: PRESENT: conjunctiva pink, EOMI, PERRLA. ABSENT: scleral icterus Ear exam: PRESENT: normal external ear exam Mouth exam: PRESENT: moist, tongue midline Neck exam: ABSENT: carotid bruit, JVD, lymphadenopathy, thyromegaly Respiratory exam: PRESENT: clear to auscultation rochelle. ABSENT: rales, rhonchi, wheezes Cardiovascular exam: PRESENT: RRR. ABSENT: diastolic murmur, rubs, systolic murmur Pulses: PRESENT: normal dorsalis pedis pul GI/Abdominal exam: PRESENT: normal bowel sounds, soft. ABSENT: distended, guard ing, mass, organolmegaly, rebound, tenderness Rectal exam: PRESENT: deferred Extremities exam: PRESENT: full ROM. ABSENT: calf tenderness, clubbing, pedal edema Neurological exam: PRESENT: alert, awake, oriented to person, oriented to place, oriented to time, oriented to situation, CN II-XII grossly intact. ABSENT: motor sensory deficit Results Laboratory Results: 12/13/19 09:09 12/14/19 10:06 12/14/19 10:06 Sodium 132.0 L Potassium 3.9 Chloride 102 Carbon Dioxide 20 L Anion Gap 10 BUN 11 Creatinine 0.57 Est GFR ( Amer) > 60 Glucose 99 Calcium 8.6 12/13/19 12/13/19 09:09 09:09 Creatine Kinase 46 CK-MB (CK-2) 1.21 Troponin I 0.020 Impressions: Head MRI 12/13/19 08:39 IMPRESSION: 1. SMALL FOCAL AREAS OF RESTRICTED DIFFUSION IN THE RIGHT AND LEFT CEREBRAL HEMISPHERE DESCRIBED. SUSPECT THAT THESE MAY REPRESENT TINY ACUTE LACUNAR INFARCTS. MULTI VASCULAR DISTRIBUTION SUGGESTS THAT THESE MAY BE EMBOLIC. 2. 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 3. NO ENHANCING LESIONS. EVIDENCE OF ACUTE STROKE: SUSPECT TINY ACUTE LACUNAR INFARCTS. MULTI VASCULAR DISTRIBUTION. Chest X-Ray 12/13/19 09:08 IMPRESSION: BILATERAL PULMONARY NODULES AND MODERATE LEFT PLEURAL EFFUSION. SIMILAR APPEARANCE ON THE PRIOR CT. Assessment and Plan - Diagnosis (1) Acute CVA (cerebrovascular accident) Is this a current diagnosis for this admission?: Yes Plan: 12/13: Suspect that CVA is related to bevacizumab therapy. We will however pursue other causes embolic CVA. Will order for echocardiogram. Will check lipid panel carotid Doppler, and A1c as well. We will start patient on statin. Will hold off on antiplatelet therapy at this time due to recent bleeding. 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 Patient p refers to be restarted on anticoagulation. She does say that she has been compliant with her Xarelto at home. Will restart Xarelto and will monitor for bleeding episodes. Continue statin. (2) Epistaxis Is this a current diagnosis for this admission?: Yes Plan: Resolved. No recurrence. (3) Metastatic colon cancer to liver Is this a current diagnosis for this admission?: Yes Plan: Patient has stage IV colon cancer with metastasis to the liver and the right lung. Oncology following. - Time Time Spent with patient: 25-34 minutes
[2019-12-14 17:01] LABS: APPEARANCE,URINE CLEAR; BILIRUBIN,URINE NEGATIVE (NEGATIVE); COLOR,URINE YELLOW; GLUCOSE, URINE NEGATIVE (NEGATIVE); KETONES,URINE NEGATIVE (NEGATIVE); LEUKOCYTE ESTERASE,URINE TRACE (NEGATIVE); NITRITE,URINE NEGATIVE (NEGATIVE); PROTEIN,URINE NEGATIVE (NEGATIVE); URINE SPECIFIC GRAVITY 1.013
--- NOTE | 2019-12-14 17:45 | XCELERA REPORT ---
[address] [address] Transthoracic Echocardiogram Report Name: ROHITH MARTINEZ Age: 69 yrs Gender: Female : 1950 Patient Status: Inpatient Patient Location: [facility]^A Study Date: 12/14/2019 10:38 AM History: CVA Height: 64 in Weight: 103 lb BSA: 1.5 m2 Procedure: A complete two-dimensional transthoracic echocardiogram was performed (2D, M-mode, spectral and color flow Doppler). The study was technically difficult with many images being suboptimal in quality. Reason For Study: acute CVA, likely embolic stroke Previous Evaluation: No previous studies were available. Ordering Physician: AXEL COLEMAN Performed By: Kanwal Fair Interpretation Summary There is no obvious cardiac source of embolus noted on this transthoracic echocardiogram. Follow-up with a TAMELA is suggested if cardiac source is still suspected. The study was technically difficult with many images being suboptimal in quality. The Ejection Fraction estimate is 55-60% The right ventricle is normal in size and function. There is a trace amount of mitral regurgitation There is no aortic valve stenosis There is a mild amount of tricuspid regurgitation There is mild pulmonary hypertension by echo There is no pericardial effusion. MMode/2D Measurements & Calculations RVDd: 4.4 cm LVIDd: 3.8 cm FS: 31.5 % Ao root diam: 2.8 cm IVSd: 0.72 cm LVIDs: 2.6 cm EDV(Teich): 60.6 ml Ao root area: 6.0 cm2 LVPWd: 0.71 cm ESV(Teich): 24.1 ml LA dimension: 2.5 cm EF(Teich): 60.3 % Doppler Measurements & Calculations MV E max sascha: MV P1/2t max sascha: Ao V2 max: LV V1 max P.8 cm/sec 40.8 cm/sec 109.3 cm/sec 3.6 mmHg MV A max sascha: MV P1/2t: 141.9 msec Ao max P.8 mmHg LV V1 max: 56.2 cm/sec MVA(P1/2t): 1.6 cm2 95.0 cm/sec MV E/A: 0.73 MV dec slope: 84.2 cm/sec2 MV dec time: 0.44 sec PA V2 max: TR max sascha: MV P1/2t-pr_phl: 50.0 cm/sec 300.1 cm/sec 141.9 msec PA max PG: TR max P.0 mmHg 1.0 mmHg Left Ventricle The left ventricle is grossly normal size. Left ventricular systolic function is normal. The Ejection Fraction estimate is 55-60%. Doppler measurements suggest impaired left ventricular relaxation, which is associated with grade I/IV or mild diastolic dysfunction. Regional wall motion abnormalities cannot be excluded due to limited visualization. Right Ventricle The right ventricle is normal in size and function. Atria The right atrium is normal. The left atrial size is normal. The atrial septum is aneurysmal. Mitral Valve The mitral valve is grossly normal. The mitral valve leaflets are sclerotic, but show no functional abnormalities. There is no mitral valve stenosis. There is a trace amount of mitral regurgitation. Aortic Valve The aortic valve is normal in structure and function. The aortic valve is trileaflet. The aortic valve opens well. There is no aortic valve stenosis. No aortic regurgitation is present. Tricuspid Valve The tricuspid valve is not well visualized secondary to technical limitations. There is a mild amount of tricuspid regurgitation. Right ventricular systolic pressure is estimated to be elevated at 30-40mmHg. There is mild pulmonary hypertension by echo. Great Vessels The aortic root is normal size. Effusions There is no pericardial effusion. Moderate size left pleural effusion. : AXEL COLEMAN Anil
--- NOTE | 2019-12-14 18:30 | RADIOLOGY REPORT (SQ) ---
EXAM DESCRIPTION: CAROTID DOPPLER COMPLETED DATE/TIME: 12/14/2019 5:17 pm REASON FOR STUDY: acute CVA COMPARISON: None. TECHNIQUE: Grayscale ultrasound, Doppler velocity and spectra, and color Doppler images acquired of the extra-cranial carotid and vertebral arteries. Images stored on PACS. LIMITATIONS: None. FINDINGS: RIGHT CAROTID CCA Velocities: Within normal limits. ICA Velocities Peak systolic 85 cm/s. End diastolic 29 cm/s. Proximal ICA/CCA peak systolic ratio 1.4. Spectra normal. No significant plaque. LEFT CAROTID CCA Velocities: Within normal limits. ICA Velocities Peak systolic 92 cm/s. End diastolic 30 cm/s. Proximal ICA/CCA peak systolic ratio 1.4. Spectra normal. No significant plaque. VERTEBRAL ARTERIES: Antegrade flow. Normal waveforms. SUBCLAVIAN ARTERIES: No finding. OTHER: No other significant finding. IMPRESSION: NO HEMODYNAMICALLY SIGNIFICANT STENOSIS. COMMENT: Quality ID #[id number]: Velocity criteria are extrapolated from the diameter data as defined by t he Society of Radiologists in Ultrasound Consensus Conference. Radiology 2003: 229; 340-346. TECHNICAL DOCUMENTATION: JOB ID: [id number] 2010 [employer] All Rights Reserved Reading location - IP/workstation name: [email or web address]
[2019-12-14] MEDS: ATORVASTATIN CALCIUM 40 MG TABLET PO SCH (21:34)
[2019-12-14] MEDS: OXYCODONE HCL SR 10 MG TABLET PO PRN (21:37)
[2019-12-15] MEDS: NORMAL SALINE 1000 ML 1,000 ML IV PRN (09:27)
[2019-12-15] MEDS: OXYCODONE HCL SR 10 MG TABLET PO PRN ×2 (09:30→23:04)
[2019-12-15] MEDS: LEVOTHYROXINE SODIUM 0.025 MG TABLET PO SCH (09:31)
[2019-12-15] MEDS: RIVAROXABAN 10 MG TABLET PO SCH (09:31)
[2019-12-15] MEDS: LISINOPRIL 10 MG TABLET PO SCH (09:31)
[2019-12-15] MEDS: HYDROCHLOROTHIAZIDE 25 MG TABLET PO SCH (09:31)
[2019-12-15 09:32] LABS: HEMATOCRIT 39.1 % (36.0-47.0); HEMOGLOBIN 13.5 g/dL (12.0-15.5); MEAN CORPUSCULAR HEMOGLOBIN 29.9 pg (27.0-33.4); MEAN CORPUSCULAR HGB CONC 34.6 g/dL (32.0-36.0); MEAN CORPUSCULAR VOLUME 86 fl (80-97); PLATELET COUNT 201 10^3/uL (150-450); RED BLOOD COUNT 4.53 10^6/uL (3.72-5.28); RED CELL DISTRIBUTION WIDTH 17.8 % (11.5-14.0)
[2019-12-15] MEDS: MEGESTROL ACETATE SUSP 400 MG/10 ML UDCUP PO SCH (09:40)
[2019-12-15 09:55] LABS: ABSOLUTE LYMPHOCYTES# (MANUAL) 0.3 10^3/uL (0.5-4.7); ABSOLUTE MONOCYTES # (MANUAL) 0.7 10^3/uL (0.1-1.4); BASOPHILS % (MANUAL) 2 % (0-2); EOSINOPHILS % (MANUAL) 0 % (0-6); LYMPHOCYTES % (MANUAL) 10 % (13-45); MONOCYTES % (MANUAL) 22 % (3-13); SEGMENTED NEUTROPHILS % (MAN) 66 % (42-78); TOTAL CELLS COUNTED 100
[2019-12-15 09:56] LABS: ANISOCYTOSIS 1+; PLATELET COMMENT ADEQUATE
[2019-12-15] MEDS: ASPIRIN 81 MG TABLET, CHEWABLE PO SCH (12:13)
--- NOTE | 2019-12-15 13:37 | PDOC PROGRESS REPORT ---
Subjective Progress Note for:: 12/15/19 Subjective:: 12/14: No acute event overnight. Denies acute complaints this morning. No bleeding or recurrence of epistaxis. He is well oriented and coherent this morning. 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 Patient prefers to be restarted on anticoagulation. She does say that she has been compliant with her Xarelto at home. Will restart Xarelto and will monitor for bleeding episodes. 12/15: No acute event overnight. Patient denies acute complaints. No recurrence of epistaxis. No bleeding after restarting Xarelto. We will add aspirin today. Discussed recent benefits adding aspirin if patient does want to be medically optimized for treatment of CVA. Reason For Visit: ACUTE CVA Physical Exam Vital Signs: Temp Pulse Resp BP Pulse Ox 98.1 F 75 16 107/68 96 12/15/19 11:27 12/15/19 11:27 12/15/19 11:27 12/15/19 11:27 12/15/19 11:27 Intake & Output 12/14/19 12/15/19 12/16/19 06:59 06:59 06:59 Intake Total 1250 2293 1000 Output Total 0 Balance 1250 2293 1000 Weight 102 lb 8.239 oz 110 lb 3.698 oz General appearance: PRESENT: no acute distress, well-developed, well-nourished Head exam: PRESENT: atraumatic, normocephalic Eye exam: PRESENT: conjunctiva pink, EOMI, PERRLA. ABSENT: scleral icterus Ear exam: PRESENT: normal external ear exam Mouth exam: PRESENT: moist, tongue midline Neck exam: ABSENT: carotid bruit, JVD, lymphadenopathy, thyromegaly Respiratory exam: PRESENT: clear to auscultation rochelle. ABSENT: rales, rhonchi, wheezes Cardiovascular exam: PRESENT: RRR. ABSENT: diastolic murmur, rubs, systolic murmur Pulses: PRESENT: normal dorsalis pedis pul GI/Abdominal exam: PRESENT: normal bowel sounds, soft. ABSENT: distended, guarding, mass, organolmegaly, rebound, tenderness Rectal exam: PRESENT: deferred Extremities exam: PRESENT: full ROM. ABSENT: calf tenderness, clubbing, pedal edema Neurological exam: PRESENT: alert, awake, oriented to person, oriented to place, oriented to time, oriented to situation, CN II-XII grossly intact. ABSENT: motor sensory deficit Results Laboratory Results: 12/15/19 08:59 12/14/19 10:06 12/14/19 12/15/19 16:35 08:59 WBC 3.0 L RBC 4.53 Hgb 13.5 Hct 39.1 MCV 86 MCH 29.9 MCHC 34.6 RDW 17.8 H Plt Count 201 Seg Neutrophils % Not Reportable Urine Color YELLOW Urine Appearance CLEAR Urine pH 6.0 Ur Specific [place] 1.013 Urine Protein NEGATIVE Urine Glucose (UA) NEGATIVE Urine Ketones NEGATIVE Urine Blood NEGATIVE Urine Nitrite NEGATIVE Ur Leukocyte Esterase TRACE H Urine WBC (Auto) 7 Urine RBC (Auto) 0 12/13/19 12/13/19 09:09 09:09 Creatine Kinase 46 CK-MB (CK-2) 1.21 Troponin I 0.020 Impressions: Head MRI 12/13/19 08:39 IMPRESSION: 1. SMALL FOCAL AREAS OF RESTRICTED DIFFUSION IN THE RIGHT AND LEFT CEREBRAL HEMISPHERE DESCRIBED. SUSPECT THAT THESE MAY REPRESENT TINY ACUTE LACUNAR INFARCTS. MULTI VASCULAR DISTRIBUTION SUGGESTS THAT THESE MAY BE EMBOLIC. 2. 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 3. NO ENHANCING LESIONS. EVIDENCE OF ACUTE STROKE: SUSPECT TINY ACUTE LACUNAR INFARCTS. MULTI VASCULAR DISTRIBUTION. Chest X-Ray 12/13/19 09:08 IMPRESSION: BILATERAL PULMONARY NODULES AND MODERATE LEFT PLEURAL EFFUSION. SIMILAR APPEARANCE ON THE PRIOR CT. Carotid Doppler Study 12/14/19 00:00 IMPRESSION: NO HEMODYNAMICALLY SIGNIFICANT STENOSIS. Assessment and Plan - Diagnosis (1) Acute CVA (cerebrovascular accident) Is this a current diagnosis for this admission?: Yes Plan: 12/13: Suspect that CVA is related to bevacizumab therapy. We will however pursue other causes embolic CVA. Will order for echocardiogram. Will check lipid panel carotid Doppler, and A1c as well. We will start patient on statin. Will hold off on antiplatelet therapy at this time due to recent bleeding. 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 Patient prefers to be restarted on anticoagulation. She does say that she has been compliant with her Xarelto at home. Will restart Xarelto and will monitor for bleeding episodes. Continue statin. 12/15: Echo unremarkable. Will add aspirin today. (2) Epistaxis Is this a current diagnosis for this admission?: Yes Plan: Resolved. No recurrence. (3) Metastatic colon cancer to liver Is this a current diagnosis for this admission?: Yes Plan: Patient has stage IV colon cancer with metastasis to the liver and the right lung. Oncology following. - Time Time Spent with patient: 25-34 minutes
--- NOTE | 2019-12-15 17:58 | PDOC PROGRESS REPORT ---
Subjective Progress Note for:: 12/15/19 Subjective:: Patient states that she is trying to walk without the walker. She is feeling better and getting her stregth back. She vasquez not have much of an appetite. ROS: No chest pain. No dyspnea. Reason For Visit: ACUTE CVA Physical Exam Vital Signs: Temp Pulse Resp BP Pulse Ox 98.1 F 68 16 107/68 96 12/15/19 11:27 12/15/19 14:00 12/15/19 11:27 12/15/19 11:27 12/15/19 11:27 Intake & Output 12/14/19 12/15/19 12/16/19 06:59 06:59 06:59 Intake Total 1250 2293 1000 Output Total 0 Balance 1250 2293 1000 Weight 46.5 kg 50 kg General appearance: PRESENT: no acute distress Head exam: PRESENT: normocephalic Eye exam: PRESENT: EOMI Respiratory exam: PRESENT: clear to auscultation rochelle, unlabored Cardiovascular exam: PRESENT: RRR Extremities exam: ABSENT: pedal edema Neurological exam: PRESENT: other - Moving all 4 extremities. Speech clear. Was not visualized ambulating. Skin exam: PRESENT: normal color Results Laboratory Results: 12/15/19 08:59 12/14/19 10:06 12/15/19 08:59 WBC 3.0 L RBC 4.53 Hgb 13.5 Hct 39.1 MCV 86 MCH 29.9 MCHC 34.6 RDW 17.8 H Plt Count 201 Seg Neutrophils % Not Reportable 12/13/19 12/13/19 09:09 09:09 Creatine Kinase 46 CK-MB (CK-2) 1.21 Troponin I 0.020 Impressions: Head MRI 12/13/19 08:39 IMPRESSION: 1. SMALL FOCAL AREAS OF RESTRICTED DIFFUSION IN THE RIGHT AND LEFT CEREBRAL HEMISPHERE DESCRIBED. SUSPECT THAT THESE MAY REPRESENT TINY ACUTE LACUNAR INFARCTS. MULTI VASCULAR DISTRIBUTION SUGGESTS THAT THESE MAY BE EMBOLIC. 2. 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 3. NO ENHANCING LESIONS. EVIDENCE OF ACUTE STROKE: SUSPECT TINY ACUTE LACUNAR INFARCTS. MULTI VASCULAR DISTRIBUTION. Chest X-Ray 12/13/19 09:08 IMPRESSION: BILATERAL PULMONARY NODULES AND MODERATE LEFT PLEURAL EFFUSION. SIMILAR APPEARANCE ON THE PRIOR CT. Carotid Doppler Study 12/14/19 00:00 IMPRESSION: NO HEMODYNAMICALLY SIGNIFICANT STENOSIS. Assessment & Plan - Diagnosis (1) Acute CVA (cerebrovascular accident) Is this a current diagnosis for this admission?: Yes Plan: As per Primary team. Patient is hoping to go home within the next 24 hours. (2) H/O colon cancer, stage IV Is this a current diagnosis for this admission?: Yes Plan: No active treatment during this admission. Will consider further as outpatient. - Time Time Spent with patient: 15-24 minutes - Plan Summary Plan Summary: Will continue to follow. Dr. Mckeon will return on Tuesday. Please call with any concerns.
[2019-12-15] MEDS: ATORVASTATIN CALCIUM 40 MG TABLET PO SCH (21:35)
[2019-12-16] MEDS: LEVOTHYROXINE SODIUM 0.025 MG TABLET PO SCH (07:44)
[2019-12-16] MEDS: HYDROCHLOROTHIAZIDE 25 MG TABLET PO SCH (10:32)
[2019-12-16] MEDS: MEGESTROL ACETATE SUSP 400 MG/10 ML UDCUP PO SCH (10:32)
[2019-12-16] MEDS: ASPIRIN 81 MG TABLET, CHEWABLE PO SCH (10:32)
[2019-12-16] MEDS: LISINOPRIL 10 MG TABLET PO SCH (10:32)
[2019-12-16] MEDS: RIVAROXABAN 10 MG TABLET PO SCH (10:32)
--- NOTE | 2019-12-16 11:16 | RADIOLOGY REPORT (SQ) ---
EXAM DESCRIPTION: VENOUS UNILATERAL LOWER COMPLETED DATE/TIME: 12/16/2019 11:02 am REASON FOR STUDY: left leg farrahimjoni, ro dvt COMPARISON: 03/17/2018. TECHNIQUE: Dynamic and static ashton scale and color images acquired of the left leg venous system. Se lected spectral images acquired with additional compression and augmentation maneuvers. The contralat eral common femoral vein and saphenofemoral junction were also imaged. Images stored on PACS. LIMITATIONS: None. FINDINGS: COMMON FEMORAL: Normal phasicity, compression and augmentation. No visualized echogenic ma terial on ashton scale. No defects on color images. FEMORAL: Normal compression and augmentation. No visualized echogenic material on ashton scale. No defe cts on color images. POPLITEAL: Normal compression, augmentation. No visualized echogenic material on ashton scale. No defec ts on color images. CALF VESSELS: Normal compression, augmentation. No visualized echogenic material on ashton scale. No de fects on color images. GSV and SSV: Normal compression, augmentation. No visualized echogenic material on ashton scale. No def ects on color images. ANY DEEP VENOUS INSUFFICIENCY: No. ANY EVIDENCE OF POPLITEAL CYST: No. OTHER: No other significant finding. CONTRALATERAL COMMON FEMORAL VEIN AND SAPHENOFEMORAL JUNCTION: Normal phasicity, compression and augmentation. No visualized echogenic material on ashton scale. No de fects on color images. IMPRESSION: NO EVIDENCE DVT OR SVT IN THE LEFT LEG. TECHNICAL DOCUMENTATION: JOB ID: [id number] 2010 [employer]- All Rights Reserved Reading location - IP/workstation name: [email or web address]
[2019-12-16 13:01] VITALS: BP 114/74
--- NOTE | 2019-12-16 16:03 | PDOC DISCHARGE SUMMARY ---
Impression - Admit/DC Date/PCP Admission Date/Primary Care Provider: 12/14/19 14:40 ÁLVARO HANEY MD Discharge Date: 12/16/19 - Discharge Diagnosis (1) Acute CVA (cerebrovascular accident) Is this a current diagnosis for this admission?: Yes (2) Epistaxis Is this a current diagnosis for this admission?: Yes (3) Metastatic colon cancer to liver Is this a current diagnosis for this admission?: Yes - Additional Information Resuscitation Status: Full Code Discharge Diet: As Tolerated Discharge Activity: Activity As Tolerated Referrals: JOSETTE RUELAS PA-C [NURSE PRACTITIONER] - Prescriptions: Aspirin [Aspirin 81 mg Chewable Tablet] 81 mg PO DAILY #60 tab.chew Atorvastatin Calcium [Lipitor 40 mg Tablet] 40 mg PO QHS #30 tablet Home Medications: Levothyroxine Sodium [Synthroid 0.025 mg Tablet] 25 mcg PO QAM 03/06/18 Rivaroxaban [Xarelto] 20 mg PO DAILY #30 tablet 04/30/18 Lisinopril/Hydrochlorothiazide [Lisinopril-Hctz 20-25 mg Tab] 20 mg PO DAILY 12/13/19 Megestrol Acetate 10 ml PO DAILY 12/13/19 Ondansetron HCl [Zofran 8 mg Tablet] 8 mg PO TIDP PRN 12/13/19 Oxycodone HCl [Oxycontin] 15 mg PO BIDP PRN 12/13/19 Aspirin [Aspirin 81 mg Chewable Tablet] 81 mg PO DAILY #60 tab.chew 12/16/19 Atorvastatin Calcium [Lipitor 40 mg Tablet] 40 mg PO QHS #30 tablet 12/16/19 History of Present Illiness History of Present Illness: ROHITH MARTINEZ is a 69 year old female with a past medical history of stage IV colon cancer with right lung and liver metastasis, history of PE on Xarelto, hypothyroidism and hypertension who presented with epistaxis and recent episodes of confusion. Daughter is on the bedside. Patient reports that she had an episode of nosebleed on the left nostril early this morning. She could not quantify the amount of bleed to me but she says that there was "a lot of blood on the hand towel". Her nosebleed spontaneously resolved without intervention. She does take Xarelto at home for history of PE. Daughter reports that in the past 2 weeks, patient has been having increasing episodes of confusion where she would just repeatedly ask the same questions. She said that she would also just ramble all throughout on some occasions. Patient denies any weakness, numbness or tingling sensation in the arms or legs. In the ER, MRI of the head showed bilateral acute CVA suspected to be embolic in nature. Patient is getting treatments with bevacizumab for her colon cancer. Hospital Course Hospital Course: Patient presented with epistaxis which spontaneously resolved. She was also noted to have recent episodes of confusion. MRI showed tiny bilateral acute lacunar infarcts. She did not have any recurrence of epistaxis or bleeding since admission. Suspect that CVA is related to bevacizumab therapy as he has been shown to increase risk of CVA significantly. She did have a TTE which did not show an obvious intracardiac source of emboli. Carotid Doppler was also unremarkable. Her Xarelto was initially held. Discussed with patient and hematology. Discuss in length the need for her to be on anticoagulation for history of VTE and malignancy but makes her prothrombotic. Discussed the risk of resuming anticoagulation particularly bleeding risk given her recent epistaxis. Patient would prefer to be restarted on anticoagulation. Hematology also recommended resuming anticoagulation. Xarelto was restarted with no bleeding issues. Aspirin was also subsequently added and she was able to tolerate being on both blood thinners with no recurrence of bleeding issues. Her CODE STATUS was rediscussed 3 times on this admission. She says she has not decided yet and will need more time to discuss her CODE STATUS with her son after discharge. She was kept full code during this course. Physical Exam Vital Signs: Temp Pulse Resp BP Pulse Ox 97.9 F 68 16 114/74 95 12/16/19 12:05 12/16/19 12:05 12/16/19 12:05 12/16/19 12:05 12/16/19 12:05 Intake & Output 12/15/19 12/16/19 12/17/19 06:59 06:59 06:59 Intake Total 2293 2236 220 Balance 2293 2236 220 Weight 110 lb 3.698 oz 110 lb 10.753 oz General appearance: PRESENT: no acute distress, well-developed, well-nourished Head exam: PRESENT: atraumatic, normocephalic Eye exam: PRESENT: conjunctiva pink, EOMI, PERRLA. ABSENT: scleral icterus Ear exam: PRESENT: normal external ear exam Mouth exam: PRESENT: moist, tongue midline Neck exam: ABSENT: carotid bruit, JVD, lymphadenopathy, thyromegaly Respiratory exam: PRESENT: clear to auscultation rochelle. ABSENT: rales, rhonchi, wheezes Cardiovascular exam: PRESENT: RRR. ABSENT: diastolic murmur, rubs, systolic murmur Pulses: PRESENT: normal dorsalis pedis pul GI/Abdominal exam: PRESENT: normal bowel sounds, soft. ABSENT: distended, guarding, mass, organolmegaly, rebound, tenderness Rectal exam: PRESENT: deferred Neurological exam: PRESENT: alert, awake, oriented to person, oriented to place, oriented to time, oriented to situation, CN II-XII grossly intact. ABSENT: motor sensory deficit Results Laboratory Results: WBC 3.0 10^3/uL (4.0-10.5) L 12/15/19 08:59 RBC 4.53 10^6/uL (3.72-5.28) 12/15/19 08:59 Hgb 13.5 g/dL (12.0-15.5) 12/15/19 08:59 Hct 39.1 % (36.0-47.0) 12/15/19 08:59 MCV 86 fl (80-97) 12/15/19 08:59 MCH 29.9 pg (27.0-33.4) 12/15/19 08:59 MCHC 34.6 g/dL (32.0-36.0) 12/15/19 08:59 RDW 17.8 % (11.5-14.0) H 12/15/19 08:59 Plt Count 201 10^3/uL (150-450) 12/15/19 08:59 Lymph % (Auto) Not Reportable 12/15/19 08:59 [place]que % (Auto) Not Reportable 12/15/19 08:59 Eos % (Auto) Not Reportable 12/15/19 08:59 Baso % (Auto) Not Reportable 12/15/19 08:59 Absolute Neuts (auto) Not Reportable 12/15/19 08:59 Absolute Lymphs (auto) Not Reportable 12/15/19 08:59 Absolute Monos (auto) Not Reportable 12/15/19 08:59 Absolute Eos (auto) Not Reportable 12/15/19 08:59 Absolute Basos (auto) Not Reportable 12/15/19 08:59 Total Counted 100 12/15/19 08:59 Seg Neutrophils % Not Reportable 12/15/19 08:59 Seg Neuts % (Manual) 66 % (42-78) 12/15/19 08:59 Lymphocytes % (Manual) 10 % (13-45) L 12/15/19 08:59 Monocytes % (Manual) 22 % (3-13) H 12/15/19 08:59 Eosinophils % (Manual) 0 % (0-6) 12/15/19 08:59 Basophils % (Manual) 2 % (0-2) 12/15/19 08:59 Abs Neuts (Manual) 2.0 10^3/uL (1.7-8.2) 12/15/19 08:59 Abs Lymphs (Manual) 0.3 10^3/uL (0.5-4.7) L 12/15/19 08:59 Abs Monocytes (Manual) 0.7 10^3/uL (0.1-1.4) 12/15/19 08:59 Absolute Eos (Manual) 0.0 10^3/uL (0.0-0.6) 12/15/19 08:59 Abs Basophils (Manual) 0.1 10^3/uL (0.0-0.2) 12/15/19 08:59 Platelet Comment ADEQUATE 12/15/19 08:59 Anisocytosis 1+ 12/15/19 08:59 PT 18.9 SEC (11.4-15.4) H 12/13/19 09:09 INR 1.57 12/13/19 09:09 APTT 43.1 SEC (23.5-35.8) H 12/13/19 09:09 Sodium 132.0 mmol/L (137-145) L 12/14/19 10:06 Potassium 3.9 mmol/L (3.6-5.0) 12/14/19 10:06 Chloride 102 mmol/L (98-107) 12/14/19 10:06 Carbon Dioxide 20 mmol/L (22-30) L 12/14/19 10:06 Anion Gap 10 (5-19) 12/14/19 10:06 BUN 11 mg/dL (7-20) 12/14/19 10:06 Creatinine 0.57 mg/dL (0.52-1.25) 12/14/19 10:06 Est GFR ( Amer) > 60 (>60) 12/14/19 10:06 Est GFR (MDRD) Non-Af > 60 (>60) 12/14/19 10:06 Glucose 99 mg/dL (75-110) 12/14/19 10:06 Hemoglobin A1c % 5.4 % (4.7-6.0) 12/13/19 09:09 Calcium 8.6 mg/dL (8.4-10.2) 12/14/19 10:06 Total Bilirubin 1.6 mg/dL (0.2-1.3) H 12/13/19 09:09 Direct Bilirubin 0.6 mg/dL (0.0-0.4) H 12/13/19 09:09 Neonat Total Bilirubin Not Reportable 12/13/19 09:09 Neonat Direct Bilirubin Not Reportable 12/13/19 09:09 Neonat Indirect Bili Not Reportable 12/13/19 09:09 AST 49 U/L (14-36) H 12/13/19 09:09 ALT 20 U/L (<35) 12/13/19 09:09 Alkaline Phosphatase 273 U/L (38-126) H 12/13/19 09:09 Creatine Kinase 46 U/L (30-135) 12/13/19 09:09 CK-MB (CK-2) 1.21 ng/mL (<4.55) 12/13/19 09:09 Troponin I 0.020 ng/mL 12/13/19 09:09 Total Protein 7.5 g/dL (6.3-8.2) 12/13/19 09:09 Albumin 3.8 g/dL (3.5-5.0) 12/13/19 09:09 Triglycerides 105 mg/dL (<150) 12/13/19 09:09 Cholesterol 240.57 mg/dL (0-200) H 12/13/19 09:09 LDL Cholesterol Direct 185 mg/dL (<100) H 12/13/19 09:09 VLDL Cholesterol 21.0 mg/dL (10-31) 12/13/19 09:09 HDL Cholesterol 41 mg/dL (>40) 12/13/19 09:09 Urine Color YELLOW 12/14/19 16:35 Urine Appearance CLEAR 12/14/19 16:35 Urine pH 6.0 (5.0-9.0) 12/14/19 16:35 Ur Specific [place] 1.013 12/14/19 16:35 Urine Protein NEGATIVE mg/dL (NEGATIVE) 12/14/19 16:35 Urine Glucose (UA) NEGATIVE mg/dL (NEGATIVE) 12/14/19 16:35 Urine Ketones NEGATIVE mg/dL (NEGATIVE) 12/14/19 16:35 Urine Blood NEGATIVE (NEGATIVE) 12/14/19 16:35 Urine Nitrite NEGATIVE (NEGATIVE) 12/14/19 16:35 Urine Bilirubin NEGATIVE (NEGATIVE) 12/14/19 16:35 Urine Urobilinogen 2.0 mg/dL (<2.0) H 12/14/19 16:35 Ur Leukocyte Esterase TRACE (NEGATIVE) H 12/14/19 16:35 Urine WBC (Auto) 7 /HPF 12/14/19 16:35 Urine RBC (Auto) 0 /HPF 12/14/19 16:35 Squamous Epi Cells Auto <1 /HPF 12/14/19 16:35 Urine Mucus (Auto) RARE /LPF 12/14/19 16:35 Urine Ascorbic Acid NEGATIVE (NEGATIVE) 12/14/19 16:35 12/13/19 09:09 CK-MB (CK-2) 1.21 Troponin I 0.020 Impressions: Head MRI 12/13/19 08:39 IMPRESSION: 1. SMALL FOCAL AREAS OF RESTRICTED DIFFUSION IN THE RIGHT AND LEFT CEREBRAL HEMISPHERE DESCRIBED. SUSPECT THAT THESE MAY REPRESENT TINY ACUTE LACUNAR INFARCTS. MULTI VASCULAR DISTRIBUTION SUGGESTS THAT THESE MAY BE EMBOLIC. 2. 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 3. NO ENHANCING LESIONS. EVIDENCE OF ACUTE STROKE: SUSPECT TINY ACUTE LACUNAR INFARCTS. MULTI VASCULAR DISTRIBUTION. Chest X-Ray 12/13/19 09:08 IMPRESSION: BILATERAL PULMONARY NODULES AND MODERATE LEFT PLEURAL EFFUSION. SIMILAR APPEARANCE ON THE PRIOR CT. Carotid Doppler Study 12/14/19 00:00 IMPRESSION: NO HEMODYNAMICALLY SIGNIFICANT STENOSIS. Venous Doppler Study 12/16/19 08:21 IMPRESSION: NO EVIDENCE DVT OR SVT IN THE LEFT LEG. Stroke Is this a Stroke Patient?: No Acute Heart Failure - Is this a Heart Failure Patient?: No
== END 2019-12-16 13:59 | disposition home or self-care (01) | DRG 65 ==
LOC: ER 02:06 → INTOOBSV 12:59 → EH 12:59 → 3N 17:06 → OBSVTOIN 12-14 14:40 → 3W 12-14 17:05
PROVIDERS: ADMIT Internal Medicine; ATTEND Internal Medicine
DX: I63.81 Other cerebral infarction due to occlusion or stenosis of small artery (principal); C19 Malignant neoplasm of rectosigmoid junction; C78.7 Secondary malignant neoplasm of liver and intrahepatic bile duct; C78.01 Secondary malignant neoplasm of right lung; T45.1X5A Adverse effect of antineoplastic and immunosuppressive drugs, initial encounter; R04.0 Epistaxis; I10 Essential (primary) hypertension; E03.9 Hypothyroidism, unspecified; D64.9 Anemia, unspecified; Z90.49 Acquired absence of other specified parts of digestive tract; Z79.899 Other long term (current) drug therapy; Z86.711 Personal history of pulmonary embolism; Z79.01 Long term (current) use of anticoagulants; Z79.82 Long term (current) use of aspirin
CPT/HCPCS: 36415; 70553; 71046; 80048; 80053; 80061; 81001; 82550; 82553; 83036; 84484; 85025; 85610; 85730; 93005; 93010; 93306; 93880; 93971; 96361; 96374; 99284; A9576; G0378; J2405; J7030

== ENCOUNTER 2019-12-25 16:07 | Emergency (ER) | payer MEDICARE ==
[2019-12-25] MEDS ORDERED: OXYCODONE HCL SR 10 MG TABLET PO ONE ×2 (17:34→18:45)
[2019-12-25] MEDS ORDERED: HYDROMORPHONE HCL INJ/PF 2 MG/ML AMPULE IV ONE ×2 (17:36→20:59)
[2019-12-25] MEDS ORDERED: NORMAL SALINE 1000 ML 1,000 ML IV ONE ×2 (17:36)
--- NOTE | 2019-12-25 17:42 | ER Document Report ---
ED Medical Screen (RME) - General Chief Complaint: Abdominal Pain >50 Stated Complaint: ABDOMINAL PAIN,DIARRHEA Time Seen by Provider: 12/25/19 17:25 Primary Care Provider: JOSETTE RUELAS PA-C [Primary Care Provider] - Follow up as needed Mode of Arrival: Wheelchair Information source: Patient, Relative Notes: 69-year-old female presented to ED for complaint of left flank, left chest pain as well as right upper quadrant tenderness. She is stage IV for colon cancer with mets to liver. She also had a stroke 2 weeks ago has high blood pressure. And hypothyroid. She is on Xarelto for the PE. I did speak with Dr. Laura who recommended 1 mg of Dilaudid now and may need to give another 2 mg in about an hour. He states she also needs a liter of fluid bolus and then start her on IV fluids at about 125. He states she would probably need admitted for pain control. He stated that he did not need any CTs at this time that this is her cancer. Patient is very tearful in the room. She is with her family. Her daughter states that the doctor had ordered OxyContin 30 mg twice a day but it was making her out of it and she was too confused so they were given a 15 mg twice a day. I did let Dr. Laura know this is what she had been getting. I have greeted and performed a rapid initial assessment of this patient. A comprehensive ED assessment and evaluation of the patient, analysis of test results and completion of medical decision making process will be conducted by an additional ED providers. TRAVEL OUTSIDE OF THE [place] IN LAST 30 DAYS: No - Related Data Allergies/Adverse Reactions: No Known Allergies Allergy (Verified 12/13/19 02:24) Home Medications: oxycontin. xarelto. ASA. lipitor Past Medical History - Past Medical History Cardiac Medical History: Reports: Hx Hypertension Neurological Medical History: Denies: Hx Seizures Endocrine Medical History: Reports: Hx Hypothyroidism Renal/ Medical History: Denies: Hx Peritoneal Dialysis Malignancy Medical History: Reports: Hx Colorectal Cancer Psychiatric Medical History: Denies: Hx Depression Past Surgical History: Reports: Hx Abdominal Surgery - colon, Hx Orthopedic Surgery - CARPAL TUNNEL, Other - HEMICOLECTOMY 02/2018. Denies: Hx Hysterectomy - Immunizations Immunizations up to date: Yes Physical Exam - Vital signs Vitals: Temp Pulse Resp BP Pulse Ox 97.9 F 93 14 126/90 H 94 12/25/19 16:37 12/25/19 16:37 12/25/19 16:37 12/25/19 16:37 12/25/19 16:37 Course - Vital Signs Vital signs: Temp Pulse Resp BP Pulse Ox 97.9 F 93 14 126/90 H 94 12/25/19 16:37 12/25/19 16:37 12/25/19 16:37 12/25/19 16:37 12/25/19 16:37 Doctor's Discharge - Discharge Referrals: JOSETTE RUELAS PA-C [Primary Care Provider] - Follow up as needed
[2019-12-25 18:56] LABS: HEMATOCRIT 37.4 % (36.0-47.0); HEMOGLOBIN 12.9 g/dL (12.0-15.5); MEAN CORPUSCULAR HEMOGLOBIN 29.3 pg (27.0-33.4); MEAN CORPUSCULAR HGB CONC 34.5 g/dL (32.0-36.0); MEAN CORPUSCULAR VOLUME 85 fl (80-97); PLATELET COUNT 125 10^3/uL (150-450); RED CELL DISTRIBUTION WIDTH 18.4 % (11.5-14.0); WHITE BLOOD COUNT 4.9 10^3/uL (4.0-10.5)
[2019-12-25 19:13] LABS: ALBUMIN 2.7 g/dL (3.5-5.0); ALKALINE PHOSPHATASE 392 U/L (38-126); ANION GAP 6 (5-19); ASPARTATE AMINO TRANSFERASE 95 U/L (14-36); BILIRUBIN,DIRECT 0.2 mg/dL (0.0-0.4); BILIRUBIN,TOTAL 1.7 mg/dL (0.2-1.3); BLOOD UREA NITROGEN 17 mg/dL (7-20); CALCIUM 9.1 mg/dL (8.4-10.2); CARBON DIOXIDE 27 mmol/L (22-30); CHLORIDE 96 mmol/L (98-107); GLUCOSE 102 mg/dL (75-110); POTASSIUM 3.9 mmol/L (3.6-5.0); TOTAL PROTEIN 5.6 g/dL (6.3-8.2)
[2019-12-25 19:20] LABS: ABSOLUTE LYMPHOCYTES# (MANUAL) 0.3 10^3/uL (0.5-4.7); ABSOLUTE MONOCYTES # (MANUAL) 0.4 10^3/uL (0.1-1.4); ANISOCYTOSIS 1+; BASOPHILS % (MANUAL) 0 % (0-2); EOSINOPHILS % (MANUAL) 1 % (0-6); HYPOCHROMASIA SLIGHT; LYMPHOCYTES % (MANUAL) 6 % (13-45); MONOCYTES % (MANUAL) 9 % (3-13); PLATELET COMMENT DECREASED; SEGMENTED NEUTROPHILS % (MAN) 84 % (42-78); TOTAL CELLS COUNTED 100
--- NOTE | 2019-12-25 19:30 | RADIOLOGY REPORT (SQ) ---
EXAM DESCRIPTION: CHEST SINGLE VIEW COMPLETED DATE/TIME: 12/25/2019 6:28 pm REASON FOR STUDY: left chest pain mets COMPARISON: 12/13/2019 TECHNIQUE: Single frontal radiographic view of the chest acquired. NUMBER OF VIEWS: One view. LIMITATIONS: None. FINDINGS: LUNGS AND PLEURA: No pneumothorax. Similar large left pleural effusion in bilateral inter stitial-nodular opacities. . MEDIASTINUM AND HILAR STRUCTURES: Stable. HEART AND VASCULAR STRUCTURES: Stable. BONES: No acute findings. HARDWARE: Left chest port. OTHER: No other significant finding. IMPRESSION: NO ACUTE FINDINGS. TECHNICAL DOCUMENTATION: JOB ID: [id number] 2010 [employer]- All Rights Reserved Reading location - IP/workstation name: [employer]
--- NOTE | 2019-12-25 21:00 | ER Document Report ---
ED General - General Chief Complaint: Abdominal Pain >50 Stated Complaint: ABDOMINAL PAIN,DIARRHEA Time Seen by Provider: 12/25/19 17:25 Primary Care Provider: JOSETTE RUELAS PA-C [Primary Care Provider] - Follow up as needed Mode of Arrival: Wheelchair Notes: Patient is a 69-year-old female with a history of colorectal cancer with metastasis to the spleen and liver that comes to the emergency department for chief complaint of pain in the upper abdomen. She has right upper quadrant pain, pain underneath her left ribs, and pain in her left flank. She states that she just cannot get comfortable. She denies fever or pain in her chest, she denies headache, she denies vomiting, she reports some constipation, reportedly patient had been prescribed OxyContin 30 mg a day the patient had go tten disoriented with this previously so she is only being given 15 mg twice a day instead per family in triage. Triage provider already spoke to patient's oncologist Dr. Mckeon who recommended pain control, IV fluids, and possible admission for pain control. Patient is also on Xarelto for history of PE, has a history of hypertension, CVA, hypothyroidism. Patient is currently on chemotherapy. TRAVEL OUTSIDE OF THE [place] IN LAST 30 DAYS: No - Related Data Allergies/Adverse Reactions: No Known Allergies Allergy (Verified 12/13/19 02:24) Home Medications: oxycontin. xarelto. ASA. lipitor Past Medical History - General Information source: Patient, Relative - Social History Smoking Status: Never Smoker Frequency of alcohol use: None Drug Abuse: None Lives with: Family Family History: Reviewed & Not Pertinent, CAD, DM, Other Patient has suicidal ideation: No Patient has homicidal ideation: No - Past Medical History Cardiac Medical History: Reports: Hx Hypertension Neurological Medical History: Denies: Hx Seizures Endocrine Medical History: Reports: Hx Hypothyroidism Renal/ Medical History: Denies: Hx Peritoneal Dialysis Malignancy Medical History: Reports: Hx Colorectal Cancer Psychiatric Medical History: Denies: Hx Depression Past Surgical History: Reports: Hx Abdominal Surgery - colon, Hx Orthopedic Surgery - CARPAL TUNNEL, Other - HEMICOLECTOMY 02/2018. Denies: Hx Hysterectomy - Immunizations Immunizations up to date: Yes Review of Systems - Review of Systems Constitutional: See HPI EENT: No symptoms reported Cardiovascular: No symptoms reported Respiratory: No symptoms reported Gastrointestinal: See HPI Genitourinary: No symptoms reported Female Genitourinary: No symptoms reported Musculoskeletal: No symptoms reported Skin: No symptoms reported Hematologic/Lymphatic: No symptoms reported Neurological/Psychological: No symptoms reported Physical Exam - Vital signs Vitals: Temp Pulse Resp BP Pulse Ox 97.9 F 93 14 126/90 H 94 12/25/19 16:37 12/25/19 16:37 12/25/19 16:37 12/25/19 16:37 12/25/19 16:37 - Notes Notes: GENERAL: Slightly frail and chronically ill-appearing HEAD: Normocephalic, atraumatic. EYES: Pupils equal, round, and reactive to light. Extraocular movements intact. ENT: Oral mucosa moist, tongue midline. Oropharynx unremarkable. Airway patent. LUNGS: Clear to auscultation bilaterally, no wheezes, rales, or rhonchi. No respiratory distress. HEART: Regular rate and rhythm. No murmur ABDOMEN: There is mild diffuse tenderness over the epigastric region, lower abdomen is benign, no guarding. Bowel sounds are present. GENITOURINARY: Deferred EXTREMITIES: Moves all 4 extremities spontaneously. No edema, normal radial and dorsalis pedis pulses bilaterally. No cyanosis. BACK: no cervical, thoracic, lumbar midline tenderness. No saddle anesthesia, normal distal neurovascular exam. Moves all extremities in full range of motion. NEUROLOGICAL: Alert and oriented x3. Normal speech. Cranial nerves II through XI I grossly intact. PSYCH: Normal affect, normal mood. SKIN: Warm, dry, normal turgor. No rashes or lesions noted. Course - Re-evaluation Re-evalutation: Patient has some thrombocytopenia, this is similar to prior, she does not have a ny bleeding. She does have some hyponatremia as well, this is also similar to prior. Nonspecific work-up. Chest x-ray, ultrasound of the upper abdomen, and abdomen x-ray nonspecific with no concerning acute findings. Patient is reporting that her pain symptoms are not new but she is having trouble controlling them. She was not comfortable after initial IV medications, she will be redosed. Patient is much more comfortable after being redosed but she is slightly sluggish and confused now. Family members came to bedside. They state that patient was on 30 mg of OxyContin twice a day, however she was always tired, intermittently confused, sluggish. However they state that when she was changed to 15 mg of OxyContin twice a day she started having pain several hours after her dosing and she was very uncomfortable like today. I called and spoke with Dr. Mac, on-call for patient's oncologist, she is familiar with the patient. I discussed the work-up, symptoms, situation. Her recommendation is that patient be placed on 15 mg of OxyContin every 8 hours, she can be given a prescription for this, and patient can follow-up closely in the office with return precautions. I discussed this with patient and family, they are very agreeable with this. Stable at time of discharge. - Vital Signs Vital signs: Temp Pulse Resp BP Pulse Ox 97.7 F 78 16 153/84 H 95 12/26/19 01:49 12/26/19 01:49 12/26/19 01:49 12/26/19 01:49 12/26/19 01:49 - Laboratory Result Diagrams: 12/25/19 18:39 12/25/19 18:39 Laboratory results interpreted by me: 12/25/19 12/25/19 12/26/19 18:39 18:39 00:42 RDW 18.4 H Plt Count 125 L Seg Neuts % (Manual) 84 H Lymphocytes % (Manual) 6 L Abs Lymphs (Manual) 0.3 L Sodium 128.6 L Chloride 96 L Total Bilirubin 1.7 H AST 95 H ALT 41 H Alkaline Phosphatase 392 H Total Protein 5.6 L Albumin 2.7 L Urine Protein 30 H Urine Urobilinogen 4.0 H Urine Ascorbic Acid 40 H Discharge - Discharge Clinical Impression: Metastatic colon cancer to liver Abdominal pain Qualifiers: Abdominal location: generalized Qualified Code(s): R10.84 - Generalized abdominal pain Condition: Stable Disposition: HOME, SELF-CARE Additional Instructions: Your evaluation and work-up are reassuring. Because of her problems with pain control, I have spoken to Dr. Mac, we are changing her medication dose to 15 mg of OxyContin every 8 hours with the extended release, this is been prescribed and sent to the pharmacy, you can use her regular medication in this dosing until you fill this, please follow-up with your oncologist for additional m anagement. Return if she worsens including severe worsening pain, fever, vomiting, or if something is not right. Prescriptions: Oxycodone HCl [Oxycontin] 15 mg PO Q8H 10 Days #30 tab.sr.12h Forms: Treatment of Relative/Child Referrals: JOSETTE RUELAS PA-C [Primary Care Provider] - Follow up as needed
--- NOTE | 2019-12-25 21:37 | RADIOLOGY REPORT (SQ) ---
EXAM DESCRIPTION: X-RAY ABDOMEN, ONE VIEW CLINICAL HISTORY: Abdominal distention COMPARISON: None available TECHNIQUE: [Single view of the abdomen and pelvis] FINDINGS: There is partial visualization of a left pleural effusion. The bowel gas pattern is nonspecific in nature. No significant stool burden is identified. No suspicious lytic or blastic osseous lesions. IMPRESSION: Nonspecific bowel gas pattern. If further evaluation is required, CT could be considered as a more sensitive evaluation.
--- NOTE | 2019-12-25 22:13 | RADIOLOGY REPORT (SQ) ---
Ultrasound right upper quadrant on 12/25/2019 at 9:20 PM CLINICAL INDICATION: Upper abdominal pain COMPARISON: CT from 10/30/2019 FINDINGS: Multiple sonographic images are obtained throughout the right upper quadrant, both transverse and sagittal images are obtained. Visualized pancreas is unremarkable. Visualized hepatic vasculature is patent and with a normal directional flow. Tumefactive sludge is noted in the gallbladder. No gallstones, gallbladder wall thickening or pericholecystic fluid is noted. The common duct measures 6 mm which is within normal limits mitigates against obstruction of the biliary tree. Right kidney shows no hydronephrosis. There is heterogeneity in the liver consistent with the patient's known hepatic metastatic disease. One left hepatic lesion measures approximately 2 cm in greatest diameter. IMPRESSION: 1. Continued hepatic metastatic disease partially imaged. 2. Tumefactive sludge in the gallbladder.
[2019-12-26 00:56] LABS: APPEARANCE,URINE SLIGHTLY-CLOUDY; BILIRUBIN,URINE NEGATIVE (NEGATIVE); COLOR,URINE YELLOW; GLUCOSE, URINE NEGATIVE (NEGATIVE); KETONES,URINE NEGATIVE (NEGATIVE); PROTEIN,URINE 30 mg/dL (NEGATIVE); URINE SPECIFIC GRAVITY 1.013
[2019-12-26 01:54] VITALS: BP 153/84
== END 2019-12-26 02:08 | disposition home or self-care (01) ==
LOC: ER 16:07
DX: C18.9 Malignant neoplasm of colon, unspecified (principal); C78.7 Secondary malignant neoplasm of liver and intrahepatic bile duct; C78.89 Secondary malignant neoplasm of other digestive organs; R10.84 Generalized abdominal pain; R10.11 Right upper quadrant pain; R19.7 Diarrhea, unspecified; I10 Essential (primary) hypertension; Z79.02 Long term (current) use of antithrombotics/antiplatelets; Z79.82 Long term (current) use of aspirin
CPT/HCPCS: 36591; 96376; 99284; 96361; 51701; 96374; 36415; 87086; 85025; 80053; 81001; 71045; 74018; 76705; J1170; A9270; J7030; J1642 ×2